=== PATIENT | female | born 1925 | race Caucasian/White ===

== ENCOUNTER 2016-09-05 13:38 | Inpatient (IN) | payer MEDICARE, BC ==
[2016-09-05] MEDS ORDERED: SODIUM CHLORIDE 0.9% 1,000 ML IV STA (14:01)
[2016-09-05 14:34] LABS: ALT 26 U/L (9-52); AST 31 U/L (14-36); Alkaline Phosphatase 158 U/L (38-126); Anion Gap 9 mmol/L; Blood Urea Nitrogen 11 mg/dL (7-17); Calcium 7.8 mg/dL (8.4-10.2); Carbon Dioxide 23 mmol/L (22-30); Chloride 103 mmol/L (98-107); Glucose 96 mg/dL (74-99); Non-African American GFR(MDRD) >60 (>60 ml/min/1.73 sqM); Potassium 3.4 mmol/L (3.5-5.1); Sodium 135 mmol/L (137-145); Total Bilirubin 0.7 mg/dL (0.2-1.3)
[2016-09-05 14:36] LABS: Basophils % (A) 0 %; CH 30.4; CHCM 32.9; Eosinophils # (A) 0.5 k/uL (0-0.7); Eosinophils % (A) 5 %; HCT 30.9 % (34.0-46.0); HDW 2.88; HGB 10.2 gm/dL (11.4-16.0); Luc # (Auto) 0.32; Luc % (Auto) 3; Lymphocytes # (A) 1.2 k/uL (1.0-4.8); Lymphocytes % (A) 10 %; MCH 30.7 pg (25.0-35.0); MCV 92.9 fL (80.0-100.0); Mean Platelet Volume 10.3; Monocytes # (A) 0.7 k/uL (0-1.0); Monocytes % (A) 6 %; Neutrophils # (A) 8.6 k/uL (1.3-7.7); Neutrophils % (A) 76 %; RBC 3.33 m/uL (3.80-5.40); RDW 13.9 % (11.5-15.5); WBC 11.3 k/uL (3.8-10.6); WBC (Perox) 12.01
[2016-09-05] MEDS ORDERED: oxyCODONE-APAP 5-325MG 1 EACH TAB PO STA (14:49)
[2016-09-05 14:57] LABS: Manual Review Performed; RBC Morphology Normal
[2016-09-05 15:10] LABS: Creatine Kinase MB 2.8 ng/mL (0.0-2.4)
[2016-09-05 15:11] LABS: Troponin I 0.099 ng/mL (0.000-0.034)
--- NOTE | 2016-09-05 15:29 | ED ---
GI Bleed HPI - General Chief complaint: GI Bleed Stated complaint: GI Bleed Time Seen by Provider: 09/05/16 13:54 Source: patient, EMS Mode of arrival: EMS Limitations: no limitations - History of Present Illness Initial comments: But she has a history of GI bleed, she has off-and-on blood in her stool for the 6 months she probably got worse over the last 2 months and now she sustained it's bright red to dark stool she seen when she moves her bowels she denies any abdominal pain she is not in any blood thinners. Eyes any fever no chills no diarrhea no constipation no frequency urgency dysuria no history of upper or lower extremity weakness - Related Data Home Medications Medication Instructions Recorded Confirmed Metoprolol Succinate [Toprol XL] 12.5 mg PO BID 02/15/14 09/05/16 DULoxetine HCL [Cymbalta] 30 mg PO DAILY 07/31/15 09/05/16 oxyCODONE-APAP 5-325MG [Percocet 1 tab PO BID 07/31/15 09/05/16 5-325 mg] Gabapentin [Neurontin] 300 mg PO BID 09/05/16 09/05/16 Hydrocortisone Suppository 25 mg RECTAL DAILY 09/05/16 09/05/16 [Anusol-Hc] Levothyroxine Sodium [Synthroid] 25 mcg PO DAILY 09/05/16 09/05/16 Allergies Allergy/AdvReac Type Severity Reaction Status Date / Time codeine Allergy Rash/Hives Verified 09/05/16 14:37 latex Allergy Rash/Hives Verified 09/05/16 14:37 Sulfa (Sulfonamide Allergy Rash/Hives Verified 09/05/16 14:37 Antibiotics) Review of Systems ROS Statement: Those systems with pertinent positive or pertinent negative responses have been documented in the HPI. ROS Other: All systems not noted in ROS Statement are negative. Past Medical History Past Medical History: Cancer, GERD/Reflux, Hyperlipidemia, Hypertension, Osteoarthritis (OA), Thyroid Disorder Additional Past Medical History / Comment(s): irregular heart beat(afib per old chart 2011),migranes, trigenimal nerve pain(jaw),glaucoma,lower partial, upper bridge,pvd,abd hernia,peptic ulcer disease, stress incont,osteoporosis,skin ca, past fx to rt foot, lt femur, up back.abdoulaye lower leg cellulitis, neuropathy History of Any Multi-Drug Resistant Organisms: None Reported Past Surgical History: Appendectomy, Cholecystectomy, Joint Replacement, Orthopedic Surgery, Tonsillectomy Additional Past Surgical History / Comment(s): Lt knee replacement, Lt femur- has plates and screws, vein stripping, partial thyroidectomy(rt side), cataracts Additional Past Anesthesia/Blood Transfusion Reaction / Comment(s): hallucinations after knee surgery and dizziness for 6 months after femur sx. Past Psychological History: Anxiety, Depression Additional Psychological History / Comment(s): was taking cymbalta but did'nt like that way it made her feel so she stopped taking it a year ago. 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 lives with her who has dementia-she is his caregiver. pt gets around by walker and at times a w/c-has neuropathy pain to abdoulaye legs/feet. pt has help from 3 daughters at times but when no help availbale (when daughters are at work) it's tough on her. Smoking Status: Former smoker Past Alcohol Use History: None Reported Additional Past Alcohol Use History / Comment(s): quit smoking in 1981 smoked 1 pd x 25 years Past Drug Use History: None Reported - Past Family History Father Family Medical History: Unable to Obtain Mother Family Medical History: Unable to Obtain General Exam - General Exam Comments Initial Comments: General: The patient is awake and alert, in no distress, and does not appear acutely ill. GCS is 15 Skin: Skin is warm and dry and no rashes or lesions are noted. Looks pale Eye: Pupils are equal, round and reactive to light, extra-ocular movements are intact; there is normal conjunctiva bilaterally. Ears, nose, mouth and throat: There are moist mucous membranes and no oral lesions. Neck: The neck is supple, there is no tenderness or JVD. Cardiovascular: There is a regular rate and rhythm. No murmur, rub or gallop is appreciated. Respiratory: To auscultation bilateral, no wheezing no rhonchi no distress respiratory alegre noticed Gastrointestinal: Soft, non-distended, non-tender abdomen without masses or organomegaly noted. There is no rebound or guarding present. Bowel sounds are unremarkable. Rectal exam mouth was copiously positive noticed red blood per rectum noticed blood on the underpants as well before the exam Back: There is no tenderness to palpation in the midline. There is no obvious deformity. Musculoskeletal: Normal ROM, no tenderness, There is no pedal edema. There is no calf tenderness or swelling. No cords were appreciated. Neurological: CN II-XII intact, Cranial nerves III through XII are intact. There are no obvious motor or sensory deficits. Coordination appears grossly intact. Speech is normal. Psychiatric: Cooperative, appropriate mood & affect, normal judgment. Limitations: no limitations Course Vital Signs 09/05/16 09/05/16 09/05/16 13:39 14:19 15:34 Temperature 98.2 F Pulse Rate 87 83 100 Respiratory 16 16 16 Rate Blood Pressure 98/53 131/62 O2 Sat by Pulse 98 99 100 Oximetry EKG is normal sinus rhythm there are some premature atrial complexes ventricular rate is 85 RI interval is 144 QRS duration is 92 QT/QTc is 376/447 review of this EKG shows low voltage complexes apart from that don't see any ST elevation or ST depression noticed some T-wave flattening in aVF She has obvious leading from the rectum, hemoglobin is 10.2 and a troponin is 0.099 I DL E I would not go ahead and transfuse the patient only with a 1 unit of packed red cells ,will do the serial H&H, will consult the GI as well as cardiology considering her GI bleed and elevated troponin I discussed that with the Dr. Huynh who is covering Dr. Funez prescription today he agreed to that plan Medical Decision Making - Lab Data Result diagrams: 09/05/16 13:55 09/05/16 13:55 Lab Results 09/05/16 09/05/16 09/05/16 Range/Units 13:55 13:55 13:55 WBC 11.3 H (3.8-10.6) k/uL RBC 3.33 L (3.80-5.40) m/uL Hgb 10.2 L (11.4-16.0) gm/dL Hct 30.9 L (34.0-46.0) % MCV 92.9 (80.0-100.0) fL MCH 30.7 (25.0-35.0) pg MCHC 33.0 (31.0-37.0) g/dL RDW 13.9 (11.5-15.5) % Plt Count 84 L (150-450) k/uL Neutrophils % 76 % Lymphocytes % 10 % Monocytes % 6 % Eosinophils % 5 % Basophils % 0 % Neutrophils # 8.6 H (1.3-7.7) k/uL Lymphocytes # 1.2 (1.0-4.8) k/uL Monocytes # 0.7 (0-1.0) k/uL Eosinophils # 0.5 (0-0.7) k/uL Basophils # 0.0 (0-0.2) k/uL Manual Slide Review Performed RBC Morphology Normal APTT (22.0-30.0) sec Sodium 135 L (137-145) mmol/L Potassium 3.4 L (3.5-5.1) mmol/L Chloride 103 (98-107) mmol/L Carbon Dioxide 23 (22-30) mmol/L Anion Gap 9 mmol/L BUN 11 (7-17) mg/dL Creatinine 0.64 (0.52-1.04) mg/dL Est GFR (MDRD) Af Amer >60 (>60 ml/min/1.73 sqM) Est GFR (MDRD) Non-Af >60 (>60 ml/min/1.73 sqM) Glucose 96 (74-99) mg/dL Calcium 7.8 L (8.4-10.2) mg/dL Total Bilirubin 0.7 (0.2-1.3) mg/dL AST 31 (14-36) U/L ALT 26 (9-52) U/L Alkaline Phosphatase 158 H (38-126) U/L Total Creatine Kinase 110 (30-135) U/L CK-MB (CK-2) 2.8 H* (0.0-2.4) ng/mL CK-MB (CK-2) Rel Index 2.5 Troponin I 0.099 H* (0.000-0.034) ng/mL Total Protein 6.0 L (6.3-8.2) g/dL Albumin 2.8 L (3.5-5.0) g/dL Stool Occult Blood (Negative) Blood Type Blood Type Recheck Antibody Screen Spec Expiration Date 09/05/16 09/05/16 09/05/16 Range/Units 13:55 13:55 14:15 WBC (3.8-10.6) k/uL RBC (3.80-5.40) m/uL Hgb (11.4-16.0) gm/dL Hct (34.0-46.0) % MCV (80.0-100.0) fL MCH (25.0-35.0) pg MCHC (31.0-37.0) g/dL RDW (11.5-15.5) % Plt Count (150-450) k/uL Neutrophils % % Lymphocytes % % Monocytes % % Eosinophils % % Basophils % % Neutrophils # (1.3-7.7) k/uL Lymphocytes # (1.0-4.8) k/uL Monocytes # (0-1.0) k/uL Eosinophils # (0-0.7) k/uL Basophils # (0-0.2) k/uL Manual Slide Review RBC Morphology APTT 28.3 (22.0-30.0) sec Sodium (137-145) mmol/L Potassium (3.5-5.1) mmol/L Chloride (98-107) mmol/L Carbon Dioxide (22-30) mmol/L Anion Gap mmol/L BUN (7-17) mg/dL Creatinine (0.52-1.04) mg/dL Est GFR (MDRD) Af Amer (>60 ml/min/1.73 sqM) Est GFR (MDRD) Non-Af (>60 ml/min/1.73 sqM) Glucose (74-99) mg/dL Calcium (8.4-10.2) mg/dL Total Bilirubin (0.2-1.3) mg/dL AST (14-36) U/L ALT (9-52) U/L Alkaline Phosphatase (38-126) U/L Total Creatine Kinase (30-135) U/L CK-MB (CK-2) (0.0-2.4) ng/mL CK-MB (CK-2) Rel Index Troponin I (0.000-0.034) ng/mL Total Protein (6.3-8.2) g/dL Albumin (3.5-5.0) g/dL Stool Occult Blood Positive H (Negative) Blood Type AB Positive Blood Type Recheck No Antibody Screen NEGATIVE Spec Expiration Date 09/08/2016 - 1309 Disposition Clinical Impression: GI bleed, Elevated troponin, Hypotension, Thrombocytopenia Disposition: ADMITTED IP TO THIS [facility] Condition: Good Referrals: Zander Curtis MD [Primary Care Provider] - 1-2 days
[2016-09-05] MEDS ORDERED: NALOXONE 0.4 MG/ML 1 ML VIAL IV PRN (15:49)
[2016-09-05] MEDS ORDERED: ACETAMINOPHEN TAB 325 MG TAB PO PRN (15:49)
--- NOTE | 2016-09-05 16:10 | XR ---
EXAMINATION TYPE: XR chest 1V DATE OF EXAM: 09/05/2016 4:06 PM COMPARISON: 07/31/2015 HISTORY: 89-year-old female with pain, blood in stool for a few days, hypertension TECHNIQUE: Single frontal view of the chest is obtained. FINDINGS: Heart remains borderline enlarged. There is rightward patient rotation altering the normal cardial me diastinal contours. Diffuse interstitial prominence with strandy areas of scarring and chronic inters titial changes are redemonstrated. Mild hyperinflation. No terri consolidation or significant pleural effusion. Prominent skinfolds project on both sides. IMPRESSION: Limited rotated exam with skin folds projecting on both sides. There are chronic changes, possible un derlying COPD. No definite acute process.
--- NOTE | 2016-09-05 16:12 | XR ---
EXAMINATION TYPE: XR KUB DATE OF EXAM: 09/05/2016 4:06 PM CLINICAL DATA: 89-year-old female with pain and blood in stool for a few days, [facility] COMPARISON: 02/15/2014 FINDINGS: Proximal left femoral fixation. Degenerated dextroconvex scoliosis. There is scattered air seen withi n transverse and distal colon as well as small bowel loops. No abnormal bowel dilatation. Supine imag ing limited for assessment of free air. No significant stool burden seen. Cholecystectomy clips. IMPRESSION: Nonspecific, nonobstructive bowel gas pattern. No significant stool burden. Supine imaging limited fo r assessment of free air.
--- NOTE | 2016-09-05 16:16 | XR ---
EXAMINATION TYPE: XR knee 4V LT DATE OF EXAM: 09/05/2016 4:06 PM COMPARISON: 06/08/2012 HISTORY: 89 year-old female left knee pain and swelling TECHNIQUE: 4 views FINDINGS: Images show left total knee arthroplasty. Both distal femoral and proximal tibial components of the p rosthesis appear well seated without periprosthetic fracture. No significant loosening is seen. No si gnificant knee joint effusion. Merchant's view shows some narrowing along the lateral prosthetic facets of the patellofemoral compar tment which may be on a projectional basis. No acute fracture or dislocation. IMPRESSION: 1. The merchants view shows some narrowing along the lateral prosthetic facets of the patellofemoral compartment. This may be on a projectional basis. Clinically correlate for possible accelerated plast ic liner wear. 2. Otherwise, uncomplicated appearance to the left total knee arthroplasty.
[2016-09-05] MEDS: LIDOCAINE 4% CREAM 5 GM TUBE TOPICAL PRN (18:54)
[2016-09-05] MEDS ORDERED: SODIUM CHLORIDE 0.9% 1,000 ML IV ONE (19:09)
[2016-09-05 19:56] LABS: Glucose,Whole Blood 95 mg/dL (75-99)
[2016-09-05] MEDS: GABAPENTIN 300 MG CAP PO SCH (20:30)
[2016-09-05] MEDS: METOPROLOL SUCCINATE (ER) 25 MG TAB.ER.24H PO SCH (20:30)
[2016-09-05] MEDS: PANTOPRAZOLE 40 MG/10 ML VIAL IVP SCH (20:31)
[2016-09-05] MEDS: SODIUM CHLORIDE 0.9% 1,000 ML IV SCH (20:31)
[2016-09-05] MEDS ORDERED: oxyCODONE-APAP 5-325MG 1 EACH TAB PO SCH (21:00)
--- NOTE | 2016-09-05 22:29 | US ---
EXAMINATION TYPE: US pelvic complete DATE OF EXAM: 09/05/2016 10:17 PM COMPARISON: NONE CLINICAL HISTORY: r/o vaginal bleeding. 89 year old ICU patient with GI bleed, RN suspects vaginal bl eeding also TECHNIQUE: TA Date of LMP: 35+years ago EXAM MEASUREMENTS: Uterus: 8.6 x 7.4 x 5.6cm Endometrial Stripe: Not visualized Right Ovary: Not visualized Left Ovary: Not visualized TECHNOLOGIST IMPRESSION: due to patient age and patient request, TV approach was not used 1. Uterus: Anteverted complex fluid collection seen within uterus that most likely represents bloo d, mobile internal debris noted, 3.8cm shadowing echogenic structure seen in posterior lower uterine segment 2. Endometrium: unable to visualize due to fluid collection 3. Right Ovary: not seen due to atrophy and bowel gas 4. Left Ovary: not seen due to atrophy and bowel gas 5. Bilateral Adnexa: wnl 6. Posterior cul-de-sac: wnl IMPRESSION: There is complex fluid that is filling the endometrial cavity of the uterus. This measure s 7 x 5 cm. This could relate to pyometra or hematometra. No adnexal mass. Tumor cannot be excluded.
[2016-09-05 23:00] LABS: CH 30.1; CHCM 31.5; HCT 34.6 % (34.0-46.0); HDW 3.19; HGB 11.2 gm/dL (11.4-16.0); Hypochromasia Slight; MCH 31.2 pg (25.0-35.0); MCHC 32.3 g/dL (31.0-37.0); MCV 96.5 fL (80.0-100.0); Mean Platelet Volume 10.2; RBC 3.59 m/uL (3.80-5.40); RDW 14.3 % (11.5-15.5); WBC 12.3 k/uL (3.8-10.6)
[2016-09-05 23:16] LABS: Appearance,Urine Clear (Clear); Bilirubin,Urine Negative (Negative); Glucose,Urine (UA) Negative (Negative); Ketones,Urine Negative (Negative); Leukocyte Esterase,Urine Negative (Negative); Mucus,Urine Rare /hpf; Nitrite,Urine Negative (Negative); Particle Count 1701; Protein,Urine Trace (Negative); RBC,Urine 4 /hpf (0-5); Specific Gravity,Urine 1.011 (1.001-1.035); UA Billing (MACRO vs. MICRO) MICRO; Urobilinogen,Urine <2.0 mg/dL (<2.0); WBC,Urine <1 /hpf (0-5)
[2016-09-05] MEDS: oxyCODONE-APAP 10-325MG 1 EACH TAB PO PRN (23:32)
[2016-09-05] MEDS ORDERED: Magnesium Replacement Protocol 1 EACH MISC MISCELLANE PRN (23:40)
[2016-09-05] MEDS ORDERED: Potassium Replacement Protocol 1 EACH MISC MISCELLANE PRN (23:41)
[2016-09-05] MEDS: MAGNESIUM SULFATE-D5W PMX 1 GM in DEXTROSE/WATER 1 100ML.BAG IVPB SCH (23:49)
[2016-09-05] MEDS: POTASSIUM CHLORIDE ER 20 MEQ TAB.ER PO SCH (23:50)
[2016-09-06] MEDS: MAGNESIUM SULFATE-D5W PMX 1 GM in DEXTROSE/WATER 1 100ML.BAG IVPB SCH (00:32)
[2016-09-06] MEDS: POTASSIUM CHLORIDE ER 20 MEQ TAB.ER PO SCH (00:32)
[2016-09-06] MEDS: oxyCODONE-APAP 10-325MG 1 EACH TAB PO PRN ×3 (02:45→20:32)
[2016-09-06] MEDS: SODIUM CHLORIDE 0.9% 1,000 ML IV SCH ×4 (02:45→21:06)
[2016-09-06] MEDS: MORPHINE SULFATE 4 MG/ML SYRINGE IVP PRN ×2 (04:40→09:16)
[2016-09-06 04:55] LABS: CH 30.7; CHCM 33.5; HCT 33.6 % (34.0-46.0); HDW 3.37; HGB 11.1 gm/dL (11.4-16.0); MCH 30.7 pg (25.0-35.0); MCHC 33.1 g/dL (31.0-37.0); MCV 92.6 fL (80.0-100.0); Mean Platelet Volume 9.7; RBC 3.63 m/uL (3.80-5.40); RDW 14.5 % (11.5-15.5); WBC 13.1 k/uL (3.8-10.6)
[2016-09-06 05:17] LABS: ALT 31 U/L (9-52); AST 28 U/L (14-36); Alkaline Phosphatase 143 U/L (38-126); Anion Gap 8 mmol/L; Blood Urea Nitrogen 7 mg/dL (7-17); Calcium 7.1 mg/dL (8.4-10.2); Carbon Dioxide 21 mmol/L (22-30); Chloride 107 mmol/L (98-107); Glucose 105 mg/dL (74-99); Magnesium 2.2 mg/dL (1.6-2.3); Non-African American GFR(MDRD) >60 (>60 ml/min/1.73 sqM); Phosphorous 2.6 mg/dL (2.5-4.5); Potassium 3.6 mmol/L (3.5-5.1); Sodium 136 mmol/L (137-145); Total Bilirubin 0.9 mg/dL (0.2-1.3); Total Protein 5.4 g/dL (6.3-8.2)
[2016-09-06 05:31] LABS: Creatine Kinase MB 1.6 ng/mL (0.0-2.4)
[2016-09-06 05:40] LABS: Troponin I 0.114 ng/mL (0.000-0.034)
[2016-09-06] MEDS ORDERED: Potassium Replacement Protocol 1 EACH MISC MISCELLANE PRN (05:41)
[2016-09-06] MEDS: LEVOTHYROXINE 25 MCG TAB PO SCH (06:15)
[2016-09-06] MEDS: POTASSIUM CHLORIDE 10 MEQ, LIDOCAINE 2% INJ 10 MG in SODIUM CHLORIDE 0.9% 100 ML IV SCH ×2 (06:15→06:53)
--- NOTE | 2016-09-06 09:23 | CONS ---
DATE OF CONSULTATION: Attending: Dr. Curtis. Mrs. Jose is an 89-year-old female who presented with symptoms of GI bleeding. She has no prior documented history of ischemic heart disease. According to her, she has a history of arrhythmia. She has been followed in the past by Dr. Daniel. She has been having lower GI bleeding with bright blood and because of that, came into the emergency room. Subsequently admitted to the telemetry and transferred to the ICU. She is complaining for abdominal discomfort. She denies any chest pain. Her breathing has been stable. She denies any dizziness or palpitation. She denies any PND, orthopnea, or peripheral edema. She had no recent cardiac workup, but prior admission in 2014 revealed a preserved left ventricular size and systolic function. Her coronary risk factors are negative for diabetes. She is a nonsmoker. No hyperlipidemia. Her medications include metoprolol succinate 12.5 mg twice a day, levothyroxine, Neurontin and Cymbalta. REVIEW OF SYSTEMS: RESPIRATORY SYSTEM: She has dyspnea on exertion. She is limited in her physical activity. She has no history of obstructive lung disease. GI SYSTEM: She had GI bleeding as noted. She is nauseated with abdominal pain, but no vomiting. SYSTEM: No dysuria or hematuria. NERVOUS SYSTEM: No history of stroke or seizure. PHYSICAL EXAMINATION: She is an 89-year-old female, alert, in no apparent distress. Blood pressure 124/70 with a heart in the 80s. HEAD: Normocephalic. EYES: Sclerae anicteric. NECK: Good upstroke. No bruit. No jugular venous distention. LUNGS: Clear to auscultation. HEART: Regular rate and rhythm. S1, S2, no S3, with holosystolic murmur at the apex. No diastolic murmur. No rub. ABDOMEN: Soft, mild tenderness. Positive bowel sounds. No organomegaly. EXTREMITIES: No edema. LAB DATA: On admission, her hemoglobin is 10.2. BUN and creatinine 11 and 0.64. Her troponin 0.099 and 0.114. She is heme positive. Her EKG shows a sinus mechanism, rate of 85, RSR prime with no acute changes. Her chest x-ray revealed no acute infiltrate. Her pelvis ultrasound revealed a complex fluid collection within uterus most likely represents blood . Her ( ) abdomen revealed no evidence of significant abnormalities. IMPRESSION: 1. Gastrointestinal bleeding appears to be low bleeding, etiology unclear. Workup in progress. 2. Minimally elevated troponin most likely represents a type 2 event. I do not believe we are dealing with a primary ischemic event. 3. History of arrhythmia, although the patient is in sinus mechanism at this time. 4. History of hypothyroidism. RECOMMENDATIONS: From the cardiac standpoint, I would not recommend any aggressive cardiac workup. I will obtain echocardiogram to re-evaluate her left ventricular systolic function. Will await the input of the GI service. Depending on her progress, further recommendation will be made. Thank you for this consult. We will follow with you.
[2016-09-06] MEDS: HYDROCORTISONE SUPPOSITORY 25 MG SUPP RECTAL SCH (10:29)
[2016-09-06] MEDS: GABAPENTIN 300 MG CAP PO SCH ×2 (10:30→20:32)
[2016-09-06] MEDS: DULoxetine HCL 30 MG CAPSULE.DR PO SCH (10:30)
[2016-09-06] MEDS: METOPROLOL SUCCINATE (ER) 25 MG TAB.ER.24H PO SCH ×2 (10:30→22:40)
[2016-09-06] MEDS: PANTOPRAZOLE 40 MG/10 ML VIAL IVP SCH ×2 (10:30→20:32)
--- NOTE | 2016-09-06 12:44 | P.OBCN ---
History of Present Illness Consult date: 09/06/16 Requesting physician: Joellen Silva Reason for consult: other Chief complaint: Possible vaginal bleeding and abnormal pelvic ultrasound History of present illness: This patient is a pleasant 89-year-old 4 para 4 female who is recently admitted to [facility] ICU due to gastrointestinal bleeding. Patient was admitted with complaints of blood in her stool for approximately 6 months that has worsened for the last 2 months. Patient was transfused 1 unit of blood due to concerns of this bleeding, however the nurse noted that she may be having some blood from the vagina. Patient's past gynecologic history is such that she saw Dr. Barlow initially in September 2013 for an abnormal pelvic ultrasound. Patient was referred to Dr. Barlow for a 6 x 7 cm large endometrial fluid collection. At that time patient underwent an attempted D&C however this was complicated by cervical stenosis and subsequent uterine perforation at the time of D&C. Due to the perforation no tissue was obtained for diagnoses of the fluid or endometrial thickening, so patient was subsequently referred to T[facility] for further evaluation and treatment. Patient was seen by Dr. Garrison in March 2014 and at that time repeat ultrasound showed similar fluid collection and an attempted dilation of her cervix was done in the office without success. Patient did not have any vaginal bleeding at this time. They initial ultrasound was done for pelvic pain. Dr. Garrison did not have significant concerns for neoplasm and therefore recommended the patient follow up with him in approximately 3 months for repeat pelvic ultrasound. Patient is uncertain as to what happened however it does not appear that she followed up until most recently where she saw Dr. Garrison's and apparently is scheduled for an attempted repeat cervical dilation and drainage of this fluid. The patient and her daughter states that this is going to be done on September 19. I am being consulted to ensure that the bleeding the patient is currently having is not uterine in nature. The nurse indicates the patient has had approximately 4 pads of blood mixed with mucus and it does appear to be GI in nature, although there was some concern if any was coming from the vagina. Review of Systems Gastrointestinal: Reports as per HPI Genitourinary: Reports as per HPI Menstruation: Reports postmenopausal Past Medical History Past Medical History: Cancer, GERD/Reflux, GI Bleed, Hyperlipidemia, Hypertension, Osteoarthritis (OA), Thyroid Disorder Additional Past Medical History / Comment(s): irregular heart beat(afib per old chart 2012),migranes, trigenimal nerve pain(jaw),PER PT LT EYE glaucoma,lower partial, upper bridge,pvd,abd hernia,peptic ulcer disease, stress incont- WEARS A BRIEF,osteoporosis,skin ca, past fx to rt foot, lt femur, up back.abdoulaye lower leg cellulitis, neuropathy, MACULAR DEGENERATION, uses a w/c only able to walk very short distance, has bsc at home. History of Any Multi-Drug Resistant Organisms: Unobtainable Past Surgical History: Appendectomy, Cholecystectomy, Joint Replacement, Orthopedic Surgery, Tonsillectomy Additional Past Surgical History / Comment(s): Lt knee replacement, Lt femur- has plates and screws, vein stripping, partial thyroidectomy(rt side), cataracts Additional Past Anesthesia/Blood Transfusion Reaction / Comm: hallucinations after knee surgery and dizziness for 6 months after femur sx. 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 pt gets around by walker very short distances and at times a w/c-has neuropathy pain to abdoulaye legs/feet. pt has help from 3 daughters and comfort keepers. Smoking Status: Former smoker Past Alcohol Use History: Occasional Additional Past Alcohol Use History / Comment(s): quit smoking in 1981 smoked 1 pd x 25 years, occ glass of wine. Past Drug Use History: None Reported - Past Family History Father Family Medical History: Myocardial Infarction ([place]) Mother Family Medical History: Pneumonia Additional Family Medical History / Comment(s): mom from pneumonia when pt was age 8. Medications and Allergies Home Medications Medication Instructions Recorded Confirmed Type Metoprolol Succinate [Toprol XL] 12.5 mg PO BID 02/15/14 09/05/16 History DULoxetine HCL [Cymbalta] 30 mg PO DAILY 07/31/15 09/05/16 History oxyCODONE-APAP 5-325MG [Percocet 1 tab PO BID 07/31/15 09/05/16 History 5-325 mg] Gabapentin [Neurontin] 300 mg PO BID 09/05/16 09/05/16 History Hydrocortisone Suppository 25 mg RECTAL DAILY 09/05/16 09/05/16 History [Anusol-Hc] Levothyroxine Sodium [Synthroid] 25 mcg PO DAILY 09/05/16 09/05/16 History Allergies Allergy/AdvReac Type Severity Reaction Status Date / Time codeine Allergy Rash/Hives Verified 09/05/16 14:37 latex Allergy Rash/Hives Verified 09/05/16 14:37 Sulfa (Sulfonamide Allergy Rash/Hives Verified 09/05/16 14:37 Antibiotics) Exam - Vital Signs Vital signs: Vital Signs Temp Pulse Pulse Resp BP BP Pulse Ox 09/06/16 12:00 98.0 F 85 21 115/71 92 L 09/06/16 11:00 81 19 116/59 95 09/06/16 10:00 84 21 115/65 95 09/06/16 09:00 90 20 110/67 97 09/06/16 08:00 98.1 F 81 96 21 97/75 96 09/06/16 07:00 88 19 124/70 90 L 09/06/16 06:30 86 19 105/58 91 L 09/06/16 06:00 84 20 119/58 91 L 09/06/16 05:30 86 20 119/61 89 L 09/06/16 05:00 86 30 H 129/70 92 L 09/06/16 04:30 83 24 126/74 95 09/06/16 04:00 97.0 F L 83 96 23 132/75 97 09/06/16 03:30 90 25 H 128/64 91 L 09/06/16 03:00 87 25 H 129/70 95 09/06/16 02:30 82 22 111/62 96 09/06/16 02:00 88 24 116/70 92 L 09/06/16 01:30 90 24 139/68 95 09/06/16 01:00 95 24 123/62 92 L 09/06/16 00:30 93 16 127/72 93 L 09/06/16 00:00 98.0 F 116 H 96 24 132/70 92 L 09/05/16 23:30 91 50 H 134/73 95 09/05/16 23:09 90 14 106/62 96 09/05/16 23:00 90 22 106/62 95 09/05/16 22:30 93 34 H 132/73 91 L 09/05/16 22:00 100 24 128/68 95 09/05/16 21:30 97 22 122/69 96 09/05/16 21:23 96 16 09/05/16 21:20 115 H 19 124/64 96 09/05/16 21:10 95 18 124/64 98 09/05/16 21:00 96 31 H 124/64 93 L 09/05/16 20:50 92 23 117/70 96 09/05/16 20:40 97.9 F 96 28 H 117/70 94 L 09/05/16 20:30 99 39 H 125/64 93 L 09/05/16 20:20 111 H 28 H 120/66 93 L 09/05/16 20:10 86 21 120/66 96 09/05/16 20:00 84 15 112/53 98 09/05/16 19:53 99 09/05/16 18:39 97.4 F L 91 16 91/61 97 09/05/16 18:09 97.3 F L 92 16 97/46 97 09/05/16 17:59 97.7 F 93 16 119/65 96 09/05/16 17:20 97.5 F L 88 16 104/54 95 09/05/16 16:11 97.9 F 92 14 122/73 97 Intake and Output 09/05/16 09/06/16 09/06/16 22:59 06:59 14:59 Intake Total 1615 1340 1000 Output Total 150 335 325 Balance 1465 1005 675 Intake: IV 30 40 750 Invasive Line 1 30 40 Sodium Chloride 0.9% 1, 750 000 ml @ 150 mls/hr IV . Q6H40M SPENSER Rx#:[id number] Intake, IV Titration 1150 1300 250 Amount Magnesium Sulfate-D5w Pmx 100 1 gm In Dextrose/Water 1 100ml.bag @ 100 mls/hr IVPB Q1H SPENSER Rx#: [id number] Potassium Chloride 10 meq 100 Lidocaine 2% Inj 10 mg In Sodium Chloride 0.9% 100 ml @ 100 mls/hr IV Q1HR SPENSER Rx#:[id number] Sodium Chloride 0.9% 1, 150 1200 150 000 ml @ 150 mls/hr IV . Q6H40M SPENSER Rx#:[id number] Sodium Chloride 0.9% 1, 1000 000 ml @ 999 mls/hr IV . Q1H1M ONE Rx#:[id number] Oral 125 Blood Product 310 Rc As-1 Unit 310 [id number] Output: Urine 150 335 325 Other: Voiding Method Bedside Commode Indwelling Catheter Indwelling Catheter Diaper # Bowel Movements 1 Weight 52.2 kg - OBG Physical Exam Vulva: both: normal Vagina: atrophic mucosa Cervix: Cervix is stenotic and flush with the vagina. There is no blood visualized on speculum exam. A gloved finger reveals only a trace amount of blood when withdrawn from the vagina, most likely rectal contamination. Uterus: normal size Results Pelvic ultrasound yesterday showed a 5 x 7 cm fluid collection within the uterus without adnexal masses. Result Diagrams: 09/06/16 04:41 09/06/16 04:41 Abnormal Lab Results - Last 24 Hours (Table) 09/05/16 09/05/16 09/06/16 Range/Units 22:39 23:05 04:41 WBC 12.3 H (3.8-10.6) k/uL RBC 3.59 L (3.80-5.40) m/uL Hgb 11.2 L (11.4-16.0) gm/dL Hct (34.0-46.0) % Plt Count 67 L (150-450) k/uL Sodium 136 L (137-145) mmol/L Carbon Dioxide 21 L (22-30) mmol/L Creatinine 0.50 L (0.52-1.04) mg/dL Glucose 105 H (74-99) mg/dL Calcium 7.1 L (8.4-10.2) mg/dL Alkaline Phosphatase 143 H (38-126) U/L Troponin I (0.000-0.034) ng/mL Total Protein 5.4 L (6.3-8.2) g/dL Albumin 2.4 L (3.5-5.0) g/dL Urine Protein Trace H (Negative) Urine Blood Trace H (Negative) Urine Mucus Rare H (None) /hpf 09/06/16 09/06/16 Range/Units 04:41 04:41 WBC 13.1 H (3.8-10.6) k/uL RBC 3.63 L (3.80-5.40) m/uL Hgb 11.1 L (11.4-16.0) gm/dL Hct 33.6 L (34.0-46.0) % Plt Count 69 L (150-450) k/uL Sodium (137-145) mmol/L Carbon Dioxide (22-30) mmol/L Creatinine (0.52-1.04) mg/dL Glucose (74-99) mg/dL Calcium (8.4-10.2) mg/dL Alkaline Phosphatase (38-126) U/L Troponin I 0.114 H* (0.000-0.034) ng/mL Total Protein (6.3-8.2) g/dL Albumin (3.5-5.0) g/dL Urine Protein (Negative) Urine Blood (Negative) Urine Mucus (None) /hpf Microbiology - Last 24 Hours (Table) 09/05/16 23:05 Urine Culture - Preliminary Urine,Catheterized Assessment and Plan (1) Fluid in endometrial cavity Narrative/Plan: This is a pleasant 89-year-old 4 para 4 female with what appears to be a chronic 5 x 7 cm endometrial fluid collection. She has had 2 attempts at dilating her stenotic cervix and draining this fluid for tissue confirmation however this has been unsuccessful in the past. Tanya' initial impression is that this is not neoplastic in nature, and the fact that this has been the same size for approximately 3 years would be consistent with a benign endometrial fluid collection secondary to cervical stenosis. I did leave a copy of Tanya consultation on this patient's chart. At this time there is no evidence of significant vaginal bleeding and it appears her bleeding is gastrointestinal in etiology. I believe the blood that was noticed vaginally most likely was contamination. The cervix is still stenotic which is not letting any of the fluid out of the uterine cavity. Regardless, the patient does have an appointment for on September 19 with Tanya in a another attempt to drain the fluid. 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 This endometrial fluid collection appears to be an incidental finding that is unrelated to her gastrointestinal bleeding. Thank you very much for this consultation. Status: Chronic
--- NOTE | 2016-09-06 13:06 | CONS ---
DATE OF CONSULTATION: 09/06/2016 REASON FOR CONSULTATION: Rectal bleeding. HISTORY OF PRESENT ILLNESS: The patient is an 89-year-old pleasant lady who was admitted to the hospital with intermittent rectal bleeding/vaginal bleeding for the last 1 to 2 weeks duration. The patient states that every time she has to urinate she started noticing small amount of blood in the commode and towards the last 2 days she even saw some clots with bowel movements. She is not very clear if the bleeding is happening from the vaginal area or in her stool; however, symptoms continue to progressively get worse and yesterday morning she had more bleeding, hence, came into the emergency room and subsequently admitted to the hospital for further evaluation. She is complaining of some lower abdominal pain. She denies any nausea, vomiting. Since being in the hospital, she had 4 bowel movements most of them are loose in consistency with small amount of pinkish tinge around the bowel movement. Her initial hemoglobin was 11 g/dL and continues to remain stable. She reports no nausea or vomiting. She recalls having a colonoscopy about a year ago by Dr. Mcdonald, which according to her was within normal limits. Her past medical history is significant for hypertension, hypothyroidism, chronic back pain, anxiety, depression. MEDICATIONS AT HOME: Cymbalta, Neurontin, Anusol-HC suppository, Synthroid, Toprol and Percocet. Allergies to SULFA, LATEX and CODEINE. SOCIAL HISTORY: No smoking or alcohol use. PAST SURGICAL HISTORY: Appendectomy, cholecystectomy, tonsillectomy, joint replacement. FAMILY HISTORY: Not pertinent. REVIEW OF SYSTEMS: CARDIOPULMONARY: She denies any chest pain or shortness of breath. GENITOURINARY: No dysuria or hematuria. MUSCULOSKELETAL: Unremarkable. SKIN: Unremarkable. ENDOCRINE: Unremarkable. PSYCHIATRIC: Unremarkable. NEUROLOGY: Unremarkable. ENT/VISION: Unremarkable. CONSTITUTIONAL: No recent weight loss. No fever, chills, night sweats. On physical examination, she appears comfortable in no apparent distress. Vital signs are stable. Blood pressure is 124/70, pulse rate 88, temperature 98.1. HEENT examination unremarkable. Conjunctivae pink. Sclerae anicteric. Oral cavity, no lesions. NECK: No JVD or lymph node enlargement. Chest was clear to auscultation. HEART: Regular rate and rhythm. ABDOMEN: Soft. Bowel sounds are positive. No organomegaly. It was slightly tender in the suprapubic area. EXTREMITIES: No pedal edema. SKIN: No rashes. NEURO: Alert and oriented x3. No focal deficits. Labs done at the time of admission to the hospital: WBC 12.3, hemoglobin 11.2. Today, hemoglobin 11.1. Basic metabolic panel is within normal limits. Troponin was slightly elevated 0.09. ALT, AST, and alk phos is normal. Urinalysis was negative. Stool occult blood was positive. IMPRESSION: This is a lady who presents with rectal bleeding/vaginal bleeding for the last 2 to 3 weeks duration associated with lower abdominal discomfort. At this time the patient clearly states that the bleeding initially started about 2 or 3 weeks ago. It was mostly vaginal in nature, but, however, in the last 2 days she started seeing some blood clots in the stool. She recalls having a colonoscopy by Dr. Mcdonald about a year or two years ago and according to her was within normal limits. She did have a pelvic ultrasound done yesterday that showed a 7 x 5 cm complex fluid ( ) in the endometrial cavity possibility of blood versus other lesions could not be excluded. IMPRESSION: 1. Rectal bleeding/vaginal bleeding, at this time it is unclear as to the exact site of bleeding, but since the patient has been in the hospital no obvious rectal bleeding was witnessed by the nursing staff. Her hemoglobin remains stable at 11 g/dL. As per the patient she had a colonoscopy about [address] Mcdonald, which was within normal limits, but the report is not available at the time of this dictation. 2. Questionable vaginal bleeding. Pelvic ultrasound showed 7 x 5 cm complex fluid collection in the uterus otherwise it was unremarkable. 3. Mild anemia. 4. Slightly elevated troponin. Cardiology has been consulted. RECOMMENDATIONS: 1. At this time, will obtain COLD MEAT CHEF consultation. 2. I will also request for the colonoscopy report that was done 2 years ago at [facility] in the meantime. 3. Continue with clear liquid diet and further recommendations will follow based on after reviewing the medical records. Thank you for this consultation.
--- NOTE | 2016-09-06 14:53 | ECHOF ---
Referral Reason:troponin abn MEASUREMENTS -------- HEIGHT: 167.6 cm WEIGHT: 52.2 kg BP: 124/70 RVIDd: 3.2 cm (< 3.3) IVSd: 0.9 cm (0.6 - 1.1) LVIDd: 3.5 cm (3.9 - 5.3) LVPWd: 1.0 cm (0.6 - 1.1) IVSs: 1.3 cm LVIDs: 2.3 cm LVPWs: 1.5 cm LA Diam: 3.7 cm (2.7 - 3.8) LAESV Index (A-L): 48.95 ml/m Ao Diam: 3.0 cm (2.0 - 3.7) AV Cusp: 2.0 cm (1.5 - 2.6) MV EXCURSION: 11.562 mm (> 18.000) MV EF SLOPE: 71 mm/s (70 - 150) EPSS: 0.6 cm MV E Mike: 1.04 m/s MV DecT: 184 ms MV A Mike: 0.88 m/s MV E/A Ratio: 1.17 RAP: 5.00 mmHg RVSP: 57.00 mmHg FINDINGS -------- Sinus rhythm with extra systolic beats. This was a technically good study. The left ventricular size is normal. Left ventricular wall thickness is normal. Overall left ventricular systolic function is normal with, an EF between 55 - 60 %. The right ventricle is normal in size. LA is severely dilated >40 ml/m2 The right atrium is normal in size. Aortic valve is trileaflet and is mildly thickened. The mitral valve leaflets are moderately thickened. Mild mitral annular calcification present. Moderate mitral regurgitation is present. There is mild mitral valve prolapse. Mild prolapse of the posterior mitral valve leaflet. Severe tricuspid regurgitation present. There is moderate to severe pulmonary hypertension. The right ventricular systolic pressure, as measured by Doppler, is 57.00mmHg. Trace/mild (physiologic) pulmonic regurgitation. The aortic root size is normal. Normal inferior vena cava with normal inspiratory collapse consistent with estimated right atrial pressure of 5 mmHg. There is no pericardial effusion. CONCLUSIONS -------- 1. Sinus rhythm with extra systolic beats. 2. Moderate mitral regurgitation is present. 3. Mild prolapse of the posterior mitral valve leaflet. 4. Severe tricuspid regurgitation present. 5. There is moderate to severe pulmonary hypertension. 6. The right ventricular systolic pressure, as measured by Doppler, is 57.00mmHg. 7. Trace/mild (physiologic) pulmonic regurgitation. 8. The aortic root size is normal. 9. Normal inferior vena cava with normal inspiratory collapse consistent with estimated right atrial pressure of 5 mmHg. 10. There is no pericardial effusion. 11. This was a technically good study. 12. Left ventricular wall thickness is normal. 13. Overall left ventricular systolic function is normal with, an EF between 55 - 60 %. 14. The right ventricle is normal in size. 15. LA is severely dilated >40 ml/m2 16. The right atrium is normal in size. 17. Aortic valve is trileaflet and is mildly thickened. 18. The mitral valve leaflets are moderately thickened. MIDDLE SCHOOL COMBINATION TEACHER: Radha Hanson RDCS
--- NOTE | 2016-09-06 17:30 | HP ---
DATE OF ADMISSION: Patient is an 89-year-old pleasant female who came in with complaints of gastrointestinal bleed. Patient is poor historian. I am unable to get much of the history from the patient and the patient apparently is having intermittent rectal and vaginal bleeding for about 1 to 2 weeks. Patient states she is having this symptoms for about 6 months. Apparently the patient was having vaginal bleed in the past and patient had D&C with possible rupture of the uterus in the past. Patient has some fluid collection in the uterus and initially the concern was whether patient actually has vaginal bleeding or lower gastrointestinal bleed and patient was having dark stools and terri blood in the stools. She had around 3 such episodes last night before that unsure how many similar episodes that she had and when she came in patient's hemoglobin is 10.2 and received 1 unit of blood transfusion after which has gone up to 11.1. Patient was evaluated by Gastroenterology. Patient in the past had colonoscopy and upper gastrointestinal endoscopies. Colonoscopic biopsy results are positive for some ( ). Inflammation and ( ) at that time. This time Gastroenterology evaluated the patient and recommendations are still pending the previous medical records. ICT QUALITY ASSURANCE ENGINEER evaluated the patient and since no significant change in the size of the fluid in the uterus, they are not recommending any further intervention. Patient is supposed to follow with Tanya for her intermittent vaginal bleed at CAREER DEVELOPMENT COORDINATOR Oncology, although patient is an elderly 89-year-old with possible mild to moderate dementia. I am not sure there will be any further benefit or further evaluation for any malignancies. Cardiology evaluated the patient for mildly elevated troponins of 0.99 and 0.114 and these are considered secondary to actually gastrointestinal bleed and demand ischemia rather than primary myocardial ischemic process. As of now, we are watching her for any further GI bleed and further recommendations from Gastroenterology. Patient does not have any signs or symptoms of sepsis. Chest x-ray did not show any pneumonic process. Her urinalysis was not impressive for any infectious process. Patient had knee x-ray, no significant abnormalities on that. Patient did have pelvic ultrasound, the details of which as mentioned above. REVIEW OF SYSTEMS: As mentioned above, she is a poor historian. Except for those mentioned above the rest of the review of systems are essentially negative. Home medications include: Oxycodone, acetaminophen, Percocet which is not really recommended in her case, but anyways she has been on this medication for long time. Metoprolol, levothyroxine, hydrocortisone suppository, gabapentin, Duloxetine. ALLERGIES: ALLERGIC TO CODEINE, LATEX AND SULFA DRUGS. PERSONAL HISTORY: Significant for patient had cancer. I do not know the primary, some kind of cancer in the past. Patient had irregular heartbeat but because of the GI bleed patient is not on anticoagulation. Gastroesophageal reflux disease, hyperlipidemia, hypertension, osteoarthritis, hypothyroidism, appendectomy, cholecystectomy, joint replacement surgery, tonsillectomy, anxiety, depression. SOCIAL HISTORY: Denied any smoking. Quit smoking in 1981. Patient occasionally drinks wine. Denied any drug abuse. FAMILY HISTORY: Significant for myocardial infarction. Mother of pneumonia when patient was 72-years old PHYSICAL EXAMINATION: VITAL SIGNS: Temperature 97.1, pulse 75, respiratory rate 18, blood pressure 138/82, saturating at 96% on room. GENERAL: The patient is alert and oriented x3, not in any acute distress. Well developed, well nourished. HEENT: Pupils are round and equally reacting to light. EOMI. No scleral icterus. No conjunctival pallor. Normocephalic, atraumatic. No pharyngeal erythema. No thyromegaly. CARDIOVASCULAR: S1 and S2 present. No murmurs, rubs, or gallops. PULMONARY: Chest is clear to auscultation, no wheezing or crackles. ABDOMEN: Soft, nontender, nondistended, normoactive bowel sounds. No palpable organomegaly. MUSCULOSKELETAL: No joint swelling or deformity. EXTREMITIES: No cyanosis, clubbing, or pedal edema. NEUROLOGICAL: Gross neurological examination did not reveal any focal deficits. SKIN: No rashes. ASSESSMENT AND PLAN: 1. Lower gastrointestinal bleed versus vaginal bleed. Gastroenterology and ICT QUALITY ASSURANCE ENGINEER evaluated the patient and management as mentioned above. 2. Mildly elevated troponin without any evidence of primary acute myocardial issue or myocardial infarction. Cardiology evaluated the patient as mentioned above. 3. Hypothyroidism. 4. Hypertension. 5. Degenerative joint disease. 6. Mild to moderate dementia. 7. For above-mentioned chronic medical problems, I will go ahead and continue her home medications. JOSE
[2016-09-06] MEDS: MORPHINE SULFATE 2 MG/ML SYRINGE IVP PRN (17:42)
--- NOTE | 2016-09-06 18:51 | P.CNPUL ---
History of Present Illness Consult date: 09/06/16 Chief complaint: Intensive care unit management for GI bleeding. History of present illness: Intensive care unit management for GI bleeding. This 89-year-old female patient was having episodes of rectal bleeding with questionable vaginal bleeding over the past few weeks. The patient reported that she was passing brown stool mixed with bloody mucus and she has noted small amount of blood in the commode and over the last 2 days she has seen more of blood clots along with her bowel movements. Is not clear to me whether this was an active GI bleeding and the possibility of vaginal bleeding is also being entertained in this patient. She came into the emergency department she was admitted for further evaluation. Overnight she end up in the hospital and then to the intensive care unit for further monitoring. Initial hemoglobin is 11 and the patient has not dropped her hemoglobin further. No nausea. No vomiting. No hematemesis. No liver cirrhosis. No coagulopathy. No intake of any nonsteroidal anti-inflammatory medications or blood thinners. She [facility] us. Meanwhile, a consultation was requested by Dr. Munson. The patient is hemodynamically stable. No dizziness. No chest pain. No hypotension. She claims to have some external and internal hemorrhoids. She did also have some recent constipation however she has been able to have a bowel movement every few days. The patient had a pelvic ultrasound yesterday which showed a complex fluid that is filling the endometrial cavity of the uterus and this was measuring 7 x 5 cm. Based on these findings, a DISTRICT CLAIMS MANAGER consultation was requested and today the patient was seen by Dr. Bush will evaluated the patient and had 2 attempts of dilating has stenotic cervix and draining the fluid for tissue confirmation however this was not successful. Note that this patient has been seen for the same problem by Tanya in the past and that initial impression was that this was not neoplastic in nature. The patient had the lesion described and this was of the same size for approximately 3 years and consistent with benign endometrial fluid collection secondary to cervical stenosis. The DISTRICT CLAIMS MANAGER opinion was that the blood that was noticed vaginally most likely was a contamination. Cervix was still stenotic which was not letting any of the fluid out of the uterine cavity. The recommendation was further to pursue this patient for any GI bleeding. Review of Systems Further review of system was done and the positive findings are almost above in history of present illness Past Medical History Past Medical History: Cancer, GERD/Reflux, GI Bleed, Hyperlipidemia, Hypertension, Osteoarthritis (OA), Thyroid Disorder Additional Past Medical History / Comment(s): Paroxysmal atrial fibrillation, migraines, trigeminal neuralgia, glucoma involving the left eye, peripheral vascular disease, abdominal hernia, peptic ulcer disease, stress urine incontinence, skin cancer resected, osteoporosis, peripheral neuropathy, macular degeneration, difficulty with mobility and ambulation as the patient is able to walk only short distances. She also has hypothyroidism, anxiety, depression, chronic back pain. History of Any Multi-Drug Resistant Organisms: Unobtainable Past Surgical History: Appendectomy, Cholecystectomy, Joint Replacement, Orthopedic Surgery, Tonsillectomy Additional Past Surgical History / Comment(s): Lt knee replacement, Lt femur- has plates and screws, vein stripping, partial thyroidectomy(rt side), cataracts Additional Past Anesthesia/Blood Transfusion Reaction / Comment(s): hallucinations after knee surgery and dizziness for 6 months after femur sx. 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 pt gets around by walker very short distances and at times a w/c-has neuropathy pain to abdoulaye legs/feet. pt has help from 3 daughters and comfort keepers. Smoking Status: Former smoker Past Alcohol Use History: Occasional Additional Past Alcohol Use History / Comment(s): quit smoking in 1981 smoked 1 pd x 25 years, occ glass of wine. Past Drug Use History: None Reported - Past Family History Father Family Medical History: Myocardial Infarction ([place]) Mother Family Medical History: Pneumonia Additional Family Medical History / Comment(s): mom from pneumonia when pt was age 8. Medications and Allergies Home Medications Medication Instructions Recorded Confirmed Type Metoprolol Succinate [Toprol XL] 12.5 mg PO BID 02/15/14 09/05/16 History DULoxetine HCL [Cymbalta] 30 mg PO DAILY 07/31/15 09/05/16 History oxyCODONE-APAP 5-325MG [Percocet 1 tab PO BID 07/31/15 09/05/16 History 5-325 mg] Gabapentin [Neurontin] 300 mg PO BID 09/05/16 09/05/16 History Hydrocortisone Suppository 25 mg RECTAL DAILY 09/05/16 09/05/16 History [Anusol-Hc] Levothyroxine Sodium [Synthroid] 25 mcg PO DAILY 09/05/16 09/05/16 History Allergies Allergy/AdvReac Type Severity Reaction Status Date / Time codeine Allergy Rash/Hives Verified 09/05/16 14:37 latex Allergy Rash/Hives Verified 09/05/16 14:37 Sulfa (Sulfonamide Allergy Rash/Hives Verified 09/05/16 14:37 Antibiotics) Physical Exam Vitals: Vital Signs Temp Pulse Pulse Resp BP Pulse Ox 09/06/16 17:00 115 H 26 H 133/72 96 09/06/16 16:00 86 96 23 161/81 93 L 09/06/16 15:00 84 20 144/73 97 09/06/16 14:00 88 18 95/62 92 L 09/06/16 13:00 87 17 132/73 97 09/06/16 12:00 98.0 F 85 96 17 115/71 92 L 09/06/16 11:00 81 19 116/59 95 09/06/16 10:00 84 21 115/65 95 09/06/16 09:00 90 20 110/67 97 09/06/16 08:00 98.1 F 81 96 21 97/75 96 09/06/16 07:00 88 19 124/70 90 L 09/06/16 06:30 86 19 105/58 91 L 09/06/16 06:00 84 20 119/58 91 L 09/06/16 05:30 86 20 119/61 89 L 09/06/16 05:00 86 30 H 129/70 92 L 09/06/16 04:30 83 24 126/74 95 09/06/16 04:00 97.0 F L 83 96 23 132/75 97 09/06/16 03:30 90 25 H 128/64 91 L 09/06/16 03:00 87 25 H 129/70 95 09/06/16 02:30 82 22 111/62 96 09/06/16 02:00 88 24 116/70 92 L 09/06/16 01:30 90 24 139/68 95 09/06/16 01:00 95 24 123/62 92 L 09/06/16 00:30 93 16 127/72 93 L 09/06/16 00:00 98.0 F 116 H 96 24 132/70 92 L 09/05/16 23:30 91 50 H 134/73 95 09/05/16 23:09 90 14 106/62 96 09/05/16 23:00 90 22 106/62 95 09/05/16 22:30 93 34 H 132/73 91 L 09/05/16 22:00 100 24 128/68 95 09/05/16 21:30 97 22 122/69 96 09/05/16 21:23 96 16 09/05/16 21:20 115 H 19 124/64 96 09/05/16 21:10 95 18 124/64 98 09/05/16 21:00 96 31 H 124/64 93 L 09/05/16 20:50 92 23 117/70 96 09/05/16 20:40 97.9 F 96 28 H 117/70 94 L 09/05/16 20:30 99 39 H 125/64 93 L 09/05/16 20:20 111 H 28 H 120/66 93 L 09/05/16 20:10 86 21 120/66 96 09/05/16 20:00 84 15 112/53 98 09/05/16 19:53 99 Intake and Output 09/06/16 09/06/16 09/06/16 06:59 14:59 22:59 Intake Total 1340 1450 300 Output Total 335 475 175 Balance 1005 975 125 Intake: IV 40 1200 300 Invasive Line 1 40 Sodium Chloride 0.9% 1, 1200 300 000 ml @ 150 mls/hr IV . Q6H40M SPENSER Rx#:[id number] Intake, IV Titration 1300 250 Amount Magnesium Sulfate-D5w Pmx 100 1 gm In Dextrose/Water 1 100ml.bag @ 100 mls/hr IVPB Q1H SPENSER Rx#: [id number] Potassium Chloride 10 meq 100 Lidocaine 2% Inj 10 mg In Sodium Chloride 0.9% 100 ml @ 100 mls/hr IV Q1HR SPENSER Rx#:[id number] Sodium Chloride 0.9% 1, 1200 150 000 ml @ 150 mls/hr IV . Q6H40M SPENSER Rx#:[id number] Output: Urine 335 475 175 Other: Voiding Method Indwelling Catheter Indwelling Catheter Indwelling Catheter # Bowel Movements 1 1 Weight 52.2 kg The patient appeared well nourished and normally developed. Vital signs as documented. Head exam is unremarkable. No scleral icterus or corneal arcus noted. Neck is without jugular venous distension, thyromegaly, or carotid bruits. Carotid upstrokes are brisk bilaterally. Lungs are clear to auscultation and percussion. Cardiac exam reveals the PMI to be normally sized and situated. Rhythm is regular. First and second heart sounds normal. No murmurs, rubs or gallops. Abdominal exam reveals normal bowel sounds, no masses , no organomegaly and no aortic enlargement. Extremities are nonedematous and both femoral and pedal pulses are normal. The patient has a right inguinal hernia that is easily reducible. Results - Laboratory Findings CBC and BMP: 09/06/16 04:41 09/06/16 04:41 Abnormal lab findings: Abnormal Labs 09/05/16 09/05/16 09/06/16 22:39 23:05 04:41 WBC 12.3 H RBC 3.59 L Hgb 11.2 L Hct Plt Count 67 L Sodium 136 L Carbon Dioxide 21 L Creatinine 0.50 L Glucose 105 H Calcium 7.1 L Alkaline Phosphatase 143 H Troponin I Total Protein 5.4 L Albumin 2.4 L Urine Protein Trace H Urine Blood Trace H Urine Mucus Rare H 09/06/16 09/06/16 04:41 04:41 WBC 13.1 H RBC 3.63 L Hgb 11.1 L Hct 33.6 L Plt Count 69 L Sodium Carbon Dioxide Creatinine Glucose Calcium Alkaline Phosphatase Troponin I 0.114 H* Total Protein Albumin Urine Protein Urine Blood Urine Mucus Assessment and Plan Plan: Assessment 1 suspected lower GI bleeding, currently under investigation 2 fluid in the endometrial cavity. Please refer to discussion above. This has been a chronic finding related to cervical stenosis and there is no evidence of any malignancy based on previous evaluation done by [facility] [place] and here by Dr. Bush. 3 new onset thrombocytopenia, and a coagulation profile including PT/PTT INR needs to be repeated. Exact cause for the thrombocytopenia is not clear. May benefit from a hematology evaluation for this evolving thrombocytopenia. 4 nonspecific troponin leak 5 hypothyroidism 6 hypertension 7 degenerative arthritis 8 trigeminal neuralgia 9 glucoma 10 migraines 11 peripheral vascular disease 12 right inguinal hernia 16 peptic ulcer disease 14 osteoporosis Skin stress urinary incontinence 16 difficulty with mobility and gait and peripheral neuropathy. CARMEN Check coagulation profile including PT/PTT INR. Repeat platelet counts/CBC in a.m. Monitor for any further bouts of GI bleed. Awaiting the colonoscopy report from [facility] was done within a year and the patient would have a GI consultation. IV Protonix. Monitor hemoglobin. Resume outpatient medications. We'll continue to follow.
[2016-09-06 19:40] LABS: INR 1.4 (<1.1); Partial Thromboplastin Time 33.9 sec (22.0-30.0); Prothrombin Time 13.3 sec (9.0-12.0)
[2016-09-07 04:47] LABS: CH 30.8; CHCM 32.4; HCT 36.8 % (34.0-46.0); HDW 3.24; HGB 11.9 gm/dL (11.4-16.0); Hypochromasia Slight; Immature Gran Flag Slight; MCH 31.1 pg (25.0-35.0); MCHC 32.4 g/dL (31.0-37.0); MCV 95.8 fL (80.0-100.0); Mean Platelet Volume 9.5; RBC 3.84 m/uL (3.80-5.40); RDW 14.6 % (11.5-15.5); WBC 14.4 k/uL (3.8-10.6); WBC (Perox) 15.48
[2016-09-07 04:59] LABS: Anion Gap 7 mmol/L; Blood Urea Nitrogen 8 mg/dL (7-17); Calcium 7.1 mg/dL (8.4-10.2); Carbon Dioxide 22 mmol/L (22-30); Chloride 105 mmol/L (98-107); Glucose 95 mg/dL (74-99); Magnesium 1.9 mg/dL (1.6-2.3); Non-African American GFR(MDRD) >60 (>60 ml/min/1.73 sqM); Phosphorous 3.2 mg/dL (2.5-4.5); Potassium 3.9 mmol/L (3.5-5.1); Sodium 134 mmol/L (137-145)
[2016-09-07] MEDS: SODIUM CHLORIDE 0.9% 1,000 ML IV SCH ×3 (05:25→18:41)
[2016-09-07] MEDS: MORPHINE SULFATE 2 MG/ML SYRINGE IVP PRN ×3 (05:25→19:33)
[2016-09-07] MEDS ORDERED: Potassium Replacement Protocol 1 EACH MISC MISCELLANE PRN (05:25)
[2016-09-07] MEDS: POTASSIUM CHLORIDE 10 MEQ, LIDOCAINE 2% INJ 10 MG in SODIUM CHLORIDE 0.9% 100 ML IV SCH ×2 (06:23→08:04)
[2016-09-07] MEDS: LEVOTHYROXINE 25 MCG TAB PO SCH (06:33)
[2016-09-07 06:46] LABS: Add Differential Manual Differential
[2016-09-07] MEDS ORDERED: Magnesium Replacement Protocol 1 EACH MISC MISCELLANE PRN (06:49)
[2016-09-07 06:51] LABS: Nucleated Red Blood Cells 0 /100 WBC (0-0); Total Cells Counted 200
[2016-09-07 06:52] LABS: Polychromasia Present
[2016-09-07 06:53] LABS: Large Platelets Present
[2016-09-07] MEDS: MAGNESIUM SULFATE-D5W PMX 1 GM in DEXTROSE/WATER 1 100ML.BAG IVPB SCH ×2 (07:04→08:04)
--- NOTE | 2016-09-07 07:28 | XR ---
EXAMINATION TYPE: XR chest 1V DATE OF EXAM: 09/07/2016 6:44 AM COMPARISON: 09/05/2016 HISTORY: 89 year-old female shortness of breath TECHNIQUE: Single frontal view of the chest is obtained. FINDINGS: Heart remains upper limits of normal in size. Atherosclerotic arch calcifications. Hyperinflation wit h diffuse interstitial prominence and strandy areas of pleural-parenchymal scarring. No terri consoli dation or significant pleural effusion. IMPRESSION: COPD and chronic pleural parenchymal changes. No acute process identified.
[2016-09-07] MEDS: oxyCODONE-APAP 10-325MG 1 EACH TAB PO PRN (08:03)
[2016-09-07] MEDS: GABAPENTIN 300 MG CAP PO SCH ×2 (08:04→22:14)
[2016-09-07] MEDS: PANTOPRAZOLE 40 MG/10 ML VIAL IVP SCH ×2 (08:04→22:13)
[2016-09-07] MEDS: METOPROLOL SUCCINATE (ER) 25 MG TAB.ER.24H PO SCH ×2 (08:04→21:48)
[2016-09-07] MEDS: DULoxetine HCL 30 MG CAPSULE.DR PO SCH (08:04)
[2016-09-07] MEDS: HYDROCORTISONE SUPPOSITORY 25 MG SUPP RECTAL SCH (10:06)
--- NOTE | 2016-09-07 10:47 | PN ---
The patient is an 89-year-old pleasant white female admitted the hospital with ongoing rectal bleeding for the last month one month duration. There was a question whether this was vaginal bleeding versus rectal bleeding. She was evaluated by Dr. Perez yesterday and apparently the patient has a tight cervical stenosis and he believes that she does not have any vaginal bleeding at the present time. In the meantime, according to the nursing staff, the patient has been having about 5 or 6 a small stools with small amount of fresh blood all through the day yesterday. She complains of abdominal pain. She reports no fever, chills, night sweats. On physical examination, she appears comfortable in no apparent distress. Vitals as are stable. Blood pressure is 118/56, pulse rate 92, temperature 98. HEENT: Unremarkable. Conjunctivae pink. Sclerae anicteric. Oral cavity, no lesions. NECK: No JVD or lymph node enlargement. CHEST: Clear to auscultation. HEART: Regular rate and rhythm. ABDOMEN: Soft. Mild tenderness in the suprapubic area. EXTREMITIES: No pedal edema. SKIN: No rashes. NEURO: Alert and oriented x3. No focal deficits. Labs from today, WBC 14.4, hemoglobin 11.9, platelets 73,000. The rest of the labs are within normal limits. IMPRESSION: Rectal bleeding for the last one month duration. The patient did have a colonoscopy by Dr. Mcdonald in October 2015 and upon review of the report, she was noted to have early sigmoid inflammatory stricture, but the scope could be advanced to this area and there was some friability of the mucosa noted in the area and biopsies showed chronic active inflammation with no evidence of malignancy. It appears that her symptoms of rectal bleeding and frequent bowel movements could be related to sigmoid inflammation. At this time it is unclear whether we are dealing with inflammatory bowel disease or diverticular disease that could be causing her symptoms. Possibility of bleeding from internal hemorrhoids cannot be excluded. However, the patient has been symptomatic for the last one month duration. Her hemoglobin remains stable at 11 g/dL. RECOMMENDATIONS: I had a lengthy discussion with the patient regarding further management since she is quite symptomatic at the present time though bleeding is minimal and I suggested that we can proceed with a flexible sigmoidoscopy to evaluate the rectum and the sigmoid colon and see if there is any progression from last year. If are indeed dealing with inflammatory condition, we can try an anti-inflammatory medication and see if this would help in resolving her symptoms. The patient agreed to proceed with a flexible sigmoidoscopy tomorrow and further recommendations will be made based on the results. At this time, we will continue to follow her closely during her hospital stay. Thank you for this consultation.
[2016-09-07] MEDS ORDERED: METOPROLOL SUCCINATE (ER) 25 MG TAB.ER.24H PO SCH (11:44)
[2016-09-07] MEDS ORDERED: METOPROLOL SUCCINATE (ER) 25 MG TAB.ER.24H PO ONE (12:00)
--- NOTE | 2016-09-07 12:58 | PN ---
Ms. Jose is an 89-year-old female who presented with symptoms of bleeding. She had minimal elevation of troponin. Cardiology consultation was requested. Patient has no symptoms of chest pain. Her breathing has been stable. She denies any dizziness, palpitation. She denies any nausea. She is scheduled to undergo flex sigmoidoscopy tomorrow. She was seen by Dr. Perez as well as Dr. Silva. She had an echocardiogram yesterday that showed a preserved left ventricular size and systolic function with mild mitral regurgitation. Her medications include: Lopressor 12.5 mg twice a day, levothyroxine, magnesium. PHYSICAL EXAMINATION: Blood pressure 123/60 with a heart in the 80s. LUNGS: Clear. HEART: Regular rate rhythm. S1, S2, no S3, with systolic murmur. ABDOMEN: Soft, nontender. EXTREMITIES: No edema. Lab data revealed a hemoglobin of 11.9. BUN and creatinine of 8 and 0.6. IMPRESSION: 1. Bleeding work-up in progress. 2. Minimal elevation of troponin does not reflect a primary ischemic event. 3. History of arrhythmia, stable. RECOMMENDATIONS: From the cardiac standpoint, I will increase the dose of her beta benjamin continue medical regimen. From the cardiac standpoint, there is no indication for any further cardiac work-up. Will see her on as needed basis. Please feel free to call us for any questions.
[2016-09-07] MEDS ORDERED: FUROSEMIDE 10 MG/ML 2 ML VIAL IV ONE (13:06)
--- NOTE | 2016-09-07 14:59 | PN ---
89-year-old admitted with GI bleed and patient is having small blood in the stools. Continuous blood in the stool continuously. Patient is going for sigmoidoscopy tomorrow. REVIEW OF SYSTEMS: CARDIOVASCULAR: No chest pain, no orthopnea, no PND, no palpitations. PULMONARY: Denied any shortness of breath. No cough or hemoptysis. GASTROINTESTINAL: As mentioned earlier in history of present illness. NEUROLOGIC: No headaches, no weakness, no numbness. Medications were reviewed. PHYSICAL EXAMINATION: Temperature 97.5, pulse of 94, respiratory rate of 19, blood pressure is 118/63, saturating at 96% on room air. GENERAL: Thin built female, alert and oriented x3. HEENT: Pupils are round and equally reacting to light. EOMI. No scleral icterus. No conjunctival pallor. Normocephalic, atraumatic. No pharyngeal erythema. No thyromegaly. CARDIOVASCULAR: S1 and S2 present. No murmurs, rubs, or gallops. PULMONARY: Chest is clear to auscultation, no wheezing or crackles. ABDOMEN: Soft, nontender, nondistended, normoactive bowel sounds. No palpable organomegaly. MUSCULOSKELETAL: No joint swelling or deformity. EXTREMITIES: No cyanosis, clubbing, or pedal edema. NEUROLOGICAL: Gross neurological examination did not reveal any focal deficits. SKIN: No rashes. LABORATORY DATA: CBC, CMP are abnormal for elevated WBC count of 14,400. Sodium 134. ASSESSMENT AND PLAN: 1. Leukocytosis secondary to reactive response. 2. Lower gastrointestinal bleed. Patient is going for sigmoidoscopy tomorrow. 3. Hypothyroidism. 4. Hypertension. 5. Degenerative joint disease. 6. ( ) dementia. 7. Hypovolemic hyponatremia PLAN: Sigmoidoscopy tomorrow. Continue with IV fluids. Patient had low urine output since last night. Will continue ( ) IV fluids at 150 mL per hour.
[2016-09-07] MEDS ORDERED: MAGNESIUM CITRATE 296 ML BOTTLE PO ONE (17:00)
--- NOTE | 2016-09-07 18:41 | P.PN ---
Subjective This 89-year-old female patient was having episodes of rectal bleeding with questionable vaginal bleeding over the past few weeks. The patient reported that she was passing brown stool mixed with bloody mucus and she has noted small amount of blood in the commode and over the last 2 days she has seen more of blood clots along with her bowel movements. Is not clear to me whether this was an active GI bleeding and the possibility of vaginal bleeding is also being entertained in this patient. She came into the emergency department she was admitted for further evaluation. Overnight she end up in the hospital and then to the intensive care unit for further monitoring. Initial hemoglobin is 11 and the patient has not dropped her hemoglobin further. No nausea. No vomiting. No hematemesis. No liver cirrhosis. No coagulopathy. No intake of any nonsteroidal anti-inflammatory medications or blood thinners. She has undergone a colonoscopy approximately year ago by Dr. Mcdonald at [facility] results of this colonoscopy will be forwarded to us. Meanwhile, a consultation was requested by Dr. Munson. The patient is hemodynamically stable. No dizziness. No chest pain. No hypotension. She claims to have some external and internal hemorrhoids. She did also have some recent constipation however she has been able to have a bowel movement every few days. The patient had a pelvic ultrasound yesterday which showed a complex fluid that is filling the endometrial cavity of the uterus and this was measuring 7 x 5 cm. Based on these findings, a STEAM CRANE OPERATOR consultation was requested and today the patient was seen by Dr. Bush will evaluated the patient and had 2 attempts of dilating has stenotic cervix and draining the fluid for tissue confirmation however this was not successful. Note that this patient has been seen for the same problem by Tanya in the past and that initial impression was that this was not neoplastic in nature. The patient had the lesion described and this was of the same size for approximately 3 years and consistent with benign endometrial fluid collection secondary to cervical stenosis. The STEAM CRANE OPERATOR opinion was that the blood that was noticed vaginally most likely was a contamination. Cervix was still stenotic which was not letting any of the fluid out of the uterine cavity. The recommendation was further to pursue this patient for any GI bleeding. Objective - Vital Signs Vital signs: Vital Signs Temp 97.5 F L 09/07/16 12:00 Pulse 106 H 09/07/16 17:00 Resp 24 09/07/16 17:00 BP 96/58 09/07/16 17:00 Pulse Ox 94 L 09/07/16 17:00 Intake & Output 09/06/16 09/07/16 09/07/16 18:59 06:59 18:59 Intake Total 1900 1860 2165 Output Total 700 855 445 Balance 1200 1005 1720 Weight 56.3 kg Intake: IV 1650 1800 1600 Sodium Chloride 0.9% 1, 1650 1800 1600 000 ml @ 150 mls/hr IV . Q6H40M SPENSER Rx#:[id number] Intake, IV Titration 250 200 Amount Magnesium Sulfate-D5w Pmx 100 1 gm In Dextrose/Water 1 100ml.bag @ 100 mls/hr IVPB Q1H SPENSER Rx#: [id number] Potassium Chloride 10 meq 100 Lidocaine 2% Inj 10 mg In Sodium Chloride 0.9% 100 ml @ 100 mls/hr IV Q1HR SPENSER Rx#:[id number] Potassium Chloride 10 meq 100 Lidocaine 2% Inj 10 mg In Sodium Chloride 0.9% 100 ml @ 100 mls/hr IV Q1HR SPENSER Rx#:[id number] Sodium Chloride 0.9% 1, 150 000 ml @ 150 mls/hr IV . Q6H40M SPENSER Rx#:[id number] Oral 60 365 Output: Urine 700 855 445 Other: Voiding Method Indwelling Catheter Indwelling Catheter Indwelling Catheter # Bowel Movements 1 1 - Exam The patient appeared well nourished and normally developed. Vital signs as documented. Head exam is unremarkable. No scleral icterus or corneal arcus noted. Neck is without jugular venous distension, thyromegaly, or carotid bruits. Carotid upstrokes are brisk bilaterally. Lungs are clear to auscultation and percussion. Cardiac exam reveals the PMI to be normally sized and situated. Rhythm is regular. First and second heart sounds normal. No murmurs, rubs or gallops. Abdominal exam reveals normal bowel sounds, no masses , no organomegaly and no aortic enlargement. Extremities are nonedematous and both femoral and pedal pulses are normal. The patient has a right inguinal hernia that is easily reducible. - Labs CBC & Chem 7: 09/07/16 04:31 09/07/16 04:31 Labs: Abnormal Lab Results - Last 24 Hours (Table) 09/06/16 09/07/16 09/07/16 Range/Units 19:13 04:31 04:31 WBC 14.4 H (3.8-10.6) k/uL Plt Count 73 L (150-450) k/uL Neutrophils # (Manual) 11.2 H (1.3-7.7) k/uL PT 13.3 H (9.0-12.0) sec APTT 33.9 H (22.0-30.0) sec Sodium 134 L (137-145) mmol/L Calcium 7.1 L (8.4-10.2) mg/dL Microbiology - Last 24 Hours (Table) 09/05/16 23:05 Urine Culture - Final Urine,Catheterized Assessment and Plan Plan: Assessment 1 suspected lower GI bleeding, currently under investigation. The patient is still having some on and off episodes of bleeding and that hemoglobin and hemodynamics remain stable. The patient will undergo a colonoscopy in a.m. 2 fluid in the endometrial cavity. Please refer to discussion above. This has been a chronic finding related to cervical stenosis and there is no evidence of any malignancy based on previous evaluation done by [facility] [place] and here by Dr. Bush. 3 new onset thrombocytopenia, stable platelet count 4 nonspecific troponin leak 5 hypothyroidism 6 hypertension 7 degenerative arthritis 8 trigeminal neuralgia 9 glucoma 10 migraines 11 peripheral vascular disease 12 right inguinal hernia 16 peptic ulcer disease 14 osteoporosis 15 Skin stress urinary incontinence 16 difficulty with mobility and gait and peripheral neuropathy. CARMEN Keep the patient intensive care unit. Monitor the hemoglobin. Proceed with colonoscopy in a.m. Obtain a hematology consultation regarding this acute thrombocytopenia
[2016-09-07] MEDS ORDERED: SODIUM CHLORIDE 0.9% 1,000 ML IV ONE (18:44)
--- NOTE | 2016-09-07 19:27 | P.CONS ---
History of Present Illness - Reason for Consult Consult date: 09/07/16 Thrombocytopenia, coagulopathy - History of Present Illness The patient is an 89-year-old lady with multiple medical issues. She was brought into the hospital because of ongoing bleeding per rectum on and off over the last few weeks. In the ER, it was not clear if this was vaginal bleeding or rectal bleeding. The patient's platelet counts were noted to be reduced at the time of admission. Troponins were also elevated. She was admitted to the ICU. The patient was subsequently seen by multiple consultants including pulmonary medicine, cardiology, and gastroenterology. Hemoglobin remained fairly stable during her admission in the high 11 range despite ongoing bleeding. On GI evaluation, it was felt that the bleeding may be vaginal. A pelvic ultrasound revealed a dilatation of the uterus due to a fluid collection including a 3.8 cm hypoechoic movable mass (? blood clot). The patient was therefore seen by Dr. Perez from gynecology. She was noted to have significant cervical stenosis. Dilation was attempted but was not successful. During the procedure, no active discharge from the cervical os was noted. Patient was subsequently noted to have bloody urine in the [place]. During her admission, the platelet count showed slow but steady decline. PT/ INR and PTT were mildly elevated. The consult was therefore placed for further management. The patient had CT scans done previously in 2013, and prior to that in 2012. These had also showed similar findings in the pelvis. Chest x-ray during this admission was negative. Echocardiogram did show valvular regurgitation especially in the tricuspid valve, severe pulmonary hypertension as well as markedly dilated right atrium. The patient denied any prior history of blood problems. He stated that she has been worked up for the uterine abnormality previously the [facility]. Given the stability of the findings, it was felt that this likely represented old blood trapped in the uterus due to cervical stenosis. Malignancy was felt to be unlikely. Review of Systems Constitutional: Reports weakness, Denies chills, Denies fever Eyes: denies blurred vision, denies pain Ears: deny: decreased hearing, ear discharge, earache, tinnitus Ears, nose, mouth and throat: Denies headache, Denies sore throat Cardiovascular: Reports dyspnea on exertion Respiratory: Reports dyspnea Gastrointestinal: Reports hematochezia Genitourinary: Reports as per HPI, Reports hematuria Menstruation: Reports postmenopausal Musculoskeletal: Reports muscle weakness Integumentary: Denies pruritus, Denies rash Neurological: Reports weakness Psychiatric: Denies anxiety, Denies depression Endocrine: Reports fatigue Hematologic/Lymphatic: Reports as per HPI Past Medical History Past Medical History: Cancer, GERD/Reflux, GI Bleed, Hyperlipidemia, Hypertension, Osteoarthritis (OA), Thyroid Disorder Additional Past Medical History / Comment(s): Paroxysmal atrial fibrillation, migraines, trigeminal neuralgia, glucoma involving the left eye, peripheral vascular disease, abdominal hernia, peptic ulcer disease, stress urine incontinence, skin cancer resected, osteoporosis, peripheral neuropathy, macular degeneration, difficulty with mobility and ambulation as the patient is able to walk only short distances. She also has hypothyroidism, anxiety, depression, chronic back pain. History of Any Multi-Drug Resistant Organisms: Unobtainable Past Surgical History: Appendectomy, Cholecystectomy, Joint Replacement, Orthopedic Surgery, Tonsillectomy Additional Past Surgical History / Comment(s): Lt knee replacement, Lt femur- has plates and screws, vein stripping, partial thyroidectomy(rt side), cataracts Additional Past Anesthesia/Blood Transfusion Reaction / Comm: hallucinations after knee surgery and dizziness for 6 months after femur sx. 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 pt gets around by walker very short distances and at times a w/c-has neuropathy pain to abdoulaye legs/feet. pt has help from 3 daughters and comfort keepers. Smoking Status: Former smoker Past Alcohol Use History: Occasional Additional Past Alcohol Use History / Comment(s): quit smoking in 1981 smoked 1 pd x 25 years, occ glass of wine. Past Drug Use History: None Reported - Past Family History Father Family Medical History: Myocardial Infarction (MD) Mother Family Medical History: Pneumonia Additional Family Medical History / Comment(s): mom from pneumonia when pt was age 8. Medications and Allergies Home Medications Medication Instructions Recorded Confirmed Type Metoprolol Succinate [Toprol XL] 12.5 mg PO BID 02/15/14 09/05/16 History DULoxetine HCL [Cymbalta] 30 mg PO DAILY 07/31/15 09/05/16 History oxyCODONE-APAP 5-325MG [Percocet 1 tab PO BID 07/31/15 09/05/16 History 5-325 mg] Gabapentin [Neurontin] 300 mg PO BID 09/05/16 09/05/16 History Hydrocortisone Suppository 25 mg RECTAL DAILY 09/05/16 09/05/16 History [Anusol-Hc] Levothyroxine Sodium [Synthroid] 25 mcg PO DAILY 09/05/16 09/05/16 History Allergies Allergy/AdvReac Type Severity Reaction Status Date / Time codeine Allergy Rash/Hives Verified 09/05/16 14:37 latex Allergy Rash/Hives Verified 09/05/16 14:37 Sulfa (Sulfonamide Allergy Rash/Hives Verified 09/05/16 14:37 Antibiotics) Physical Exam Vitals: Vital Signs Temp Pulse Pulse Resp BP Pulse Ox 09/07/16 18:00 109 H 25 H 102/58 96 09/07/16 17:00 106 H 24 96/58 94 L 09/07/16 16:00 98 20 108/70 94 L 09/07/16 15:00 93 22 93/59 93 L 09/07/16 14:00 94 19 118/63 96 09/07/16 13:00 98 18 122/66 94 L 09/07/16 12:00 97.5 F L 89 17 122/65 96 09/07/16 11:00 87 18 117/62 96 09/07/16 10:00 81 21 123/63 97 09/07/16 09:00 89 21 123/63 96 09/07/16 08:00 97.6 F 82 16 126/66 97 09/07/16 07:00 114 H 18 119/67 95 09/07/16 06:00 92 16 118/56 98 09/07/16 05:00 86 40 H 126/77 94 L 09/07/16 04:00 98.0 F 82 96 19 110/62 94 L 09/07/16 03:00 88 21 117/60 96 09/07/16 02:00 84 19 114/60 93 L 09/07/16 01:00 86 19 113/60 94 L 09/07/16 00:00 97.6 F 92 96 19 109/63 92 L 09/06/16 23:00 88 16 119/67 94 L 09/06/16 22:09 94 18 112/56 96 09/06/16 22:00 110 H 19 112/56 96 09/06/16 21:00 79 13 125/61 94 L 09/06/16 20:00 97.6 F 92 96 16 87/74 98 09/06/16 19:00 89 24 115/67 93 L Intake and Output 09/07/16 09/07/16 09/07/16 06:59 14:59 22:59 Intake Total 1200 1715 600 Output Total 530 315 160 Balance 670 1400 440 Intake: IV 1200 1150 600 Sodium Chloride 0.9% 1, 1200 1150 600 000 ml @ 150 mls/hr IV . Q6H40M [facility] Rx#:[id number] Intake, IV Titration 200 Amount Magnesium Sulfate-D5w Pmx 100 1 gm In Dextrose/Water 1 100ml.bag @ 100 mls/hr IVPB Q1H [facility] Rx#: [id number] Potassium Chloride 10 meq 100 Lidocaine 2% Inj 10 mg In Sodium Chloride 0.9% 100 ml @ 100 mls/hr IV Q1HR [facility] Rx#:[id number] Oral 365 Output: Urine 530 315 160 Other: Voiding Method Indwelling Catheter Indwelling Catheter Indwelling Catheter # Bowel Movements 1 Weight 56.3 kg - Constitutional General appearance: no acute distress - EENT Eyes: EOMI, PERRLA ENT: hearing grossly normal, normal oropharynx - Neck Neck: no lymphadenopathy Thyroid: bilateral: normal size - Respiratory Respiratory: bilateral: CTA - Cardiovascular Rhythm: regular Heart sounds: normal: S1, S2 - Gastrointestinal General gastrointestinal: distended, normal bowel sounds, soft - Integumentary Integumentary: normal - Neurologic Neurologic: CNII-XII intact - Musculoskeletal Musculoskeletal: generalized weakness, strength equal bilaterally - Psychiatric Psychiatric: A&O x's 3, appropriate affect Results CBC & Chem 7: 09/07/16 04:31 09/07/16 04:31 Labs: Abnormal Lab Results - Last 24 Hours (Table) 09/06/16 09/07/16 09/07/16 Range/Units 19:13 04:31 04:31 WBC 14.4 H (3.8-10.6) k/uL Plt Count 73 L (150-450) k/uL Neutrophils # (Manual) 11.2 H (1.3-7.7) k/uL PT 13.3 H (9.0-12.0) sec APTT 33.9 H (22.0-30.0) sec Sodium 134 L (137-145) mmol/L Calcium 7.1 L (8.4-10.2) mg/dL Microbiology - Last 24 Hours (Table) 09/05/16 23:05 Urine Culture - Final Urine,Catheterized Chest x-ray: report reviewed CT scan - abdomen: report reviewed (ECHO reviewed) CT scan - pelvis: report reviewed US - abdomen: report reviewed Assessment and Plan (1) Thrombocytopenia Narrative/Plan: This is a new finding, with platelet counts during the most recent draw in the R, in 10/26, being normal. The patient denies any prior history of low platelets. She does not appear to be on any medications that could have caused the same. There is no evidence of sepsis. While bleeding has been noted, consumption due to bleeding is unlikely given that the amount of blood loss does not appear to be severe with fairly stable hemoglobin. At this time therefore etiology is not immediately evident. One concern is a low-grade DIC, among others. Workup for the same, as well as other possible etiologies will be ordered. At this time. Count is in a safe range any immediate intervention is not required. Continue to monitor while results are pending. If labs indicate possibility of DIC, and the patient will need additional workup for possible malignancy. Status: Acute (2) Gastrointestinal bleeding, lower Narrative/Plan: At this time the source of bleeding appears to be unclear. There does appear to be old blood in the endometrial cavity, but bleeding from the os was not noted on [employer] exam. Now, blood was noted in the dotson also. Hg is quite stable. GI and [employer] are following. Will discuss with them re the possbility of a fistula. Continue to monitor Hgb Status: Acute (3) Coagulopathy Narrative/Plan: The PT /INR and PTT are all mildly elevated. W/u as noted above Status: Acute
[2016-09-07 19:33] LABS: Basophils # (A) 0.1 k/uL (0-0.2); Basophils % (A) 0 %; CH 30.6; CHCM 32.3; Eosinophils # (A) 0.1 k/uL (0-0.7); Eosinophils % (A) 0 %; HCT 37.4 % (34.0-46.0); HDW 3.13; HGB 12.2 gm/dL (11.4-16.0); Hypochromasia Slight; Large Platelets Flag Slight; Luc # (Auto) 0.45; Luc % (Auto) 2; Lymphocytes # (A) 1.2 k/uL (1.0-4.8); Lymphocytes % (A) 5 %; MCH 31.3 pg (25.0-35.0); MCHC 32.7 g/dL (31.0-37.0); MCV 95.7 fL (80.0-100.0); Mean Platelet Volume 11.8; Monocytes # (A) 0.9 k/uL (0-1.0); Monocytes % (A) 3 %; Neutrophils # (A) 22.2 k/uL (1.3-7.7); Neutrophils % (A) 89 %; RBC 3.91 m/uL (3.80-5.40); RDW 14.6 % (11.5-15.5)
[2016-09-08] MEDS: SODIUM CHLORIDE 0.9% 1,000 ML IV SCH ×4 (02:54→19:59)
[2016-09-08] MEDS: MORPHINE SULFATE 2 MG/ML SYRINGE IVP PRN ×3 (02:54→21:37)
[2016-09-08 05:38] LABS: CH 30.4; CHCM 30.9; HCT 35.7 % (34.0-46.0); HDW 3.18; HGB 11.2 gm/dL (11.4-16.0); Hypochromasia Moderate; MCH 31.1 pg (25.0-35.0); MCHC 31.3 g/dL (31.0-37.0); MCV 99.5 fL (80.0-100.0); Macrocytosis Slight; Mean Platelet Volume 9.6; RBC 3.59 m/uL (3.80-5.40); RDW 15.3 % (11.5-15.5); WBC (Perox) 22.71
[2016-09-08 06:02] LABS: Anion Gap 10 mmol/L; Blood Urea Nitrogen 17 mg/dL (7-17); Calcium 7.4 mg/dL (8.4-10.2); Carbon Dioxide 18 mmol/L (22-30); Chloride 109 mmol/L (98-107); Glucose 134 mg/dL (74-99); Magnesium 2.8 mg/dL (1.6-2.3); Non-African American GFR(MDRD) 59 (>60 ml/min/1.73 sqM); Phosphorous 4.2 mg/dL (2.5-4.5); Potassium 4.1 mmol/L (3.5-5.1); Sodium 137 mmol/L (137-145)
[2016-09-08 06:05] LABS: Rheumatoid Factor, Qnt <9 IU/mL (<12)
[2016-09-08 06:14] LABS: Add Differential Manual Differential
[2016-09-08 06:16] LABS: Manual Review Performed; Nucleated Red Blood Cells 0 /100 WBC (0-0); Total Cells Counted 200
[2016-09-08 06:36] LABS: INR 1.3 (<1.1); Prothrombin Time 12.8 sec (9.0-12.0)
[2016-09-08 06:55] LABS: Vitamin B12 >1000 pg/mL
--- NOTE | 2016-09-08 07:07 | XR ---
EXAMINATION TYPE: XR chest 1V DATE OF EXAM: 09/08/2016 6:51 AM COMPARISON: 09/07/2016 HISTORY: Shortness of breath TECHNIQUE: Single frontal view of the chest is obtained. FINDINGS: Bilateral infiltrate and pleural effusion seen. Diffuse interstitial process noted. Hyperi nflation suggests COPD. Atherosclerotic change aorta. IMPRESSION: 1. Bilateral infiltrate and pleural effusion correlate for COPD.
[2016-09-08] MEDS: GABAPENTIN 300 MG CAP PO SCH ×2 (08:37→21:13)
[2016-09-08] MEDS: PANTOPRAZOLE 40 MG/10 ML VIAL IVP SCH ×2 (08:38→21:13)
[2016-09-08] MEDS: METOPROLOL SUCCINATE (ER) 25 MG TAB.ER.24H PO SCH ×2 (08:39→21:37)
[2016-09-08] MEDS: DULoxetine HCL 30 MG CAPSULE.DR PO SCH (08:40)
[2016-09-08] MEDS: HYDROCORTISONE SUPPOSITORY 25 MG SUPP RECTAL SCH (08:41)
[2016-09-08] MEDS: LEVOTHYROXINE 25 MCG TAB PO SCH (08:42)
[2016-09-08] MEDS ORDERED: NA PHOS,M-B/NA PHOS,DI-BA 133 ML ENEMA RECTAL ONE ×2 (09:30→10:00)
[2016-09-08] MEDS ORDERED: PROPOFOL 10 MG/ML 20 ML VIAL IV ONE (10:56)
[2016-09-08] MEDS ORDERED: LIDOCAINE 1% INJ 10MG/ML (20 ML MDV) ONE (10:56)
[2016-09-08] MEDS ORDERED: IV FLUID CONTINUATION 200 ML IV ONE (10:58)
--- NOTE | 2016-09-08 11:22 | P.PCN ---
Date of Procedure: 09/08/16 Procedure(s) Performed: Patient is a 89 year-old white female, schedule for flexible sigmoidoscopy as part of evaluation of intermittent rectal bleeding for the last 1 month duration. She has at least 4 or 5 of these episodes was small amount of blood and mucus in the stool. She did have a colonoscopy by Dr. Navarro a total of 2015 and was noted to have an area in the sigmoid colon that appeared somewhat friable and inflamed and biopsies showed chronic active colitis. Also there was sigmoid diverticulosis with some narrowing of the he goes in the sigmoid colon noted at that time. Because of the ongoing rectal bleeding she is scheduled for an flexible sigmoid scope to evaluate further. Preoperative diagnosis: Rectal bleeding of one month duration Postoperative diagnosis: Severe active colitis involving the rectum and sigmoid colon up to 40 cm from the anal verge and further advancement of the scope was not possible because of relative narrowing in this area. Multiple pseudopolyps noted in the sigmoid colon and sigmoid diverticulosis Procedure Flexible sigmoidoscopy with biopsy Anesthesia MAC Description of procedure: The patient was brought into the endoscopy unit IV conscious sedation was administered by anesthesia and continuous monitoring. Initial digital rectal examination was normal. The Olympus CF 160 video colonoscope was then inserted into the rectum and gradually advanced to the proximal sigmoid colon and further advancement was not possible because of relative narrowing of the colon in this area. There were multiple pseudopolyps with deep ulcerations noted in the sigmoid colon and biopsies were done from this area. The mucosa was extremely friable erythematous with granularity involving the visualized portions of the sigmoid colon as well as the rectum and multiple biopsies were done from these areas. There were scattered small diverticulosis also seen. Despite multiple attempts I was not able to retroflex the scope in the rectum however small internal hemorrhoids were noted. A she tolerated the procedure well. Recommendations: At this time will await the biopsy results. Have her start the patient on steroid enemas once at bedtime and her diet will be advanced as tolerated.
[2016-09-08 12:24] LABS: CH 30.5; CHCM 31.5; HCT 30.9 % (34.0-46.0); HDW 3.17; HGB 9.8 gm/dL (11.4-16.0); Hypochromasia Moderate; MCH 31.1 pg (25.0-35.0); MCHC 31.9 g/dL (31.0-37.0); MCV 97.8 fL (80.0-100.0); Macrocytosis Slight; Mean Platelet Volume 9.6; RBC 3.16 m/uL (3.80-5.40); RDW 15.1 % (11.5-15.5); WBC 22.7 k/uL (3.8-10.6)
[2016-09-08] MEDS: PIPERACILLIN-TAZOBACTAM 3.375 GM in DEXTROSE/WATER 1 50ML.BAG IVPB SCH ×3 (13:42→23:45)
[2016-09-08 14:04] LABS: ANA w/Reflex to Titer NEGATIVE (NEGATIVE)
[2016-09-08] MEDS ORDERED: RX INFO: IV CONTRAST WAS GIVEN 1 EACH MISC MISCELLANE PRN (14:12)
--- NOTE | 2016-09-08 14:36 | P.PN ---
Subjective Principal diagnosis: Acute GI bleeding This 89-year-old female patient was having episodes of rectal bleeding with questionable vaginal bleeding over the past few weeks. The patient reported that she was passing brown stool mixed with bloody mucus and she has noted small amount of blood in the commode and over the last 2 days she has seen more of blood clots along with her bowel movements. Is not clear to me whether this was an active GI bleeding and the possibility of vaginal bleeding is also being entertained in this patient. She came into the emergency department she was admitted for further evaluation. Overnight she end up in the hospital and then to the intensive care unit for further monitoring. Initial hemoglobin is 11 and the patient has not dropped her hemoglobin further. No nausea. No vomiting. No hematemesis. No liver cirrhosis. No coagulopathy. No intake of any nonsteroidal anti-inflammatory medications or blood thinners. She has undergone a colonoscopy approximately year ago by Dr. Mcdonald at [facility] results of this colonoscopy will be forwarded to us. Meanwhile, a consultation was requested by Dr. Munson. The patient is hemodynamically stable. No dizziness. No chest pain. No hypotension. She claims to have some external and internal hemorrhoids. She did also have some recent constipation however she has been able to have a bowel movement every few days. The patient had a pelvic ultrasound yesterday which showed a complex fluid that is filling the endometrial cavity of the uterus and this was measuring 7 x 5 cm. Based on these findings, a PILLOWCASE TURNER consultation was requested and today the patient was seen by Dr. Bush will evaluated the patient and had 2 attempts of dilating has stenotic cervix and draining the fluid for tissue confirmation however this was not successful. Note that this patient has been seen for the same problem by Tanya in the past and that initial impression was that this was not neoplastic in nature. The patient had the lesion described and this was of the same size for approximately 3 years and consistent with benign endometrial fluid collection secondary to cervical stenosis. The PILLOWCASE TURNER opinion was that the blood that was noticed vaginally most likely was a contamination. Cervix was still stenotic which was not letting any of the fluid out of the uterine cavity. The recommendation was further to pursue this patient for any GI bleeding. Patient was reevaluated today on 09/08/2015, patient seems to be doing well, patient was found to have severe active colitis involving the rectum and sigmoid colon up to 40 cm from the anal verge. Multiple pseudopolyps noted in the sigmoid colon and sigmoid diverticulosis. Multiple biopsies were done, and these are pending. Labs were reviewed, hemoglobin today is 9.8, WBC count is 22.7. Platelets are 107. Patient is hemodynamically stable, and in no distress. Objective - Vital Signs Vital signs: Vital Signs Temp 98.1 F 09/08/16 08:00 Pulse 87 09/08/16 14:00 Resp 20 09/08/16 14:00 BP 118/67 09/08/16 14:00 Pulse Ox 95 09/08/16 14:00 Intake & Output 09/07/16 09/08/16 09/08/16 18:59 06:59 18:59 Intake Total 2315 3224 1150 Output Total 475 380 220 Balance 1840 2844 930 Weight 57.7 kg Intake: IV 1750 1800 1150 Sodium Chloride 0.9% 1, 1750 1800 1050 000 ml @ 150 mls/hr IV . Q6H40M [facility] Rx#:[id number] Intake, IV Titration 200 1000 Amount Magnesium Sulfate-D5w Pmx 100 1 gm In Dextrose/Water 1 100ml.bag @ 100 mls/hr IVPB Q1H [facility] Rx#: [id number] Potassium Chloride 10 meq 100 Lidocaine 2% Inj 10 mg In Sodium Chloride 0.9% 100 ml @ 100 mls/hr IV Q1HR [facility] Rx#:[id number] Sodium Chloride 0.9% 1, 1000 000 ml @ 999 mls/hr IV . Q1H1M ONE Rx#:[id number] Oral 365 Blood Product 424 Platelet Pheresis Acda 424 Unit [id number] Output: Urine 475 380 220 Other: Voiding Method Indwelling Catheter Indwelling Catheter Indwelling Catheter # Bowel Movements 1 1 - Exam The patient appeared well nourished and normally developed. Vital signs as documented. Head exam is unremarkable. No scleral icterus or corneal arcus noted. Neck is without jugular venous distension, thyromegaly, or carotid bruits. Carotid upstrokes are brisk bilaterally. Lungs are clear to auscultation and percussion. Cardiac exam reveals the PMI to be normally sized and situated. Rhythm is regular. First and second heart sounds normal. No murmurs, rubs or gallops. Abdominal exam reveals normal bowel sounds, no masses , no organomegaly and no aortic enlargement. Extremities are nonedematous and both femoral and pedal pulses are normal. The patient has a right inguinal hernia that is easily reducible. - Labs CBC & Chem 7: 09/08/16 11:44 09/08/16 04:47 Labs: Abnormal Lab Results - Last 24 Hours (Table) 09/07/16 09/08/16 09/08/16 Range/Units 18:55 04:47 04:47 WBC 25.0 H* 25.0 H* (3.8-10.6) k/uL RBC 3.59 L (3.80-5.40) m/uL Hgb 11.2 L (11.4-16.0) gm/dL Hct (34.0-46.0) % Plt Count 44 L* 122 L D (150-450) k/uL Neutrophils # 22.2 H (1.3-7.7) k/uL Neutrophils # (Manual) 21.3 H (1.3-7.7) k/uL Monocytes # (Manual) 2.0 H (0-1.0) k/uL PT (9.0-12.0) sec APTT (22.0-30.0) sec Fibrinogen (200-500) mg/dL Chloride 109 H (98-107) mmol/L Carbon Dioxide 18 L (22-30) mmol/L Glucose 134 H (74-99) mg/dL Calcium 7.4 L (8.4-10.2) mg/dL Magnesium 2.8 H (1.6-2.3) mg/dL 09/08/16 09/08/16 Range/Units 05:30 11:44 WBC 22.7 H (3.8-10.6) k/uL RBC 3.16 L (3.80-5.40) m/uL Hgb 9.8 L (11.4-16.0) gm/dL Hct 30.9 L (34.0-46.0) % Plt Count 107 L (150-450) k/uL Neutrophils # (1.3-7.7) k/uL Neutrophils # (Manual) (1.3-7.7) k/uL Monocytes # (Manual) (0-1.0) k/uL PT 12.8 H (9.0-12.0) sec APTT 31.0 H (22.0-30.0) sec Fibrinogen 112 L (200-500) mg/dL Chloride (98-107) mmol/L Carbon Dioxide (22-30) mmol/L Glucose (74-99) mg/dL Calcium (8.4-10.2) mg/dL Magnesium (1.6-2.3) mg/dL Microbiology - Last 24 Hours (Table) 09/05/16 23:05 Urine Culture - Final Urine,Catheterized Assessment and Plan Plan: 1 suspected lower GI bleeding, secondary to severe colitis, patient is status post flexible sigmoidoscopy, multiple biopsies, results of which are pending. The patient is still having some on and off episodes of bleeding and that hemoglobin and hemodynamics remain stable. 2 fluid in the endometrial cavity. Please refer to discussion above. This has been a chronic finding related to cervical stenosis and there is no evidence of any malignancy based on previous evaluation done by [facility] [place] and here by Dr. Bush. 3 new onset thrombocytopenia, stable platelet count 4 nonspecific troponin leak 5 hypothyroidism 6 hypertension 7 degenerative arthritis 8 trigeminal neuralgia 9 glucoma 10 migraines 11 peripheral vascular disease 12 right inguinal hernia 16 peptic ulcer disease 14 osteoporosis 15 Skin stress urinary incontinence 16 difficulty with mobility and gait and peripheral neuropathy. Recommendation: Continue to monitor patient in the ICU, and we'll continue to follow closely. Await biopsy report from her colonoscopy. Time with Patient: Less than 30
--- NOTE | 2016-09-08 15:46 | PN ---
Mrs. Jose is an 89-year-old female with symptoms of bleeding who presented to the hospital. Cardiology consultation was requested because of minimal elevation of troponin. She is feeling tired, but she has no chest pain. She is scheduled to undergo flexible sigmoidoscopy today. She denies any dizziness or palpitation. She is in sinus mechanism. She has no evidence of tachy- or bradyarrhythmia. She continues to be on metoprolol succinate succinate 25 mg twice a day. PHYSICAL EXAMINATION: Blood pressure 124/50 with a heart rate in 90s. LUNGS: Clear. HEART: Regular rate and rhythm. S1, S2 with systolic murmur at the base. No diastolic murmur. ABDOMEN: Soft, nontender. EXTREMITIES: No edema. Lab data revealed white blood cell count of 25,000, platelet count of 122,000. Her BUN and creatinine are 17 and 0.9. IMPRESSION: 1. Bleeding; etiology unclear. Workup in progress. 2. Minimal elevation of troponin, most likely representing a type II event. 3. Hypothyroidism. 4. History of hypertension. 5. Thrombocytopenia, resolved. RECOMMENDATION: From the cardiac standpoint, will continue present therapy. No further cardiac workup is needed at this point. Will see her on an as-needed basis. Please feel free to call us for any questions.
[2016-09-08] MEDS: IOHEXOL 350 MG/ML 25 ML BOTTLE (ORAL USE) PO PRN ×2 (16:20→17:15)
[2016-09-08] MEDS ORDERED: SODIUM CHLORIDE 0.9% 500 ML IV ONE (16:56)
--- NOTE | 2016-09-08 19:30 | CT ---
EXAMINATION TYPE: CT abdomen pelvis w con DATE OF EXAM: 09/08/2016 7:01 PM COMPARISON: 02/15/2014 HISTORY: Blood in urine. Possible fistula. CT DLP: 968.20 mGycm Automated exposure control for dose reduction was used. TECHNIQUE: Helical acquisition of images was performed from the lung bases through the pelvis. CONTRAST: Performed with Oral Contrast and with IV Contrast, patient injected with 100 mL of Visipaque 320. FINDINGS: There are moderate bilateral pleural effusions. There is some consolidation and atelectasis at the miriam ng bases. Heart is enlarged. There is some dilation of the biliary tree. There are clips from cholecy stectomy. The common bile duct measures 13 mm. There is no sign of a pancreatic mass. Spleen appears normal. There is no sign of a bowel obstruction. There is no free air. There is no adrenal mass. There is right-sided hydronephrosis. The right ureter is not well defined. There is mild free fluid in the abdomen and pelvis. There is subcutaneous edema around the abdomen. T here is no evidence of a bowel obstruction. There appears to be thickening of the wall of the colon a nd more noticeable involving that the descending and sigmoid colon. Bladder distends smoothly. There is some calcification in the dependent urinary bladder consistent with multiple stones. I see no foca l bone destruction. There is osteopenia and compression deformity of numerous thoracic and lumbar enoch tebra. I see no discrete pelvic mass. There is no retroperitoneal adenopathy. IMPRESSION: THERE IS SUBCUTANEOUS EDEMA THAT IS SUGGESTIVE OF ANASARCA. MILD ASCITES. THERE IS EVIDENCE OF COLONI C WALL THICKENING THAT APPEARS NEW COMPARED TO OLD CT SCAN AND COULD RELATE TO SIGNIFICANT NONSPECIFI C COLITIS. THERE IS MODERATE RIGHT-SIDED HYDRONEPHROSIS. A LEVEL OF OBSTRUCTION IS NOT SEEN. THIS HYDRONEPHROSIS IS ALSO PRESENT TO A LESSER EXTENT ON THE OLD CT SCAN. LARGE BLADDER CALCIFICATION. OSTEOPENIA AND NUMEROUS COMPRESSION FRACTURES. THERE ARE A LATERAL PLEURAL EFFUSIONS AND BASILAR INFILTRATES AND ATELECTASIS THAT ARE NEW COMPARED T O OLD EXAM AND COULD RELATE TO CONGESTIVE HEART FAILURE. THERE IS A SIGNIFICANT DILATION OF THE BILIARY TREE THAT IS ESSENTIALLY NEW COMPARED TO OLD EXAM. AN OBSTRUCTING LESION IS NOT SEEN.
--- NOTE | 2016-09-08 20:29 | PN ---
The patient was admitted to the hospital with gastrointestinal bleed. The patient underwent ( ) showed extensive colitis in the rectosigmoid area, extensive colitis ( ) unknown at this time, refer to gastroenterology dictation. ( ) the patient had ( ) abnormality ( ) predominance. The patient there was suspicion of ( ). The patient was started on antibiotics because of which ( ) and leukocytosis. There is no evidence of ( ) at this point in time. The patient ( ) broken by drafting engineer ( ) and testing although there is no ( ) evidence of infection or colitis and the patient has mostly leukocytosis. If needed we will get infectious disease and hematology to evaluate the patient. As of now, we will just recheck the WBC tomorrow. REVIEW OF SYSTEMS: GENERAL: The patient is complaining of generalized tiredness ( ). CARDIOVASCULAR: No chest pain, no orthopnea, no PND, no palpitations. PULMONARY: Denied any shortness of breath. No cough or hemoptysis. GASTROINTESTINAL: No diarrhea, nausea or vomiting. No abdominal pain. Normoactive bowel sounds. NEUROLOGIC: No headaches, no weakness, no numbness. The patient will resume a regular diet ( ). Medications are reviewed. PHYSICAL EXAMINATION: VITAL SIGNS: Temperature afebrile. Pulse around 91. Respiratory rate 19, blood pressure 110/60, saturating at 96% on room air. GENERAL: The patient is alert and oriented x3, not in any acute distress. Well developed, well nourished. HEENT: Pupils are round and equally reacting to light. EOMI. No scleral icterus. No conjunctival pallor. Normocephalic, atraumatic. No pharyngeal erythema. No thyromegaly. CARDIOVASCULAR: S1 and S2 present. No murmurs, rubs, or gallops. PULMONARY: Chest is clear to auscultation, no wheezing or crackles. ABDOMEN: Soft, nontender, nondistended, normoactive bowel sounds. No palpable organomegaly. MUSCULOSKELETAL: No joint swelling or deformity. EXTREMITIES: No cyanosis, clubbing, or pedal edema. NEUROLOGICAL: Gross neurological examination did not reveal any focal deficits. SKIN: No rashes. Laboratory data reviewed, ( ) as discussed and mentioned above. ASSESSMENT AND PLAN: 1. Lower gastrointestinal bleed, ( ) leukocytosis without any clear cut source of infection. The patient is on empiric antibiotics in the form of Zosyn as mentioned earlier started by drafting engineer. 2. ( ). 3. Hypertension. 4. Degenerative joint disease. 5. 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 6. Hypovolemic hyponatremia. PLAN: Etiology of leukocytosis predominant leukocytosis ( ) at this time, we will recheck the ( ) tomorrow, if it continues to be elevated, we will get ( ) to evaluate the patient ( ) related to her chronic colitis and the patient will be start on hydrocortisone for chronic colitis by gastroenterology. Medications were resumed and there was suspicion of rectovaginal fistula which is ( ) because of that reason, drafting engineer ( ) CT of the abdomen if needed a fistulogram. Continue with IV fluids at this time.
[2016-09-08] MEDS: HYDROCORTISONE ENEMA 100 MG/60 ML RECTAL SCH (21:13)
--- NOTE | 2016-09-08 21:54 | P.PN ---
Subjective Principal diagnosis: Thrombocythemia, chronic neuropathy, rectal bleeding The patient has not had any obvious rectal or vaginal bleeding since yesterday. However she'll not had a bowel movement. Amount of blood in the urine has decreased. Objective - Vital Signs Vital signs: Vital Signs Temp 97.5 F L 09/08/16 20:00 Pulse 83 09/08/16 20:00 Resp 20 09/08/16 20:00 BP 110/59 09/08/16 20:00 Pulse Ox 97 09/08/16 19:00 Intake & Output 09/08/16 09/08/16 09/09/16 06:59 18:59 06:59 Intake Total 3224 2425 380 Output Total 380 350 70 Balance 2844 2075 310 Weight 57.7 kg Intake: IV 1800 1900 300 Sodium Chloride 0.9% 1, 1800 1800 300 000 ml @ 150 mls/hr IV . Q6H40M [facility] Rx#:[id number] Intake, IV Titration 1000 500 Amount Sodium Chloride 0.9% 1, 1000 000 ml @ 999 mls/hr IV . Q1H1M ONE Rx#:[id number] Sodium Chloride 0.9% 500 500 ml @ 999 mls/hr IV .Q31M ONE Rx#:[id number] Oral 50 Tube Feeding 25 30 Blood Product 424 Platelet Pheresis Acda 424 Unit [id number] Output: Urine 380 350 70 Other: Voiding Method Indwelling Catheter Indwelling Catheter Indwelling Catheter # Bowel Movements 1 - Constitutional General appearance: Present: mild distress (Due to constipation) - EENT Eyes: Present: EOMI, PERRLA ENT: Present: hearing grossly normal - Respiratory Respiratory: bilateral: CTA - Cardiovascular Rhythm: regular Heart sounds: normal: S1, S2 - Gastrointestinal General gastrointestinal: Present: normal bowel sounds, soft - Neurologic Neurologic: Present: CNII-XII intact - Musculoskeletal Musculoskeletal: Present: generalized weakness - Psychiatric Psychiatric: Present: A&O x's 3 - Labs CBC & Chem 7: 09/08/16 11:44 09/08/16 04:47 Labs: Abnormal Lab Results - Last 24 Hours (Table) 09/08/16 09/08/16 09/08/16 Range/Units 04:47 04:47 05:30 WBC 25.0 H* (3.8-10.6) k/uL RBC 3.59 L (3.80-5.40) m/uL Hgb 11.2 L (11.4-16.0) gm/dL Hct (34.0-46.0) % Plt Count 122 L D (150-450) k/uL Neutrophils # (Manual) 21.3 H (1.3-7.7) k/uL Monocytes # (Manual) 2.0 H (0-1.0) k/uL PT 12.8 H (9.0-12.0) sec APTT 31.0 H (22.0-30.0) sec Fibrinogen 112 L (200-500) mg/dL Chloride 109 H (98-107) mmol/L Carbon Dioxide 18 L (22-30) mmol/L Glucose 134 H (74-99) mg/dL Calcium 7.4 L (8.4-10.2) mg/dL Magnesium 2.8 H (1.6-2.3) mg/dL 09/08/16 Range/Units 11:44 WBC 22.7 H (3.8-10.6) k/uL RBC 3.16 L (3.80-5.40) m/uL Hgb 9.8 L (11.4-16.0) gm/dL Hct 30.9 L (34.0-46.0) % Plt Count 107 L (150-450) k/uL Neutrophils # (Manual) (1.3-7.7) k/uL Monocytes # (Manual) (0-1.0) k/uL PT (9.0-12.0) sec APTT (22.0-30.0) sec Fibrinogen (200-500) mg/dL Chloride (98-107) mmol/L Carbon Dioxide (22-30) mmol/L Glucose (74-99) mg/dL Calcium (8.4-10.2) mg/dL Magnesium (1.6-2.3) mg/dL Assessment and Plan (1) Thrombocytopenia Narrative/Plan: Platelet count is significantly improved today to greater than 100. Labs for thrombocytopenia were drawn this morning and are pending. I will surgeon level was in the low 100 range, which raises the possibility of a low-grade DIC. Currently the patient count is safe. Await results of the other labs Status: Acute (2) Gastrointestinal bleeding, lower Status: Acute (3) Coagulopathy Narrative/Plan: PT, INR and PTT were all mildly elevated again today. Fibrinogen level was lower than normal. This is characteristic of a low-grade DIC. The most common etiology for this would be sepsis/inflammation, though the patient clinically does not have evidence of the same. Another concern would be malignancy. I will therefore order a CT of the abdomen and pelvis. The patient is supposed to have a flexible sigmoidoscopy today by Dr. Silva. Status: Acute
[2016-09-08] MEDS: oxyCODONE-APAP 10-325MG 1 EACH TAB PO PRN (23:45)
[2016-09-08] MEDS: LIDOCAINE 4% CREAM 5 GM TUBE TOPICAL PRN (23:50)
[2016-09-09] MEDS: MORPHINE SULFATE 2 MG/ML SYRINGE IVP PRN ×3 (02:51→17:12)
[2016-09-09] MEDS: SODIUM CHLORIDE 0.9% 1,000 ML IV SCH ×2 (04:43→16:49)
[2016-09-09 04:57] LABS: Anion Gap 11 mmol/L; Blood Urea Nitrogen 19 mg/dL (7-17); Calcium 7.1 mg/dL (8.4-10.2); Carbon Dioxide 17 mmol/L (22-30); Chloride 106 mmol/L (98-107); Glucose 104 mg/dL (74-99); Magnesium 2.5 mg/dL (1.6-2.3); Non-African American GFR(MDRD) >60 (>60 ml/min/1.73 sqM); Phosphorous 2.9 mg/dL (2.5-4.5); Potassium 3.6 mmol/L (3.5-5.1); Sodium 134 mmol/L (137-145)
[2016-09-09 05:07] LABS: Basophils # (A) 0.1 k/uL (0-0.2); Basophils % (A) 1 %; CH 29.8; CHCM 29.8; Eosinophils # (A) 0.6 k/uL (0-0.7); Eosinophils % (A) 3 %; HCT 31.1 % (34.0-46.0); HDW 3.09; HGB 9.3 gm/dL (11.4-16.0); Hypochromasia Marked; Luc # (Auto) 0.44; Luc % (Auto) 2; Lymphocytes # (A) 1.2 k/uL (1.0-4.8); Lymphocytes % (A) 6 %; MCH 30.3 pg (25.0-35.0); Macrocytosis Slight; Mean Platelet Volume 8.8; Monocytes % (A) 5 %; Neutrophils # (A) 16.3 k/uL (1.3-7.7); Neutrophils % (A) 83 %; RBC 3.08 m/uL (3.80-5.40); RDW 15.2 % (11.5-15.5); WBC 19.7 k/uL (3.8-10.6); WBC (Perox) 21.73
[2016-09-09] MEDS ORDERED: Potassium Replacement Protocol 1 EACH MISC MISCELLANE PRN (05:18)
[2016-09-09 05:53] LABS: INR 1.3 (<1.1); Partial Thromboplastin Time 32.3 sec (22.0-30.0); Prothrombin Time 13.1 sec (9.0-12.0)
[2016-09-09] MEDS ORDERED: POTASSIUM CHLORIDE ER 20 MEQ TAB.ER PO SCH (06:30)
[2016-09-09] MEDS ORDERED: SODIUM CHLORIDE 0.9% 500 ML IV ONE (07:41)
[2016-09-09] MEDS: LEVOTHYROXINE 25 MCG TAB PO SCH (08:07)
[2016-09-09] MEDS: POTASSIUM CHLORIDE 10 MEQ, LIDOCAINE 2% INJ 10 MG in SODIUM CHLORIDE 0.9% 100 ML IV SCH ×4 (08:07→19:44)
[2016-09-09] MEDS: HYDROCORTISONE SUPPOSITORY 25 MG SUPP RECTAL SCH (08:07)
[2016-09-09] MEDS: GABAPENTIN 300 MG CAP PO SCH ×2 (08:07→21:58)
[2016-09-09] MEDS: PANTOPRAZOLE 40 MG/10 ML VIAL IVP SCH ×2 (08:07→21:59)
[2016-09-09] MEDS: DULoxetine HCL 30 MG CAPSULE.DR PO SCH (08:13)
[2016-09-09] MEDS: PIPERACILLIN-TAZOBACTAM 3.375 GM in DEXTROSE/WATER 1 50ML.BAG IVPB SCH ×2 (08:46→16:48)
[2016-09-09] MEDS: METOPROLOL SUCCINATE (ER) 25 MG TAB.ER.24H PO SCH ×3 (09:48→21:59)
[2016-09-09] MEDS ORDERED: FUROSEMIDE 10 MG/ML 4 ML VIAL IV STA (09:51)
--- NOTE | 2016-09-09 10:16 | P.PN ---
Subjective Principal diagnosis: Rectal bleeding 89-year-old female admitted with rectal bleeding 1 month duration status post colonoscopy with findings of severe active colitis involving the rectum and sigmoid started on steroid-based enemas. Nurse reports bloody red bowel movement this morning. Hemoglobin 9.3. Platelets 79. INR 1.3. Mild abdominal discomfort. Afebrile. Objective - Vital Signs Vital signs: Vital Signs Temp 98.2 F 09/09/16 09:00 Pulse 84 09/09/16 10:00 Resp 24 09/09/16 10:00 BP 98/57 09/09/16 10:00 Pulse Ox 97 09/09/16 10:00 Intake & Output 09/08/16 09/09/16 09/09/16 18:59 06:59 18:59 Intake Total 2425 2255.0 1125 Output Total 350 429 100 Balance 2075 1826.0 1025 Weight 62 kg Intake: IV 1900 1975.0 425 Piperacillin-Tazobactam 3 25.0 50 .375 gm In Dextrose/Water 1 50ml.bag @ 12.5 mls/hr IVPB Q8HR [facility] Rx#: [id number] Sodium Chloride 0.9% 1, 1800 1950 375 000 ml @ 75 mls/hr IV . [id number] [facility] Rx#:[id number] Intake, IV Titration 500 700 Amount Potassium Chloride 10 meq 200 Lidocaine 2% Inj 10 mg In Sodium Chloride 0.9% 100 ml @ 100 mls/hr IV Q1HR [facility] Rx#:[id number] Sodium Chloride 0.9% 500 500 ml @ 999 mls/hr IV .Q31M ONE Rx#:[id number] Sodium Chloride 0.9% 500 500 ml @ 999 mls/hr IV .Q31M ONE Rx#:[id number] Oral 250 Tube Feeding 25 30 Output: Urine 350 429 100 Other: Voiding Method Indwelling Catheter Indwelling Catheter Indwelling Catheter # Bowel Movements 1 - Exam General appearance: The patient is alert, oriented, in no acute distress. HET: Head is normocephalic and atraumatic. Pupils are equal and reactive. Oropharynx is clear without lesions. Neck: Supple without lymphadenopathy. Trachea midline. Heart: S1 S2. Regular rate and rhythm. Lungs: No crackles or wheezes are heard. Abdomen: Soft, nontender, nondistended with bowel sounds. No peritoneal signs. No palpable organomegaly or masses. Extremities: Normal skin color and turgor. No cyanosis, rash, ulceration, clubbing, or edema. Radial and pedal pulses are 2/4 bilaterally. Andrew clear tania urine. Neurological: No focal deficits. Strength and sensation are grossly intact. - Labs CBC & Chem 7: 09/09/16 04:22 09/09/16 04:22 Labs: Abnormal Lab Results - Last 24 Hours (Table) 09/08/16 09/08/16 09/09/16 Range/Units 04:47 11:44 04:22 WBC 22.7 H 19.7 H (3.8-10.6) k/uL RBC 3.16 L 3.08 L (3.80-5.40) m/uL Hgb 9.8 L 9.3 L (11.4-16.0) gm/dL Hct 30.9 L 31.1 L (34.0-46.0) % MCV 101.0 H (80.0-100.0) fL MCHC 30.0 L (31.0-37.0) g/dL Plt Count 107 L 79 L (150-450) k/uL Neutrophils # 16.3 H (1.3-7.7) k/uL PT (9.0-12.0) sec APTT (22.0-30.0) sec Fibrinogen (200-500) mg/dL Sodium (137-145) mmol/L Carbon Dioxide (22-30) mmol/L BUN (7-17) mg/dL Glucose (74-99) mg/dL Calcium (8.4-10.2) mg/dL Magnesium (1.6-2.3) mg/dL RBC Folate >1,440 H (280 - 791) ng/mL 09/09/16 09/09/16 Range/Units 04:22 04:22 WBC (3.8-10.6) k/uL RBC (3.80-5.40) m/uL Hgb (11.4-16.0) gm/dL Hct (34.0-46.0) % MCV (80.0-100.0) fL MCHC (31.0-37.0) g/dL Plt Count (150-450) k/uL Neutrophils # (1.3-7.7) k/uL PT 13.1 H (9.0-12.0) sec APTT 32.3 H (22.0-30.0) sec Fibrinogen 110 L (200-500) mg/dL Sodium 134 L (137-145) mmol/L Carbon Dioxide 17 L (22-30) mmol/L BUN 19 H (7-17) mg/dL Glucose 104 H (74-99) mg/dL Calcium 7.1 L (8.4-10.2) mg/dL Magnesium 2.5 H (1.6-2.3) mg/dL RBC Folate (280 - 791) ng/mL Assessment and Plan (1) Rectal bleeding Status: Acute (2) Colitis Status: Acute (3) Proctitis Status: Acute (4) Acute blood loss anemia Status: Acute (5) GI bleed Status: Acute Plan: Await colonoscopy biopsies. Continue with steroid enemas. CBC monitoring. GI prophylaxis. Surgery following. Assessment and plan of care discussed with Dr. Silva
[2016-09-09 10:25] LABS: Free Kappa Lt Chain Qnt, Serum 5.83 mg/dL (0.33 - 1.94); Kappa/Lambda Light Chain Ratio 1.11 (0.26 - 1.65)
--- NOTE | 2016-09-09 15:27 | P.PN ---
Subjective Principal diagnosis: Acute GI bleeding This 89-year-old female patient was having episodes of rectal bleeding with questionable vaginal bleeding over the past few weeks. The patient reported that she was passing brown stool mixed with bloody mucus and she has noted small amount of blood in the commode and over the last 2 days she has seen more of blood clots along with her bowel movements. Is not clear to me whether this was an active GI bleeding and the possibility of vaginal bleeding is also being entertained in this patient. She came into the emergency department she was admitted for further evaluation. Overnight she end up in the hospital and then to the intensive care unit for further monitoring. Initial hemoglobin is 11 and the patient has not dropped her hemoglobin further. No nausea. No vomiting. No hematemesis. No liver cirrhosis. No coagulopathy. No intake of any nonsteroidal anti-inflammatory medications or blood thinners. She has undergone a colonoscopy approximately year ago by Dr. Mcdonald at [facility] results of this colonoscopy will be forwarded to us. Meanwhile, a consultation was requested by Dr. Munson. The patient is hemodynamically stable. No dizziness. No chest pain. No hypotension. She claims to have some external and internal hemorrhoids. She did also have some recent constipation however she has been able to have a bowel movement every few days. The patient had a pelvic ultrasound yesterday which showed a complex fluid that is filling the endometrial cavity of the uterus and this was measuring 7 x 5 cm. Based on these findings, a ANCILLARY SERVICES MANAGER consultation was requested and today the patient was seen by Dr. Bush will evaluated the patient and had 2 attempts of dilating has stenotic cervix and draining the fluid for tissue confirmation however this was not successful. Note that this patient has been seen for the same problem by Tanya in the past and that initial impression was that this was not neoplastic in nature. The patient had the lesion described and this was of the same size for approximately 3 years and consistent with benign endometrial fluid collection secondary to cervical stenosis. The ANCILLARY SERVICES MANAGER opinion was that the blood that was noticed vaginally most likely was a contamination. Cervix was still stenotic which was not letting any of the fluid out of the uterine cavity. The recommendation was further to pursue this patient for any GI bleeding. Patient was reevaluated today on 09/08/2016, patient seems to be doing well, patient was found to have severe active colitis involving the rectum and sigmoid colon up to 40 cm from the anal verge. Multiple pseudopolyps noted in the sigmoid colon and sigmoid diverticulosis. Multiple biopsies were done, and these are pending. Labs were reviewed, hemoglobin today is 9.8, WBC count is 22.7. Platelets are 107. Patient is hemodynamically stable, and in no distress. Reevaluated today on 09/09/2016, patient is basically about the same, continues to have maroon colored stools, she has leukocytosis with WBC count of 19.7, hemoglobin is 9.3. Received so far 1 unit of packed RBCs and 1 unit of platelets. Her colonoscopy showed severe active colitis involving the rectum and the sigmoid hence she is now on steroid based enemas. Patient had 1 red bloody bowel movement early this morning. Hemodynamics-alegre patient is stable, received a few fluid boluses last night, however her chest x-ray is showing some evidence of fluid overload and I will try to diurese today. Hence 40 mg of Lasix IV push was given. Patient denies any shortness of breath. No cough, no fever, no chills. She has mostly GI symptoms and some vague abdominal discomfort. Objective - Vital Signs Vital signs: Vital Signs Temp 98.2 F 09/09/16 09:00 Pulse 86 09/09/16 15:00 Resp 20 09/09/16 15:00 BP 107/56 09/09/16 15:00 Pulse Ox 97 09/09/16 15:00 Intake & Output 09/08/16 09/09/16 09/09/16 18:59 06:59 18:59 Intake Total 2425 2255.0 1625 Output Total 231 604 2305 Balance 2075 1826.0 -110 Weight 62 kg Intake: IV 1900 1975.0 800 Piperacillin-Tazobactam 3 25.0 50 .375 gm In Dextrose/Water 1 50ml.bag @ 12.5 mls/hr IVPB Q8HR [facility] Rx#: [id number] Sodium Chloride 0.9% 1, 1800 1950 750 000 ml @ 75 mls/hr IV . [id number] [facility] Rx#:[id number] Intake, IV Titration 500 700 Amount Potassium Chloride 10 meq 200 Lidocaine 2% Inj 10 mg In Sodium Chloride 0.9% 100 ml @ 100 mls/hr IV Q1HR [facility] Rx#:[id number] Sodium Chloride 0.9% 500 500 ml @ 999 mls/hr IV .Q31M [facility] Rx#:[id number] Sodium Chloride 0.9% 500 500 ml @ 999 mls/hr IV .Q31M [facility] Rx#:[id number] Oral 250 125 Tube Feeding 25 30 Output: Urine 598 057 8360 Other: Voiding Method Indwelling Catheter Indwelling Catheter Indwelling Catheter # Bowel Movements 1 - Exam The patient appeared well nourished and normally developed. Vital signs as documented. Head exam is unremarkable. No scleral icterus or corneal arcus noted. Neck is without jugular venous distension, thyromegaly, or carotid bruits. Carotid upstrokes are brisk bilaterally. Lungs records at the bases. Cardiac exam reveals the PMI to be normally sized and situated. Rhythm is regular. First and second heart sounds normal. No murmurs, rubs or gallops. Abdominal exam reveals normal bowel sounds, no masses, no organomegaly and no aortic enlargement. Extremities are nonedematous and both femoral and pedal pulses are normal. The patient has a right inguinal hernia that is easily reducible. - Labs CBC & Chem 7: 09/09/16 04:22 09/09/16 04:22 Labs: Abnormal Lab Results - Last 24 Hours (Table) 09/08/16 09/09/16 09/09/16 Range/Units 04:47 04:22 04:22 WBC 19.7 H (3.8-10.6) k/uL RBC 3.08 L (3.80-5.40) m/uL Hgb 9.3 L (11.4-16.0) gm/dL Hct 31.1 L (34.0-46.0) % MCV 101.0 H (80.0-100.0) fL MCHC 30.0 L (31.0-37.0) g/dL Plt Count 79 L (150-450) k/uL Neutrophils # 16.3 H (1.3-7.7) k/uL PT (9.0-12.0) sec APTT (22.0-30.0) sec Fibrinogen (200-500) mg/dL Sodium 134 L (137-145) mmol/L Carbon Dioxide 17 L (22-30) mmol/L BUN 19 H (7-17) mg/dL Glucose 104 H (74-99) mg/dL Calcium 7.1 L (8.4-10.2) mg/dL Magnesium 2.5 H (1.6-2.3) mg/dL RBC Folate >1,440 H (280 - 791) ng/mL Free [place] LC, Quant 5.83 H (0.33 - 1.94) mg/dL Free Lambda LC, Quant 5.25 H (0.57 - 2.63) mg/dL 09/09/16 Range/Units 04:22 WBC (3.8-10.6) k/uL RBC (3.80-5.40) m/uL Hgb (11.4-16.0) gm/dL Hct (34.0-46.0) % MCV (80.0-100.0) fL MCHC (31.0-37.0) g/dL Plt Count (150-450) k/uL Neutrophils # (1.3-7.7) k/uL PT 13.1 H (9.0-12.0) sec APTT 32.3 H (22.0-30.0) sec Fibrinogen 110 L (200-500) mg/dL Sodium (137-145) mmol/L Carbon Dioxide (22-30) mmol/L BUN (7-17) mg/dL Glucose (74-99) mg/dL Calcium (8.4-10.2) mg/dL Magnesium (1.6-2.3) mg/dL RBC Folate (280 - 791) ng/mL Free [place] LC, Quant (0.33 - 1.94) mg/dL Free Lambda LC, Quant (0.57 - 2.63) mg/dL Assessment and Plan Plan: 1 suspected lower GI bleeding, secondary to severe colitis, patient is status post flexible colonoscopy, multiple biopsies, results of which are pending. The patient is still having some on and off episodes of bleeding and that hemoglobin and hemodynamics remain stable. On 09/09/2016, patient continues to do relatively well, she developed a bit of fluid overload, hemoglobin is stable, received 1 unit of packed RBCs so far and 1 unit of platelets. Patient is not in any distress, however Lasix will be given because of her abnormal chest x-ray and crackles noted on the bases upon physical examination. 2 fluid in the endometrial cavity. Please refer to discussion above. This has been a chronic finding related to cervical stenosis and there is no evidence of any malignancy based on previous evaluation done by [facility] [place] and here by Dr. Bush. 3 new onset thrombocytopenia, stable platelet count 4 nonspecific troponin leak 5 hypothyroidism 6 hypertension 7 degenerative arthritis 8 trigeminal neuralgia 9 glucoma 10 migraines 11 peripheral vascular disease 12 right inguinal hernia 16 peptic ulcer disease 14 osteoporosis 15 Skin stress urinary incontinence 16 difficulty with mobility and gait and peripheral neuropathy. Recommendation: Continue to monitor patient in the ICU, and we'll continue to follow closely. Await biopsy report from her colonoscopy. Time with Patient: Less than 30
[2016-09-09 17:33] LABS: Anion Gap 11 mmol/L; Blood Urea Nitrogen 16 mg/dL (7-17); Calcium 7.2 mg/dL (8.4-10.2); Carbon Dioxide 19 mmol/L (22-30); Chloride 107 mmol/L (98-107); Glucose 100 mg/dL (74-99); Non-African American GFR(MDRD) >60 (>60 ml/min/1.73 sqM); Potassium 3.3 mmol/L (3.5-5.1); Sodium 137 mmol/L (137-145)
[2016-09-09] MEDS: oxyCODONE-APAP 10-325MG 1 EACH TAB PO PRN (19:44)
[2016-09-09] MEDS: HYDROCORTISONE ENEMA 100 MG/60 ML RECTAL SCH (21:58)
[2016-09-10] MEDS: PIPERACILLIN-TAZOBACTAM 3.375 GM in DEXTROSE/WATER 1 50ML.BAG IVPB SCH ×3 (00:06→17:39)
[2016-09-10] MEDS: oxyCODONE-APAP 10-325MG 1 EACH TAB PO PRN (00:19)
[2016-09-10] MEDS ORDERED: Potassium Replacement Protocol 1 EACH MISC MISCELLANE PRN ×2 (00:25→05:53)
[2016-09-10] MEDS: POTASSIUM CHLORIDE 10 MEQ, LIDOCAINE 2% INJ 10 MG in SODIUM CHLORIDE 0.9% 100 ML IV SCH ×2 (01:09→02:12)
[2016-09-10] MEDS: MORPHINE SULFATE 2 MG/ML SYRINGE IVP PRN ×3 (03:54→18:35)
[2016-09-10 05:12] LABS: CH 30.2; HCT 26.5 % (34.0-46.0); HDW 3.39; HGB 8.7 gm/dL (11.4-16.0); Hypochromasia Slight; MCH 31.2 pg (25.0-35.0); MCHC 32.8 g/dL (31.0-37.0); Mean Platelet Volume 10.3; RBC 2.78 m/uL (3.80-5.40); RDW 15.4 % (11.5-15.5); WBC 16.1 k/uL (3.8-10.6)
[2016-09-10 05:18] LABS: MCV 95.3 fL (80.0-100.0)
[2016-09-10 05:39] LABS: Anion Gap 10 mmol/L; Blood Urea Nitrogen 15 mg/dL (7-17); Calcium 7.3 mg/dL (8.4-10.2); Carbon Dioxide 18 mmol/L (22-30); Chloride 107 mmol/L (98-107); Glucose 88 mg/dL (74-99); Magnesium 1.9 mg/dL (1.6-2.3); Non-African American GFR(MDRD) >60 (>60 ml/min/1.73 sqM); Phosphorous 2.5 mg/dL (2.5-4.5); Potassium 3.6 mmol/L (3.5-5.1); Sodium 135 mmol/L (137-145)
[2016-09-10 05:44] LABS: INR 1.3 (<1.1); Partial Thromboplastin Time 31.4 sec (22.0-30.0); Prothrombin Time 12.9 sec (9.0-12.0)
[2016-09-10] MEDS ORDERED: Magnesium Replacement Protocol 1 EACH MISC MISCELLANE PRN (05:53)
[2016-09-10] MEDS: MAGNESIUM SULFATE-D5W PMX 1 GM in DEXTROSE/WATER 1 100ML.BAG IVPB SCH ×2 (06:20→09:29)
[2016-09-10] MEDS: POTASSIUM CHLORIDE 10 MEQ in WATER FOR INJECTION 1 100ML.BAG IVPB SCH ×2 (06:20→09:29)
[2016-09-10] MEDS: PANTOPRAZOLE 40 MG/10 ML VIAL IVP SCH ×2 (09:29→23:05)
--- NOTE | 2016-09-10 09:50 | P.PN ---
Subjective Principal diagnosis: Rectal bleeding 89-year-old female admitted with rectal bleeding 1 month duration status post colonoscopy with findings of severe active colitis involving the rectum and sigmoid started on steroid-based enemas. Colon biopsies consistent with chronic active colitis with ulceration negative for dysplasia. Nurse reports last bloody red bowel movement yesterday morning. Hemoglobin 8.7. Hematuria. Platelets decreased to 68. INR 1.3. Mild abdominal discomfort. Afebrile. Objective - Vital Signs Vital signs: Vital Signs Temp 98 F 09/10/16 00:00 Pulse 78 09/10/16 07:00 Resp 12 09/10/16 07:00 BP 120/56 09/10/16 07:00 Pulse Ox 96 09/10/16 07:00 Intake & Output 09/09/16 09/10/16 09/10/16 18:59 06:59 18:59 Intake Total 2315 1087.5 Output Total 2225 505 Balance 90 582.5 Weight 63 kg Intake: IV 1150 1087.5 Magnesium Sulfate-D5w Pmx 100 1 gm In Dextrose/Water 1 100ml.bag @ 100 mls/hr IVPB Q1H [facility] Rx#: [id number] Piperacillin-Tazobactam 3 100 12.5 .375 gm In Dextrose/Water 1 50ml.bag @ 12.5 mls/hr IVPB Q8HR [facility] Rx#: [id number] Potassium Chloride 10 meq 300 Lidocaine 2% Inj 10 mg In Sodium Chloride 0.9% 100 ml @ 100 mls/hr IV Q1HR [facility] Rx#:[id number] Sodium Chloride 0.9% 1, 1050 675 000 ml @ 75 mls/hr IV . [id number] [facility] Rx#:[id number] Intake, IV Titration 800 Amount Potassium Chloride 10 meq 200 Lidocaine 2% Inj 10 mg In Sodium Chloride 0.9% 100 ml @ 100 mls/hr IV Q1HR [facility] Rx#:[id number] Potassium Chloride 10 meq 100 Lidocaine 2% Inj 10 mg In Sodium Chloride 0.9% 100 ml @ 100 mls/hr IV Q1HR [facility] Rx#:[id number] Sodium Chloride 0.9% 500 500 ml @ 999 mls/hr IV .Q31M [facility] Rx#:[id number] Oral 365 Output: Urine 2225 505 Other: Voiding Method Indwelling Catheter Indwelling Catheter # Bowel Movements 1 1 - Exam General appearance: The patient is alert, oriented, in no acute distress. HET: Head is normocephalic and atraumatic. Pupils are equal and reactive. Oropharynx is clear without lesions. Neck: Supple without lymphadenopathy. Trachea midline. Heart: S1 S2. Regular rate and rhythm. Lungs: No crackles or wheezes are heard. Abdomen: Soft, nontender, mildly distended with bowel sounds. No peritoneal signs. No palpable organomegaly or masses. Extremities: Normal skin color and turgor. No cyanosis, rash, ulceration, clubbing, or edema. Radial and pedal pulses are 2/4 bilaterally. Andrew pink red urine. Neurological: No focal deficits. Strength and sensation are grossly intact. - Labs CBC & Chem 7: 09/10/16 04:28 09/10/16 04:28 Labs: Abnormal Lab Results - Last 24 Hours (Table) 09/08/16 09/08/16 09/09/16 Range/Units 04:47 04:47 16:41 WBC (3.8-10.6) k/uL RBC (3.80-5.40) m/uL Hgb (11.4-16.0) gm/dL Hct (34.0-46.0) % Plt Count (150-450) k/uL PT (9.0-12.0) sec APTT (22.0-30.0) sec Fibrinogen (200-500) mg/dL Sodium (137-145) mmol/L Potassium 3.3 L (3.5-5.1) mmol/L Carbon Dioxide 19 L (22-30) mmol/L Glucose 100 H (74-99) mg/dL Calcium 7.2 L (8.4-10.2) mg/dL Total Protein (PEP) 5.3 L (6.2-8.2) g/dL Albumin (PEP) 2.26 L (3.80-4.90) g/dL RBC Folate >1,440 H (280 - 791) ng/mL Free [place] LC, Quant 5.83 H (0.33 - 1.94) mg/dL Free Lambda LC, Quant 5.25 H (0.57 - 2.63) mg/dL 09/10/16 09/10/16 09/10/16 Range/Units 04:28 04:28 04:28 WBC 16.1 H (3.8-10.6) k/uL RBC 2.78 L (3.80-5.40) m/uL Hgb 8.7 L (11.4-16.0) gm/dL Hct 26.5 L (34.0-46.0) % Plt Count 68 L (150-450) k/uL PT 12.9 H (9.0-12.0) sec APTT 31.4 H (22.0-30.0) sec Fibrinogen 110 L (200-500) mg/dL Sodium 135 L (137-145) mmol/L Potassium (3.5-5.1) mmol/L Carbon Dioxide 18 L (22-30) mmol/L Glucose (74-99) mg/dL Calcium 7.3 L (8.4-10.2) mg/dL Total Protein (PEP) (6.2-8.2) g/dL Albumin (PEP) (3.80-4.90) g/dL RBC Folate (280 - 791) ng/mL Free [place] LC, Quant (0.33 - 1.94) mg/dL Free Lambda LC, Quant (0.57 - 2.63) mg/dL Assessment and Plan (1) Rectal bleeding Narrative/Plan: Severe active colitis involving the rectum and sigmoid Status: Acute (2) Colitis Status: Acute (3) Proctitis Status: Acute (4) Acute blood loss anemia Status: Acute (5) GI bleed Status: Acute Plan: Discontinue steroid enema. Balsalazide 2.25 g 3 times daily (formulary for [place]). CBC monitoring. GI prophylaxis. Diet as tolerated. Assessment and plan of care discussed with Dr. Silva
[2016-09-10] MEDS: GABAPENTIN 300 MG CAP PO SCH ×2 (09:56→23:05)
[2016-09-10] MEDS: SODIUM CHLORIDE 0.9% 1,000 ML IV SCH ×2 (09:57→19:09)
[2016-09-10] MEDS: LEVOTHYROXINE 25 MCG TAB PO SCH (09:57)
[2016-09-10] MEDS: DULoxetine HCL 30 MG CAPSULE.DR PO SCH (09:57)
[2016-09-10] MEDS: METOPROLOL SUCCINATE (ER) 25 MG TAB.ER.24H PO SCH ×2 (09:58→23:05)
[2016-09-10] MEDS ORDERED: DEXAMETHASONE SOD PHOSPHATE 4 MG/ML 1 ML VIAL IV PRN (10:16)
[2016-09-10] MEDS: DEXAMETHASONE SOD PHOSPHATE 4 MG/ML 1 ML VIAL IV SCH ×2 (11:15→17:39)
--- NOTE | 2016-09-10 14:56 | P.PN ---
Subjective Principal diagnosis: Acute GI bleeding This 89-year-old female patient was having episodes of rectal bleeding with questionable vaginal bleeding over the past few weeks. The patient reported that she was passing brown stool mixed with bloody mucus and she has noted small amount of blood in the commode and over the last 2 days she has seen more of blood clots along with her bowel movements. Is not clear to me whether this was an active GI bleeding and the possibility of vaginal bleeding is also being entertained in this patient. She came into the emergency department she was admitted for further evaluation. Overnight she end up in the hospital and then to the intensive care unit for further monitoring. Initial hemoglobin is 11 and the patient has not dropped her hemoglobin further. No nausea. No vomiting. No hematemesis. No liver cirrhosis. No coagulopathy. No intake of any nonsteroidal anti-inflammatory medications or blood thinners. She has undergone a colonoscopy approximately year ago by Dr. Mcdonald at [facility] results of this colonoscopy will be forwarded to us. Meanwhile, a consultation was requested by Dr. Munson. The patient is hemodynamically stable. No dizziness. No chest pain. No hypotension. She claims to have some external and internal hemorrhoids. She did also have some recent constipation however she has been able to have a bowel movement every few days. The patient had a pelvic ultrasound yesterday which showed a complex fluid that is filling the endometrial cavity of the uterus and this was measuring 7 x 5 cm. Based on these findings, a CERTIFIED PEER SPECIALIST consultation was requested and today the patient was seen by Dr. Bush will evaluated the patient and had 2 attempts of dilating has stenotic cervix and draining the fluid for tissue confirmation however this was not successful. Note that this patient has been seen for the same problem by Tanya in the past and that initial impression was that this was not neoplastic in nature. The patient had the lesion described and this was of the same size for approximately 3 years and consistent with benign endometrial fluid collection secondary to cervical stenosis. The CERTIFIED PEER SPECIALIST opinion was that the blood that was noticed vaginally most likely was a contamination. Cervix was still stenotic which was not letting any of the fluid out of the uterine cavity. The recommendation was further to pursue this patient for any GI bleeding. Patient was reevaluated today on 09/08/2016, patient seems to be doing well, patient was found to have severe active colitis involving the rectum and sigmoid colon up to 40 cm from the anal verge. Multiple pseudopolyps noted in the sigmoid colon and sigmoid diverticulosis. Multiple biopsies were done, and these are pending. Labs were reviewed, hemoglobin today is 9.8, WBC count is 22.7. Platelets are 107. Patient is hemodynamically stable, and in no distress. Reevaluated today on 09/09/2016, patient is basically about the same, continues to have maroon colored stools, she has leukocytosis with WBC count of 19.7, hemoglobin is 9.3. Received so far 1 unit of packed RBCs and 1 unit of platelets. Her colonoscopy showed severe active colitis involving the rectum and the sigmoid hence she is now on steroid based enemas. Patient had 1 red bloody bowel movement early this morning. Hemodynamics-alegre patient is stable, received a few fluid boluses last night, however her chest x-ray is showing some evidence of fluid overload and I will try to diurese today. Hence 40 mg of Lasix IV push was given. Patient denies any shortness of breath. No cough, no fever, no chills. She has mostly GI symptoms and some vague abdominal discomfort. Reevaluated today on 09/10/2016, patient is requesting to be discharged home, but she seems to be a bit confused. Today she has significant gross hematuria noted in the Andrew bag, continues to have lower GI bleeding, her last bloody bowel movement was yesterday morning. Hemoglobin is stable at 8.7. Platelets are down to 68,000. And now she has gross hematuria hence I recommended a urology consultation. Pulmonary-alegre, the patient does not seem to be in any form of respiratory distress. Her basic metabolic profile seems to be relatively normal except for a bicarb of 18 renal profile is normal. Objective - Vital Signs Vital signs: Vital Signs Temp 98 F 09/10/16 00:00 Pulse 78 09/10/16 07:00 Resp 12 09/10/16 07:00 BP 120/56 09/10/16 07:00 Pulse Ox 96 09/10/16 07:00 Intake & Output 09/09/16 09/10/16 09/10/16 18:59 06:59 18:59 Intake Total 2315 1087.5 Output Total 2225 505 Balance 90 582.5 Weight 63 kg Intake: IV 1150 1087.5 Magnesium Sulfate-D5w Pmx 100 1 gm In Dextrose/Water 1 100ml.bag @ 100 mls/hr IVPB Q1H [facility] Rx#: [id number] Piperacillin-Tazobactam 3 100 12.5 .375 gm In Dextrose/Water 1 50ml.bag @ 12.5 mls/hr IVPB Q8HR [facility] Rx#: [id number] Potassium Chloride 10 meq 300 Lidocaine 2% Inj 10 mg In Sodium Chloride 0.9% 100 ml @ 100 mls/hr IV Q1HR [facility] Rx#:[id number] Sodium Chloride 0.9% 1, 1050 675 000 ml @ 75 mls/hr IV . [id number] [facility] Rx#:[id number] Intake, IV Titration 800 Amount Potassium Chloride 10 meq 200 Lidocaine 2% Inj 10 mg In Sodium Chloride 0.9% 100 ml @ 100 mls/hr IV Q1HR [facility] Rx#:[id number] Potassium Chloride 10 meq 100 Lidocaine 2% Inj 10 mg In Sodium Chloride 0.9% 100 ml @ 100 mls/hr IV Q1HR [facility] Rx#:[id number] Sodium Chloride 0.9% 500 500 ml @ 999 mls/hr IV .Q31M [facility] Rx#:[id number] Oral 365 Output: Urine 2225 505 Other: Voiding Method Indwelling Catheter Indwelling Catheter # Bowel Movements 1 1 - Exam Physical Exam: Revealed an 89-year-old female looks chronically ill, frail, in no form of respiratory distress. HEENT:[Neck is supple.] [No neck masses.] [No thyromegaly.] [No JVD.] Chest: [Clear throughout, no crackles, no rhonchi, no wheezes.] Cardiac Exam: [Normal S1 and S2, no S3 gallop, no murmur.] Abdomen: [Soft, nontender, no megaly, no rebound, no guarding, normal bowel sounds.] Extremities: [No clubbing, no edema, no cyanosis.] Neurological Exam: [No focal neurologic deficit.] - Labs CBC & Chem 7: 09/10/16 04:28 09/10/16 04:28 Labs: Abnormal Lab Results - Last 24 Hours (Table) 09/08/16 09/09/16 09/10/16 Range/Units 04:47 16:41 04:28 WBC (3.8-10.6) k/uL RBC (3.80-5.40) m/uL Hgb (11.4-16.0) gm/dL Hct (34.0-46.0) % Plt Count (150-450) k/uL PT 12.9 H (9.0-12.0) sec APTT 31.4 H (22.0-30.0) sec Fibrinogen 110 L (200-500) mg/dL Sodium (137-145) mmol/L Potassium 3.3 L (3.5-5.1) mmol/L Carbon Dioxide 19 L (22-30) mmol/L Glucose 100 H (74-99) mg/dL Calcium 7.2 L (8.4-10.2) mg/dL Total Protein (PEP) 5.3 L (6.2-8.2) g/dL Albumin (PEP) 2.26 L (3.80-4.90) g/dL 09/10/16 09/10/16 Range/Units 04:28 04:28 WBC 16.1 H (3.8-10.6) k/uL RBC 2.78 L (3.80-5.40) m/uL Hgb 8.7 L (11.4-16.0) gm/dL Hct 26.5 L (34.0-46.0) % Plt Count 68 L (150-450) k/uL PT (9.0-12.0) sec APTT (22.0-30.0) sec Fibrinogen (200-500) mg/dL Sodium 135 L (137-145) mmol/L Potassium (3.5-5.1) mmol/L Carbon Dioxide 18 L (22-30) mmol/L Glucose (74-99) mg/dL Calcium 7.3 L (8.4-10.2) mg/dL Total Protein (PEP) (6.2-8.2) g/dL Albumin (PEP) (3.80-4.90) g/dL Assessment and Plan Plan: 1 suspected lower GI bleeding, secondary to severe colitis, patient is status post flexible colonoscopy, multiple biopsies, showed mostly acute on chronic colitis. The patient is still having some on and off episodes of bleeding and that hemoglobin and hemodynamics remain stable. On 09/09/2016, patient continues to do relatively well, she developed a bit of fluid overload, hemoglobin is stable, received 1 unit of packed RBCs so far and 1 unit of platelets. Patient is not in any distress, however Lasix will be given because of her abnormal chest x-ray and crackles noted on the bases upon physical examination. On 09/10/2016, patient is now having gross hematuria, and she continues to have possibly some GI bleeding related to her colitis. Today I recommended a trial of Decadron for the next 24-36 hours. In the meantime I have initiated a consultation with urology to address her gross hematuria. 2 fluid in the endometrial cavity. Please refer to discussion above. This has been a chronic finding related to cervical stenosis and there is no evidence of any malignancy based on previous evaluation done by [facility] [place] and here by Dr. Bush. 3 new onset thrombocytopenia, stable platelet count 4 nonspecific troponin leak 5 hypothyroidism 6 hypertension 7 degenerative arthritis 8 trigeminal neuralgia 9 glucoma 10 migraines 11 peripheral vascular disease 12 right inguinal hernia 16 peptic ulcer disease 14 osteoporosis 15 Skin stress urinary incontinence 16 difficulty with mobility and gait and peripheral neuropathy. Recommendation: Continue to monitor patient in the ICU, and we'll continue to follow closely. Trial of Decadron for the next 36 hours will be initiated. We' ll continue to follow. Not quite ready to be discharged out of the ICU today. Time with Patient: Less than 30
--- NOTE | 2016-09-10 15:21 | P.PN ---
Subjective Date of service 09/09/2016. Progress note being dictated for Dr. Del Castillo. Interval history: This is a 89-year-old female admitted with lower GI bleed and multiple other medical issues. Underwent flex sigmoidoscopy yesterday, reporting severe active colitis involving the rectum and sigmoid colon, biopsies obtained. Maintained on steroid enemas. Received a single dose of Lasix for fluid overload per chest x-ray. Telemetry with proximal A. fib RVR, currently sinus rhythm. Passed One moderate bright red bowel movement this morning. Hematuria improving. Hemoglobin 9.3, platelets 79, INR 1.3, fibrinogen 110. Currently denies abdominal pain, chest pain, palpitations or increasing shortness of breath. Afebrile. Abdominal/pelvis CT performed, results pending. Objective - Vital Signs Vital signs: Vital Signs Temp 98.1 F 09/09/16 17:00 Pulse 87 09/09/16 18:00 Resp 19 09/09/16 18:00 BP 112/58 09/09/16 18:00 Pulse Ox 97 09/09/16 18:00 Intake & Output 09/08/16 09/09/16 09/09/16 18:59 06:59 18:59 Intake Total 2425 2255.0 2000 Output Total 392 244 2035 Balance 2075 1826.0 -135 Weight 62 kg Intake: IV 1900 1975.0 1075 Piperacillin-Tazobactam 3 25.0 100 .375 gm In Dextrose/Water 1 50ml.bag @ 12.5 mls/hr IVPB Q8HR [facility] Rx#: [id number] Sodium Chloride 0.9% 1, 1800 1950 975 000 ml @ 75 mls/hr IV . [id number] [facility] Rx#:[id number] Intake, IV Titration 500 800 Amount Potassium Chloride 10 meq 200 Lidocaine 2% Inj 10 mg In Sodium Chloride 0.9% 100 ml @ 100 mls/hr IV Q1HR [facility] Rx#:[id number] Potassium Chloride 10 meq 100 Lidocaine 2% Inj 10 mg In Sodium Chloride 0.9% 100 ml @ 100 mls/hr IV Q1HR [facility] Rx#:[id number] Sodium Chloride 0.9% 500 500 ml @ 999 mls/hr IV .Q31M [facility] Rx#:[id number] Sodium Chloride 0.9% 500 500 ml @ 999 mls/hr IV .Q31M [facility] Rx#:[id number] Oral 250 125 Tube Feeding 25 30 Output: Urine 395 051 1691 Other: Voiding Method Indwelling Catheter Indwelling Catheter Indwelling Catheter # Bowel Movements 1 - Exam PHYSICAL EXAM: VITAL SIGNS: As above GENERAL: [Sitting up in bed, pleasantly confused, A & O 2] HEENT: [Pupils equal conjunctiva normal.] NECK: [Supple, no JVD] RESPIRATORY EFFORT:[Normal] LUNGS: [Diminished with Fine bibasilar crackles] CARDIOVASCULAR[regular S1 and S2, no murmurs rubs or gallops, no edema] GI: [Abdomen soft, nontender, positive bowel sounds.] NEURO: [Gross neurological examination did not reveal any focal deficits] - Labs CBC & Chem 7: 09/10/16 04:28 09/10/16 04:28 Labs: Abnormal Lab Results - Last 24 Hours (Table) 09/08/16 09/08/16 09/09/16 Range/Units 04:47 04:47 04:22 WBC 19.7 H (3.8-10.6) k/uL RBC 3.08 L (3.80-5.40) m/uL Hgb 9.3 L (11.4-16.0) gm/dL Hct 31.1 L (34.0-46.0) % MCV 101.0 H (80.0-100.0) fL MCHC 30.0 L (31.0-37.0) g/dL Plt Count 79 L (150-450) k/uL Neutrophils # 16.3 H (1.3-7.7) k/uL PT (9.0-12.0) sec APTT (22.0-30.0) sec Fibrinogen (200-500) mg/dL Sodium (137-145) mmol/L Potassium (3.5-5.1) mmol/L Carbon Dioxide (22-30) mmol/L BUN (7-17) mg/dL Glucose (74-99) mg/dL Calcium (8.4-10.2) mg/dL Magnesium (1.6-2.3) mg/dL Total Protein (PEP) 5.3 L (6.2-8.2) g/dL Albumin (PEP) 2.26 L (3.80-4.90) g/dL RBC Folate >1,440 H (280 - 791) ng/mL Free [place] LC, Quant 5.83 H (0.33 - 1.94) mg/dL Free Lambda LC, Quant 5.25 H (0.57 - 2.63) mg/dL 09/09/16 09/09/16 09/09/16 Range/Units 04:22 04:22 16:41 WBC (3.8-10.6) k/uL RBC (3.80-5.40) m/uL Hgb (11.4-16.0) gm/dL Hct (34.0-46.0) % MCV (80.0-100.0) fL MCHC (31.0-37.0) g/dL Plt Count (150-450) k/uL Neutrophils # (1.3-7.7) k/uL PT 13.1 H (9.0-12.0) sec APTT 32.3 H (22.0-30.0) sec Fibrinogen 110 L (200-500) mg/dL Sodium 134 L (137-145) mmol/L Potassium 3.3 L (3.5-5.1) mmol/L Carbon Dioxide 17 L 19 L (22-30) mmol/L BUN 19 H (7-17) mg/dL Glucose 104 H 100 H (74-99) mg/dL Calcium 7.1 L 7.2 L (8.4-10.2) mg/dL Magnesium 2.5 H (1.6-2.3) mg/dL Total Protein (PEP) (6.2-8.2) g/dL Albumin (PEP) (3.80-4.90) g/dL RBC Folate (280 - 791) ng/mL Free [place] LC, Quant (0.33 - 1.94) mg/dL Free Lambda LC, Quant (0.57 - 2.63) mg/dL Assessment and Plan Plan: 1. Lower GI bleed, secondary to severe colitis, status post sigmoidoscopy, severe active colitis involving the rectum and sigmoid colon, multiple pseudopolyps in sigmoid colon, sigmoid diverticulosis ]. Biopsies pending. 2. Acute blood loss anemia secondary to above, status post transfusion . 3. [Reactive leukocytosis]. 4. Hypertension. 5. Hypothyroidism]. 6. [Hypovolemic hyponatremia]. 7. 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 8. Thrombocytopenia, possible DIC 9. Nonspecific troponin leak 10. [Degenerative joint disease, osteoporosis] 11. Complex uterus fluid collection per pelvic ultrasound History of cervical stenosis with fluid in the endometrial cavity, non-malignant per BI DATA MODELER and prior studies at [facility]. 12. Peripheral vascular disease 13. Hypokalemia 14. Coagulopathy Plan: Continue on current medication regime , antibiotics, monitoring and symptomatic treatment. Close monitoring of hemoglobin, coags, electrolytes with repeat labs ordered for a.m. Await biopsy results. Follow up multiple consults closely. Prognosis guarded given multiple complex medical issues. No family at bedside. Further recommendations to follow. The impression and plan of care has been dictated as directed. : I performed a H&P examination of this patient and discussed the same with the dictator. I agree with the dictator's note. Any additional findings/opinions/ etc. will be noted.
--- NOTE | 2016-09-10 15:43 | P.PN ---
Subjective Date of service 09/10/2016. Progress note being dictated for Dr. Del Castillo. Interval history: This is a 89-year-old female admitted with lower GI bleed, status post flex sigmoidoscopy reporting severe active colitis involving the rectum and sigmoid colon. Steroid enemas discontinued and Asacol initiated. More confused today .Worsening hematuria, no further bloody bowel movements. Brown bowel movement this morning. Hemoglobin 8.7, platelets 68. Decadron added to med regime this morning. Bicarb 18 .Afebrile. Abdominal/pelvis CT reporting anasarca, mild ascites, colonic wall thickening, moderate right-sided hydronephrosis without obstruction, numerous compression fractures bilateral pleural effusions and bibasilar infiltrates, atelectasis, significant biliary tree dilation. Objective - Vital Signs Vital signs: Vital Signs Temp 98.4 F 09/10/16 12:00 Pulse 82 09/10/16 15:00 Resp 15 09/10/16 15:00 BP 164/69 09/10/16 15:00 Pulse Ox 96 09/10/16 07:00 Intake & Output 09/09/16 09/10/16 09/10/16 18:59 06:59 18:59 Intake Total 2315 1087.5 760 Output Total 2225 505 340 Balance 90 582.5 420 Weight 63 kg Intake: IV 1150 1087.5 760 Magnesium Sulfate-D5w Pmx 100 100 1 gm In Dextrose/Water 1 100ml.bag @ 100 mls/hr IVPB Q1H [facility] Rx#: [id number] Piperacillin-Tazobactam 3 100 12.5 50 .375 gm In Dextrose/Water 1 50ml.bag @ 12.5 mls/hr IVPB Q8HR [facility] Rx#: [id number] Potassium Chloride 10 meq 10 In Water For Injection 1 100ml.bag @ 100 mls/hr IVPB Q1H [facility] Rx#: [id number] Potassium Chloride 10 meq 300 Lidocaine 2% Inj 10 mg In Sodium Chloride 0.9% 100 ml @ 100 mls/hr IV Q1HR [facility] Rx#:[id number] Sodium Chloride 0.9% 1, 1050 675 600 000 ml @ 75 mls/hr IV . [id number] [facility] Rx#:[id number] Intake, IV Titration 800 Amount Potassium Chloride 10 meq 200 Lidocaine 2% Inj 10 mg In Sodium Chloride 0.9% 100 ml @ 100 mls/hr IV Q1HR [facility] Rx#:[id number] Potassium Chloride 10 meq 100 Lidocaine 2% Inj 10 mg In Sodium Chloride 0.9% 100 ml @ 100 mls/hr IV Q1HR [facility] Rx#:[id number] Sodium Chloride 0.9% 500 500 ml @ 999 mls/hr IV .Q31M [facility] Rx#:[id number] Oral 365 Output: Urine 2225 505 340 Other: Voiding Method Indwelling Catheter Indwelling Catheter # Bowel Movements 1 1 - Exam PHYSICAL EXAM: VITAL SIGNS: As above GENERAL: [Sitting up in bed, increased confusion, A & O 1 HEENT: [Pupils equal conjunctiva normal.] NECK: [Supple, no JVD] RESPIRATORY EFFORT:[Normal] LUNGS: [Diminished with no wheezes, rhonchi or crackles. CARDIOVASCULAR[regular S1 and S2, no murmurs rubs or gallops, no edema] GI: [Abdomen soft, nontender, positive bowel sounds.] NEURO: [Gross neurological examination did not reveal any focal deficits] - Labs CBC & Chem 7: 09/10/16 04:28 09/10/16 04:28 Labs: Abnormal Lab Results - Last 24 Hours (Table) 09/08/16 09/09/16 09/10/16 Range/Units 04:47 16:41 04:28 WBC (3.8-10.6) k/uL RBC (3.80-5.40) m/uL Hgb (11.4-16.0) gm/dL Hct (34.0-46.0) % Plt Count (150-450) k/uL PT 12.9 H (9.0-12.0) sec APTT 31.4 H (22.0-30.0) sec Fibrinogen 110 L (200-500) mg/dL Sodium (137-145) mmol/L Potassium 3.3 L (3.5-5.1) mmol/L Carbon Dioxide 19 L (22-30) mmol/L Glucose 100 H (74-99) mg/dL Calcium 7.2 L (8.4-10.2) mg/dL Total Protein (PEP) 5.3 L (6.2-8.2) g/dL Albumin (PEP) 2.26 L (3.80-4.90) g/dL 09/10/16 09/10/16 Range/Units 04:28 04:28 WBC 16.1 H (3.8-10.6) k/uL RBC 2.78 L (3.80-5.40) m/uL Hgb 8.7 L (11.4-16.0) gm/dL Hct 26.5 L (34.0-46.0) % Plt Count 68 L (150-450) k/uL PT (9.0-12.0) sec APTT (22.0-30.0) sec Fibrinogen (200-500) mg/dL Sodium 135 L (137-145) mmol/L Potassium (3.5-5.1) mmol/L Carbon Dioxide 18 L (22-30) mmol/L Glucose (74-99) mg/dL Calcium 7.3 L (8.4-10.2) mg/dL Total Protein (PEP) (6.2-8.2) g/dL Albumin (PEP) (3.80-4.90) g/dL Assessment and Plan Plan: 1. Lower GI bleed, secondary to severe colitis, status post sigmoidoscopy, severe active colitis involving the rectum and sigmoid colon, multiple pseudopolyps in sigmoid colon, sigmoid diverticulosis .Pathology of colon sigmoid, rectum reporting chronic active colitis negative for dysplasia ulceration. 2. Acute blood loss anemia secondary to above, status post transfusion . 3. [Reactive leukocytosis]. 4. Hypertension. 5. Hypothyroidism]. 6. [Hypovolemic hyponatremia]. 7. 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 8. Thrombocytopenia, possible DIC 9. Nonspecific troponin leak 10. [Degenerative joint disease, osteoporosis] 11. Complex uterus fluid collection per pelvic ultrasound History of cervical stenosis with fluid in the endometrial cavity, non-malignant per [employer] OPERATOR HELPER and prior studies at [facility]. 12. Peripheral vascular disease 13. Hypokalemia 14. Coagulopathy 15. Significant dilation of the biliary tree per CT 16. Moderate right-sided hydronephrosis without obstruction per CT 17. Numerous compression fractures per CT Plan: Continue on current medication regime , antibiotics, monitoring and symptomatic treatment. Urology consult in place with recommendations pending .urine recultured and pending. Close monitoring of hemoglobin with repeat labs ordered for a.m. Follow up multiple consults closely. Prognosis guarded given multiple complex medical issues. CODE STATUS needs to be addressed, No family at bedside. Further recommendations to follow. The impression and plan of care has been dictated as directed. : I performed a H&P examination of this patient and discussed the same with the dictator. I agree with the dictator's note. Any additional findings/opinions/ etc. will be noted.
[2016-09-10] MEDS: BALSALAZIDE DISODIUM 750 MG CAPSULE PO SCH ×2 (17:39→23:13)
--- NOTE | 2016-09-10 22:40 | CONS ---
DATE OF CONSULTATION: 09/10/2016 REASON FOR CONSULTATION: Leukocytosis and fever. HISTORY OF PRESENT ILLNESS: The patient is an 89-year-old female who has been brought into the ER at [facility] on 09/05/2016 with chief complaints of GI bleed. Apparently patient noticed to have off and on blood in her stool for the last 6 months, gradually getting worse for the last 2 months. Patient complaining of bright red to dark stools any times she moves her bowel, though no significant abdominal pain was noticed and the patient not noticed to be on any blood thinner. Subsequently the patient has been admitted to the hospital and has been seen by multiple consultants, including Pulmonary, GI, Cardiology. The opinion from GI was, as patient refused colonoscopy, no procedure was performed and they requested a HOUSEKEEPING DIRECTOR elevation. In the meantime, the patient was noticed to have an elevated white count. She did have white count normal at 11.3 on admission that did jump to 25,000 on the as well as and was 98.7 yesterday. Hence, I was asked to see the patient for further recommendation. Patient did have a UA on admission; however, no blood culture has been done and has been empirically treated with Zosyn. She also had a chest x-ray which shows bilateral infiltrate and pleural effusion correlate for COPD. At the time of my evaluation this morning, the patient remains to be slightly lethargic, but has been breathing comfortably. The patient denies significant chest pain or shortness of breath or cough. The patient did have some abdominal pain, is mostly in the lower abdominal area. No diarrhea per the R.N. She did have a Andrew which is draining mostly blood-stained urine. The patient also had a CT of abdomen and pelvis completed on the which did show subcutaneous edema, moderate right-sided hydronephrosis, large bladder calcification, bilateral pleural effusion, has significant dilatation of the biliary tree. REVIEW OF SYSTEMS: CONSTITUTIONAL: Positive for weakness, but no fever has been recorded during this admission. EYES: No complaint. ENT: No complaint. RESPIRATORY: No complaint. CARDIOVASCULAR: No complaint. GENITOURINARY: As per HPI. GASTROINTESTINAL: As per HPI. MUSCULOSKELETAL: No complaint. INTEGUMENTARY: No complaint. PSYCHOLOGIC: No complaint. ENDOCRINE: No complaint. NEUROLOGIC: No complaint. PAST MEDICAL HISTORY: Hypertension, hyperlipidemia, osteoarthritis, liver disease, hypothyroidism. PAST SURGICAL HISTORY: Appendectomy, cholecystectomy, tonsillectomy, left knee replacement and vein stripping. SOCIAL HISTORY: Patient quit smoking back in 1981, had reported a pack being smoked prior to that. Occasionally drinks a glass of wine. FAMILY HISTORY: Father with history of CO. Mother with history of pneumonia, of pneumonia when the patient was 8 years old. ALLERGIES TO SULFA, LATEX AND CODEINE. Medications include the patient is currently on: 1. Tylenol. 2. Colazal. 3. Decadron. 4. Cymbalta. 5. Neurontin. 6. Synthroid. 7. Toprol-XL. 8. Morphine sulfate. 9. Narcan. 10. Percocet. 11. Protonix. 12. Pip-Tazobactam. On examination, blood pressure is 154/69 with a pulse of 82, temperature of 98.4. She is 96% on 4L nasal cannula. General description is an elderly female, lying in bed in no distress. No tachypnea or accessory muscle of respiration use. HEENT shows pallor. There is no scleral icterus. Oral mucous membrane is dry. NECK: Trachea is central. There is no thyromegaly. LUNGS: Unlabored breathing. Clear to auscultation anteriorly, but decreased breath sounds at the base. HEART: S1, S2 heard. Regular rate and rhythm. ABDOMEN: Soft. She is mildly tender in the lower quadrant area, but no guarding or rigidity. EXTREMITIES: No edema of feet. SKIN: No rash or mass palpable. NEUROLOGICAL: The patient is awake, alert, oriented x2. Mood and affect are normal. LABS: Hemoglobin 8.7, white count of 16.1. BUN of 15, creatinine 0.7. Electrolytes have been normal. The patient did have colonoscopy with a biopsy suggestive of chronic active colitis. X-rays and CAT scan report are mentioned above. DIAGNOSTIC IMPRESSION: Patient with and leukocytosis in a patient who apparently had a normal white count of 11.3, but did jump to 25,000 on the and the more likely secondary to steroids that the patient has been receiving initially in the form of hydrocortisone enema, as the patient clinically did not have very clear focus of infection, though abnormality was seen on the CT abdomen and pelvis, but nothing to suggest any infectious colitis, abscess or pneumonia. Some hydronephrosis on the kidney, but the UA correspondingly has been negative. PLAN: 1. We may continue the patient on Zosyn at this point while waiting for the blood culture that was obtained yesterday to be finalized. 2. However, if the patient remains to be afebrile. Her white count normalized and no clear source of infection, would recommend discontinuation of antibiotic. Thank you for this consultation. We will follow this patient along with you. JOSE
--- NOTE | 2016-09-10 22:55 | CONS ---
DATE OF CONSULTATION: 09/10/2016 REASON FOR CONSULTATION: Gross hematuria. HISTORY OF PRESENT ILLNESS: The patient is an 89-year-old female admitted through the emergency room on 09/05 for evaluation of rectal bleeding and anemia. The rectal bleeding had apparently been occurring intermittently for several weeks. At the time of admission, the patient had hemoglobin of 11.9 and a platelet count of 69,000. She continued to have intermittent bleeding and has been treated with 1 unit of packed red blood cells and a platelet transfusion. She underwent flexible sigmoidoscopy on 09/08 and there were findings of severe colitis which was confirmed by biopsy. The patient had a urethral catheter placed at the time of admission. Her urine was clear initially and a urine culture from admission showed no growth. For the past several days, the patient has had intermittent gross hematuria which apparently has been worse when her platelet count was decreased. The patient had a CT scan of the abdomen and pelvis performed with IV contrast on 09/08 that showed mild to moderate right hydronephrosis, but no evidence of obstructive calculus. There was also a question as to whether there was GI contrast present in the dependent portion of the bladder. The patient believes she has had some blood in her urine off and on even prior to her admission. She has a history of recurrent urinary tract infections. She has chronic urinary incontinence which occurs both with activity and without warning. She has worn pads 24 hours per day for some period of time. According to the patient's nurse, the patient has not been noted to have any particulate matter in the urine and there has been no definite air passed through the Andrew catheter. Patient's past medical history is significant in regard to trigeminal neuralgia, paroxysmal atrial fibrillation, peptic ulcer disease, peripheral vascular disease, osteoporosis and incontinence. Medications include: 1. Colazal. 2. Decadron. 3. Cymbalta. 4. Neurontin. 5. Synthroid. 6. Toprol-XL. 7. Protonix and 8. Zosyn. The patient has previously undergone appendectomy, cholecystectomy, tonsillectomy, ORIF of a left hip fracture and left total knee arthroplasty. Review of systems is difficult to obtain, as the patient is not a particularly good historian and is very weak. Physical exam reveals an elderly female who is weak, but able to answer questions. Blood pressure 164/59. Afebrile. HEENT: No supraclavicular or cervical adenopathy. No scleral icterus. ABDOMEN: Somewhat obese. No hepatosplenomegaly. No focal abdominal tenderness. Pelvic was not performed by me, but had been performed by Dr. Bush shortly after admission due to a question of vaginal bleeding and at that time no vaginal abnormalities were noted. It should be noted that the patient has a history of an endometrial fluid collection which has been chronic and has been previously evaluated at [facility] Additional laboratory evaluation included hemoglobin of 8.7 today with a platelet count 68,000. INR is 1.3. BUN 15, creatinine 0.7. IMPRESSION: 1. Gross hematuria. This may be related to irritation in the bladder from the Andrew catheter and thrombocytopenia. There is also some question whether the patient has had a low-grade disseminated intravascular coagulation. Patient did not have a urinary tract infection on admission and has been maintained on Zosyn. It is possible that the patient could have an enterovesical fistula, as there is questionable contrast in the dependent portion of the bladder; however, in view of the negative urine culture at the time of admission, this is less likely. 2. Gastrointestinal bleed secondary to colitis. 3. Possible low-grade disseminated intravascular coagulation. RECOMMENDATIONS: At the present time, the patient is very weak and the amount of blood in the urine is not large enough to cause any clotting. In view of this and the fact that this occurred intermittently with a low platelet count, I feel that further observation is reasonable. If the hematuria persists, then a cystogram through the Andrew catheter might be considered to exclude a colovesical fistula. Thank you for allowing me to participate in the care of this patient. JOSE
[2016-09-11] MEDS: PIPERACILLIN-TAZOBACTAM 3.375 GM in DEXTROSE/WATER 1 50ML.BAG IVPB SCH ×4 (00:01→22:59)
[2016-09-11] MEDS: DEXAMETHASONE SOD PHOSPHATE 4 MG/ML 1 ML VIAL IV SCH ×2 (00:02→06:16)
[2016-09-11] MEDS: MORPHINE SULFATE 2 MG/ML SYRINGE IVP PRN ×2 (03:06→06:15)
[2016-09-11 05:28] LABS: Anion Gap 9 mmol/L; Blood Urea Nitrogen 15 mg/dL (7-17); Calcium 7.4 mg/dL (8.4-10.2); Carbon Dioxide 20 mmol/L (22-30); Chloride 105 mmol/L (98-107); Glucose 124 mg/dL (74-99); Magnesium 1.9 mg/dL (1.6-2.3); Non-African American GFR(MDRD) >60 (>60 ml/min/1.73 sqM); Phosphorous 2.7 mg/dL (2.5-4.5); Potassium 3.9 mmol/L (3.5-5.1); Sodium 134 mmol/L (137-145)
[2016-09-11 05:33] LABS: Basophils % (A) 0 %; CH 30.3; CHCM 31.6; Eosinophils % (A) 0 %; HCT 28.5 % (34.0-46.0); HDW 3.41; HGB 8.9 gm/dL (11.4-16.0); Hypochromasia Moderate; Luc # (Auto) 0.14; Luc % (Auto) 1; Lymphocytes # (A) 0.9 k/uL (1.0-4.8); Lymphocytes % (A) 6 %; MCH 30.5 pg (25.0-35.0); MCHC 31.4 g/dL (31.0-37.0); MCV 97.2 fL (80.0-100.0); Macrocytosis Slight; Mean Platelet Volume 9.5; Monocytes # (A) 0.3 k/uL (0-1.0); Monocytes % (A) 2 %; Neutrophils # (A) 13.3 k/uL (1.3-7.7); Neutrophils % (A) 90 %; Poikilocytosis Slight; RBC 2.93 m/uL (3.80-5.40); RDW 15.9 % (11.5-15.5); WBC 14.7 k/uL (3.8-10.6); WBC (Perox) 15.28
[2016-09-11 05:41] LABS: INR 1.2 (<1.1); Prothrombin Time 12.2 sec (9.0-12.0)
[2016-09-11] MEDS: LEVOTHYROXINE 25 MCG TAB PO SCH (06:17)
[2016-09-11] MEDS: POTASSIUM CHLORIDE 10 MEQ, LIDOCAINE 2% INJ 10 MG in SODIUM CHLORIDE 0.9% 100 ML IV SCH ×2 (07:03→08:35)
[2016-09-11] MEDS: BALSALAZIDE DISODIUM 750 MG CAPSULE PO SCH ×3 (08:34→20:59)
[2016-09-11] MEDS: METOPROLOL SUCCINATE (ER) 25 MG TAB.ER.24H PO SCH ×2 (08:35→20:56)
[2016-09-11] MEDS: GABAPENTIN 300 MG CAP PO SCH ×2 (08:35→20:56)
[2016-09-11] MEDS: PANTOPRAZOLE 40 MG/10 ML VIAL IVP SCH ×2 (08:35→20:56)
[2016-09-11] MEDS: DULoxetine HCL 30 MG CAPSULE.DR PO SCH (08:35)
[2016-09-11] MEDS ORDERED: FUROSEMIDE 10 MG/ML 4 ML VIAL IV STA (09:43)
[2016-09-11] MEDS: SODIUM CHLORIDE 0.9% 1,000 ML IV SCH ×2 (11:23→20:58)
--- NOTE | 2016-09-11 12:43 | P.PN ---
Subjective Date of service 09/11/2016. Progress note being dictated for Dr. Del Castillo. Interval history: This is a 89-year-old female admitted with lower GI bleed, status post flex sigmoidoscopy reporting severe active colitis involving the rectum and sigmoid colon. Maroon bowel movements 2 last night, gross hematuria now appearing as concentrated urine without clots. Evaluated by urology, recommendations noted including potential cystogram to rule out colovesical fistula if hematuria persists. Hemoglobin 8.9, platelets 85. Objective - Vital Signs Vital signs: Vital Signs Temp 97.4 F L 09/11/16 08:00 Pulse 77 09/11/16 09:00 Resp 23 09/11/16 09:00 BP 131/78 09/11/16 09:00 Pulse Ox 100 09/11/16 09:00 Intake & Output 09/10/16 09/11/16 09/11/16 18:59 06:59 18:59 Intake Total 1035 850 225 Output Total 450 425 95 Balance 585 425 130 Weight 66.1 kg Intake: IV 1035 850 225 Magnesium Sulfate-D5w Pmx 100 1 gm In Dextrose/Water 1 100ml.bag @ 100 mls/hr IVPB Q1H SPENSER Rx#: [id number] Piperacillin-Tazobactam 3 100 50 .375 gm In Dextrose/Water 1 50ml.bag @ 12.5 mls/hr IVPB Q8HR SPENSER Rx#: [id number] Potassium Chloride 10 meq 10 In Water For Injection 1 100ml.bag @ 100 mls/hr IVPB Q1H SPENSER Rx#: [id number] Sodium Chloride 0.9% 1, 825 800 225 000 ml @ 75 mls/hr IV . [id number] SPENSER Rx#:[id number] Output: Urine 450 425 95 Other: Voiding Method Indwelling Catheter Indwelling Catheter Indwelling Catheter - Exam PHYSICAL EXAM: VITAL SIGNS: As above GENERAL: [Sitting up in bed, confused, A & O 1 HEENT: [Pupils equal conjunctiva normal.] NECK: [Supple, no JVD] RESPIRATORY EFFORT:[Normal] LUNGS: [Diminished with no wheezes, rhonchi or crackles. CARDIOVASCULAR[regular S1 and S2, no murmurs rubs or gallops, no edema] GI: [Abdomen soft, nontender, positive bowel sounds.] NEURO: [Gross neurological examination did not reveal any focal deficits] - Labs CBC & Chem 7: 09/11/16 05:05 09/11/16 05:05 Labs: Abnormal Lab Results - Last 24 Hours (Table) 09/11/16 09/11/16 09/11/16 Range/Units 05:05 05:05 05:05 WBC 14.7 H (3.8-10.6) k/uL RBC 2.93 L (3.80-5.40) m/uL Hgb 8.9 L (11.4-16.0) gm/dL Hct 28.5 L (34.0-46.0) % RDW 15.9 H (11.5-15.5) % Plt Count 85 L (150-450) k/uL Neutrophils # 13.3 H (1.3-7.7) k/uL Lymphocytes # 0.9 L (1.0-4.8) k/uL PT 12.2 H (9.0-12.0) sec APTT 31.0 H (22.0-30.0) sec Fibrinogen 110 L (200-500) mg/dL Sodium 134 L (137-145) mmol/L Carbon Dioxide 20 L (22-30) mmol/L Glucose 124 H (74-99) mg/dL Calcium 7.4 L (8.4-10.2) mg/dL Microbiology - Last 24 Hours (Table) 09/09/16 16:41 Blood Culture - Preliminary Blood No Growth after 24 hours 09/09/16 16:47 Blood Culture - Preliminary Blood No Growth after 24 hours Assessment and Plan Plan: 1. Lower GI bleed, secondary to severe colitis, status post sigmoidoscopy, severe active colitis involving the rectum and sigmoid colon, multiple pseudopolyps in sigmoid colon, sigmoid diverticulosis .Pathology of colon sigmoid, rectum reporting chronic active colitis negative for dysplasia ulceration. 2. Acute blood loss anemia secondary to above, status post transfusion . 3. [Reactive leukocytosis]. 4. Hypertension. 5. Hypothyroidism]. 6. [Hypovolemic hyponatremia]. 7. 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 8. Thrombocytopenia, possible DIC 9. Nonspecific troponin leak 10. [Degenerative joint disease, osteoporosis] 11. Complex uterus fluid collection per pelvic ultrasound History of cervical stenosis with fluid in the endometrial cavity, non-malignant per LABORATORY CLERK and prior studies at [facility]. 12. Peripheral vascular disease 13. Hypokalemia 14. Coagulopathy 15. Significant dilation of the biliary tree per CT 16. Moderate right-sided hydronephrosis without obstruction per CT 17. Numerous compression fractures per CT Plan: Continue on current medication regime , antibiotics, monitoring and symptomatic treatment. Urology recommendations noted and appreciated. Close monitoring of hemoglobin with repeat labs ordered for a.m. Prognosis guarded given multiple complex medical issues. CODE STATUS needs to be addressed, No family at bedside. Cleared for transfer out of ICU as per needle process felt goods supervisor. Further recommendations to follow. The impression and plan of care has been dictated as directed. : I performed a H&P examination of this patient and discussed the same with the dictator. I agree with the dictator's note. Any additional findings/opinions/ etc. will be noted.
--- NOTE | 2016-09-11 13:31 | P.PN ---
Subjective Principal diagnosis: Rectal bleeding 89-year-old female admitted with rectal bleeding 1 month duration status post colonoscopy with findings of severe active colitis involving the rectum and sigmoid started on steroid-based enemas. Colon biopsies consistent with chronic active colitis with ulceration negative for dysplasia. Nurse reports last bloody to maroon colored bowel movements. Hematuria improved. Mild abdominal discomfort. Afebrile. Objective - Vital Signs Vital signs: Vital Signs Temp 97.4 F L 09/11/16 08:00 Pulse 77 09/11/16 09:00 Resp 23 09/11/16 09:00 BP 131/78 09/11/16 09:00 Pulse Ox 100 09/11/16 09:00 Intake & Output 09/10/16 09/11/16 09/11/16 18:59 06:59 18:59 Intake Total 1035 850 225 Output Total 450 425 95 Balance 585 425 130 Weight 66.1 kg Intake: IV 1035 850 225 Magnesium Sulfate-D5w Pmx 100 1 gm In Dextrose/Water 1 100ml.bag @ 100 mls/hr IVPB Q1H SPENSER Rx#: [id number] Piperacillin-Tazobactam 3 100 50 .375 gm In Dextrose/Water 1 50ml.bag @ 12.5 mls/hr IVPB Q8HR SPENSER Rx#: [id number] Potassium Chloride 10 meq 10 In Water For Injection 1 100ml.bag @ 100 mls/hr IVPB Q1H SPENSER Rx#: [id number] Sodium Chloride 0.9% 1, 825 800 225 000 ml @ 75 mls/hr IV . [id number] SPENSER Rx#:[id number] Output: Urine 450 425 95 Other: Voiding Method Indwelling Catheter Indwelling Catheter Indwelling Catheter - Exam General appearance: The patient is alert, oriented, in no acute distress. HET: Head is normocephalic and atraumatic. Pupils are equal and reactive. Oropharynx is clear without lesions. Neck: Supple without lymphadenopathy. Trachea midline. Heart: S1 S2. Regular rate and rhythm. Lungs: No crackles or wheezes are heard. Abdomen: Soft, nontender, mildly distended with bowel sounds. No peritoneal signs. No palpable organomegaly or masses. Extremities: Normal skin color and turgor. No cyanosis, rash, ulceration, clubbing, or edema. Radial and pedal pulses are 2/4 bilaterally. Andrew dark tania colored. Neurological: No focal deficits. Strength and sensation are grossly intact. - Labs CBC & Chem 7: 09/11/16 05:05 09/11/16 05:05 Labs: Abnormal Lab Results - Last 24 Hours (Table) 09/11/16 09/11/16 09/11/16 Range/Units 05:05 05:05 05:05 WBC 14.7 H (3.8-10.6) k/uL RBC 2.93 L (3.80-5.40) m/uL Hgb 8.9 L (11.4-16.0) gm/dL Hct 28.5 L (34.0-46.0) % RDW 15.9 H (11.5-15.5) % Plt Count 85 L (150-450) k/uL Neutrophils # 13.3 H (1.3-7.7) k/uL Lymphocytes # 0.9 L (1.0-4.8) k/uL PT 12.2 H (9.0-12.0) sec APTT 31.0 H (22.0-30.0) sec Fibrinogen 110 L (200-500) mg/dL Sodium 134 L (137-145) mmol/L Carbon Dioxide 20 L (22-30) mmol/L Glucose 124 H (74-99) mg/dL Calcium 7.4 L (8.4-10.2) mg/dL Microbiology - Last 24 Hours (Table) 09/09/16 16:41 Blood Culture - Preliminary Blood No Growth after 24 hours 09/09/16 16:47 Blood Culture - Preliminary Blood No Growth after 24 hours Assessment and Plan (1) Rectal bleeding Narrative/Plan: Severe active colitis involving the rectum and sigmoid Status: Acute (2) Colitis Status: Acute (3) Proctitis Status: Acute (4) Acute blood loss anemia Status: Acute (5) GI bleed Status: Acute Plan: Dr. Silva recommends restarting steroid enema at bedtime tonight. Continue with Balsalazide 2.25 g 3 times daily (formulary for Asacol). CBC monitoring. GI prophylaxis. Diet as tolerated. Assessment and plan of care discussed with Dr. Silva
--- NOTE | 2016-09-11 16:03 | P.PN ---
Subjective Principal diagnosis: Acute GI bleeding This 89-year-old female patient was having episodes of rectal bleeding with questionable vaginal bleeding over the past few weeks. The patient reported that she was passing brown stool mixed with bloody mucus and she has noted small amount of blood in the commode and over the last 2 days she has seen more of blood clots along with her bowel movements. Is not clear to me whether this was an active GI bleeding and the possibility of vaginal bleeding is also being entertained in this patient. She came into the emergency department she was admitted for further evaluation. Overnight she end up in the hospital and then to the intensive care unit for further monitoring. Initial hemoglobin is 11 and the patient has not dropped her hemoglobin further. No nausea. No vomiting. No hematemesis. No liver cirrhosis. No coagulopathy. No intake of any nonsteroidal anti-inflammatory medications or blood thinners. She has undergone a colonoscopy approximately year ago by Dr. Mcdonald at [facility] results of this colonoscopy will be forwarded to us. Meanwhile, a consultation was requested by Dr. Munson. The patient is hemodynamically stable. No dizziness. No chest pain. No hypotension. She claims to have some external and internal hemorrhoids. She did also have some recent constipation however she has been able to have a bowel movement every few days. The patient had a pelvic ultrasound yesterday which showed a complex fluid that is filling the endometrial cavity of the uterus and this was measuring 7 x 5 cm. Based on these findings, a CERTIFIED NOVELL ADMINISTRATOR consultation was requested and today the patient was seen by Dr. Bush will evaluated the patient and had 2 attempts of dilating has stenotic cervix and draining the fluid for tissue confirmation however this was not successful. Note that this patient has been seen for the same problem by Tanya in the past and that initial impression was that this was not neoplastic in nature. The patient had the lesion described and this was of the same size for approximately 3 years and consistent with benign endometrial fluid collection secondary to cervical stenosis. The CERTIFIED NOVELL ADMINISTRATOR opinion was that the blood that was noticed vaginally most likely was a contamination. Cervix was still stenotic which was not letting any of the fluid out of the uterine cavity. The recommendation was further to pursue this patient for any GI bleeding. Patient was reevaluated today on 09/08/2016, patient seems to be doing well, patient was found to have severe active colitis involving the rectum and sigmoid colon up to 40 cm from the anal verge. Multiple pseudopolyps noted in the sigmoid colon and sigmoid diverticulosis. Multiple biopsies were done, and these are pending. Labs were reviewed, hemoglobin today is 9.8, WBC count is 22.7. Platelets are 107. Patient is hemodynamically stable, and in no distress. Reevaluated today on 09/09/2016, patient is basically about the same, continues to have maroon colored stools, she has leukocytosis with WBC count of 19.7, hemoglobin is 9.3. Received so far 1 unit of packed RBCs and 1 unit of platelets. Her colonoscopy showed severe active colitis involving the rectum and the sigmoid hence she is now on steroid based enemas. Patient had 1 red bloody bowel movement early this morning. Hemodynamics-alegre patient is stable, received a few fluid boluses last night, however her chest x-ray is showing some evidence of fluid overload and I will try to diurese today. Hence 40 mg of Lasix IV push was given. Patient denies any shortness of breath. No cough, no fever, no chills. She has mostly GI symptoms and some vague abdominal discomfort. Reevaluated today on 09/10/2016, patient is requesting to be discharged home, but she seems to be a bit confused. Today she has significant gross hematuria noted in the Andrew bag, continues to have lower GI bleeding, her last bloody bowel movement was yesterday morning. Hemoglobin is stable at 8.7. Platelets are down to 68,000. And now she has gross hematuria hence I recommended a urology consultation. Pulmonary-alegre, the patient does not seem to be in any form of respiratory distress. Her basic metabolic profile seems to be relatively normal except for a bicarb of 18 renal profile is normal. Patient was reevaluated today on 09/11/2016, continues to do relatively well, hemodynamically stable, no further episodes of hematuria, patient received 6 doses of Decadron, and she received some steroids and, for her active colitis. Hemoglobin is stable today at 8.9. Labs were relatively unremarkable including a basic metabolic profile and renal profile. Hence I felt the patient could be transferred out of the ICU today, and we will follow on as needed basis. Objective - Vital Signs Vital signs: Vital Signs Temp 97.1 F L 09/11/16 15:45 Pulse 20 L 09/11/16 15:45 Resp 20 09/11/16 15:45 BP 103/58 09/11/16 15:45 Pulse Ox 98 09/11/16 15:45 Intake & Output 09/10/16 09/11/16 09/11/16 18:59 06:59 18:59 Intake Total 1035 850 575 Output Total 450 425 595 Balance 585 425 -20 Weight 66.1 kg Intake: IV 1035 850 575 Magnesium Sulfate-D5w Pmx 100 1 gm In Dextrose/Water 1 100ml.bag @ 100 mls/hr IVPB Q1H SPENSER Rx#: [id number] Piperacillin-Tazobactam 3 100 50 50 .375 gm In Dextrose/Water 1 50ml.bag @ 12.5 mls/hr IVPB Q8HR SPENSER Rx#: [id number] Potassium Chloride 10 meq 10 In Water For Injection 1 100ml.bag @ 100 mls/hr IVPB Q1H SPENSER Rx#: [id number] Sodium Chloride 0.9% 1, 825 800 525 000 ml @ 75 mls/hr IV . [id number] SPENSER Rx#:[id number] Output: Urine 450 425 595 Other: Voiding Method Indwelling Catheter Indwelling Catheter Indwelling Catheter - Exam Physical Exam: Revealed an 89-year-old female looks chronically ill, frail, in no form of respiratory distress. HEENT:[Neck is supple.] [No neck masses.] [No thyromegaly.] [No JVD.] Chest: [Clear throughout, no crackles, no rhonchi, no wheezes.] Cardiac Exam: [Normal S1 and S2, no S3 gallop, no murmur.] Abdomen: [Soft, nontender, no megaly, no rebound, no guarding, normal bowel sounds.] Extremities: [No clubbing, no edema, no cyanosis.] Neurological Exam: [No focal neurologic deficit.] - Labs CBC & Chem 7: 09/11/16 05:05 09/11/16 05:05 Labs: Abnormal Lab Results - Last 24 Hours (Table) 09/11/16 09/11/16 09/11/16 Range/Units 05:05 05:05 05:05 WBC 14.7 H (3.8-10.6) k/uL RBC 2.93 L (3.80-5.40) m/uL Hgb 8.9 L (11.4-16.0) gm/dL Hct 28.5 L (34.0-46.0) % RDW 15.9 H (11.5-15.5) % Plt Count 85 L (150-450) k/uL Neutrophils # 13.3 H (1.3-7.7) k/uL Lymphocytes # 0.9 L (1.0-4.8) k/uL PT 12.2 H (9.0-12.0) sec APTT 31.0 H (22.0-30.0) sec Fibrinogen 110 L (200-500) mg/dL Sodium 134 L (137-145) mmol/L Carbon Dioxide 20 L (22-30) mmol/L Glucose 124 H (74-99) mg/dL Calcium 7.4 L (8.4-10.2) mg/dL Microbiology - Last 24 Hours (Table) 09/09/16 16:41 Blood Culture - Preliminary Blood No Growth after 24 hours 09/09/16 16:47 Blood Culture - Preliminary Blood No Growth after 24 hours Assessment and Plan Plan: 1 suspected lower GI bleeding, secondary to severe colitis, patient is status post flexible colonoscopy, multiple biopsies, showed mostly acute on chronic colitis. The patient is still having some on and off episodes of bleeding and that hemoglobin and hemodynamics remain stable. On 09/09/2016, patient continues to do relatively well, she developed a bit of fluid overload, hemoglobin is stable, received 1 unit of packed RBCs so far and 1 unit of platelets. Patient is not in any distress, however Lasix will be given because of her abnormal chest x-ray and crackles noted on the bases upon physical examination. On 09/10/2016, patient is now having gross hematuria, and she continues to have possibly some GI bleeding related to her colitis. Today I recommended a trial of Decadron for the next 24-36 hours. In the meantime I have initiated a consultation with urology to address her gross hematuria. 2 fluid in the endometrial cavity. Please refer to discussion above. This has been a chronic finding related to cervical stenosis and there is no evidence of any malignancy based on previous evaluation done by [facility] [place] and here by Dr. Bush. 3 new onset thrombocytopenia, stable platelet count 4 nonspecific troponin leak 5 hypothyroidism 6 hypertension 7 degenerative arthritis 8 trigeminal neuralgia 9 glucoma 10 migraines 11 peripheral vascular disease 12 right inguinal hernia 16 peptic ulcer disease 14 osteoporosis 15 Skin stress urinary incontinence 16 difficulty with mobility and gait and peripheral neuropathy. Recommendation: Transfer patient out of the ICU, she will be followed by gastroenterology and other consultants, we will see the patient on when necessary basis. Time with Patient: Less than 30
[2016-09-11] MEDS: oxyCODONE-APAP 10-325MG 1 EACH TAB PO PRN (18:43)
--- NOTE | 2016-09-11 20:20 | P.PN ---
Progress Note - Text The patient remains weak but denies abdominal pain. Her urine is dark tea colored but no clots are present in the catheter drainage tube. HgB is stable at 8.9 and platelet count is slightly higher at 89,000. Imp: Gross hematuria- probably related to thrombocytopenia and irritation of bladder from IDC. Rec: If the patient's urine is clearer in the am her IDC can be removed but she should have her PVR checked by bladder scan later in the day to insure she is voiding completely.
[2016-09-11] MEDS: HYDROCORTISONE ENEMA 100 MG/60 ML RECTAL SCH (20:58)
[2016-09-12] MEDS: LEVOTHYROXINE 25 MCG TAB PO SCH (06:27)
--- NOTE | 2016-09-12 07:32 | PN ---
DATE OF SERVICE: 09/11/2016 Reason for follow up is leukocytosis and colitis. INTERVAL HISTORY: The patient is afebrile. She has been breathing comfortably. Her overall bleeding per rectum has improved and did have maroon-colored stool. The hematuria is improving as well. The patient denies significant chest pain. No shortness of breath or cough. Remains to be pleasantly confused through. On examination, blood pressure is 103/58 with a pulse of 76, temperature is 97.1. She is 98% on room air. General description is a elderly female lying in bed in no distress. RESPIRATORY SYSTEM: Unlabored breathing. Clear to auscultation anteriorly. HEART: S1, S2. Regular dressed and rhythm. ABDOMEN: Soft. No tenderness. LABS: Hemoglobin 8.9, white count of 14.7 with a BUN of 15, creatinine 0.6. Her blood culture obtained yesterday has been negative so far. DIAGNOSTIC IMPRESSION AND PLAN: Patient with leukocytosis, source could be more likely reactive as well as steroid effect as the patient being treated for underlying chronic active colitis, more likely inflammatory. Clinically doubt infectious etiology. Culture has been negative so far. Currently on antibiotic Zosyn. Will continue to follow waiting for the culture to finalize. Continue supportive care.
[2016-09-12] MEDS: BALSALAZIDE DISODIUM 750 MG CAPSULE PO SCH ×3 (08:57→20:31)
[2016-09-12] MEDS: DULoxetine HCL 30 MG CAPSULE.DR PO SCH (08:57)
[2016-09-12] MEDS: GABAPENTIN 300 MG CAP PO SCH ×2 (08:58→20:30)
[2016-09-12] MEDS: METOPROLOL SUCCINATE (ER) 25 MG TAB.ER.24H PO SCH ×2 (08:58→20:30)
[2016-09-12] MEDS: PANTOPRAZOLE 40 MG/10 ML VIAL IVP SCH ×2 (08:59→20:31)
[2016-09-12] MEDS: oxyCODONE-APAP 10-325MG 1 EACH TAB PO PRN ×2 (09:00→17:25)
[2016-09-12] MEDS: PIPERACILLIN-TAZOBACTAM 3.375 GM in DEXTROSE/WATER 1 50ML.BAG IVPB SCH ×2 (09:25→17:26)
--- NOTE | 2016-09-12 12:57 | P.PN ---
Subjective Principal diagnosis: Rectal bleeding 89-year-old female admitted with rectal bleeding 1 month duration status post colonoscopy with findings of severe active colitis involving the rectum and sigmoid started on steroid-based enemas. Colon biopsies consistent with chronic active colitis with ulceration negative for dysplasia. No reports of bloody bowel movements for more than 24 hours. Afebrile. Objective - Vital Signs Vital signs: Vital Signs Temp 97.2 F L 09/12/16 07:00 Pulse 69 09/12/16 07:00 Resp 16 09/12/16 07:00 BP 109/60 09/12/16 07:00 Pulse Ox 93 L 09/12/16 07:00 Intake & Output 09/11/16 09/12/16 09/12/16 18:59 06:59 18:59 Intake Total 575 Output Total 595 800 Balance -20 -800 Intake: IV 575 Piperacillin-Tazobactam 3 50 .375 gm In Dextrose/Water 1 50ml.bag @ 12.5 mls/hr IVPB Q8HR SPENSER Rx#: [id number] Sodium Chloride 0.9% 1, 525 000 ml @ 75 mls/hr IV . [id number] SPENSER Rx#:[id number] Output: Urine 595 800 Other: Voiding Method Indwelling Catheter Indwelling Catheter Indwelling Catheter # Bowel Movements 1 - Exam General appearance: The patient is alert, oriented, in no acute distress. HET: Head is normocephalic and atraumatic. Pupils are equal and reactive. Oropharynx is clear without lesions. Neck: Supple without lymphadenopathy. Trachea midline. Heart: S1 S2. Regular rate and rhythm. Lungs: No crackles or wheezes are heard. Abdomen: Soft, nontender, mildly distended with bowel sounds. No peritoneal signs. No palpable organomegaly or masses. Extremities: Normal skin color and turgor. No cyanosis, rash, ulceration, clubbing, or edema. Radial and pedal pulses are 2/4 bilaterally. Andrew dark tania colored. Neurological: No focal deficits. Strength and sensation are grossly intact. - Labs CBC & Chem 7: 09/11/16 05:05 09/11/16 05:05 Labs: Microbiology - Last 24 Hours (Table) 09/09/16 16:41 Blood Culture - Preliminary Blood No Growth after 48 hours 09/09/16 16:47 Blood Culture - Preliminary Blood No Growth after 48 hours Assessment and Plan (1) Rectal bleeding Narrative/Plan: Severe active colitis involving the rectum and sigmoid Status: Acute (2) Colitis Status: Acute (3) Proctitis Status: Acute (4) Acute blood loss anemia Status: Acute (5) GI bleed Status: Acute Plan: Dr. Silva recommends restarting steroid enema at bedtime tonight 30 days. Continue with Balsalazide 2.25 g 3 times daily (formulary for [place]). Prescriptions provided. CBC monitoring. GI prophylaxis. Diet as tolerated. Return to GI office 1-2 weeks after discharge. Assessment and plan of care discussed with Dr. Silva
[2016-09-12 13:03] VITALS: BMI 23.5
[2016-09-12] MEDS: SODIUM CHLORIDE 0.9% 1,000 ML IV SCH (15:41)
--- NOTE | 2016-09-12 17:07 | PN ---
DATE OF SERVICE: 09/12/2016 REASON FOR FOLLOWUP: Leukocytosis and colitis. INTERVAL HISTORY: The patient is afebrile. She is breathing comfortably. Still complains of some pain in the left abdominal and back area. RN mentioned no further bloody stool has been noticed. No nausea or vomiting. Breathing comfortably. On examination, blood pressure is 109/60 with a pulse of 69, temperature 97.2. She is 93% on room air. General description is an elderly female lying in bed in no distress. RESPIRATORY SYSTEM: Unlabored breathing. Clear to auscultation anteriorly. HEART: S1, S2. Regular rate and rhythm. ABDOMEN: Soft. No significant tenderness. EXTREMITIES: No edema of feet. LABS: Hemoglobin 8.9, white count 14.7 as of yesterday; not repeated today. Blood culture has been negative so far. DIAGNOSTIC IMPRESSION AND PLAN: Patient admitted to hospital with gastrointestinal bleed in a patient who did have evidence of colitis on the sigmoidoscopy. She is currently on steroid in addition to the oral. Some of the elevated white count will be related to that. However, the blood culture remains negative. Antibiotic can be safely discontinued. Continue with supportive care. MTDD
--- NOTE | 2016-09-12 17:44 | P.DS ---
Providers Date of admission: 09/05/16 15:49 Expected date of discharge: 09/12/16 Attending physician: MD Dr. Magdalene Garay Consults: 09/05/16 19:10 Consult Physician Urgent Consulting Provider: Uday Lieberman Consult Reason/Comments: ICU Management Do you want consulting provider notified?: Yes 09/06/16 10:00 Consult Physician Routine Consulting Provider: Rigo Perez Consult Reason/Comments: vaginal bleed Do you want consulting provider notified?: Yes 09/07/16 12:01 Consult Physician Routine Consulting Provider: Omi Nino Consult Reason/Comments: thrombocytopenia Do you want consulting provider notified?: Yes 09/09/16 14:38 Consult Physician Routine Consulting Provider: Arron Méndez Consult Reason/Comments: persistent fevers, lymphocytosis Do you want consulting provider notified?: Yes 09/10/16 10:14 Consult Physician Routine Consulting Provider: Feliberto White Consult Reason/Comments: gross hematuria Do you want consulting provider notified?: Yes, Notify in am Primary care physician: [facility] Hospital Course: Final Diagnoses: 1. Lower GI bleed, secondary to severe colitis, status post sigmoidoscopy, severe active colitis involving the rectum and sigmoid colon, multiple pseudopolyps in sigmoid colon, sigmoid diverticulosis ]. Pathology of: Sigmoid and rectum reporting chronic active colitis, negative for dysplasia ulceration 2. Acute blood loss anemia secondary to above, status post transfusion . 3. [Reactive leukocytosis]. 4. Hypertension. 5. Hypothyroidism]. 6. [Hypovolemic hyponatremia]. 7. 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 8. Thrombocytopenia, possible DIC 9. Nonspecific troponin leak 10. [Degenerative joint disease, osteoporosis] 11. Complex uterus fluid collection per pelvic ultrasound History of cervical stenosis with fluid in the endometrial cavity, non-malignant per CUSTOMS INVESTIGATOR and prior studies at [facility]. 12. Peripheral vascular disease 13. Hypokalemia 14. Coagulopathy Hospital course:This is a 89-year-old female admitted with lower GI bleed and multiple other medical issues. Evaluated by multiple consults. Underwent flex sigmoidoscopy, reporting severe active colitis involving the rectum and sigmoid colon, biopsies negative for dysplasia ulceration. Maintained on steroid enemas. Telemetry with proximal A. fib RVR, currently sinus rhythm. No further bloody stools in over 24 hours. Good diet intake with no nausea or vomiting. Hematuria improved now Tea-colored without clots. Hemoglobin 8.9., Afebrile, WBC 14.7. Blood cultures currently negative. Patient has been cleared by all consults for discharge to the [facility]. Patient Condition at Discharge: Stable Plan - Discharge Summary New Discharge Prescriptions: Amoxic-Pot Clav 875-125Mg [Augmentin 875-125] 1 tab PO Q12HR #10 tablet Balsalazide Disodium [Colazal] 2,250 mg PO TID #270 cap oxyCODONE-APAP 10-325MG [Percocet 10-325 mg] 1 each PO Q6H PRN #20 tab PRN Reason: Pain Discharge Medication List Metoprolol Succinate [Toprol XL] 12.5 mg PO BID 02/15/14 [History] DULoxetine HCL [Cymbalta] 30 mg PO DAILY 07/31/15 [History] Gabapentin [Neurontin] 300 mg PO BID 09/05/16 [History] Levothyroxine Sodium [Synthroid] 25 mcg PO DAILY 09/05/16 [History] Amoxic-Pot Clav 875-125Mg [Augmentin 875-125] 1 tab PO Q12HR #10 tablet [Rx] Balsalazide Disodium [Colazal] 2,250 mg PO TID #270 cap 09/12/16 [Rx] Lidocaine 4% Cream [Lmx 4] 1 applic TOPICAL QID PRN #0 applic 09/12/16 [Rx] Omeprazole 40 mg PO BID #30 capsule. 09/12/16 [Rx] oxyCODONE-APAP 10-325MG [Percocet 10-325 mg] 1 each PO Q6H PRN #20 tab 09/12/16 [Rx] Follow up Appointment(s)/Referral(s): Mathew Lopez MD [STAFF PHYSICIAN] - 3 Days (At [facility]) Zander Curtis MD [Primary Care Provider] - 1 Week (After DC from [facility]) Joellen Silva MD [STAFF PHYSICIAN] - 1 Week Denny Delgado MD [STAFF PHYSICIAN] - As Needed Patient Instructions/Handouts: Diverticulitis (DC) Activity/Diet/Wound Care/Special Instructions: [facility] Hydrocortisone 100mg rectal enema Q hs X 30 days CBC, BMP in 3 days Discharge Disposition: TRANSFER TO SNF/ECF
[2016-09-12] MEDS: HYDROCORTISONE ENEMA 100 MG/60 ML RECTAL SCH (22:04)
[2016-09-13] MEDS: PIPERACILLIN-TAZOBACTAM 3.375 GM in DEXTROSE/WATER 1 50ML.BAG IVPB SCH ×2 (00:26→08:35)
[2016-09-13] MEDS: MORPHINE SULFATE 2 MG/ML SYRINGE IVP PRN ×2 (00:26→08:39)
[2016-09-13] MEDS: SODIUM CHLORIDE 0.9% 1,000 ML IV SCH (00:34)
[2016-09-13] MEDS: LEVOTHYROXINE 25 MCG TAB PO SCH (06:25)
[2016-09-13] MEDS: oxyCODONE-APAP 10-325MG 1 EACH TAB PO PRN (06:25)
[2016-09-13 07:48] VITALS: BP 113/53; PULSE 63; RESP 16; TEMP 97.3
[2016-09-13] MEDS: BALSALAZIDE DISODIUM 750 MG CAPSULE PO SCH (08:34)
[2016-09-13] MEDS: PANTOPRAZOLE 40 MG/10 ML VIAL IVP SCH (08:35)
[2016-09-13] MEDS: DULoxetine HCL 30 MG CAPSULE.DR PO SCH (08:35)
[2016-09-13] MEDS: METOPROLOL SUCCINATE (ER) 25 MG TAB.ER.24H PO SCH (08:35)
[2016-09-13] MEDS: GABAPENTIN 300 MG CAP PO SCH (08:35)
--- NOTE | 2016-09-13 11:21 | PN ---
The patient is an 89-year-old lady admitted to the hospital with rectal bleeding for the last one month duration. She underwent a flexible sigmoidoscopy 4 days ago and was noted to have severe active proctosigmoiditis and the scope could not be advanced beyond the sigmoid colon. Biopsies revealed chronic active colitis. She was started on Balsalazide 3 tablets 3 times daily as well as Cortenema at bedtime. The bleeding has subsided but she continues to have several small bowel movements at least eight to ten a day. The patient is a poor historian. Most of the history was obtained from the family. Apparently oral intake has not been good either. She reports no abdominal pain, nausea, or vomiting. On physical examination, she appears comfortable in no apparent distress. Vitals as are stable. Blood pressure is 110/55, pulse rate 80, temperature 97. HEENT: Unremarkable. Conjunctivae pink. Sclerae anicteric. Oral cavity, no lesions. NECK: No JVD or lymph node enlargement. Chest was clear to auscultation. HEART: Regular rate and rhythm. ABDOMEN: Soft. It was nontender, nondistended. Bowel sounds are positive. No organomegaly. EXTREMITIES: No pedal edema. SKIN: No rashes. NEURO: He is alert and oriented x3. No focal deficits. LABS: From today are not available. IMPRESSION: Active proctosigmoiditis diagnosed on a recent flexible sigmoidoscopy 4 days ago, which is the cause of rectal bleeding and diarrhea. She is presently on Balsalazide and Cortenema at bedtime. The bleeding has resolved, but she continues to have persistent diarrhea and frequent bowel movements. Stool studies have been negative. RECOMMENDATIONS: 1. Continue with oral Balsalazide 3 tablets 3 times daily. 2. Continue with Cortenema at the bedtime. 3. If the patient is intolerant to the Cortenema or no response, she may need to have a trial of oral steroids but at this time, I will hold off given her overall medical condition. 4. Will follow him closely during hospital stay. Thank you for this consultation.
--- NOTE | 2016-09-13 17:38 | DS ---
DATE OF ADMISSION: 09/05/2016 DATE OF DISCHARGE: 09/13/2016 The patient is admitted to the hospital with vaginal bleed as well as lower gastrointestinal bleed. Patient was discharged yesterday because since patient ended up staying in the hospital. I did see and evaluate the patient and examined the patient today. The patient was seen and examined on the day of discharge. Vital signs stable. PHYSICAL EXAMINATION: GENERAL: The patient is alert and oriented x3, not in any acute distress. Well developed, well nourished. HEENT: Pupils are round and equally reacting to light. EOMI. No scleral icterus. No conjunctival pallor. Normocephalic, atraumatic. No pharyngeal erythema. No thyromegaly. CARDIOVASCULAR: S1 and S2 present. No murmurs, rubs, or gallops. PULMONARY: Chest is clear to auscultation, no wheezing or crackles. ABDOMEN: Soft, nontender, nondistended, normoactive bowel sounds. No palpable organomegaly. MUSCULOSKELETAL: No joint swelling or deformity. EXTREMITIES: No cyanosis, clubbing, or pedal edema. NEUROLOGICAL: Gross neurological examination did not reveal any focal deficits. SKIN: No rashes. For further details of discharge, please refer to the discharge summary that was dictated by my nurse practitioner yesterday. Consider her discharge summary as progress note.
[2016-09-17 14:49] LABS: Mis test requested (Blood) Mixing Study
== END 2016-09-13 12:48 | DRG 386 ==
LOC: EC 13:38 → 6SEL 15:49 → 6ICU 19:33 → 4MS4W 09-11 15:06
PROVIDERS: ADMIT Internal Medicine; ATTEND Internal Medicine
PROC: 30233N1 Transfusion of Nonautologous Red Blood Cells into Peripheral Vein, Percutaneous Approach (ICD-10-PCS; 2016-09-05)
PROC: 30233R1 Transfusion of Nonautologous Platelets into Peripheral Vein, Percutaneous Approach (ICD-10-PCS; 2016-09-07)
PROC: 0DBN8ZX Excision of Sigmoid Colon, Via Natural or Artificial Opening Endoscopic, Diagnostic (ICD-10-PCS; principal; 2016-09-08 08:15)
DX: K51.311 Ulcerative (chronic) rectosigmoiditis with rectal bleeding (principal); D62 Acute posthemorrhagic anemia; E87.1 Hypo-osmolality and hyponatremia; N13.30 Unspecified hydronephrosis; F03.90 Unspecified dementia, unspecified severity, without behavioral disturbance, psychotic disturbance, mood disturbance, and anxiety; I27.2 Other secondary pulmonary hypertension; G62.9 Polyneuropathy, unspecified; I48.0 Paroxysmal atrial fibrillation; I10 Essential (primary) hypertension; K27.9 Peptic ulcer, site unspecified, unspecified as acute or chronic, without hemorrhage or perforation; E87.70 Fluid overload, unspecified; D47.3 Essential (hemorrhagic) thrombocythemia; E03.9 Hypothyroidism, unspecified; E78.5 Hyperlipidemia, unspecified; E87.6 Hypokalemia; G43.909 Migraine, unspecified, not intractable, without status migrainosus; G50.0 Trigeminal neuralgia; H35.30 Unspecified macular degeneration; H40.9 Unspecified glaucoma; I08.1 Rheumatic disorders of both mitral and tricuspid valves; I73.9 Peripheral vascular disease, unspecified; J44.9 Chronic obstructive pulmonary disease, unspecified; K21.9 Gastro-esophageal reflux disease without esophagitis; K40.90 Unilateral inguinal hernia, without obstruction or gangrene, not specified as recurrent; K57.30 Diverticulosis of large intestine without perforation or abscess without bleeding; M19.90 Unspecified osteoarthritis, unspecified site; M81.0 Age-related osteoporosis without current pathological fracture; N39.3 Stress incontinence (female) (male); R31.0 Gross hematuria; T38.0X5A Adverse effect of glucocorticoids and synthetic analogues, initial encounter; D72.829 Elevated white blood cell count, unspecified; F32.9 Major depressive disorder, single episode, unspecified; F41.9 Anxiety disorder, unspecified; G89.29 Other chronic pain; M54.9 Dorsalgia, unspecified; R74.8 Abnormal levels of other serum enzymes; K63.89 Other specified diseases of intestine; N88.2 Stricture and stenosis of cervix uteri; Z79.899 Other long term (current) drug therapy; Z85.828 Personal history of other malignant neoplasm of skin; Z87.891 Personal history of nicotine dependence; Z88.2 Allergy status to sulfonamides; Z88.5 Allergy status to narcotic agent; Z91.040 Latex allergy status; Z96.652 Presence of left artificial knee joint; Z82.49 Family history of ischemic heart disease and other diseases of the circulatory system
CPT/HCPCS: 36415; 45331; 71010; 74000; 74177; 76857; 80048; 80053; 81001; 82272; 82550; 82553; 82607; 82747; 83605; 83735; 83883; 84100; 84132; 84165; 84484; 85025; 85027; 85384; 85610; 85652; 85730; 86038; 86431; 86850; 86900; 86901; 86920; 87040; 87086; 87324; 88305; 93005; 93306; 94760; 96360; 96361; 99285

== ENCOUNTER 2016-09-28 21:00 | Inpatient (IN) | payer MEDICARE, BC ==
[2016-09-28] MEDS ORDERED: SODIUM CHLORIDE 0.9% 1,000 ML IV STA ×2 (21:10)
[2016-09-28] MEDS ORDERED: DILTIAZEM 125 MG in SODIUM CHLORIDE 0.9% 100 ML IV ONE (21:10)
[2016-09-28] MEDS ORDERED: DILTIAZEM 5 MG/ML 5 ML VIAL IVP STA (21:10)
--- NOTE | 2016-09-28 21:10 | ED ---
General Adult HPI - General Stated complaint: lethargy Time Seen by Provider: 09/28/16 21:04 Source: RN notes reviewed, old records reviewed - History of Present Illness Initial comments: This this is a 89-year-old female coming to the ER for evaluation. Patient's coming in for [place]. Patient is sick, transferred tomorrow with CHF A. fib with RVR and multiple complaints here patient is unable to give history for sprain secondary to clinical or mental condition. Patient is obtained from EMS as well as the patient's chart - Related Data Home Medications Medication Instructions Recorded Confirmed Metoprolol Succinate [Toprol XL] 12.5 mg PO BID 02/15/14 09/05/16 DULoxetine HCL [Cymbalta] 30 mg PO DAILY 07/31/15 09/05/16 Gabapentin [Neurontin] 300 mg PO BID 09/05/16 09/05/16 Levothyroxine Sodium [Synthroid] 25 mcg PO DAILY 09/05/16 09/05/16 Previous Rx's Medication Instructions Recorded Amoxic-Pot Clav 875-125Mg 1 tab PO Q12HR #10 tablet 09/12/16 [Augmentin 875-125] Balsalazide Disodium [Colazal] 2,250 mg PO TID #270 cap 09/12/16 Lidocaine 4% Cream [Lmx 4] 1 applic TOPICAL QID PRN #0 applic 09/12/16 Omeprazole 40 mg PO BID #30 capsule. 09/12/16 oxyCODONE-APAP 10-325MG [Percocet 1 each PO Q6H PRN #20 tab 09/12/16 10-325 mg] Allergies Allergy/AdvReac Type Severity Reaction Status Date / Time codeine Allergy Rash/Hives Verified 09/05/16 14:37 latex Allergy Rash/Hives Verified 09/05/16 14:37 Sulfa (Sulfonamide Allergy Rash/Hives Verified 09/05/16 14:37 Antibiotics) Review of Systems ROS Statement: Those systems with pertinent positive or pertinent negative responses have been documented in the HPI. ROS Other: All systems not noted in ROS Statement are negative. Past Medical History Past Medical History: Cancer, GERD/Reflux, GI Bleed, Hyperlipidemia, Hypertension, Osteoarthritis (OA), Thyroid Disorder Additional Past Medical History / Comment(s): Paroxysmal atrial fibrillation, migraines, trigeminal neuralgia, glucoma involving the left eye, peripheral vascular disease, abdominal hernia, peptic ulcer disease, stress urine incontinence, skin cancer resected, osteoporosis, peripheral neuropathy, macular degeneration, difficulty with mobility and ambulation as the patient is able to walk only short distances. She also has hypothyroidism, anxiety, depression, chronic back pain. History of Any Multi-Drug Resistant Organisms: Unobtainable Past Surgical History: Appendectomy, Cholecystectomy, Joint Replacement, Orthopedic Surgery, Tonsillectomy Additional Past Surgical History / Comment(s): Lt knee replacement, Lt femur- has plates and screws, vein stripping, partial thyroidectomy(rt side), cataracts Additional Past Anesthesia/Blood Transfusion Reaction / Comment(s): hallucinations after knee surgery and dizziness for 6 months after femur sx. 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 pt gets around by walker very short distances and at times a w/c-has neuropathy pain to abdoulaye legs/feet. pt has help from 3 daughters and comfort keepers. Smoking Status: Former smoker Past Alcohol Use History: Occasional Additional Past Alcohol Use History / Comment(s): quit smoking in 1981 smoked 1 pd x 25 years, occ glass of wine. Past Drug Use History: None Reported - Past Family History Father Family Medical History: Myocardial Infarction ([place]) Mother Family Medical History: Pneumonia Additional Family Medical History / Comment(s): mom from pneumonia when pt was age 8. General Exam Limitations: altered mental status General appearance: alert, in no apparent distress Head exam: Present: atraumatic, normocephalic, normal inspection Eye exam: Present: normal appearance, PERRL, EOMI. Absent: scleral icterus, conjunctival injection, periorbital swelling ENT exam: Present: mucous membranes dry Neck exam: Present: normal inspection. Absent: tenderness, meningismus, lymphadenopathy Respiratory exam: Present: normal lung sounds bilaterally, respiratory distress , decreased breath sounds, prolonged expiratory. Absent: wheezes, rales, rhonchi, stridor Cardiovascular Exam: Present: tachycardia, irregular rhythm, normal heart sounds. Absent: systolic murmur, diastolic murmur, rubs, gallop, clicks GI/Abdominal exam: Present: soft, normal bowel sounds. Absent: distended, tenderness, guarding, rebound, rigid Extremities exam: Present: normal inspection, full ROM, normal capillary refill. Absent: tenderness, pedal edema, joint swelling, calf tenderness Back exam: Present: normal inspection Neurological exam: Present: alert, oriented X3, CN II-XII intact Psychiatric exam: Present: normal affect, normal mood Skin exam: Present: warm, dry, intact, normal color. Absent: rash Course Vital Signs 09/28/16 21:02 Temperature 97.4 F L Pulse Rate 147 H Respiratory 16 Rate Blood Pressure 110/60 O2 Sat by Pulse 97 Oximetry - Reevaluation(s) Reevaluation #1: 09/28/16 22:18 Patient feels much improved after Kiet control on Cardizem EKG Findings - EKG Comments: EKG Findings:: EKG shows A. colton with RVR rate 140, QRS 84, QTc 473 Medical Decision Making - Medical Decision Making 89 female in the ER for evaluation of weakness and shortness of breath. Patient having a COPD exacerbation compounded by A. colton with RVR, severely dehydrated Wilmeth resuscitation, heart rate control, breathing treatments and further and continued evaluation cardiopulmonary support - Lab Data Result diagrams: 09/28/16 21:09 09/28/16 21:09 Lab Results 09/28/16 09/28/16 09/28/16 Range/Units 21:09 21:09 21:09 WBC 7.9 (3.8-10.6) k/uL RBC 3.54 L (3.80-5.40) m/uL Hgb 9.9 L (11.4-16.0) gm/dL Hct 32.4 L (34.0-46.0) % MCV 91.6 (80.0-100.0) fL MCH 27.9 (25.0-35.0) pg MCHC 30.5 L (31.0-37.0) g/dL RDW 14.6 (11.5-15.5) % Plt Count 552 H (150-450) k/uL Neutrophils % 77 % Lymphocytes % 14 % Monocytes % 5 % Eosinophils % 1 % Basophils % 0 % Neutrophils # 6.1 (1.3-7.7) k/uL Lymphocytes # 1.1 (1.0-4.8) k/uL Monocytes # 0.4 (0-1.0) k/uL Eosinophils # 0.1 (0-0.7) k/uL Basophils # 0.0 (0-0.2) k/uL Hypochromasia Marked Poikilocytosis Slight PT (9.0-12.0) sec INR (<1.1) APTT (22.0-30.0) sec Sodium 134 L (137-145) mmol/L Potassium 4.3 (3.5-5.1) mmol/L Chloride 99 (98-107) mmol/L Carbon Dioxide 24 (22-30) mmol/L Anion Gap 11 mmol/L BUN 19 H (7-17) mg/dL Creatinine 0.60 (0.52-1.04) mg/dL Est GFR (MDRD) Af Amer >60 (>60 ml/min/1.73 sqM) Est GFR (MDRD) Non-Af >60 (>60 ml/min/1.73 sqM) Glucose 126 H (74-99) mg/dL Calcium 8.3 L (8.4-10.2) mg/dL Phosphorus 3.4 (2.5-4.5) mg/dL Magnesium 1.7 (1.6-2.3) mg/dL Total Bilirubin 0.3 (0.2-1.3) mg/dL AST 29 (14-36) U/L ALT 19 (9-52) U/L Alkaline Phosphatase 145 H (38-126) U/L Total Creatine Kinase 103 (30-135) U/L CK-MB (CK-2) 1.2 (0.0-2.4) ng/mL CK-MB (CK-2) Rel Index 1.2 Troponin I 0.016 (0.000-0.034) ng/mL Total Protein 6.9 (6.3-8.2) g/dL Albumin 2.9 L (3.5-5.0) g/dL 09/28/16 Range/Units 21:09 WBC (3.8-10.6) k/uL RBC (3.80-5.40) m/uL Hgb (11.4-16.0) gm/dL Hct (34.0-46.0) % MCV (80.0-100.0) fL MCH (25.0-35.0) pg MCHC (31.0-37.0) g/dL RDW (11.5-15.5) % Plt Count (150-450) k/uL Neutrophils % % Lymphocytes % % Monocytes % % Eosinophils % % Basophils % % Neutrophils # (1.3-7.7) k/uL Lymphocytes # (1.0-4.8) k/uL Monocytes # (0-1.0) k/uL Eosinophils # (0-0.7) k/uL Basophils # (0-0.2) k/uL Hypochromasia Poikilocytosis PT 10.0 (9.0-12.0) sec INR 1.0 (<1.1) APTT 24.8 (22.0-30.0) sec Sodium (137-145) mmol/L Potassium (3.5-5.1) mmol/L Chloride (98-107) mmol/L Carbon Dioxide (22-30) mmol/L Anion Gap mmol/L BUN (7-17) mg/dL Creatinine (0.52-1.04) mg/dL Est GFR (MDRD) Af Amer (>60 ml/min/1.73 sqM) Est GFR (MDRD) Non-Af (>60 ml/min/1.73 sqM) Glucose (74-99) mg/dL Calcium (8.4-10.2) mg/dL Phosphorus (2.5-4.5) mg/dL Magnesium (1.6-2.3) mg/dL Total Bilirubin (0.2-1.3) mg/dL AST (14-36) U/L ALT (9-52) U/L Alkaline Phosphatase (38-126) U/L Total Creatine Kinase (30-135) U/L CK-MB (CK-2) (0.0-2.4) ng/mL CK-MB (CK-2) Rel Index Troponin I (0.000-0.034) ng/mL Total Protein (6.3-8.2) g/dL Albumin (3.5-5.0) g/dL - Radiology Data Radiology results: report reviewed (Chest x-ray no acute disease probable COPD) , image reviewed Critical Care Time Critical Care Time: Yes Total Critical Care Time: 31 Disposition Clinical Impression: Dehydration, Anemia, Weakness, Atrial fibrillation with RVR, COPD with acute exacerbation Disposition: [facility] Condition: Fair Referrals: Zander Curtis MD [Primary Care Provider] - 1-2 days
[2016-09-28] MEDS ORDERED: NITROGLYCERIN SL TABS 0.4 MG TAB SUBLINGUAL PRN (21:17)
[2016-09-28 21:34] LABS: Basophils % (A) 0 %; CH 27.9; CHCM 30.5; Eosinophils # (A) 0.1 k/uL (0-0.7); Eosinophils % (A) 1 %; HCT 32.4 % (34.0-46.0); HDW 3.58; HGB 9.9 gm/dL (11.4-16.0); Hypochromasia Marked; Luc % (Auto) 3; Lymphocytes # (A) 1.1 k/uL (1.0-4.8); Lymphocytes % (A) 14 %; MCH 27.9 pg (25.0-35.0); MCHC 30.5 g/dL (31.0-37.0); MCV 91.6 fL (80.0-100.0); Mean Platelet Volume 6.4; Monocytes # (A) 0.4 k/uL (0-1.0); Monocytes % (A) 5 %; Neutrophils # (A) 6.1 k/uL (1.3-7.7); Neutrophils % (A) 77 %; Poikilocytosis Slight; RBC 3.54 m/uL (3.80-5.40); RDW 14.6 % (11.5-15.5); WBC 7.9 k/uL (3.8-10.6); WBC (Perox) 8.53
[2016-09-28 21:38] LABS: Partial Thromboplastin Time 24.8 sec (22.0-30.0)
[2016-09-28 21:44] LABS: ALT 19 U/L (9-52); AST 29 U/L (14-36); Alkaline Phosphatase 145 U/L (38-126); Anion Gap 11 mmol/L; Blood Urea Nitrogen 19 mg/dL (7-17); Calcium 8.3 mg/dL (8.4-10.2); Carbon Dioxide 24 mmol/L (22-30); Chloride 99 mmol/L (98-107); Glucose 126 mg/dL (74-99); Magnesium 1.7 mg/dL (1.6-2.3); Non-African American GFR(MDRD) >60 (>60 ml/min/1.73 sqM); Phosphorous 3.4 mg/dL (2.5-4.5); Potassium 4.3 mmol/L (3.5-5.1); Sodium 134 mmol/L (137-145); Total Bilirubin 0.3 mg/dL (0.2-1.3); Total Protein 6.9 g/dL (6.3-8.2)
--- NOTE | 2016-09-28 21:50 | XR ---
EXAMINATION TYPE: XR chest 2V DATE OF EXAM: 09/28/2016 9:26 PM COMPARISON: CXR 09-08-2016. HISTORY: Weakness. TECHNIQUE: Frontal and lateral views of the chest are obtained. FINDINGS: COPD changes. There is no focal air space opacity, pleural effusion, or pneumothorax seen. The cardiac silhouette size is enlarged with atherosclerotic aorta. The osseous structures are dem ineralized. IMPRESSION: No acute pulmonary process. COPD and cardiomegaly redemonstrated.
[2016-09-28 22:02] LABS: Creatine Kinase MB 1.2 ng/mL (0.0-2.4); Troponin I 0.016 ng/mL (0.000-0.034)
[2016-09-28] MEDS ORDERED: diphenhydrAMINE 50 MG/ML 1 ML VIAL IVP STA (23:13)
[2016-09-29 03:32] LABS: Cholesterol 107 mg/dL (<200); HDL Cholesterol 28 mg/dL (40-60); Triglycerides 129 mg/dL (<150)
[2016-09-29 03:56] LABS: Creatine Kinase MB 1.2 ng/mL (0.0-2.4); Troponin I 0.016 ng/mL (0.000-0.034)
[2016-09-29 09:40] LABS: Creatine Kinase MB 1.4 ng/mL (0.0-2.4); Troponin I 0.022 ng/mL (0.000-0.034)
--- NOTE | 2016-09-29 11:26 | CONS ---
DATE OF CONSULTATION: 09/29/2016 CHIEF COMPLAINT: Atrial fibrillation with rapid ventricular rate. Val is an 89-year-old lady with a history of hypertension, history of GI bleed, anemia, who was admitted to hospital with atrial fibrillation with rapid ventricular rate. Cardiology had been consulted for the same. The patient has significant dementia and is a poor historian. She denies chest pain or difficulty in breathing. PAST MEDICAL HISTORY: Significant for GI bleed. Current medications include: 1. K-Dur. 2. Toprol. 3. Magnesium. 4. Synthroid. 5. Lasix. 6. Cymbalta. 7. Dulcolax. 8. Tylenol. ALLERGIES: CODEINE, LATEX, SULFA, FAMILY HISTORY: Negative for premature coronary artery disease. SOCIAL HISTORY: Negative for smoking. There is no history of EtOH abuse, or drug abuse. REVIEW OF SYSTEMS: HEENT: Unremarkable. CARDIAC: As described above. RESPIRATORY: Negative. GI: Significant for GI bleed. GENITOURINARY: Negative. ALLERGY: Negative. SKIN: Negative. MUSCULOSKELETAL: Significant for arthritis. PSYCHOSOCIAL: Negative. DERMATOLOGIC: Negative. CONSTITUTIONAL: Negative. The rest of the system review is not relevant. On exam, heart rate is around 100 beats per minute, blood pressure is 102/44, respiratory rate is 18. Chest exam reveals good air entry bilaterally. Heart exam reveals first and second heart sounds. Systolic murmur in the left lower sternal border. Abdomen soft. Exam of the extremities did not reveal any edema. Peripheral pulses are felt. The patient had an echocardiogram done in August 2016 that revealed pulmonary hypertension with normal LV systolic function. ASSESSMENT: 1. Atrial fibrillation with poorly controlled ventricular rate. 2. History of GI bleed. 3. Dementia. PLAN: Patient is not a candidate for long-term anticoagulation because of GI bleed and the risk for falls. I am going to control her heart rate with beta benjamin and digoxin. I am going to stop the Cardizem that she is on.
[2016-09-29] MEDS: DIGOXIN 125 MCG TAB PO SCH (12:38)
[2016-09-29] MEDS ORDERED: LIDOCAINE 4% CREAM 5 GM TUBE TOPICAL PRN (15:28)
[2016-09-29] MEDS ORDERED: BISACODYL 10 MG SUPP RECTAL PRN (15:28)
[2016-09-29] MEDS ORDERED: SODIUM CHLORIDE 0.9% 1,000 ML IV ONE (15:45)
[2016-09-29] MEDS: ACETAMINOPHEN TAB 325 MG TAB PO PRN (16:17)
[2016-09-29] MEDS: METOPROLOL SUCCINATE (ER) 25 MG TAB.ER.24H PO SCH (16:17)
[2016-09-29] MEDS: GABAPENTIN 300 MG CAP PO SCH (16:17)
[2016-09-29] MEDS: ASPIRIN 325 MG TAB PO SCH (16:22)
[2016-09-29] MEDS ORDERED: NON-FORMULARY DRUG (Lactose-Reduced Food [Ensure Plus] 1 CAN) PO SCH (17:30)
[2016-09-29] MEDS: NYSTATIN 100,000UNIT/GM CREAM 30 GM TUBE TOPICAL SCH (18:03)
[2016-09-29] MEDS: IPRATROPIUM-ALBUTEROL 3 ML NEB INHALATION PRN (19:15)
[2016-09-29] MEDS: LATANOPROST 0.005% OPHTH DROPS 2.5 ML BTL BOTH EYES SCH (21:00)
[2016-09-30 06:17] LABS: CH 27.9; CHCM 30.9; HCT 29.2 % (34.0-46.0); HDW 3.47; HGB 9.1 gm/dL (11.4-16.0); Hypochromasia Marked; MCH 28.3 pg (25.0-35.0); MCHC 31.2 g/dL (31.0-37.0); MCV 90.6 fL (80.0-100.0); Mean Platelet Volume 7.4; Poikilocytosis Slight; RBC 3.23 m/uL (3.80-5.40); WBC 7.6 k/uL (3.8-10.6)
[2016-09-30 06:37] LABS: Anion Gap 8 mmol/L; Blood Urea Nitrogen 10 mg/dL (7-17); Calcium 8.3 mg/dL (8.4-10.2); Carbon Dioxide 23 mmol/L (22-30); Chloride 102 mmol/L (98-107); Glucose 98 mg/dL (74-99); Non-African American GFR(MDRD) >60 (>60 ml/min/1.73 sqM); Potassium 4.7 mmol/L (3.5-5.1); Sodium 133 mmol/L (137-145)
[2016-09-30] MEDS: LEVOTHYROXINE 25 MCG TAB PO SCH (07:15)
[2016-09-30] MEDS: PANTOPRAZOLE 40 MG TABLET PO SCH (07:15)
[2016-09-30] MEDS: DULoxetine HCL 30 MG CAPSULE.DR PO SCH (07:58)
[2016-09-30] MEDS: DIGOXIN 125 MCG TAB PO SCH (07:58)
[2016-09-30] MEDS: GABAPENTIN 300 MG CAP PO SCH ×2 (07:58→17:14)
[2016-09-30] MEDS: METOPROLOL SUCCINATE (ER) 25 MG TAB.ER.24H PO SCH (07:58)
[2016-09-30] MEDS: NYSTATIN 100,000UNIT/GM CREAM 30 GM TUBE TOPICAL SCH ×2 (07:59→17:15)
[2016-09-30] MEDS: IPRATROPIUM-ALBUTEROL 3 ML NEB INHALATION PRN ×3 (09:05→16:34)
[2016-09-30] MEDS: ASPIRIN 325 MG TAB PO SCH (09:17)
--- NOTE | 2016-09-30 10:59 | HP ---
DATE OF ADMISSION: 09/28/2016 The patient is an 89-year-old female, came in from [facility] with complaints of not feeling well. The patient was ( ). The patient was found to be in atrial fibrillation. The patient was started on Cardizem for history of atrial fibrillation, although the patient denied any chest pain, denied any ( ). Denied nausea, vomiting, diarrhea or cough. The patient was discharged ( ) after she was treated for vaginal bleed, because of which we are not able to start her on anticoagulation. The patient is presently on Cardizem. The patient has at least moderate dementia. The patient is also on Sledge and Lasix at the facility. The patient's previous echocardiogram showed normal ejection fraction, although severe pulmonary hypertension ( ) regurgitation which contributed to atrial fibrillation. The patient appears to be mildly dehydrated in spite of normal creatinine, although normal creatinine should be around 0.2 to 0.3, her creatinine is around 0.6. Because of this, I started on IV fluids and ( ) precipitating factor for atrial fibrillation. Also current mental status, dehydration could be contributing to altered mental status. The patient was evaluated by Cardiology. The patient is on Cardizem drip at this point of time. REVIEW OF SYSTEMS: Except for those mentioned above, unable to obtain the rest of the review of systems. HOME MEDICATIONS: 1. Metoprolol. 2. Duloxetine. 3. Gabapentin. 4. Levothyroxine 25 mcg daily. 5. ( ). 6. Lidocaine. 7. Omeprazole. 8. Oxycodone. 9. Acetaminophen. 10. Lasix. ALLERGIES: CODEINE, LATEX, SULFA DRUGS. PAST MEDICAL HISTORY: Significant for skin cancer in the past, gastroesophageal reflux disease, GI bleed and vaginal bleed in the past, hyperlipidemia, hypertension, osteoarthritis, hypothyroidism. PAST SURGICAL HISTORY: Appendectomy, cholecystectomy, joint replacement surgery, orthopedic surgery in the past. The patient used to be a smoker until 1981, [id number] history of smoking. Denies any alcohol abuse or drug abuse. FAMILY HISTORY: Father had myocardial infarction. Mother had pneumonia. PHYSICAL EXAMINATION: Temperature 97.5, pulse of 95, heart rate 136, respiratory rate of 20, blood pressure 95/60, saturating at 94% on 2 liters of O2 by nasal cannula. GENERAL: The patient is thin built, alert and oriented x2, which is close to her baseline. HEENT: Pupils are round and equally reacting to light. EOMI. No scleral icterus. No conjunctival pallor. Normocephalic, atraumatic. No pharyngeal erythema. No thyromegaly. Minimally elevated JVD from right-sided heart failure and pulmonary hypertension. CARDIOVASCULAR: S1 and S2 present. No murmurs, rubs, or gallops. PULMONARY: Chest is clear to auscultation, no wheezing or crackles. ABDOMEN: Soft, nontender, nondistended, normoactive bowel sounds. No palpable organomegaly. MUSCULOSKELETAL: No joint swelling or deformity. EXTREMITIES: No cyanosis, clubbing, or pedal edema. NEUROLOGICAL: As mentioned above. No focal deficits. SKIN: No rashes. LABORATORY DATA: CBC and BMP abnormal for low hemoglobin of 9.9, which is fairly stable compared to her previous hospitalization. BUN of 19, which is considered elevated for because of her muscle mass, creatinine is 0.6 and sodium is 134, LDL is 53. ASSESSMENT AND PLAN: 1. Atrial fibrillation. Patient is not a candidate for anticoagulation because of age and advanced dementia and patient is definitely high risk for atrial fibrillation associated stroke but cannot be on anticoagulation at this point of time. 2. Hyponatremia, hypovolemic hyponatremia secondary to intravascular volume depletion as mentioned above. 3. Acute renal failure secondary to intravascular volume depletion and dehydration. Lasix will be discontinued and lisinopril will be held. The patient will be hydrated gently with 1.5 liters of fluid here. 4. Depression. 5. Recent gastrointestinal bleed. 6. Moderate dementia. Supportive care. Discussed CODE STATUS with power of repossession agent, her daughter. The patient is DO NOT RESUSCITATE at this point of time. 7. Hypothyroidism. 8. Hypertension. Patient is hypotensive because of atrial fibrillation at this point intravascular volume depletion. IV fluid resuscitation as mentioned above. Patient will restarted back on Toprol XL. The patient is on digoxin and Cardizem drip will be slowly tapered down. 9. Severe pulmonary hypertension. 10. Tricuspid regurgitation.
[2016-09-30 11:43] VITALS: BMI 20.1
[2016-09-30] MEDS: ACETAMINOPHEN TAB 325 MG TAB PO PRN ×2 (11:59→17:57)
[2016-09-30] MEDS ORDERED: METOPROLOL SUCCINATE (ER) 25 MG TAB.ER.24H PO STA (13:43)
--- NOTE | 2016-09-30 15:49 | P.PN ---
Subjective Principal diagnosis: AF w/RVR, CHF This is a pleasantly confused 89-year-old female with a history of hypertension , GI bleed, anemia and dementia. She is admitted to the hospital with atrial fibrillation with rapid ventricular response. The patient has severe dementia and is very poor historian, most HPI was obtained from the chart. He does deny any complaints of chest discomfort or palpitations. She does say that her breathing is better. Heart rate remains poorly controlled at this time. Objective - Vital Signs Vital signs: Vital Signs Temp 96.4 F L 09/30/16 15:35 Pulse 106 H 09/30/16 15:35 Resp 22 09/30/16 15:35 BP 85/55 09/30/16 15:35 Pulse Ox 94 L 09/30/16 15:35 Intake & Output 09/29/16 09/30/16 09/30/16 18:59 06:59 18:59 Intake Total 450 200 Balance 450 200 Weight 50 kg 50 kg Intake: IV 240 0.9 @20mls/hr 240 Intake, IV Titration 20 Amount Diltiazem 125 mg In 20 Sodium Chloride 0.9% 100 ml @ 5 MG/HR 5 mls/hr IV .Q24H ONE Rx#:[id number] Oral 190 200 Other: Voiding Method Diaper Diaper Diaper # Voids 2 1 # Bowel Movements 3 - Exam PHYSICAL EXAMINATION: HEENT: Head is atraumatic, normocephalic. Pupils equal, round. Neck is supple. There is no elevated jugular venous pressure. HEART EXAMINATION: Heart sounds irregular irregular, S1 and S2 a systolic murmur. CHEST EXAMINATION: Lungs are clear to auscultation and precussion. No chest wall tenderness is noted on palpation or with deep breathing. ABDOMEN: Soft, nontender. Bowel sounds are heard. No organomegaly noted. EXTREMITIES: 2+ peripheral pulses with no evidence of peripheral edema and no calf tenderness noted. NEUROLOGIC patient is awake, alert and oriented to self with significant short- term memory loss. . 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 Patient is not a candidate for long-term anticoagulation due to history of GI bleed and risk for falls. We will continue to follow the patient provide further recommendations accordingly. The above dictated assessment and findings were discussed with signing physician. The impression and plan of care have been directed as dictated. Shirley Carmona, Nurse Practitioner, acting as scribe for signing physician.
--- NOTE | 2016-09-30 19:25 | PN ---
DATE OF SERVICE: 09/30/2016 PRESENTING COMPLAINT: Atrial fibrillation. INTERVAL HISTORY: This is a patient who presented with atrial fibrillation. Heart rate is still running high; up to 160s. Patient maybe had about 25% of her breakfast. Really weak and tired. Lying in bed. Review of systems done for constitutional, cardiovascular, GI, pulmonary; relevant findings as above. Current medications are reviewed that include Toprol XL 25 twice a day. On examination, temperature 96.4, pulse 120, respiration 22, blood pressure 85/55, pulse ox 94% on 2 L. GENERAL APPEARANCE: Lying in bed, tired-appearing. Lethargic but arousable. EYES: Pupils equal. Conjunctivae normal. NECK: JVD not raised. Mass not palpable. RESPIRATORY: Effort normal. LUNGS: Fair air entry edema. CARDIOVASCULAR: Heart sounds irregular. No edema. ABDOMEN: Soft, nontender. PSYCHIATRY: Very tired-appearing, lethargic but arousable. INVESTIGATIONS: White count 7.6, hemoglobin 9.1. Potassium 4.7. BUN 10, creatinine 0.50. ASSESSMENT: 1. Atrial fibrillation with rapid ventricular rate, uncontrolled. 2. Gastroesophageal reflux disease. 3. Hyperlipidemia. 4. Essential hypertension. 5. Primary osteoarthritis in multiple joints, bilateral. 6. Trigeminal neuralgia. 7. Peripheral arterial disease. 8. Peptic ulcer disease. 9. Chronic urinary stress incontinence. 10. Peripheral neuropathy, cause unknown. 11. Medical debility, poor ambulation. 12. Hypothyroidism. 13. Depression not otherwise specified. PLAN: Continue current medication and treatment plan. Patient's heart rate is still uncontrolled. Switched over to Toprol XL. Given her age and multiple comorbidities, unstable, patient is not felt to be a good candidate for anticoagulation. Prognosis guarded.
[2016-09-30] MEDS: LATANOPROST 0.005% OPHTH DROPS 2.5 ML BTL BOTH EYES SCH (23:13)
[2016-10-01] MEDS: LEVOTHYROXINE 25 MCG TAB PO SCH (06:42)
[2016-10-01] MEDS: PANTOPRAZOLE 40 MG TABLET PO SCH (06:42)
[2016-10-01] MEDS: ASPIRIN 325 MG TAB PO SCH (08:26)
[2016-10-01] MEDS: ACETAMINOPHEN TAB 325 MG TAB PO PRN ×2 (08:26→17:17)
[2016-10-01] MEDS: GABAPENTIN 300 MG CAP PO SCH ×2 (08:27→17:17)
[2016-10-01] MEDS: DIGOXIN 125 MCG TAB PO SCH (08:27)
[2016-10-01] MEDS: DULoxetine HCL 30 MG CAPSULE.DR PO SCH (08:27)
[2016-10-01] MEDS: NYSTATIN 100,000UNIT/GM CREAM 30 GM TUBE TOPICAL SCH ×2 (08:29→17:19)
--- NOTE | 2016-10-01 14:12 | P.PN ---
Subjective Principal diagnosis: A. fib with RVR, CHF This is an 89-year-old female patient with history of hypertension, GI bleed, anemia, dementia. She was admitted to the hospital with atrial fibrillation with rapid ventricular response. She continues to be in atrial fibrillation her heart rate this morning in the 90s. She is not a candidate for anticoagulation because of history of GI bleeding in the past. She is currently on an aspirin daily which we will decrease to 81 mg. Objective - Vital Signs Vital signs: Vital Signs Temp 96.5 F L 10/01/16 12:00 Pulse 107 H 10/01/16 12:00 Resp 18 10/01/16 12:00 BP 103/63 10/01/16 12:00 Pulse Ox 98 10/01/16 12:00 Intake & Output 09/30/16 10/01/16 10/01/16 18:59 06:59 18:59 Intake Total 222 Balance 222 Weight 50 kg 50 kg Intake: Oral 222 Other: Voiding Method Diaper Diaper Diaper # Voids 1 1 1 # Bowel Movements 1 1 - Exam PHYSICAL EXAMINATION: HEENT: Head is atraumatic, normocephalic. Pupils equal, round. Neck is supple. There is no elevated jugular venous pressure. HEART EXAMINATION: Heart sounds irregular irregular, S1 and S2 a systolic murmur. CHEST EXAMINATION: Lungs are clear to auscultation and precussion. No chest wall tenderness is noted on palpation or with deep breathing. ABDOMEN: Soft, nontender. Bowel sounds are heard. No organomegaly noted. EXTREMITIES: 2+ peripheral pulses with no evidence of peripheral edema and no calf tenderness noted. NEUROLOGIC patient is awake, alert and oriented to self with significant short- term memory loss. - Labs CBC & Chem 7: 09/30/16 05:58 09/30/16 05:58 Assessment and Plan (1) Chronic a-fib Status: Acute (2) Dementia Status: Acute (3) Hx of lower gastrointestinal bleeding Status: Acute Plan: From cardiology's perspective, we'll decrease the aspirin 81 mg daily. Continue other medications that the patient is on. We will follow this patient with you now on an as-needed basis only, please don't hesitate to call with any questions. DNP note has been reviewed, I agree with a documented findings and plan of care. Patient was seen and examined.
[2016-10-01] MEDS: IPRATROPIUM-ALBUTEROL 3 ML NEB INHALATION PRN (16:28)
[2016-10-01] MEDS: METOPROLOL SUCCINATE (ER) 25 MG TAB.ER.24H PO SCH ×3 (17:10→23:54)
[2016-10-01] MEDS: traMADol 50 MG TAB PO PRN (22:19)
--- NOTE | 2016-10-01 23:35 | PN ---
DATE OF SERVICE: 10/01/2016 PRESENTING COMPLAINT: Atrial fibrillation. INTERVAL HISTORY: This is a patient with atrial fibrillation. Rate is now doing better. Patient is rather weak, tired. Answering simple questions. Review of systems done for constitutional, cardiovascular, GI, pulmonary; relevant findings as above. Current medications are reviewed that include Toprol XL 25 mg b.i.d. On examination, temperature 97.7, pulse 101, respiration 18, blood pressure 106/59, pulse ox 96% on room air. GENERAL APPEARANCE: Lying in bed, tired-appearing though awake. EYES: Pupils equal. Conjunctivae normal. NECK: JVD not raised. Mass not palpable. RESPIRATORY: Effort normal. LUNGS: Fair air entry. CARDIOVASCULAR: Heart sounds irregular. No edema. ABDOMEN: Soft, nontender. Liver and spleen not palpable. PSYCHIATRY: Awake. Answering simple questions. INVESTIGATIONS: No blood work from today. ASSESSMENT: 1. Persistent atrial fibrillation with rapid ventricular rate on presentation, now controlled. Patient not a candidate for anticoagulation because of GI bleed. 2. Gastroesophageal reflux disease. 3. Hyperlipidemia. 4. Essential hypertension. 5. Primary osteoarthritis in multiple joints, bilateral. 6. Trigeminal neuralgia. 7. Peripheral arterial disease. 8. Peptic ulcer disease. 9. Chronic urinary stress incontinence. 10. Peripheral neuropathy; cause unknown. 11. Medical debility, weak and tired. 12. Hypothyroidism. 13. Depression not otherwise specified. PLAN: Will check patient's thyroid functions in the morning. I am not sure if patient really needs a small dose of Synthroid, which may contribute to her atrial fibrillation. Overall prognosis is guarded, given her age. Looking at the possibility of going back to [facility] tomorrow.
[2016-10-01] MEDS: LATANOPROST 0.005% OPHTH DROPS 2.5 ML BTL BOTH EYES SCH (23:55)
[2016-10-02] MEDS: traMADol 50 MG TAB PO PRN (06:23)
[2016-10-02] MEDS: PANTOPRAZOLE 40 MG TABLET PO SCH (06:24)
[2016-10-02] MEDS: LEVOTHYROXINE 25 MCG TAB PO SCH (06:24)
[2016-10-02 08:23] VITALS: TEMP 97.9
[2016-10-02] MEDS: NYSTATIN 100,000UNIT/GM CREAM 30 GM TUBE TOPICAL SCH ×2 (08:23→18:42)
[2016-10-02] MEDS: DIGOXIN 125 MCG TAB PO SCH (08:24)
[2016-10-02] MEDS: DULoxetine HCL 30 MG CAPSULE.DR PO SCH (08:24)
[2016-10-02] MEDS: GABAPENTIN 300 MG CAP PO SCH ×2 (08:24→18:42)
[2016-10-02] MEDS ORDERED: ASPIRIN 81 MG CHEW PO SCH (09:00)
[2016-10-02 11:31] VITALS: BP 101/64; PULSE 104; RESP 17
[2016-10-02] MEDS: METOPROLOL SUCCINATE (ER) 25 MG TAB.ER.24H PO SCH (11:32)
--- NOTE | 2016-10-02 15:41 | DS ---
DATE OF ADMISSION: 09/28/2016 DATE OF DISCHARGE: FINAL DIAGNOSES: 1. Persistent atrial fibrillation with rapid ventricular rate, present on admission. Patient not a candidate for anticoagulation because of GI bleed. 2. Gastroesophageal reflux disease. 3. Hyperlipidemia. 4. Essential hypertension. 5. Primary osteoarthritis of multiple joints, bilaterally. 6. Trigeminal neuralgia. 7. Peripheral artery disease. 8. Peptic ulcer disease. 9. Chronic urinary stress incontinence. 10. Peripheral neuropathy, cause unknown. 11. Medical debility, weak and tired, unable to get about. 12. Depression, not otherwise specified. 13. Hypothyroidism diagnosis now being dropped. HOSPITAL COURSE: This patient presented with A. fib with rapid ventricular rate. Beta blockers increased. Patient's TSH on the low and it is felt patient will not need Synthroid anymore. Patient overall is weak and tired. Given his age and multiple problems overall prognosis is very guarded. On examination; heart sounds irregular. Lungs are clear. Patient is able to answer questions, able to communicate. Prognosis is not good. DISPOSITION: [facility]. Follow up with Dr. Whitehead and follow with Dr. Curtis when discharged from [facility]. DISCHARGE MEDICATIONS: 1. Cymbalta 30 mg p.o. daily. 2. Neurontin 300 mg p.o. b.i.d. 3. Tylenol 650 mg q.4 p.r.n. 4. Colazal 2250 p.o. t.i.d. with meals. 5. Dulcolax 10 mg rectal daily p.r.n. 6. Colocort enema rectal q.h.s. p.r.n. 7. Ensure Plus one can p.o. t.i.d. with meals. 8. Lidocaine 4% topical q.i.d. p.r.n. 9. Milk of magnesia 2400 mg p.o. t.i.d. p.r.n. 10. Fleet's p.r.n. 11. Mycostatin topical b.i.d. 12. Omeprazole 20 mg b.i.d. 13. Travatan 0.004% one drop to both eyes at bedtime. 14. Aspirin 81 mg b.i.d. 15. Digoxin 125 mcg p.o. daily. 16. DuoNeb q.i.d. p.r.n. 17. Toprol-XL 25 mg p.o. b.i.d. 18. Nitrostat 0.4 sublingual q.5 p.r.n. 19. Ultram 50 mg p.o. q.i.d. p.r.n. CODE STATUS: DNR.
--- NOTE | 2016-10-06 08:38 | CDI ---
In responding to this query, please exercise your independent professional judgment. The [facility] Coding Staff and Clinical Documentation Specialists appreciate your assistance in clarifying documentation, maintaining compliance with coding guidelines, accurately documenting patients condition and capturing severity of illness. The fact that a question is asked does not imply that any particular answer is desired or expected. Communication forms are a method of clarifying documentation and are not made part of the Legal Health Record. Thank you in advance for your clarification. Last Revision, September 2015 Lydia Farias [address] [facility] [place] [address] Documentation Clarification Form Date: 10/06/2016 8:14:00 AM From: Devorah Queen Phone: Admit Date: 09/28/2016 9:18:00 PM Patient Name: Val Jose Visit Number: [id number] Discharge Date: Dr. Shirley Carmona CHF is documented in the ED note and in the cardiology progress notes. History/Risk Factors: Patient was admitted for atrial fibrillation and has a history of hypertension, pulmonary hypertension and tricuspid regurgitation. VS/Pulse OX: T. 9734, P. 100 - 133, R. 16, BP 99/58 Chest X Ray: No acute pulmonary process. COPD and cardiomegaly redemonstrated. In your professional opinion, can you please clarify the type of CHF if known? Systolic Diastolic Systolic and Diastolic Cor Pulmonale (Right Sided HF w/ Pulmonary HTN) Unable to determine Other, please specify If known, please specify if Heart Failure is due to: Hypertension Rheumatic Fever Please document in your progress notes and discharge summary in order to capture severity of illness and risk of mortality. Include clinical findings that support your diagnosis. FYI: Press F11 to launch patient chart. Place X here if this finding has no clinical significance, is not applicable or if you are not able to provide any additional documentation. BLAYNED
--- NOTE | 2016-10-06 08:52 | CDI ---
In responding to this query, please exercise your independent professional judgment. The [facility] Coding Staff and Clinical Documentation Specialists appreciate your assistance in clarifying documentation, maintaining compliance with coding guidelines, accurately documenting patients condition and capturing severity of illness. The fact that a question is asked does not imply that any particular answer is desired or expected. Communication forms are a method of clarifying documentation and are not made part of the Legal Health Record. Thank you in advance for your clarification. Last Revision, May [address] [place] [address] Documentation Clarification Form Date: 10/06/2016 8:40:00 AM From: Devorah Bernice Phone: Admit Date: 09/28/2016 9:18:00 PM Patient Name: Val Jose Visit Number: [id number] Discharge Date: Dr. Migue Tamayo A diagnosis of anemia lacks specificity to accurately reflect your patients severity of condition and clarification is needed. Patient history/risk factors: The patient has a history of recent GI bleed, atrial fib, CHF, dementia and hypertension. Clinical Indicators: Hemoglobin: 09/28 - 9.9, 09/30 - 9.1 Hematocrit: 09/28 - 32.4, 09/30 - 29.2 Treatment: Repeat CBC. (units of PRBCs transfused, iron, monitoring labs) In order to capture the severity of condition, please clarify the type of anemia and etiology if known: Acute blood loss anemia Acute on chronic blood loss anemia Chronic blood loss anemia Iron deficiency anemia Hemolytic anemia Drug induced anemia Anemia due to malignancy Nutritional anemia Anemia of chronic kidney disease Unable to determine Other, please specify Please document in your progress notes and discharge summary in order to capture severity of illness and risk of mortality. Include clinical findings that support your diagnosis. FYI: Press F11 to launch patient chart. Place X here if this finding has no clinical significance, is not applicable or if you are not able to provide any additional documentation. JOSE
--- NOTE | 2016-10-12 21:21 | DS ---
DATE OF ADMISSION: 09/28/2016 DATE OF DISCHARGE: 10/02/2016 ADDENDUM: Addendum to Final diagnoses: Normocytic anemia cause unknown.
--- NOTE | 2016-10-15 11:45 | CDI ---
In responding to this query, please exercise your independent professional judgment. The [facility] Coding Staff and Clinical Documentation Specialists appreciate your assistance in clarifying documentation, maintaining compliance with coding guidelines, accurately documenting patients condition and capturing severity of illness. The fact that a question is asked does not imply that any particular answer is desired or expected. Communication forms are a method of clarifying documentation and are not made part of the Legal Health Record. Thank you in advance for your clarification. Last Revision, May 2015 Lydia Farias [address] [place] [address] Documentation Clarification Form Date: 10/15/2016 11:36:00 AM From: Kira Rashid CCS, CCDS Admit Date: 09/28/2016 9:18:00 PM Patient Name: Val Jose Visit Number: [id number] Discharge Date: 10/02/2016 Dr. Migue Tamayo: A pressure ulcer was documented in the nursing notes as a Stage II wound right buttock. History/Risk Factors: Parosysmal A Fib, GERD, Hyperlipidemia, hypertension, Osteoarthritis. Clinical Indicators: 89 yo female admitted from SNF with atrial fibrillation. Location: Right Buttock Wound description: Stage II, no other description. Treatment: Medicated Gel & Ointment Consults: Cardiology for A Fib. In your professional opinion, can you please clarify the diagnosis, location, laterality and whether present on admission (POA): Stage 1 Pressure/Decubitus Ulcer (intact skin, non-blanching redness of local area) Stage 2 Pressure/Decubitus Ulcer (Partial thickness, loss of dermis, pink wound bed) Stage 3 Pressure/Decubitus Ulcer (Full thickness tissue loss) Stage 4 Pressure/Decubitus Ulcer (Full thickness tissue loss with exposed bone, tendon, or muscle. May have slough or eschar present) Unstageable Unable to determine Other condition, please specify Please indicate cause (if known). Please document in your progress notes and discharge summary in order to capture severity of illness and risk of mortality. Include clinical findings that support your diagnosis. FYI: Press F11 to launch patient chart. Place X here if this finding has no clinical significance, is not applicable or if you are not able to provide any additional documentation. Thank You. JOSE
--- NOTE | 2016-10-24 08:27 | DS ---
DATE OF ADMISSION: 09/28/2016 DATE OF DISCHARGE: 10/02/2016 ADDENDUM: ADDENDUM TO FINAL DIAGNOSIS: Stage II decubitus ulcer, present on the buttock, present on admission.
== END 2016-10-02 19:34 | DRG 309 ==
LOC: EC 21:00 → 6SEL 21:18
PROVIDERS: ADMIT Hospitalist; ATTEND Hospitalist
DX: I48.1 Persistent atrial fibrillation (principal); E87.1 Hypo-osmolality and hyponatremia; N17.9 Acute kidney failure, unspecified; L89.302 Pressure ulcer of unspecified buttock, stage 2; I95.9 Hypotension, unspecified; I11.0 Hypertensive heart disease with heart failure; I27.2 Other secondary pulmonary hypertension; F03.90 Unspecified dementia, unspecified severity, without behavioral disturbance, psychotic disturbance, mood disturbance, and anxiety; G62.9 Polyneuropathy, unspecified; E86.0 Dehydration; E03.9 Hypothyroidism, unspecified; I48.0 Paroxysmal atrial fibrillation; I48.2 Chronic atrial fibrillation; E78.5 Hyperlipidemia, unspecified; F32.9 Major depressive disorder, single episode, unspecified; G50.0 Trigeminal neuralgia; H35.30 Unspecified macular degeneration; I07.1 Rheumatic tricuspid insufficiency; D64.9 Anemia, unspecified; I73.9 Peripheral vascular disease, unspecified; K21.9 Gastro-esophageal reflux disease without esophagitis; M15.9 Polyosteoarthritis, unspecified; M81.0 Age-related osteoporosis without current pathological fracture; N39.3 Stress incontinence (female) (male); F41.9 Anxiety disorder, unspecified; G43.909 Migraine, unspecified, not intractable, without status migrainosus; G89.29 Other chronic pain; K46.9 Unspecified abdominal hernia without obstruction or gangrene; M54.9 Dorsalgia, unspecified; H40.9 Unspecified glaucoma; J44.9 Chronic obstructive pulmonary disease, unspecified; Z66 Do not resuscitate; Z79.899 Other long term (current) drug therapy; Z85.828 Personal history of other malignant neoplasm of skin; Z87.891 Personal history of nicotine dependence; Z96.652 Presence of left artificial knee joint; Z88.5 Allergy status to narcotic agent; Z88.2 Allergy status to sulfonamides; Z91.040 Latex allergy status; Z82.49 Family history of ischemic heart disease and other diseases of the circulatory system; L89.92 Pressure ulcer of unspecified site, stage 2
CPT/HCPCS: 36415; 71020; 80048; 80053; 80061; 82550; 82553; 83735; 84100; 84443; 84484; 85025; 85027; 85610; 85730; 93005; 94640; 94760; 96361; 96365; 96375; 96376; 99291

== ENCOUNTER 2016-10-03 15:23 | Inpatient (IN) | payer MEDICARE, BC ==
[2016-10-03] MEDS ORDERED: PANTOPRAZOLE 40 MG/10 ML VIAL IVP STA (16:01)
[2016-10-03] MEDS ORDERED: ONDANSETRON 4 MG/2 ML VIAL IVP STA (16:01)
[2016-10-03] MEDS: SODIUM CHLORIDE 0.9% 1,000 ML IV STA ×4 (16:23→20:13)
[2016-10-03] MEDS ORDERED: DILTIAZEM 5 MG/ML 5 ML VIAL IVP STA (16:26)
--- NOTE | 2016-10-03 16:30 | ED ---
General Adult HPI - General Chief complaint: GI Bleed Stated complaint: GI Bleed Time Seen by Provider: 10/03/16 16:00 Source: EMS, RN notes reviewed, old records reviewed Mode of arrival: EMS Limitations: no limitations - History of Present Illness Initial comments: This is an 89-year-old female. This patient is transferred to ER for evaluation of GI bleed. Patient does have history of GI bleed. Denies blood thinners, no history of blood thinners, patient has mild dementia so poor historian, patient had 2 dark bowel movements earlier today with blood. Tachycardic, patient states she does feel weak and has been more fatigued. History otherwise obtained from EMS and patient staff - Related Data Home Medications Medication Instructions Recorded Confirmed DULoxetine HCL [Cymbalta] 30 mg PO DAILY 07/31/15 10/03/16 Gabapentin [Neurontin] 300 mg PO BID@0800,1700 09/05/16 10/03/16 Acetaminophen [Tylenol] 650 mg PO Q4HR PRN 09/29/16 10/03/16 Balsalazide Disodium [Colazal] 2,250 mg PO TID-W/MEALS 09/29/16 10/03/16 Bisacodyl [Dulcolax] 10 mg RECTAL DAILY PRN 09/29/16 10/03/16 Colocort Enema 100mg/60ml 100 mg RECTAL HS 09/29/16 10/03/16 Lactose-Reduced Food [Ensure Plus] 1 can PO TID-W/MEALS 09/29/16 10/03/16 Lidocaine 4% Cream [Lmx 4] 1 applic TOPICAL QID PRN 09/29/16 10/03/16 Magnesium Hydroxide [Milk of 2,400 mg PO DAILY PRN 09/29/16 10/03/16 Magnesia] Na Phos,M-B/Na Phos,Di-Ba [Fleet 133 ml RECTAL DAILY PRN 09/29/16 10/03/16 Adult] Nystatin 100,000Unit/gm Cream 1 applic TOPICAL BID PRN 09/29/16 10/03/16 [Mycostatin Cream] Travoprost [Travatan Z 0.004%] 1 drop BOTH EYES HS 09/29/16 10/03/16 Omeprazole 20 mg PO BID@0800,1700 10/03/16 10/03/16 Tobramycin 0.3% Ophth Oint [Tobrex 1 applic BOTH EYES Q4H PRN 10/03/16 10/03/16 0.3% Ophth Oint] Previous Rx's Medication Instructions Recorded Aspirin 81 mg PO DAILY chew 10/02/16 Digoxin [Lanoxin] 125 mcg PO DAILY tab 10/02/16 Ipratropium-Albuterol Nebulize 3 ml INHALATION RT-QID PRN #0 10/02/16 [Duoneb 0.5 mg-3 mg/3 ml Soln] ampul.neb Metoprolol Succinate [Toprol XL] 25 mg PO BID #0 10/02/16 Nitroglycerin Sl Tabs [Nitrostat] 0.4 mg SUBLINGUAL Q5M PRN #0 tab 10/02/16 traMADol HCl [Ultram] 50 mg PO QID PRN #14 tab 10/02/16 Allergies Allergy/AdvReac Type Severity Reaction Status Date / Time codeine Allergy Rash/Hives Verified 10/03/16 15:36 latex Allergy Rash/Hives Verified 10/03/16 15:36 Sulfa (Sulfonamide Allergy Rash/Hives Verified 10/03/16 15:36 Antibiotics) Review of Systems ROS Statement: Those systems with pertinent positive or pertinent negative responses have been documented in the HPI. ROS Other: All systems not noted in ROS Statement are negative. Past Medical History Past Medical History: Cancer, GERD/Reflux, GI Bleed, Hyperlipidemia, Hypertension, Osteoarthritis (OA), Thyroid Disorder Additional Past Medical History / Comment(s): Paroxysmal atrial fibrillation, migraines, trigeminal neuralgia, glucoma involving the left eye, peripheral vascular disease, abdominal hernia, peptic ulcer disease, stress urine incontinence, skin cancer resected, osteoporosis, peripheral neuropathy, macular degeneration, difficulty with mobility and ambulation as the patient is able to walk only short distances. She also has hypothyroidism, anxiety, depression, chronic back pain. History of Any Multi-Drug Resistant Organisms: Unobtainable Past Surgical History: Appendectomy, Cholecystectomy, Joint Replacement, Orthopedic Surgery, Tonsillectomy Additional Past Surgical History / Comment(s): Lt knee replacement, Lt femur- has plates and screws, vein stripping, partial thyroidectomy(rt side), cataracts Additional Past Anesthesia/Blood Transfusion Reaction / Comment(s): hallucinations after knee surgery and dizziness for 6 months after femur sx. 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 pt gets around by walker very short distances and at times a w/c-has neuropathy pain to abdoulaye legs/feet. pt has help from 3 daughters and comfort keepers. Smoking Status: Former smoker Past Alcohol Use History: Occasional Additional Past Alcohol Use History / Comment(s): quit smoking in 1981 smoked 1 pd x 25 years, occ glass of wine. Past Drug Use History: None Reported - Past Family History Father Family Medical History: Myocardial Infarction ([place]) Mother Family Medical History: Pneumonia Additional Family Medical History / Comment(s): mom from pneumonia when pt was age 8. General Exam Limitations: no limitations General appearance: alert, anxious, lethargic, in distress Head exam: Present: atraumatic, normocephalic, normal inspection Eye exam: Present: normal appearance, PERRL, EOMI. Absent: scleral icterus, conjunctival injection, periorbital swelling ENT exam: Present: normal exam, mucous membranes moist Neck exam: Present: normal inspection. Absent: tenderness, meningismus, lymphadenopathy Respiratory exam: Present: normal lung sounds bilaterally. Absent: respiratory distress, wheezes, rales, rhonchi, stridor Cardiovascular Exam: Present: tachycardia, irregular rhythm, normal heart sounds. Absent: systolic murmur, diastolic murmur, rubs, gallop, clicks GI/Abdominal exam: Present: soft, normal bowel sounds. Absent: distended, tenderness, guarding, rebound, rigid Rectal exam: Present: heme (+) stool, black stool Extremities exam: Present: normal inspection, full ROM, normal capillary refill. Absent: tenderness, pedal edema, joint swelling, calf tenderness Back exam: Present: normal inspection Neurological exam: Present: alert, oriented X3, CN II-XII intact Psychiatric exam: Present: normal affect, normal mood Skin exam: Present: warm, dry, intact, normal color. Absent: rash Course Vital Signs 10/03/16 15:33 Temperature 96.9 F L Pulse Rate 126 H Respiratory 18 Rate Blood Pressure 112/69 O2 Sat by Pulse 95 Oximetry - Reevaluation(s) Reevaluation #1: 10/03/16 16:27 Patient continued to have positive bloody stool EKG Findings - EKG Comments: EKG Findings:: EKG shows A. fib with RVR rate 118, QRS 80, QTC 428 Medical Decision Making - Medical Decision Making A IV had ER for evaluation of GI bleed, positive JVD positive blood in stool, A. fib with RVR, will control A. fib with RVR admit for transfusion secondary to elevated heart rate in positive bleeding. Disposition Clinical Impression: Atrial fibrillation with RVR, Acute blood loss anemia, Weakness, GI bleed Disposition: ADMITTED IP TO THIS HOSP Condition: Fair Referrals: Mathew Lopez MD [Primary Care Provider] - 1-2 days
[2016-10-03 17:02] LABS: CH 26.7; CHCM 28.6; HCT 32.2 % (34.0-46.0); HDW 3.55; HGB 9.7 gm/dL (11.4-16.0); Hypochromasia Marked; Immature Gran Flag Moderate; MCH 28.3 pg (25.0-35.0); MCHC 30.3 g/dL (31.0-37.0); MCV 93.4 fL (80.0-100.0); Poikilocytosis Slight; RBC 3.44 m/uL (3.80-5.40); RDW 14.5 % (11.5-15.5); WBC 14.5 k/uL (3.8-10.6); WBC (Perox) 15.11
[2016-10-03 17:29] LABS: Add Differential Manual Differential
[2016-10-03 17:33] LABS: INR 1.1 (<1.1); Partial Thromboplastin Time 24.4 sec (22.0-30.0); Prothrombin Time 10.7 sec (9.0-12.0)
[2016-10-03 17:38] LABS: Band Neutrophils % 7.5 %; Myelocytes % 0.5 %; Nucleated Red Blood Cells 0 /100 WBC (0-0); Total Cells Counted 200
[2016-10-03 17:40] LABS: Manual Review Performed; Polychromasia Present; Toxic Vacuolation Present
[2016-10-03 17:41] LABS: Target Cells Present; Toxic Granulation Present
[2016-10-03 17:42] LABS: ALT 17 U/L (9-52); AST 24 U/L (14-36); Alkaline Phosphatase 146 U/L (38-126); Anion Gap 15 mmol/L; Blood Urea Nitrogen 14 mg/dL (7-17); Calcium 8.6 mg/dL (8.4-10.2); Carbon Dioxide 20 mmol/L (22-30); Chloride 99 mmol/L (98-107); Glucose 89 mg/dL (74-99); Magnesium 1.7 mg/dL (1.6-2.3); Non-African American GFR(MDRD) >60 (>60 ml/min/1.73 sqM); Potassium 4.7 mmol/L (3.5-5.1); Sodium 134 mmol/L (137-145); Total Bilirubin 0.6 mg/dL (0.2-1.3)
[2016-10-03 17:46] LABS: Creatine Kinase 32 U/L (30-135)
[2016-10-03 17:59] LABS: Creatine Kinase MB 0.9 ng/mL (0.0-2.4); Troponin I <0.012 ng/mL (0.000-0.034)
[2016-10-03 18:35] LABS: Glucose,Whole Blood 87 mg/dL (75-99)
[2016-10-03] MEDS ORDERED: TOBRAMYCIN 0.3% OPHTH OINT 3.5 GM TUBE BOTH EYES PRN (19:05)
[2016-10-03] MEDS ORDERED: NITROGLYCERIN SL TABS 0.4 MG TAB SUBLINGUAL PRN (19:05)
[2016-10-03] MEDS ORDERED: MAGNESIUM HYDROXIDE 2,400 MG/10 ML CUP PO PRN (19:05)
[2016-10-03] MEDS ORDERED: IPRATROPIUM-ALBUTEROL 3 ML NEB INHALATION PRN (19:05)
[2016-10-03] MEDS ORDERED: LIDOCAINE 4% CREAM 5 GM TUBE TOPICAL PRN (19:05)
[2016-10-03] MEDS ORDERED: ACETAMINOPHEN TAB 325 MG TAB PO PRN (19:05)
[2016-10-03] MEDS ORDERED: Magnesium Replacement Protocol 1 EACH MISC MISCELLANE PRN (19:31)
[2016-10-03] MEDS ORDERED: NALOXONE 0.4 MG/ML 1 ML VIAL IV PRN (19:37)
[2016-10-03] MEDS ORDERED: SODIUM CHLORIDE 0.9% 500 ML IV ONE (19:46)
[2016-10-03] MEDS: LATANOPROST 0.005% OPHTH DROPS 2.5 ML BTL BOTH EYES SCH (20:11)
[2016-10-03] MEDS: MAGNESIUM SULFATE-D5W PMX 1 GM in DEXTROSE/WATER 1 100ML.BAG IVPB SCH (20:11)
[2016-10-03] MEDS: METOPROLOL SUCCINATE (ER) 25 MG TAB.ER.24H PO SCH (20:12)
--- NOTE | 2016-10-03 20:21 | XR ---
EXAMINATION TYPE: XR chest 1V DATE OF EXAM: 10/03/2016 7:53 PM COMPARISON: 09/28/2016 HISTORY: Chest pain TECHNIQUE: Single frontal view of the chest is obtained. FINDINGS: There is no heart failure nor confluent pneumonic infiltrate. There is coarsening of inter stitial markings. There are chest leads. There are no hilar masses. Thoracic aorta is atheromatous. IMPRESSION: COPD and pulmonary fibrosis. There is probably some infiltrate in the right upper lobe o n last exam that is improved on today's exam.
[2016-10-03 20:55] VITALS: BMI 19.7
[2016-10-03] MEDS: traMADol 50 MG TAB PO PRN (21:38)
[2016-10-03 23:28] LABS: Appearance,Urine Turbid (Clear); Bacteria,Urine Moderate /hpf; Bilirubin,Urine Negative (Negative); Glucose,Urine (UA) Negative (Negative); Ketones,Urine 1+ (Negative); Leukocyte Esterase,Urine Large (Negative); Mucus,Urine Many /hpf; Nitrite,Urine Positive (Negative); PH, Urine 5.5 (5.0-8.0); Particle Count 30196; Protein,Urine 2+ (Negative); RBC,Urine 17 /hpf (0-5); Specific Gravity,Urine 1.016 (1.001-1.035); UA Billing (MACRO vs. MICRO) MICRO; Urobilinogen,Urine <2.0 mg/dL (<2.0); WBC,Urine >182 /hpf (0-5)
[2016-10-04] MEDS: MAGNESIUM SULFATE-D5W PMX 1 GM in DEXTROSE/WATER 1 100ML.BAG IVPB SCH (04:42)
[2016-10-04] MEDS: PANTOPRAZOLE 40 MG/10 ML VIAL IVP SCH ×3 (04:43→22:09)
[2016-10-04 05:23] LABS: CH 27.5; CHCM 30.2; HCT 31.3 % (34.0-46.0); HDW 3.47; HGB 9.3 gm/dL (11.4-16.0); Hypochromasia Marked; Immature Gran Flag Slight; MCHC 29.7 g/dL (31.0-37.0); Mean Platelet Volume 8.3; Poikilocytosis Slight; RBC 3.43 m/uL (3.80-5.40); RDW 15.1 % (11.5-15.5); WBC 8.4 k/uL (3.8-10.6); WBC (Perox) 9.34
[2016-10-04 05:34] LABS: Anion Gap 12 mmol/L; Blood Urea Nitrogen 13 mg/dL (7-17); Carbon Dioxide 20 mmol/L (22-30); Chloride 103 mmol/L (98-107); Glucose 92 mg/dL (74-99); Magnesium 2.1 mg/dL (1.6-2.3); Non-African American GFR(MDRD) >60 (>60 ml/min/1.73 sqM); Phosphorous 4.3 mg/dL (2.5-4.5); Potassium 3.8 mmol/L (3.5-5.1); Sodium 135 mmol/L (137-145)
[2016-10-04 05:37] LABS: Add Differential Manual Differential
[2016-10-04 05:40] LABS: Manual Review Performed; Nucleated Red Blood Cells 0 /100 WBC (0-0); Total Cells Counted 100
[2016-10-04 05:42] LABS: Polychromasia Present
[2016-10-04 05:43] LABS: Toxic Granulation Present; Toxic Vacuolation Present
[2016-10-04] MEDS ORDERED: Potassium Replacement Protocol 1 EACH MISC MISCELLANE PRN (05:47)
[2016-10-04] MEDS: POTASSIUM CHLORIDE 10 MEQ, LIDOCAINE 2% INJ 10 MG in SODIUM CHLORIDE 0.9% 100 ML IV SCH ×2 (06:16→07:54)
[2016-10-04] MEDS ORDERED: NON-FORMULARY DRUG (Lactose-Reduced Food [Ensure Plus] 1 CAN) PO SCH (07:30)
--- NOTE | 2016-10-04 07:42 | XR ---
EXAMINATION TYPE: XR chest 1V DATE OF EXAM: 10/04/2016 6:34 AM HISTORY: Crackles in Lung bases. REFERENCE: Previous study dated 10/03/2016. FINDINGS: The entire lungs are not included on this study. The lungs are overinflated. The heart is enlarged. There are chronic increased interstitial markings. There is some atelectasis or scarring left lung base. Pleural spaces are clear. IMPRESSION: 1. COPD. 2. CARDIOMEGALY. 3. LEFT BASILAR ATELECTASIS.
[2016-10-04] MEDS ORDERED: SODIUM CHLORIDE 0.9% 500 ML IV ONE (07:58)
[2016-10-04] MEDS ORDERED: PANTOPRAZOLE 40 MG TABLET PO SCH (08:00)
[2016-10-04] MEDS: DIGOXIN 125 MCG TAB PO SCH (08:52)
[2016-10-04] MEDS: BALSALAZIDE DISODIUM 750 MG CAPSULE PO SCH ×3 (08:52→16:46)
[2016-10-04] MEDS: GABAPENTIN 300 MG CAP PO SCH ×2 (08:52→16:46)
[2016-10-04] MEDS: DULoxetine HCL 30 MG CAPSULE.DR PO SCH (08:53)
[2016-10-04] MEDS: LEVOFLOXACIN 500MG-D5W PMX 500 MG in DEXTROSE/WATER 1 100ML.BAG IVPB SCH (08:53)
[2016-10-04] MEDS: METOPROLOL SUCCINATE (ER) 25 MG TAB.ER.24H PO SCH ×3 (08:54→21:48)
--- NOTE | 2016-10-04 11:47 | P.CNPUL ---
History of Present Illness Consult date: 10/04/16 Requesting physician: Migue Tamayo Reason for consult: other Chief complaint: GI bleed/dark bowel movements History of present illness: This is an 89-year-old female with history of multiple medical problems, recently admitted in early September of 2016 with lower GI bleeding felt to be secondary to severe colitis. Patient underwent sigmoidoscopy and she was found to have severe active colitis involving the rectum and the sigmoid colon. Multiple pseudopolyps were noted in the sigmoid colon, there was sigmoid diverticulosis. Pathology revealed chronic active colitis, negative for dysplasia. Her other medical problems at the time included hypothyroidism, hypovolemic hyponatremia, thrombocytopenia, nonspecific troponin leak, peripheral vessel occlusive disease, and hypokalemia. At any rate patient was seen by many consultants during that last admission and the consults included gastroenterology, oncology, urology, infectious disease, gynecology, and critical care medicine. Patient was discharged on multiple medications as listed, however for her colitis patient was discharged on colazal at 2250 mg by mouth 3 times a day. Patient was brought in back last night from [facility] complaining of at least 2 dark bowel movements. And felt that the patient may have ongoing active bleeding again. Hemoglobin on admission was 9.7, patient did not require any blood transfusion, and she remained relatively stable since admission last night. Hence after evaluating the patient we all felt that the patient could be transferred to a regular medical floor. And she was ready seen by gastroenterology, planning conservative measures for now. In addition to her anemia, patient was noted to have bacteriuria and pyuria, but she has no active symptoms of urinary tract infection. Patient was placed empirically on Levaquin for presumptive urinary tract infection. Review of Systems 14 point review of systems were obtained, please refer to pertinent positives and negatives in HPI. Past Medical History Past Medical History: Cancer, GERD/Reflux, GI Bleed, Hyperlipidemia, Hypertension, Osteoarthritis (OA), Thyroid Disorder Additional Past Medical History / Comment(s): Paroxysmal atrial fibrillation, migraines, trigeminal neuralgia, glucoma involving the left eye, peripheral vascular disease, abdominal hernia, peptic ulcer disease, stress urine incontinence, skin cancer resected, osteoporosis, peripheral neuropathy, macular degeneration, difficulty with mobility and ambulation as the patient is able to walk only short distances. She also has hypothyroidism, anxiety, depression, chronic back pain. History of Any Multi-Drug Resistant Organisms: Unobtainable Past Surgical History: Appendectomy, Cholecystectomy, Joint Replacement, Orthopedic Surgery, Tonsillectomy Additional Past Surgical History / Comment(s): Lt knee replacement, Lt femur- has plates and screws, vein stripping, partial thyroidectomy(rt side), cataracts Additional Past Anesthesia/Blood Transfusion Reaction / Comment(s): hallucinations after knee surgery and dizziness for 6 months after femur sx. 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 pt gets around by walker very short distances and at times a w/c-has neuropathy pain to abdoulaye legs/feet. pt has help from 3 daughters and comfort keepers. Smoking Status: Former smoker Past Alcohol Use History: Occasional Additional Past Alcohol Use History / Comment(s): quit smoking in 1981 smoked 1 pd x 25 years, occ glass of wine. Past Drug Use History: None Reported - Past Family History Father Family Medical History: Myocardial Infarction ([place]) Mother Family Medical History: Pneumonia Additional Family Medical History / Comment(s): mom from pneumonia when pt was age 8. Medications and Allergies Home Medications Medication Instructions Recorded Confirmed Type DULoxetine HCL [Cymbalta] 30 mg PO DAILY 07/31/15 10/03/16 History Gabapentin [Neurontin] 300 mg PO BID@0800,1700 09/05/16 10/03/16 History Acetaminophen [Tylenol] 650 mg PO Q4HR PRN 09/29/16 10/03/16 History Balsalazide Disodium [Colazal] 2,250 mg PO TID-W/MEALS 09/29/16 10/03/16 History Bisacodyl [Dulcolax] 10 mg RECTAL DAILY PRN 09/29/16 10/03/16 History Colocort Enema 100mg/60ml 100 mg RECTAL HS 09/29/16 10/03/16 History Lactose-Reduced Food [Ensure Plus] 1 can PO TID-W/MEALS 09/29/16 10/03/16 History Lidocaine 4% Cream [Lmx 4] 1 applic TOPICAL QID PRN 09/29/16 10/03/16 History Magnesium Hydroxide [Milk of 2,400 mg PO DAILY PRN 09/29/16 10/03/16 History Magnesia] Na Phos,M-B/Na Phos,Di-Ba [Fleet 133 ml RECTAL DAILY PRN 09/29/16 10/03/16 History Adult] Nystatin 100,000Unit/gm Cream 1 applic TOPICAL BID PRN 09/29/16 10/03/16 History [Mycostatin Cream] Travoprost [Travatan Z 0.004%] 1 drop BOTH EYES HS 09/29/16 10/03/16 History Omeprazole 20 mg PO BID@0800,1700 10/03/16 10/03/16 History Tobramycin 0.3% Ophth Oint [Tobrex 1 applic BOTH EYES Q4H PRN 10/03/16 10/03/16 History 0.3% Ophth Oint] Allergies Allergy/AdvReac Type Severity Reaction Status Date / Time codeine Allergy Rash/Hives Verified 10/03/16 15:36 latex Allergy Rash/Hives Verified 10/03/16 15:36 Sulfa (Sulfonamide Allergy Rash/Hives Verified 10/03/16 15:36 Antibiotics) Physical Exam Vitals: Vital Signs Temp Pulse Pulse Resp BP BP Pulse Ox 10/04/16 11:07 25 H 10/04/16 10:00 104 H 25 H 92/67 98 10/04/16 09:00 94 42 H 105/58 100 10/04/16 08:00 97.9 F 101 H 36 H 100/52 98 10/04/16 07:00 88 38 H 96/58 99 10/04/16 06:30 94 24 103/57 98 10/04/16 06:00 90 25 H 100/51 99 10/04/16 05:30 102 H 25 H 98/51 98 10/04/16 05:00 93 23 90/55 99 10/04/16 04:30 104 H 26 H 95/55 99 10/04/16 04:00 97.6 F 99 88 20 98/50 99 10/04/16 03:30 98 22 97/59 99 10/04/16 03:00 96 25 H 93/56 99 10/04/16 02:30 92 22 101/51 99 10/04/16 02:00 92 23 104/64 99 10/04/16 01:30 89 33 H 95/58 99 10/04/16 01:00 94 20 87/51 97 10/04/16 00:30 83 27 H 109/55 99 10/04/16 00:00 97.2 F L 103 H 88 26 H 102/58 99 10/03/16 23:30 96 32 H 92/51 99 10/03/16 23:01 86 27 H 93/56 99 10/03/16 23:00 101 H 26 H 93/56 100 10/03/16 22:30 95 35 H 91/49 99 10/03/16 22:00 87 29 H 98/46 98 10/03/16 21:30 92 25 H 102/49 97 10/03/16 21:00 101 H 18 106/46 97 10/03/16 20:30 98.4 F 86 88 44 H 102/55 106/46 98 10/03/16 20:00 98.3 F 91 88 33 H 90/57 99 10/03/16 19:30 84 43 H 97/52 96 10/03/16 19:20 91 43 H 97/52 100 10/03/16 19:10 105 H 34 H 101/56 94 L 10/03/16 19:00 88 42 H 103/53 95 10/03/16 18:50 100 42 H 103/53 98 10/03/16 18:40 103 H 26 H 95 10/03/16 18:34 96.9 F L 103 H 18 104/64 98 10/03/16 18:30 97.9 F 100 94 L 10/03/16 18:28 98 10/03/16 17:33 96.9 F L 97 18 100/56 96 Intake and Output 10/03/16 10/04/16 10/04/16 22:59 06:59 14:59 Intake Total 1175 1000 1000 Output Total 140 520 100 Balance 1035 480 900 Intake: IV 475 1000 800 Sodium Chloride 0.9% 1, 475 1000 800 000 ml @ 125 mls/hr IV . Q8H STA Rx#:[id number] Intake, IV Titration 700 200 Amount Levofloxacin 500Mg-D5w 100 Pmx 500 mg In Dextrose/ Water 1 100ml.bag @ 100 mls/hr IVPB Q24H [facility]ER Rx#: [id number] Magnesium Sulfate-D5w Pmx 200 1 gm In Dextrose/Water 1 100ml.bag @ 100 mls/hr IVPB Q1H [facility] Rx#: [id number] Potassium Chloride 10 meq 100 Lidocaine 2% Inj 10 mg In Sodium Chloride 0.9% 100 ml @ 100 mls/hr IV Q1HR [facility]ER Rx#:[id number] Sodium Chloride 0.9% 500 500 ml @ 999 mls/hr IV .Q31M ONE Rx#:[id number] Output: Urine 140 520 100 Other: Voiding Method Indwelling Catheter Indwelling Catheter Diaper Weight 55.5 kg 55.5 kg Physical Exam: Revealed an 89-year-old female in no distress. HEENT:[Neck is supple.] [No neck masses.] [No thyromegaly.] [No JVD.] Chest: [Clear throughout, no crackles, no rhonchi, no wheezes.] Cardiac Exam: [Normal S1 and S2, no S3 gallop, no murmur.] Abdomen: [Soft, nontender, no megaly, no rebound, no guarding, normal bowel sounds.] Extremities: [No clubbing, no edema, no cyanosis.] Neurological Exam: [No focal neurologic deficit.] Results - Laboratory Findings CBC and BMP: 10/04/16 04:49 10/04/16 04:49 PT/INR, D-dimer PT 10.7 sec (9.0-12.0) 10/03/16 17:10 INR 1.1 (<1.1) 10/03/16 17:10 Abnormal lab findings: Abnormal Labs 10/03/16 10/03/16 10/03/16 16:55 17:10 17:10 WBC 14.5 H RBC 3.44 L Hgb 9.7 L Hct 32.2 L MCHC 30.3 L Plt Count 545 H Neutrophils # (Manual) 11.7 H Monocytes # (Manual) 1.2 H Sodium 134 L Carbon Dioxide 20 L Calcium Alkaline Phosphatase 146 H Albumin 3.0 L Lipase 305 H Urine Appearance Urine Protein Urine Ketones Urine Blood Urine Nitrite Ur Leukocyte Esterase Urine RBC Urine WBC Urine WBC Clumps Urine Bacteria Hyaline Casts Urine Mucus Crossmatch See Detail 10/03/16 10/04/16 10/04/16 23:18 04:49 04:49 WBC RBC 3.43 L Hgb 9.3 L Hct 31.3 L MCHC 29.7 L Plt Count 608 H Neutrophils # (Manual) Monocytes # (Manual) 1.1 H Sodium 135 L Carbon Dioxide 20 L Calcium 8.0 L Alkaline Phosphatase Albumin Lipase Urine Appearance Turbid H Urine Protein 2+ H Urine Ketones 1+ H Urine Blood Small H Urine Nitrite Positive H Ur Leukocyte Esterase Large H Urine RBC 17 H Urine WBC >182 H Urine WBC Clumps Many H Urine Bacteria Moderate H Hyaline Casts 38 H Urine Mucus Many H Crossmatch - Diagnostic Findings Chest x-ray: image reviewed (Chest x-ray showed COPD and nonspecific fibrotic changes, the findings in the right upper lobe are nonspecific.) Assessment and Plan Plan: Impression: 1 chronic GI bleeding secondary to colitis which has been addressed in the past by gastroenterology, strongly doubt the patient will require repeat colonoscopy at this point. At this point, the patient will be observed, follow-up CBC will be done, and continue treatment of her chronic active colitis. Patient does not need to be monitored in the ICU at this point, and I strongly doubt if there is any active bleeding at this point. 2 multiple comorbidities including hypothyroidism, hypertension, degenerative joint disease, trigeminal neuralgia, glaucoma, migraine cephalgia, peripheral vessel occlusive disease, peptic ulcer disease, osteoporosis, stress urinary incontinence, ataxia and peripheral neuropathy, and chronic anemia secondary to chronic GI blood losses. History of cervical stenosis and fluid in the endometrial cavity. Recommendation: Agree with transferring the patient out of the ICU, no need for us to follow at this point, patient is being followed by gastroenterology, we will sign off and see on when necessary basis. Time with Patient: Greater than 30
[2016-10-04] MEDS ORDERED: NYSTATIN 100,000UNIT/GM CREAM 30 GM TUBE TOPICAL PRN (12:25)
--- NOTE | 2016-10-04 12:44 | CONS ---
DATE OF CONSULTATION: 10/04/2016 REASON FOR CONSULTATION: Rectal bleeding. REQUESTING PHYSICIAN: Dr. Lopez. HISTORY OF PRESENT ILLNESS: Patient is 89-year-old pleasant lady who is known to me from recent hospitalization 6 weeks ago. The patient was transferred to the emergency room from [facility] because of 2 episodes of dark-bloody bowel movements. The patient had dementia and very poor historian. She does not recall having any bleeding yesterday. The patient denies any abdominal pain. Reports no nausea or vomiting. According to the nursing staff in the ICU she did not have any bleeding through the night and a ( ) has been placed and there was some small amount of brown-colored liquid stool in the bag. The patient had a prolonged hospitalization about 6 weeks ago for severe lower gastrointestinal bleed. She underwent a flexible sigmoidoscopy by me towards end of July 2016 and was noted to have severe active colitis involving the rectum all the way up to the sigmoid colon. The scope could not be advanced beyond that area. Biopsies did show severe active chronic colitis. She was started on hydrocortisone enemas as well as cortisol 3 tablets 3 times daily and her bleeding has gradually resolved. According to the patient, she states that she has about 1 or 2 bowel movements daily, but again she is a very poor historian. She reports no fever, chills, night sweats. Her past medical history is significant for recently diagnosed ulcerative colitis, gastroesophageal reflux disease, anxiety, depression, dementia, hyperlipidemia, hypertension, degenerative joint disease, hypothyroidism. Atrial fibrillation. PAST SURGICAL HISTORY: Cholecystectomy, appendectomy, recent flexible sigmoidoscopy, tonsillectomy, left knee replacement, partial thyroidectomy, bilateral cataract surgery. Medications: 1. Cymbalta. 2. Neurontin. 3. Tylenol. 4. Colazal. 5. Dulcolax. 6. Ensure. 7. Magnesium oxide. 8. Nystatin. 9. Tobramycin. 10. ( ). 11. Omeprazole ALLERGIES: CODEINE, LATEX, SULFA. SOCIAL HISTORY: No smoking. No alcohol. FAMILY HISTORY: Unremarkable. REVIEW OF SYSTEMS: CARDIOPULMONARY: No chest pain or shortness of breath. GENITOURINARY: No dysuria or hematuria. MUSCULOSKELETAL: Unremarkable. SKIN: Unremarkable. ENDOCRINE: Unremarkable. PSYCHIATRY: Anxiety, depression. NEUROLOGY: Mild dementia. CONSTITUTIONAL: No recent weight loss. No fever, chills, night sweats. On physical examination, she appears comfortable in no apparent distress. Vitals as are stable. Blood pressure 96/58, pulse rate 88, and temperature is 97.9. HEENT examination unremarkable. Conjunctivae pink. Sclerae anicteric. Oral cavity, no lesions and neck no JVD or lymph node enlargement. Chest was clear to auscultation. HEART: Regular rate and rhythm. ABDOMEN: Soft. Bowel sounds are positive. No organomegaly. It was slightly distended. EXTREMITIES: No pedal edema. SKIN: No rashes. ( ) system and had small amount of liquid brown stool. Labs at the time of admission to the hospital: WBC 14.5, hemoglobin 9.7, platelets 545. PT, INR is within normal limits. BUN is 14, creatinine 0.56. Basic metabolic panel is within normal limits. Today hemoglobin is 9.3. 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 Patient presently maintained on Colazal 3 tablets 3 times daily and since being in the hospital, did not have any episodes of further bleeding. Her hemoglobin stable at 9.3 g/dL RECOMMENDATIONS: 1. Regular diet. 2. Continue with Colazal 3 tablets 3 times daily. 3. Since no further episodes of bleeding, I would not start her on a topical steroids at the present time. 4. Obtain C. difficile toxin because of the diarrhea. 5. We will follow the patient closely during her hospital stay. She can be transferred from the intensive care unit today since she does not have any further episodes of bleeding. Thank you for this consultation.
--- NOTE | 2016-10-04 15:18 | HP ---
DATE OF ADMISSION: 10/03/2016 PRESENTING COMPLAINT: Dark stool. HISTORY OF PRESENTING COMPLAINT: This is an 89-year-old patient who was just in the hospital, discharged 2 days ago. Patient has known persistent atrial fibrillation. Last admission had rapid ventricular rate. Not a candidate for anticoagulant because of GI bleed. Also, the chronic medical conditions include GERD, hyperlipidemia, hypertension, primary osteoarthritis, trigeminal neuralgia, peripheral artery disease, peptic ulcer disease, urinary stress incontinence, peripheral neuropathy, depression. Patient was here in August of this year and underwent flexible sigmoidoscopy per Dr. Silva. Patient was found to have multiple pseudopolyps with deep ulceration noted in the sigmoid colon and biopsies were done. The mucosa was found to be extremely friable and erythematous. There is some scattered small diverticulosis. Also small internal hemorrhoids were noted. Biopsy came back showing chronic colitis. Patient now presented to the ER with dark stools and some blood clots present. EKG shows atrial fibrillation, heart rate hovering around 100 to 110. The patient does feel weak and tired and rundown, decreased appetite. REVIEW OF SYSTEMS: CONSTITUTIONAL: Weak, tired, rundown. HEENT: Decreased hearing. RESPIRATORY: None. CARDIOVASCULAR: Atrial fibrillation. GASTROINTESTINAL: Some abdominal discomfort. GENITOURINARY: None. MUSCULOSKELETAL: Aches and pains in the joints. DERMATOLOGICAL: None. HEMATOLOGIC: None. LYMPHATICS: None. PSYCHIATRY: Forgetful. NEUROLOGICAL: None. PAST MEDICAL HISTORY: Persistent atrial fibrillation not a candidate for anticoagulation, GERD, hyperlipidemia, essential hypertension, primary osteoarthritis, trigeminal neuralgia, peripheral artery disease, peptic ulcer disease, clinically urinary stress incontinence, peripheral neuropathy cause unknown, medical debility, depression, chronic active colitis. PAST SURGICAL HISTORY: Appendectomy, cholecystectomy, joint replacement, tonsillectomy, and left knee replacement, left femur has plates and screws, vein stripping, partial thyroidectomy. PAST PSYCH HISTORY: Anxiety, depression. SOCIAL HISTORY: Patient is . Can only walk very short distances. Has neuropathy in both lower extremities. Has 3 daughters who help up. Patient stopped smoking in , smoked a pack a day for 25 years, drinks a glass of wine occasionally. Family history of myocardial infarction. Patient currently at the [facility]. HOME MEDICATION: 1. Ultram 50 mg p.o. q.i.d. p.r.n. 2. Travatan 0.004% one drop to both eyes at bedtime. 3. Tobrex 0.3% topical q.4 p.r.n. 4. Omeprazole 20 mg p.o. b.i.d. 5. Mycostatin topical b.i.d. p.r.n. 6. Nitrostat 0.4 sublingual q.5 p.r.n. 7. Adult Fleet 133 mL daily p.r.n. 8. Toprol-XL 25 mg p.o. b.i.d. 9. Milk of magnesia 2400 mg p.o. daily p.r.n. 10. Lidocaine 4% topical q.i.d. p.r.n. 11. Ensure Plus 1 can p.o. t.i.d. with meals. 12. DuoNeb 3 mL q.i.d. p.r.n. 13. Neurontin 300 mg p.o. b.i.d. 14. Digoxin 125 mcg p.o. daily. 15. Cymbalta 30 mg p.o. daily. 16. Colocort enema 100 mg rectal q.h.s. 17. Dulcolax 10 mg p.o. daily p.r.n. 18. Colazal 2250 mg p.o. t.i.d. with meals. 19. Aspirin 81 mg daily. 20. Atenolol 50 mg q.4 p.r.n. ALLERGIES TO CODEINE, LATEX, SULFA. On examination: Vital signs on presentation: Temperature 96.9, pulse 126, respiration 18, blood pressure 112/69, pulse ox 95% on 2 liters. GENERAL APPEARANCE: Thin built, tired appearing, lying in the bed. EYES: Pupils equal. Conjunctiva pale. HEENT: External appearance of nose and ears normal. Oral cavity normal. NECK: JVD not raised. Mass not palpable. RESPIRATORY: Effort normal. Lungs with diminished breath sounds. CARDIOVASCULAR: Heart sounds irregular. No edema. ABDOMEN: Soft, mild tenderness. Liver and spleen not palpable. LYMPHATIC: No lymph node palpable in neck or axillae. PSYCHIATRY: Alert and oriented x3. Mood and affect somewhat low. MUSCULOSKELETAL: Evidence of osteoarthritis of multiple joints. INVESTIGATIONS: White count 14.5, hemoglobin 9.7, platelets 545, potassium 4.7. UA positive. Albumin 3.0. ASSESSMENT: 1. Acute flare-up of chronic colitis confirmed by recent sigmoidoscopy. 2. Persistent atrial fibrillation, rate uncontrolled on presentation, not a candidate for anticoagulation because of GI bleed. 3. Gastroesophageal reflux disease. 4. Hyperlipidemia. 5. Essential hypertension. 6. Primary osteoarthritis of multiple joints, bilaterally. 7. Peripheral artery disease. 8. Peptic ulcer disease. 9. Chronic urinary stress incontinence. 10. Peripheral neuropathy, cause unknown. 11. Medical debility weak, tired. 12. Only able to take 1 or 2 steps. 13. Depression, not otherwise specified. 14. NO CODE. PLAN: Home medications are resumed. Patient to go back on steroid enemas. GI was consulted because of GI bleed. Patient temporarily placed in the ICU. Patient's overall prognosis is poor. CODE STATUS is NO CODE.
[2016-10-04] MEDS: traMADol 50 MG TAB PO PRN (20:28)
[2016-10-04] MEDS: HYDROCORTISONE ENEMA 100 MG/60 ML RECTAL SCH (21:48)
[2016-10-04] MEDS: LATANOPROST 0.005% OPHTH DROPS 2.5 ML BTL BOTH EYES SCH (22:09)
[2016-10-05] MEDS: traMADol 50 MG TAB PO PRN (01:40)
[2016-10-05] MEDS: PANTOPRAZOLE 40 MG/10 ML VIAL IVP SCH ×2 (08:19→20:51)
[2016-10-05] MEDS: BALSALAZIDE DISODIUM 750 MG CAPSULE PO SCH ×3 (08:19→16:45)
[2016-10-05] MEDS: GABAPENTIN 300 MG CAP PO SCH ×2 (08:20→16:45)
[2016-10-05] MEDS: DIGOXIN 125 MCG TAB PO SCH (08:20)
[2016-10-05] MEDS: DULoxetine HCL 30 MG CAPSULE.DR PO SCH (08:20)
[2016-10-05] MEDS: METOPROLOL SUCCINATE (ER) 25 MG TAB.ER.24H PO SCH ×2 (08:20→20:50)
[2016-10-05] MEDS: LEVOFLOXACIN 500MG-D5W PMX 500 MG in DEXTROSE/WATER 1 100ML.BAG IVPB SCH (08:24)
[2016-10-05 09:48] LABS: Basophils % (A) 0 %; CH 26.5; CHCM 28.2; Eosinophils # (A) 0.3 k/uL (0-0.7); Eosinophils % (A) 4 %; HCT 28.2 % (34.0-46.0); HDW 3.71; HGB 8.3 gm/dL (11.4-16.0); Hypochromasia Marked; Luc # (Auto) 0.14; Luc % (Auto) 2; Lymphocytes # (A) 0.8 k/uL (1.0-4.8); Lymphocytes % (A) 10 %; MCH 27.8 pg (25.0-35.0); MCHC 29.6 g/dL (31.0-37.0); MCV 94.1 fL (80.0-100.0); Mean Platelet Volume 7.1; Monocytes # (A) 0.5 k/uL (0-1.0); Monocytes % (A) 7 %; Neutrophils # (A) 6.2 k/uL (1.3-7.7); Neutrophils % (A) 77 %; Poikilocytosis Slight; RDW 14.5 % (11.5-15.5); WBC (Perox) 8.56
[2016-10-05 09:59] LABS: Anion Gap 11 mmol/L; Blood Urea Nitrogen 9 mg/dL (7-17); Calcium 7.7 mg/dL (8.4-10.2); Carbon Dioxide 19 mmol/L (22-30); Chloride 105 mmol/L (98-107); Glucose 86 mg/dL (74-99); Magnesium 1.6 mg/dL (1.6-2.3); Non-African American GFR(MDRD) >60 (>60 ml/min/1.73 sqM); Phosphorous 2.7 mg/dL (2.5-4.5); Potassium 3.6 mmol/L (3.5-5.1); Sodium 135 mmol/L (137-145)
--- NOTE | 2016-10-05 12:58 | PN ---
DATE OF SERVICE: 10/05/2016 Patient is an 89-year-old pleasant lady admitted to the hospital with 2 episodes of rectal bleeding while she was in the [facility] and she was admitted to the intensive care unit. Since being here she had no further episodes of bleeding. However, all day yesterday, she had about 6 or 7 loose watery bowel movements. C. difficile was obtained from the stool, which was negative. The patient has advanced dementia, hence is a very poor historian. She reports no abdominal pain. Reports no nausea or vomiting. On physical examination, appears comfortable in no apparent distress. Vital signs are stable. Blood pressure is 95/49, pulse rate 93, temperature 97. HEENT examination unremarkable. Conjunctivae pink. Sclerae anicteric. Oral cavity no lesions. Neck no JVD or lymph node enlargement. Chest was clear to auscultation. HEART: Regular rate and rhythm. ABDOMEN: Soft. Bowel sounds are positive. No organomegaly. EXTREMITIES: No pedal edema. SKIN: No rashes. NEUROLOGICAL: Alert and oriented x3. No focal deficits. She has an ( ) in place and there is no stool in the bag. Labs from today not available. C. difficile toxin from yesterday was negative. Urinalysis showed positive leukocyte esterase. IMPRESSION: 1. Rectal bleeding, resolved. 2. Recently diagnosed proctosigmoiditis for which she is on cortisol 3 tablets 3 times daily that was started about 6 weeks ago. 3. Diarrhea for the last 2 days, C. difficile toxin is negative. However, since fecal management system placed, no diarrhea so far. RECOMMENDATIONS: 1. Advance diet as tolerated. 2. Continue with Colazal 3 tablets 3 times daily. 3. If she has recurrent diarrhea, we will use antimotility agents as needed. 4. No need for any endoscopic intervention. 5. Will follow her closely during her during her hospital stay.
[2016-10-05] MEDS: LATANOPROST 0.005% OPHTH DROPS 2.5 ML BTL BOTH EYES SCH (20:51)
[2016-10-05] MEDS: HYDROCORTISONE ENEMA 100 MG/60 ML RECTAL SCH (20:52)
[2016-10-06] MEDS: BALSALAZIDE DISODIUM 750 MG CAPSULE PO SCH ×3 (08:26→17:07)
[2016-10-06] MEDS: LEVOFLOXACIN 500 MG TAB PO SCH (08:27)
[2016-10-06] MEDS: GABAPENTIN 300 MG CAP PO SCH ×2 (08:27→17:07)
[2016-10-06] MEDS: DIGOXIN 125 MCG TAB PO SCH (08:27)
[2016-10-06] MEDS: DULoxetine HCL 30 MG CAPSULE.DR PO SCH (08:27)
[2016-10-06] MEDS: METOPROLOL SUCCINATE (ER) 25 MG TAB.ER.24H PO SCH ×2 (08:27→20:16)
[2016-10-06] MEDS: PANTOPRAZOLE 40 MG/10 ML VIAL IVP SCH ×2 (09:04→20:16)
[2016-10-06 09:22] LABS: Basophils % (A) 0 %; CH 26.7; CHCM 29.4; Eosinophils # (A) 0.3 k/uL (0-0.7); Eosinophils % (A) 4 %; HCT 29.7 % (34.0-46.0); HDW 3.92; HGB 8.7 gm/dL (11.4-16.0); Hypochromasia Marked; Luc # (Auto) 0.13; Luc % (Auto) 2; Lymphocytes # (A) 0.9 k/uL (1.0-4.8); Lymphocytes % (A) 11 %; MCH 26.6 pg (25.0-35.0); MCHC 29.2 g/dL (31.0-37.0); Mean Platelet Volume 6.9; Monocytes # (A) 0.7 k/uL (0-1.0); Monocytes % (A) 8 %; Neutrophils # (A) 6.4 k/uL (1.3-7.7); Neutrophils % (A) 76 %; Poikilocytosis Slight; RBC 3.26 m/uL (3.80-5.40); RDW 14.7 % (11.5-15.5); WBC 8.5 k/uL (3.8-10.6); WBC (Perox) 8.94
[2016-10-06 09:35] LABS: Anion Gap 8 mmol/L; Blood Urea Nitrogen 5 mg/dL (7-17); Calcium 7.5 mg/dL (8.4-10.2); Carbon Dioxide 21 mmol/L (22-30); Chloride 106 mmol/L (98-107); Glucose 85 mg/dL (74-99); Magnesium 1.5 mg/dL (1.6-2.3); Non-African American GFR(MDRD) >60 (>60 ml/min/1.73 sqM); Phosphorous 2.7 mg/dL (2.5-4.5); Potassium 3.5 mmol/L (3.5-5.1); Sodium 135 mmol/L (137-145)
--- NOTE | 2016-10-06 09:46 | PN ---
DATE OF SERVICE: 10/05/2016 PRESENT COMPLAINT: Abdominal pain, dark stools. INTERVAL HISTORY: This is a patient recently diagnosed with proctosigmoiditis, for which she is on Colazal. Did tolerate some liquids today. Slight abdominal pain. No further bleeding. Lying in bed, tired appearing. Review of systems done for constitutional, cardiovascular, GI, pulmonary; relevant findings as above. Current medications are reviewed and include Colazal, Colocort that is hydrocortisone enemas. On examination, temperature 97, pulse 101, respirations 24, blood pressure 102/59, pulse ox 96% on 2 L. GENERAL APPEARANCE: Lying in bed, tired appearing. EYES: Pupils equal. Conjunctivae pale. NECK: JVD not raised. Mass not palpable. RESPIRATORY: Effort normal. LUNGS: Decreased breath sounds. CARDIOVASCULAR: First and second sounds normal. No edema. ABDOMEN: Soft, mild tenderness. No guarding or rigidity. PSYCHIATRY: Awake, answering questions. INVESTIGATIONS: Hemoglobin is 8.3. Urine growing gram-negative bacilli. ASSESSMENT: 1. Acute flare-up of chronic proctosigmoid colitis causing GI bleed. 2. Persistent atrial fibrillation, rate uncontrolled on presentation, not a candidate for anticoagulation. 3. Gastroesophageal reflux disease. 4. Hyperlipidemia. 5. Essential hypertension. 6. Primary osteoarthritis of multiple joints bilaterally. 7. Peripheral artery disease. 8. Peptic ulcer disease. 9. Chronic urinary stress incontinence. 10. Peripheral neuropathy, cause unknown. 11. Medical debility. 12. Depression, not otherwise specified. 13. CODE STATUS: DNR. 14. Acute blood loss anemia from GI bleed. 15. Acute urinary tract infection. PLAN: Continue current medication and treatment plan. Diet is being advanced, see how she fares.
[2016-10-06] MEDS: traMADol 50 MG TAB PO PRN ×2 (14:17→20:15)
[2016-10-06] MEDS: LATANOPROST 0.005% OPHTH DROPS 2.5 ML BTL BOTH EYES SCH (20:16)
[2016-10-06] MEDS: HYDROCORTISONE ENEMA 100 MG/60 ML RECTAL SCH (22:00)
--- NOTE | 2016-10-07 00:01 | PN ---
DATE OF SERVICE: 10/06/2016 PRESENTING COMPLAINT: Abdominal pain, dark stools. INTERVAL HISTORY: This patient was seen with a diagnosis of proctosigmoid colitis for which she is on Colazal and steroid enemas. Presented with GI bleed. Patient is barely eating. She is tired. She has some abdominal pain. She is rather lethargic. Eating small amounts. Review of systems attempted for constitutional, cardiovascular, GI, pulmonary; relevant findings as above. Current medications include steroid enemas and Colazal. On examination, temperature 96.8, pulse 88, respirations 22, blood pressure 114/80, pulse ox 100% on room air. GENERAL APPEARANCE: Lying in bed, very tired-appearing. EYES: Pupils equal. Conjunctivae pale. NECK: JVD not raised. Mass not palpable. RESPIRATORY: Effort normal. LUNGS: Diminished breath sounds. CARDIOVASCULAR: First and second heart sounds heard. No edema. ABDOMEN: Soft, mild lower abdominal tenderness. No guarding or rigidity. PSYCHIATRY: Very tired but arousable. INVESTIGATIONS: Hemoglobin 8.7, white count 8.5. Potassium 3.5. ASSESSMENT: 1. 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 2. Persistent atrial fibrillation, rate uncontrolled, present at admission, not a candidate for anticoagulation. 3. Gastroesophageal reflux disease. 4. Hyperlipidemia. 5. Essential hypertension. 6. Primary osteoarthritis in multiple joints bilaterally. 7. Peripheral artery disease. 8. Peptic ulcer disease. 9. Chronic urinary stress incontinence. 10. Peripheral neuropathy, cause unknown. 11. Medical debility. 12. Depression, not otherwise specified. 13. Acute blood loss anemia from lower gastrointestinal bleed. 14. Acute urinary tract infection. 15. Acute urinary tract infection from Escherichia coli. 16. CODE STATUS, DNR. PLAN: Prognosis is not good. The patient is rather weak and tired. Continue with current treatment plan. Will follow.
[2016-10-07] MEDS: BALSALAZIDE DISODIUM 750 MG CAPSULE PO SCH ×3 (08:00→17:42)
[2016-10-07] MEDS: PANTOPRAZOLE 40 MG/10 ML VIAL IVP SCH (08:45)
[2016-10-07] MEDS: GABAPENTIN 300 MG CAP PO SCH ×2 (08:47→17:42)
[2016-10-07] MEDS: METOPROLOL SUCCINATE (ER) 25 MG TAB.ER.24H PO SCH ×2 (08:47→21:26)
[2016-10-07] MEDS: DIGOXIN 125 MCG TAB PO SCH (08:47)
[2016-10-07] MEDS: DULoxetine HCL 30 MG CAPSULE.DR PO SCH (08:47)
[2016-10-07] MEDS: traMADol 50 MG TAB PO PRN ×2 (08:48→20:06)
[2016-10-07] MEDS: LEVOFLOXACIN 500 MG TAB PO SCH (08:48)
[2016-10-07 09:43] LABS: Basophils # (A) 0.1 k/uL (0-0.2); Basophils % (A) 1 %; CH 27.1; CHCM 29.7; Eosinophils # (A) 0.3 k/uL (0-0.7); Eosinophils % (A) 2 %; HCT 34.5 % (34.0-46.0); HDW 3.87; HGB 9.8 gm/dL (11.4-16.0); Hypochromasia Marked; Luc # (Auto) 0.25; Luc % (Auto) 2; Lymphocytes % (A) 8 %; MCH 25.9 pg (25.0-35.0); MCHC 28.4 g/dL (31.0-37.0); MCV 91.3 fL (80.0-100.0); Mean Platelet Volume 7.5; Monocytes # (A) 0.9 k/uL (0-1.0); Monocytes % (A) 7 %; Neutrophils % (A) 80 %; Poikilocytosis Slight; RBC 3.78 m/uL (3.80-5.40); RDW 15.4 % (11.5-15.5); WBC 12.6 k/uL (3.8-10.6); WBC (Perox) 13.63
--- NOTE | 2016-10-07 10:02 | P.PN ---
Subjective Principal diagnosis: Rectal bleeding 89-year-old female admitted with rectal bleeding with recent hospitalization in diagnosis of proctosigmoiditis. Nurse reports no recurrence of rectal bleeding. Tolerating small amounts of regular diet. Denies abdominal pain. Afebrile. Hemoglobin 9.8. Objective - Vital Signs Vital signs: Vital Signs Temp 96.7 F L 10/07/16 07:00 Pulse 94 10/07/16 07:00 Resp 20 10/07/16 07:00 BP 114/74 10/07/16 07:00 Pulse Ox 96 10/07/16 07:00 Intake & Output 10/06/16 10/07/16 10/07/16 18:59 06:59 18:59 Intake Total 500 200 Balance 500 200 Weight 55.5 kg Intake: Oral 500 200 Other: Voiding Method Incontinent Incontinent # Voids 1 2 # Bowel Movements 2 - Exam General appearance: The patient is alert, oriented, in no acute distress. HET: Head is normocephalic and atraumatic. Pupils are equal and reactive. Oropharynx is clear without lesions. Neck: Supple without lymphadenopathy. Trachea midline. Heart: S1 S2. Regular rate and rhythm. Lungs: No crackles or wheezes are heard. Abdomen: Soft, nontender, nondistended with bowel sounds. No peritoneal signs. No palpable organomegaly or masses. Extremities: Normal skin color and turgor. No cyanosis, rash, ulceration, clubbing, or edema. Radial and pedal pulses are 2/4 bilaterally. Neurological: No focal deficits. Strength and sensation are grossly intact. - Labs CBC & Chem 7: 10/07/16 08:59 10/06/16 08:55 Labs: Abnormal Lab Results - Last 24 Hours (Table) 10/07/16 Range/Units 08:59 WBC 12.6 H (3.8-10.6) k/uL RBC 3.78 L (3.80-5.40) m/uL Hgb 9.8 L (11.4-16.0) gm/dL MCHC 28.4 L (31.0-37.0) g/dL Plt Count 762 H (150-450) k/uL Neutrophils # 10.0 H (1.3-7.7) k/uL Assessment and Plan (1) Rectal bleeding Status: Acute (2) Proctosigmoiditis Status: Acute (3) Acute blood loss anemia Status: Acute Plan: 1. Continue soft diet as tolerated. 2. Continue with Colazal 3 tablets 3 times a day. 3. Endoscopic exams not planned at this time. 4. Discharge planning per medicine. Assessment and plan a care discussed with Dr. Silva
[2016-10-07 10:03] LABS: Anion Gap 10 mmol/L; Blood Urea Nitrogen 4 mg/dL (7-17); Carbon Dioxide 22 mmol/L (22-30); Chloride 105 mmol/L (98-107); Glucose 105 mg/dL (74-99); Magnesium 1.5 mg/dL (1.6-2.3); Non-African American GFR(MDRD) >60 (>60 ml/min/1.73 sqM); Phosphorous 3.1 mg/dL (2.5-4.5); Potassium 3.5 mmol/L (3.5-5.1); Sodium 137 mmol/L (137-145)
--- NOTE | 2016-10-07 20:43 | PN ---
DATE OF SERVICE: 10/07/2016 PRESENTING COMPLAINT: Dark stools. INTERVAL HISTORY: This patient was admitted with proctosigmoid colitis, acute flareup, for which she is getting steroid enemas. The patient is more perky today, ate a bit more. Abdominal pain is actually better. No further bloody stool. Review of systems done for constitutional, cardiovascular, GI, pulmonary; relevant findings as above. Current medications include steroid enemas and Colazal. On examination, temperature 97.1, pulse 94, respiration 22, blood pressure 102/52, pulse ox 98% on 2 L. GENERAL APPEARANCE: Sitting on bed, more awake. EYES: Pupils equal. Conjunctiva pale. NECK: JVD not raised. Mass not palpable. RESPIRATORY: Effort normal. LUNGS: Decreased breath sounds. CARDIOVASCULAR: First and second sounds normal. No edema. ABDOMEN: Soft. No tenderness. No guarding or rigidity. PSYCHIATRY: More awake. Answering questions. Smiling. INVESTIGATIONS: White count 12.6, hemoglobin 9.8. Potassium 3.5. ASSESSMENT: 1. Acute flareup of chronic proctosigmoid colitis causing gastrointestinal bleed, with clinical improvement. 2. Persistent atrial fibrillation, rate now controlled; not a candidate for anticoagulation. 3. Gastroesophageal reflux disease. 4. Hyperlipidemia. 5. Essential hypertension. 6. Primary osteoarthritis in multiple joints bilaterally. 7. Peripheral arterial disease. 8. Peptic ulcer disease. 9. Chronic urinary stress incontinence. 10. Peripheral neuropathy, cause unknown. 11. Medical debility. 12. Depression not otherwise specified. 13. Acute blood loss anemia from lower gastrointestinal bleed. 14. Acute urinary tract infection. 15. Acute urinary tract infection from Escherichia coli. 16. CODE STATUS: DNR. PLAN: Overall doing better. Diet has been advanced. Check labs in the morning.
[2016-10-07] MEDS: LATANOPROST 0.005% OPHTH DROPS 2.5 ML BTL BOTH EYES SCH (21:26)
[2016-10-07] MEDS: HYDROCORTISONE ENEMA 100 MG/60 ML RECTAL SCH (21:26)
[2016-10-07] MEDS: PANTOPRAZOLE 40 MG TABLET PO SCH (21:27)
[2016-10-08 08:05] VITALS: PULSE 91; RESP 18
[2016-10-08 08:55] LABS: Basophils # (A) 0.1 k/uL (0-0.2); Basophils % (A) 1 %; CH 26.9; CHCM 29.6; Eosinophils # (A) 0.2 k/uL (0-0.7); Eosinophils % (A) 2 %; HCT 31.9 % (34.0-46.0); HDW 3.91; HGB 9.5 gm/dL (11.4-16.0); Hypochromasia Marked; Luc # (Auto) 0.21; Luc % (Auto) 3; Lymphocytes % (A) 12 %; MCH 27.2 pg (25.0-35.0); MCHC 29.9 g/dL (31.0-37.0); MCV 90.9 fL (80.0-100.0); Mean Platelet Volume 7.7; Monocytes # (A) 0.7 k/uL (0-1.0); Monocytes % (A) 9 %; Neutrophils % (A) 74 %; Poikilocytosis Slight; RBC 3.51 m/uL (3.80-5.40); RDW 15.4 % (11.5-15.5); WBC 8.1 k/uL (3.8-10.6); WBC (Perox) 8.82
[2016-10-08] MEDS: GABAPENTIN 300 MG CAP PO SCH (09:08)
[2016-10-08] MEDS: LEVOFLOXACIN 500 MG TAB PO SCH (09:08)
[2016-10-08] MEDS: METOPROLOL SUCCINATE (ER) 25 MG TAB.ER.24H PO SCH (09:08)
[2016-10-08] MEDS: PANTOPRAZOLE 40 MG TABLET PO SCH (09:09)
[2016-10-08] MEDS: DIGOXIN 125 MCG TAB PO SCH (09:09)
[2016-10-08] MEDS: DULoxetine HCL 30 MG CAPSULE.DR PO SCH (09:09)
[2016-10-08] MEDS: BALSALAZIDE DISODIUM 750 MG CAPSULE PO SCH ×2 (09:09→12:24)
[2016-10-08] MEDS: traMADol 50 MG TAB PO PRN (09:15)
[2016-10-08 09:28] LABS: Anion Gap 9 mmol/L; Blood Urea Nitrogen 4 mg/dL (7-17); Calcium 7.8 mg/dL (8.4-10.2); Carbon Dioxide 23 mmol/L (22-30); Chloride 104 mmol/L (98-107); Glucose 93 mg/dL (74-99); Magnesium 1.4 mg/dL (1.6-2.3); Non-African American GFR(MDRD) >60 (>60 ml/min/1.73 sqM); Phosphorous 3.2 mg/dL (2.5-4.5); Potassium 3.4 mmol/L (3.5-5.1); Sodium 136 mmol/L (137-145)
[2016-10-08] MEDS: MAGNESIUM SULFATE-D5W PMX 1 GM in DEXTROSE/WATER 1 100ML.BAG IVPB SCH ×2 (11:20→12:23)
[2016-10-08] MEDS: POTASSIUM CHLORIDE 20 MEQ, LIDOCAINE 2% INJ 20 MG in SODIUM CHLORIDE 0.9% 100 ML IVPB SCH ×2 (13:24→15:38)
--- NOTE | 2016-10-08 15:20 | DS ---
DATE OF ADMISSION: 10/03/2016 DATE OF DISCHARGE: 10/08/2016 FINAL DIAGNOSES: 1. 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 2. Persistent atrial fibrillation, rate controlled, not a candidate for anticoagulation. 3. Gastroesophageal reflux disease. 4. Hyperlipidemia. 5. Essential hypertension. 6. Primary osteoarthritis of multiple joints, bilaterally. 7. Peripheral artery disease. 8. Peptic ulcer disease. 9. Chronic urinary stress incontinence. 10. Peripheral neuropathy, cause unknown. 11. Medical debility. 12. Depression, not otherwise specified. 13. Acute blood loss anemia from lower gastrointestinal bleed. 14. Acute urinary tract infection from Escherichia coli. 15. CODE STATUS: DO NOT RESUSCITATE. HOSPITAL COURSE: Patient admitted with lower GI bleed, felt to be flare-up of patient's acute proctosigmoid colitis, responded well to the steroids and enema. Hemoglobin at the time of discharge was stable at 9.5. Patient tolerating a diet. Overall prognosis is guarded. Patient was weak and tired. On examination, lungs are clear. CARDIOVASCULAR: Heart size regular. ABDOMEN: Soft, nontender. Patient is able to answer simple questions. DISCHARGE MEDICATIONS: 1. Cymbalta 30 mg p.o. daily. 2. Neurontin 300 mg p.o. b.i.d. 3. Tylenol 650 mg q.4 p.r.n. 4. Colazal 2250 mg p.o. t.i.d. 5. Colocort enema 100 mg rectal q.h.s. 6. Ensure Plus one can p.o. t.i.d. 7. Lidocaine 4% cream topical q.i.d. p.r.n. 8. Milk of magnesia p.r.n. 9. Mycostatin cream topical b.i.d. p.r.n. 10. Travatan 0.004% 1 drop to both eyes q.h.s. 11. Aspirin 81 mg p.o. daily. 12. Digoxin 125 mcg p.o. daily. 13. DuoNeb q.i.d. p.r.n. 14. Toprol-XL 25 mg p.o. b.i.d. 15. Nitrostat 0.4 sublingual q.5 p.r.n. 16. Omeprazole 20 mg p.o. b.i.d. 17. Tobrex 0.3% one application both eyes q.4 p.r.n. 18. Ultram 50 mg p.o. q.i.d. p.r.n. DISPOSITION: ECF. Follow up with Dr. Lopez on 09/22/2016. Follow up with Dr. Harlan Silva in 2 weeks. CODE STATUS: DNR.
[2016-10-08 16:33] VITALS: BP 97/59; TEMP 98.1
== END 2016-10-08 17:30 | DRG 386 ==
LOC: EC 15:23 → 6ICU 16:30 → 4MS4W 10-04 10:48
PROVIDERS: ADMIT Hospitalist; ATTEND Hospitalist
DX: K51.311 Ulcerative (chronic) rectosigmoiditis with rectal bleeding (principal); I48.1 Persistent atrial fibrillation; D69.6 Thrombocytopenia, unspecified; D62 Acute posthemorrhagic anemia; E87.1 Hypo-osmolality and hyponatremia; F03.90 Unspecified dementia, unspecified severity, without behavioral disturbance, psychotic disturbance, mood disturbance, and anxiety; N39.0 Urinary tract infection, site not specified; G62.9 Polyneuropathy, unspecified; I73.9 Peripheral vascular disease, unspecified; K21.9 Gastro-esophageal reflux disease without esophagitis; E78.5 Hyperlipidemia, unspecified; I10 Essential (primary) hypertension; M19.91 Primary osteoarthritis, unspecified site; N39.3 Stress incontinence (female) (male); F32.9 Major depressive disorder, single episode, unspecified; B96.20 Unspecified Escherichia coli [E. coli] as the cause of diseases classified elsewhere; K27.9 Peptic ulcer, site unspecified, unspecified as acute or chronic, without hemorrhage or perforation; Z66 Do not resuscitate; G50.0 Trigeminal neuralgia; E03.9 Hypothyroidism, unspecified; E87.6 Hypokalemia; G43.909 Migraine, unspecified, not intractable, without status migrainosus; H35.30 Unspecified macular degeneration; H40.9 Unspecified glaucoma; K57.30 Diverticulosis of large intestine without perforation or abscess without bleeding; K64.8 Other hemorrhoids; G89.29 Other chronic pain; M54.9 Dorsalgia, unspecified; M81.0 Age-related osteoporosis without current pathological fracture; Z88.5 Allergy status to narcotic agent; Z88.2 Allergy status to sulfonamides; Z91.040 Latex allergy status; Z90.49 Acquired absence of other specified parts of digestive tract; Z96.652 Presence of left artificial knee joint; Z87.891 Personal history of nicotine dependence; Z85.828 Personal history of other malignant neoplasm of skin; Z98.42 Cataract extraction status, left eye; Z98.41 Cataract extraction status, right eye; Z79.82 Long term (current) use of aspirin; Z79.899 Other long term (current) drug therapy
CPT/HCPCS: 36415; 71010; 80048; 80053; 81001; 82550; 82553; 83690; 83735; 84100; 84484; 85025; 85610; 85730; 86850; 86900; 86901; 86920; 87077; 87086; 87186; 87324; 93005; 96361; 96374; 96375; 99285

== ENCOUNTER 2016-10-15 19:58 | Inpatient (IN) | payer MEDICARE, BC ==
[2016-10-15] MEDS ORDERED: SODIUM CHLORIDE 0.9% 1,000 ML IV STA (20:29)
--- NOTE | 2016-10-15 20:42 | ED ---
General Adult HPI - General Chief complaint: Recheck/Abnormal Lab/Rx Stated complaint: Low Hemoglobin Time Seen by Provider: 10/15/16 20:12 Source: patient, EMS, RN notes reviewed, old records reviewed Mode of arrival: EMS Limitations: physical limitation - History of Present Illness Initial comments: Chief complaint and history of present illness an 89-year-old female who lives in a nursing facility. She had lab work done which showed a hemoglobin of only 7.4. The patient was in hospital several weeks ago with a lower GI bleed. The patient is a no code per old chart history. - Related Data Home Medications Medication Instructions Recorded Confirmed DULoxetine HCL [Cymbalta] 30 mg PO DAILY 07/31/15 10/15/16 Gabapentin [Neurontin] 300 mg PO BID@0800,1700 09/05/16 10/15/16 Acetaminophen [Tylenol] 650 mg PO Q4HR PRN 09/29/16 10/15/16 Balsalazide Disodium [Colazal] 2,250 mg PO TID-W/MEALS 09/29/16 10/15/16 Lactose-Reduced Food [Ensure Plus] 1 can PO TID-W/MEALS 09/29/16 10/15/16 Lidocaine 4% Cream [Lmx 4] 1 applic TOPICAL QID PRN 09/29/16 10/15/16 Magnesium Hydroxide [Milk of 2,400 mg PO DAILY PRN 09/29/16 10/15/16 Magnesia] Nystatin 100,000Unit/gm Cream 1 applic TOPICAL BID PRN 09/29/16 10/15/16 [Mycostatin Cream] Travoprost [Travatan Z 0.004%] 1 drop BOTH EYES HS 09/29/16 10/15/16 Omeprazole 20 mg PO BID@0800,1700 10/03/16 10/15/16 ALPRAZolam [Xanax] 0.25 mg PO BID PRN 10/15/16 10/15/16 Bisacodyl [Dulcolax] 10 mg RECTAL DAILY PRN 10/15/16 10/15/16 Cephalexin [Keflex] 500 mg PO Q12HR 10/15/16 10/15/16 Ferrous Sulfate [Feosol] 325 mg PO BID 10/15/16 10/15/16 Furosemide [Lasix] 20 mg PO DAILY 10/15/16 10/15/16 Na Phos,M-B/Na Phos,Di-Ba [Fleet 133 ml RECTAL ONCE PRN 10/15/16 10/15/16 Adult] Potassium Chloride [K-Tab ER] 10 meq PO DAILY 10/15/16 10/15/16 oxyCODONE-APAP 5-325MG [Percocet 1 tab PO TID PRN 10/15/16 10/15/16 5-325 mg] Previous Rx's Medication Instructions Recorded Aspirin 81 mg PO DAILY chew 10/02/16 Digoxin [Lanoxin] 125 mcg PO DAILY tab 10/02/16 Ipratropium-Albuterol Nebulize 3 ml INHALATION RT-QID PRN #0 10/02/16 [Duoneb 0.5 mg-3 mg/3 ml Soln] ampul.neb Metoprolol Succinate [Toprol XL] 25 mg PO BID #0 10/02/16 Nitroglycerin Sl Tabs [Nitrostat] 0.4 mg SUBLINGUAL Q5M PRN #0 tab 10/02/16 Allergies Allergy/AdvReac Type Severity Reaction Status Date / Time codeine Allergy Rash/Hives Verified 10/15/16 21:02 latex Allergy Rash/Hives Verified 10/15/16 21:02 Sulfa (Sulfonamide Allergy Rash/Hives Verified 10/15/16 21:02 Antibiotics) Review of Systems ROS Statement: Those systems with pertinent positive or pertinent negative responses have been documented in the HPI. Review of systems patient does answer questions states she has some discomfort to her buttock area where she does have a decubitus ulcer and her legs. She has continuous movement of her right foot which she reports she can't control. Left foot does not move. Patient denying headache or chest pain or shortness of breath or GI/ problems this time. All systems were reviewed. Patient does have dementia though. Past medical problems significant for recent proximal sigmoid colitis causing GI bleed, chronic A. fib but not on anticoagulation because of her chronic intestinal bleeding. GERD, hyperlipidemia, hypertension, osteoarthritis of multiple joints, peripheral arterial disease, peptic ulcer disease, stress incontinence, peripheral neuropathy, dementia, depression. Quit smoking many years ago. Used to drink alcohol but none lately. ROS Other: All systems not noted in ROS Statement are negative. Past Medical History Past Medical History: Cancer, GERD/Reflux, GI Bleed, Hyperlipidemia, Hypertension, Osteoarthritis (OA), Thyroid Disorder Additional Past Medical History / Comment(s): Paroxysmal atrial fibrillation, migraines, trigeminal neuralgia, glucoma involving the left eye, peripheral vascular disease, abdominal hernia, peptic ulcer disease, stress urine incontinence, skin cancer resected, osteoporosis, peripheral neuropathy, macular degeneration, difficulty with mobility and ambulation as the patient is able to walk only short distances. She also has hypothyroidism, anxiety, depression, chronic back pain. History of Any Multi-Drug Resistant Organisms: Unobtainable Past Surgical History: Appendectomy, Cholecystectomy, Joint Replacement, Orthopedic Surgery, Tonsillectomy Additional Past Surgical History / Comment(s): Lt knee replacement, Lt femur- has plates and screws, vein stripping, partial thyroidectomy(rt side), cataracts Additional Past Anesthesia/Blood Transfusion Reaction / Comment(s): hallucinations after knee surgery and dizziness for 6 months after femur sx. 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 pt gets around by walker very short distances and at times a w/c-has neuropathy pain to abdoulaye legs/feet. pt has help from 3 daughters and comfort keepers. Smoking Status: Former smoker Past Alcohol Use History: Occasional Additional Past Alcohol Use History / Comment(s): quit smoking in 1981 smoked 1 pd x 25 years, occ glass of wine. Past Drug Use History: None Reported - Past Family History Father Family Medical History: Myocardial Infarction (ME) Mother Family Medical History: Pneumonia Additional Family Medical History / Comment(s): mom from pneumonia when pt was age 8. General Exam - General Exam Comments Initial Comments: General: The patient is somewhat somnolent but easily or awakened. In general complains discomfort to her buttocks where she has a decubitus ulcer. Also discomfort to her feet. Recently the patient had lab work done which showed a significant change in her hemoglobin from 9 down to 7.4 over the last 2 weeks. She does have history of chronic colitis with bleeding. Vital signs temp 97.8 pulse 75 respiratory rate 18 pulse ox 95% room air blood pressure 129/66 Eye: Pupils are equal, round and reactive to light, extra-ocular movements are intact ; pale palpebral conjunctiva No signs of icterus. Ears, nose, mouth and throat: There are moist mucous membranes . Neck: The neck is supple, there is no tenderness , denies neck pain. Cardiovascular: Irregular regular rate and rhythm, history of A. fib Respiratory: Lungs are clear to auscultation, respirations are non-labored, breath sounds are equal. No wheezes, stridor, rales, or rhonchi. Gastrointestinal: Abdomen palpated without complaint of abdominal pain active bowel sounds, no organomegaly appreciated. Back: Chronic joint inflammation . Musculoskeletal: Normal ROM, no tenderness, There is no pedal edema. There is no calf tenderness or swelling. Sensation intact. Pulses equal bilaterally 2+. Neurological: Patient states she's not able to walk very much. Old charts that she was able to walk short distances with assistance. Skin: Skin is warm and dry and no rashes or lesions are noted. Psychiatric: History of depression and dementia. Limitations: physical limitation Course Vital Signs 10/15/16 10/15/16 10/15/16 20:01 20:56 21:43 Temperature 97.8 F 98.3 F Pulse Rate 75 71 63 Respiratory 18 18 18 Rate Blood Pressure 129/66 157/65 145/66 O2 Sat by Pulse 95 99 100 Oximetry 10/15/16 10/16/16 22:55 00:14 Temperature 98.6 F Pulse Rate 65 64 Respiratory 18 18 Rate Blood Pressure 124/59 121/62 O2 Sat by Pulse 100 100 Oximetry EKG Findings - EKG Comments: EKG Findings:: EKG was done and reviewed at 2037 showing sinus rhythm with occasional PACs, rate 70, [place] interval [address] Parkinson Medical Decision Making - Medical Decision Making Medical decision making patient's white count 11 hemoglobin 8.8 hematocrit 29.6. His hemoglobin today of 8.8 significantly better than results provided by facility which is 7.4. At this time the patient will not receive 1 unit of blood. Her INR is 1.0 potassium is 5.0 BUN 14 creatinine 0.6 with a GFR greater than 60. Glucose 108. Troponin less than 0.012. Chest x-ray is done AP and lateral view and reviewed by radiologist his findings are there is pulmonary vascular congestion. There is blunting of the costophrenic angles. There are chest leads. Heart is probably enlarged. There is osteopenia with compression deformity of T11 vertebrae 80% loss of height. Impression congestive heart failure with pleural effusions. This appears worse than on 10/04/2016. Pleural fluid was increased and right lower lobe pneumonia cannot be excluded. As read by Dr. Medina - Lab Data Result diagrams: 10/15/16 20:55 10/15/16 20:55 Lab Results 10/15/16 10/15/16 10/15/16 Range/Units 20:55 20:55 20:55 WBC 11.6 H (3.8-10.6) k/uL RBC 3.40 L (3.80-5.40) m/uL Hgb 8.8 L (11.4-16.0) gm/dL Hct 29.6 L (34.0-46.0) % MCV 87.0 (80.0-100.0) fL MCH 25.8 (25.0-35.0) pg MCHC 29.6 L (31.0-37.0) g/dL RDW 15.5 (11.5-15.5) % Plt Count 563 H (150-450) k/uL Neutrophils % 74 % Lymphocytes % 13 % Monocytes % 6 % Eosinophils % 4 % Basophils % 1 % Neutrophils # 8.6 H (1.3-7.7) k/uL Lymphocytes # 1.5 (1.0-4.8) k/uL Monocytes # 0.7 (0-1.0) k/uL Eosinophils # 0.5 (0-0.7) k/uL Basophils # 0.1 (0-0.2) k/uL Hypochromasia Marked Poikilocytosis Slight PT (9.0-12.0) sec INR (<1.1) APTT (22.0-30.0) sec Sodium 138 (137-145) mmol/L Potassium 5.0 (3.5-5.1) mmol/L Chloride 102 (98-107) mmol/L Carbon Dioxide 25 (22-30) mmol/L Anion Gap 11 mmol/L BUN 14 (7-17) mg/dL Creatinine 0.68 (0.52-1.04) mg/dL Est GFR (MDRD) Af Amer >60 (>60 ml/min/1.73 sqM) Est GFR (MDRD) Non-Af >60 (>60 ml/min/1.73 sqM) Glucose 108 H (74-99) mg/dL Calcium 8.4 (8.4-10.2) mg/dL Total Bilirubin 0.4 (0.2-1.3) mg/dL AST 32 (14-36) U/L ALT 16 (9-52) U/L Alkaline Phosphatase 117 (38-126) U/L Total Creatine Kinase 83 (30-135) U/L CK-MB (CK-2) 2.0 (0.0-2.4) ng/mL CK-MB (CK-2) Rel Index 2.4 Troponin I <0.012 (0.000-0.034) ng/mL Total Protein 6.7 (6.3-8.2) g/dL Albumin 2.8 L (3.5-5.0) g/dL Urine Color Urine Appearance (Clear) Urine pH (5.0-8.0) Ur Specific Carbon (1.001-1.035) Urine Protein (Negative) Urine Glucose (UA) (Negative) Urine Ketones (Negative) Urine Blood (Negative) Urine Nitrite (Negative) Urine Bilirubin (Negative) Urine Urobilinogen (<2.0) mg/dL Ur Leukocyte Esterase (Negative) Blood Type Blood Type Recheck Antibody Screen Crossmatch Spec Expiration Date 10/15/16 10/15/16 10/15/16 Range/Units 20:55 20:55 23:06 WBC (3.8-10.6) k/uL RBC (3.80-5.40) m/uL Hgb (11.4-16.0) gm/dL Hct (34.0-46.0) % MCV (80.0-100.0) fL MCH (25.0-35.0) pg MCHC (31.0-37.0) g/dL RDW (11.5-15.5) % Plt Count (150-450) k/uL Neutrophils % % Lymphocytes % % Monocytes % % Eosinophils % % Basophils % % Neutrophils # (1.3-7.7) k/uL Lymphocytes # (1.0-4.8) k/uL Monocytes # (0-1.0) k/uL Eosinophils # (0-0.7) k/uL Basophils # (0-0.2) k/uL Hypochromasia Poikilocytosis PT 10.1 (9.0-12.0) sec INR 1.0 (<1.1) APTT 23.3 (22.0-30.0) sec Sodium (137-145) mmol/L Potassium (3.5-5.1) mmol/L Chloride (98-107) mmol/L Carbon Dioxide (22-30) mmol/L Anion Gap mmol/L BUN (7-17) mg/dL Creatinine (0.52-1.04) mg/dL Est GFR (MDRD) Af Amer (>60 ml/min/1.73 sqM) Est GFR (MDRD) Non-Af (>60 ml/min/1.73 sqM) Glucose (74-99) mg/dL Calcium (8.4-10.2) mg/dL Total Bilirubin (0.2-1.3) mg/dL AST (14-36) U/L ALT (9-52) U/L Alkaline Phosphatase (38-126) U/L Total Creatine Kinase (30-135) U/L CK-MB (CK-2) (0.0-2.4) ng/mL CK-MB (CK-2) Rel Index Troponin I (0.000-0.034) ng/mL Total Protein (6.3-8.2) g/dL Albumin (3.5-5.0) g/dL Urine Color Yellow Urine Appearance Clear (Clear) Urine pH 7.5 (5.0-8.0) Ur Specific Carbon 1.012 (1.001-1.035) Urine Protein Negative (Negative) Urine Glucose (UA) Negative (Negative) Urine Ketones Negative (Negative) Urine Blood Negative (Negative) Urine Nitrite Negative (Negative) Urine Bilirubin Negative (Negative) Urine Urobilinogen <2.0 (<2.0) mg/dL Ur Leukocyte Esterase Negative (Negative) Blood Type AB Positive Blood Type Recheck No Antibody Screen NEGATIVE Crossmatch See Detail Spec Expiration Date 10/18/20162354 Disposition Clinical Impression: CHF (congestive heart failure) Disposition: ADMITTED IP TO THIS [facility] Condition: Serious
--- NOTE | 2016-10-15 21:15 | XR ---
EXAMINATION TYPE: XR chest 2V DATE OF EXAM: 10/15/2016 9:09 PM COMPARISON: 10/04/2016 HISTORY: Weakness TECHNIQUE: Frontal and lateral views of the chest are obtained. FINDINGS: There is pulmonary vascular congestion. There is blunting of costophrenic angles. There ar e chest leads. Heart is probably enlarged. There is osteopenia with compression deformity of T11 vert ebra and 80% loss of height. IMPRESSION: Congestive heart failure with pleural effusions. This appears worse than 10/04/2016. Pleu ral fluid is increased and right lower lobe pneumonia cannot be excluded.
[2016-10-15 21:16] LABS: Basophils # (A) 0.1 k/uL (0-0.2); Basophils % (A) 1 %; CH 25.9; CHCM 29.8; Eosinophils # (A) 0.5 k/uL (0-0.7); Eosinophils % (A) 4 %; HCT 29.6 % (34.0-46.0); HDW 3.82; HGB 8.8 gm/dL (11.4-16.0); Hypochromasia Marked; Luc # (Auto) 0.22; Luc % (Auto) 2; Lymphocytes # (A) 1.5 k/uL (1.0-4.8); Lymphocytes % (A) 13 %; MCH 25.8 pg (25.0-35.0); MCHC 29.6 g/dL (31.0-37.0); Mean Platelet Volume 6.8; Monocytes # (A) 0.7 k/uL (0-1.0); Monocytes % (A) 6 %; Neutrophils # (A) 8.6 k/uL (1.3-7.7); Neutrophils % (A) 74 %; Poikilocytosis Slight; RDW 15.5 % (11.5-15.5); WBC 11.6 k/uL (3.8-10.6); WBC (Perox) 12.05
[2016-10-15 21:24] LABS: Partial Thromboplastin Time 23.3 sec (22.0-30.0); Prothrombin Time 10.1 sec (9.0-12.0)
[2016-10-15 21:29] LABS: ALT 16 U/L (9-52); AST 32 U/L (14-36); Alkaline Phosphatase 117 U/L (38-126); Anion Gap 11 mmol/L; Blood Urea Nitrogen 14 mg/dL (7-17); Calcium 8.4 mg/dL (8.4-10.2); Carbon Dioxide 25 mmol/L (22-30); Chloride 102 mmol/L (98-107); Glucose 108 mg/dL (74-99); Non-African American GFR(MDRD) >60 (>60 ml/min/1.73 sqM); Sodium 138 mmol/L (137-145); Total Bilirubin 0.4 mg/dL (0.2-1.3); Total Protein 6.7 g/dL (6.3-8.2)
[2016-10-15 21:50] LABS: Creatine Kinase 83 U/L (30-135)
[2016-10-15 22:03] LABS: Troponin I <0.012 ng/mL (0.000-0.034)
[2016-10-15] MEDS ORDERED: oxyCODONE-APAP 5-325MG 1 EACH TAB PO STA (22:32)
[2016-10-15 23:29] LABS: Appearance,Urine Clear (Clear); Bilirubin,Urine Negative (Negative); Glucose,Urine (UA) Negative (Negative); Ketones,Urine Negative (Negative); Leukocyte Esterase,Urine Negative (Negative); Nitrite,Urine Negative (Negative); PH, Urine 7.5 (5.0-8.0); Protein,Urine Negative (Negative); Specific Gravity,Urine 1.012 (1.001-1.035); UA Billing (MACRO vs. MICRO) CHEM; Urobilinogen,Urine <2.0 mg/dL (<2.0)
[2016-10-16] MEDS ORDERED: FUROSEMIDE 10 MG/ML 4 ML VIAL IV STA (00:43)
[2016-10-16] MEDS ORDERED: NALOXONE 0.4 MG/ML 1 ML VIAL IV PRN (00:45)
[2016-10-16] MEDS ORDERED: IPRATROPIUM-ALBUTEROL 3 ML NEB INHALATION PRN (00:47)
[2016-10-16] MEDS ORDERED: NITROGLYCERIN SL TABS 0.4 MG TAB SUBLINGUAL PRN (00:47)
[2016-10-16] MEDS ORDERED: NYSTATIN 100,000UNIT/GM CREAM 30 GM TUBE TOPICAL PRN (00:47)
[2016-10-16] MEDS ORDERED: BISACODYL 10 MG SUPP RECTAL PRN (00:47)
[2016-10-16] MEDS ORDERED: NON-FORMULARY DRUG (Magnesium Hydroxide [Milk Of Magnesia] 2,400 MG) PO PRN (00:47)
[2016-10-16] MEDS: SODIUM CHLORIDE 0.9% 1,000 ML IV SCH (01:44)
[2016-10-16 02:52] VITALS: BMI 22.4
[2016-10-16] MEDS: oxyCODONE-APAP 5-325MG 1 EACH TAB PO PRN ×2 (03:01→20:39)
[2016-10-16] MEDS: BALSALAZIDE DISODIUM 750 MG CAPSULE PO SCH ×3 (06:26→15:51)
[2016-10-16] MEDS ORDERED: NON-FORMULARY DRUG (Lactose-Reduced Food [Ensure Plus] 1 CAN) PO SCH (07:30)
[2016-10-16] MEDS: GABAPENTIN 300 MG CAP PO SCH ×2 (08:52→15:51)
[2016-10-16] MEDS: METOPROLOL SUCCINATE (ER) 25 MG TAB.ER.24H PO SCH ×2 (08:53→20:40)
[2016-10-16] MEDS: FERROUS SULFATE 325 MG TAB PO SCH ×2 (08:53→20:37)
[2016-10-16] MEDS: POTASSIUM CHLORIDE ER 10 MEQ TAB.ER.PRT PO SCH (08:54)
[2016-10-16] MEDS: DIGOXIN 125 MCG TAB PO SCH (08:54)
[2016-10-16] MEDS: ASPIRIN 81 MG CHEW PO SCH (08:55)
[2016-10-16] MEDS: DULoxetine HCL 30 MG CAPSULE.DR PO SCH (08:55)
[2016-10-16] MEDS ORDERED: PANTOPRAZOLE 40 MG/10 ML VIAL IV SCH (09:00)
[2016-10-16] MEDS ORDERED: CEPHALEXIN 500 MG CAP PO SCH (09:00)
--- NOTE | 2016-10-16 13:52 | P.CRDCN ---
History of Present Illness Consult date: 10/16/16 Requesting physician: Adelso Huynh Consult reason: congestive heart failure Chief complaint: anemia History of present illness: this is an 89-year-old female who follows with Dr. Bravo in the office. She has a known history of paroxysmal atrial fibrillation, hypothyroidism, chronic neuropathy,dementia,who is not a candidate for anticoagulation because of recurrent GI bleeding. Patient actually had a recent admission to the hospital with GI bleeding. She resides at a [place] [facility], it was noted that her hemoglobin was running in the 70 range, for this reason she was again readmitted to the hospital.hemoglobin yesterday as an outpatient7.4,8.8 this morning. Potassium 5.0, BUN 14, creatinine 0.6.troponin negative times one.chest x-ray shows congestive heart failure with bilateral pleural effusions. We do not have a BNP level.patient was given IV Lasix 40 mg.continues to have mild bilateral peripheral edema. Denies any overt shortness of breath. Complains mostly of her left leg bending into her right leg, as well as associated shaking in bilateral legs. Past Medical History Past Medical History: Cancer, GERD/Reflux, GI Bleed, Hyperlipidemia, Hypertension, Osteoarthritis (OA), Thyroid Disorder Additional Past Medical History / Comment(s): Paroxysmal atrial fibrillation, migraines, trigeminal neuralgia, glucoma involving the left eye, peripheral vascular disease, abdominal hernia, peptic ulcer disease, stress urine incontinence, skin cancer resected, osteoporosis, peripheral neuropathy, macular degeneration, difficulty with mobility and ambulation as the patient is able to walk only short distances. She also has hypothyroidism, anxiety, depression, chronic back pain. History of Any Multi-Drug Resistant Organisms: None Reported Past Surgical History: Appendectomy, Cholecystectomy, Joint Replacement, Orthopedic Surgery, Tonsillectomy Additional Past Surgical History / Comment(s): Lt knee replacement, Lt femur- has plates and screws, vein stripping, partial thyroidectomy(rt side), cataracts Past Anesthesia/Blood Transfusion Reactions: No Reported Reaction Additional Past Anesthesia/Blood Transfusion Reaction / Comment(s): hallucinations after knee surgery and dizziness for 6 months after femur sx. 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 pt gets around by walker very short distances and at times a w/c-has neuropathy pain to abdoulaye legs/feet. pt has help from 3 daughters and comfort keepers. Smoking Status: Former smoker Past Alcohol Use History: Occasional Additional Past Alcohol Use History / Comment(s): quit smoking in 1981 smoked 1 pd x 25 years, occ glass of wine. Past Drug Use History: None Reported - Past Family History Father Family Medical History: Myocardial Infarction (PR) Mother Family Medical History: Pneumonia Additional Family Medical History / Comment(s): mom from pneumonia when pt was age 8. Medications and Allergies Home Medications Medication Instructions Recorded Confirmed Type DULoxetine HCL [Cymbalta] 30 mg PO DAILY 07/31/15 10/15/16 History Gabapentin [Neurontin] 300 mg PO BID@0800,1700 09/05/16 10/15/16 History Acetaminophen [Tylenol] 650 mg PO Q4HR PRN 09/29/16 10/15/16 History Balsalazide Disodium [Colazal] 2,250 mg PO TID-W/MEALS 09/29/16 10/15/16 History Lactose-Reduced Food [Ensure Plus] 1 can PO TID-W/MEALS 09/29/16 10/15/16 History Lidocaine 4% Cream [Lmx 4] 1 applic TOPICAL QID PRN 09/29/16 10/15/16 History Magnesium Hydroxide [Milk of 2,400 mg PO DAILY PRN 09/29/16 10/15/16 History Magnesia] Nystatin 100,000Unit/gm Cream 1 applic TOPICAL BID PRN 09/29/16 10/15/16 History [Mycostatin Cream] Travoprost [Travatan Z 0.004%] 1 drop BOTH EYES HS 09/29/16 10/15/16 History Omeprazole 20 mg PO BID@0800,1700 10/03/16 10/15/16 History ALPRAZolam [Xanax] 0.25 mg PO BID PRN 10/15/16 10/15/16 History Bisacodyl [Dulcolax] 10 mg RECTAL DAILY PRN 10/15/16 10/15/16 History Cephalexin [Keflex] 500 mg PO Q12HR 10/15/16 10/15/16 History Ferrous Sulfate [Feosol] 325 mg PO BID 10/15/16 10/15/16 History Furosemide [Lasix] 20 mg PO DAILY 10/15/16 10/15/16 History Na Phos,M-B/Na Phos,Di-Ba [Fleet 133 ml RECTAL ONCE PRN 10/15/16 10/15/16 History Adult] Potassium Chloride [K-Tab ER] 10 meq PO DAILY 10/15/16 10/15/16 History oxyCODONE-APAP 5-325MG [Percocet 1 tab PO TID PRN 10/15/16 10/15/16 History 5-325 mg] Allergies Allergy/AdvReac Type Severity Reaction Status Date / Time codeine Allergy Rash/Hives Verified 10/15/16 21:02 latex Allergy Rash/Hives Verified 10/15/16 21:02 Sulfa (Sulfonamide Allergy Rash/Hives Verified 10/15/16 21:02 Antibiotics) Physical Exam Vitals: Vital Signs Temp Pulse Pulse Resp BP BP Pulse Ox 10/16/16 03:11 63 18 116/57 96 10/16/16 02:00 97 F L 62 18 119/57 97 10/16/16 01:43 63 110/54 100 10/16/16 01:34 96.7 F L 63 18 114/53 98 Intake and Output 10/15/16 10/16/16 10/16/16 22:59 06:59 14:59 Intake Total 365 180 Balance 365 180 Intake: Intake, IV Titration 365 Amount Sodium Chloride 0.9% 1, 140 000 ml @ 20 mls/hr IV . Q24H [facility] Rx#:[id number] Sodium Chloride 0.9% 1, 225 000 ml @ 75 mls/hr IV . [id number] [facility] Rx#:[id number] Oral 180 Other: Voiding Method Bedpan Diaper Incontinent # Voids 3 1 # Bowel Movements 1 1 Weight 61 kg 61 kg Patient Weight 10/17/16 06:59 Weight 61 kg PHYSICAL EXAMINATION: HEENT: [Head is atraumatic, normocephalic. Pupils equal, round. Neck is supple. There is no elevated jugular venous pressure.] HEART EXAMINATION: heart S1 and S2 systolic murmur is heard. CHEST EXAMINATION:lungs are clear with diminished air entry to bilateral bases. ABDOMEN: [ Soft, nontender. Bowel sounds are heard. No organomegaly noted]. EXTREMITIES:[ 2+ peripheral pulses with Trace evidence of peripheral edema and no calf tenderness noted].positive inward rotation of the left foot with associated shaking of her lateral lower extremities NEUROLOGIC [patient is awake, alert , confused. . Results 10/15/16 20:55 10/15/16 20:55 Current Medications Generic Name Dose Route Start Last Admin Trade Name Freq PRN Reason Stop Dose Admin Acetaminophen 650 mg 10/16/16 00:47 Tylenol Tab PO Q4HR PRN Fever and/ or Pain Albuterol/Ipratropium 3 ml 10/16/16 00:47 Duoneb 0.5 Mg-3 Mg/3 Ml Soln INHALATION RT-QID PRN Shortness Of Breath Or Wheezing Alprazolam 0.25 mg 10/16/16 00:47 Xanax PO BID PRN Anxiety Aspirin 81 mg 10/16/16 09:00 10/16/16 08:55 Aspirin PO 81 mg DAILY [facility] Administration Balsalazide 2,250 mg 10/16/16 07:30 10/16/16 12:15 Colazal PO 2,250 mg TID-W/MEALS [facility] Administration Bisacodyl 10 mg 10/16/16 00:47 Dulcolax RECTAL DAILY PRN Constipation Cephalexin 500 mg 10/16/16 09:00 10/16/16 08:53 Keflex PO 500 mg Q12HR [facility] Administration Digoxin 125 mcg 10/16/16 09:00 10/16/16 08:54 Lanoxin PO 125 mcg DAILY [facility] Administration Duloxetine HCl 30 mg 10/16/16 09:00 10/16/16 08:55 Cymbalta PO 30 mg DAILY [facility] Administration Ferrous Sulfate 325 mg 10/16/16 09:00 10/16/16 08:53 Feosol PO 325 mg BID [facility] Administration Gabapentin 300 mg 10/16/16 08:00 10/16/16 08:52 Neurontin PO 300 mg BID@0800,1700 [facility] Administration Sodium Chloride 1,000 mls @ 20 mls/hr 10/16/16 00:45 10/16/16 01:44 Saline 0.9% IV 20 mls/hr .Q24H [facility] Administration Latanoprost 1 drops 10/16/16 21:00 Xalatan 0.005% BOTH EYES HS [facility] Lidocaine HCl 1 applic 10/16/16 00:47 Lmx 4 TOPICAL QID PRN Pain Metoprolol Succinate 25 mg 10/16/16 09:00 10/16/16 08:53 Toprol Xl PO 25 mg BID [facility] Administration Naloxone HCl 0.2 mg 10/16/16 00:45 Narcan IV Q2M PRN Opioid Reversal Nitroglycerin 0.4 mg 10/16/16 00:47 Nitrostat SUBLINGUAL Q5M PRN Chest Pain Nystatin 1 applic 10/16/16 00:47 Mycostatin Cream TOPICAL BID PRN EXCORIATION Oxycodone/Acetaminophen 1 each 10/16/16 00:47 10/16/16 03:01 Percocet 5-325 PO 1 each TID PRN Administration Pain Pantoprazole Sodium 40 mg 10/16/16 09:00 10/16/16 08:55 Protonix IV 40 mg DAILY SPENSER Administration Potassium Chloride 10 meq 10/16/16 09:00 10/16/16 08:54 K-Dur 10 PO 10 meq DAILY SPENSER Administration Intake and Output 10/15/16 10/16/16 10/16/16 22:59 06:59 14:59 Intake Total 365 180 Balance 365 180 Intake: Intake, IV Titration 365 Amount Sodium Chloride 0.9% 1, 140 000 ml @ 20 mls/hr IV . Q24H [facility] Rx#:[id number] Sodium Chloride 0.9% 1, 225 000 ml @ 75 mls/hr IV . [id number] [facility] Rx#:[id number] Oral 180 Other: Voiding Method Bedpan Diaper Incontinent # Voids 3 1 # Bowel Movements 1 1 Weight 61 kg 61 kg Patient Weight 10/17/16 06:59 Weight 61 kg EKG Interpretations (text) EKG shows normal sinus rhythm with no acute changes. Assessment and Plan Plan: Assessment and Plan #1anemia, recent admission with lower GI bleed, revealed acute flareup of chronic colitis confirmed by recent sigmoidoscopy. #2 paroxysmal atrial fibrillation, not felt to be a candidate for anticoagulation because of recurrent GI bleed. EKG at this time normal sinus rhythm #3 hyperlipidemia #4 hypertension #5 peripheral neuropathy #6 dementia #7 questionable congestive heart failure, x-ray revealed congestive heart failure, patient did have mild bilateral peripheral edema. Diuresis with IV Lasix. Plan We will obtain an echocardiogram with Doppler study. We will also request a BNP level. Discontinue IV Lasix and start the patient on oral diuretics. Further recommendations to follow. DNP note has been reviewed, I agree with a documented findings and plan of care. Patient was seen and examined.
--- NOTE | 2016-10-16 14:44 | XR ---
EXAMINATION TYPE: XR pelvis AP view DATE OF EXAM ORDERED: 10/16/2016 2:25 PM HISTORY: inward position of left leg. COMPARISON: Previous study dated 07/31/2015. FINDINGS: There has been intramedullary aminta fixation and dynamic hip pinning of the left hip. This a ppears similar to the previous study. There is generalized osteopenia, likely on the basis of osteopo rosis. No acute fracture is seen. IMPRESSION: STATUS POST DYNAMIC PINNING OF THE LEFT HIP.
[2016-10-16] MEDS: FUROSEMIDE 40 MG TAB PO SCH (15:51)
--- NOTE | 2016-10-16 19:26 | HP ---
DATE OF ADMISSION: 10/16/2016 CHIEF COMPLAINT: Low hemoglobin and shortness of breath. HISTORY OF PRESENT ILLNESS: This 89-year-old woman with a past history of multiple medical problems, including history of GERD, history of hypertension, hyperlipidemia, DJD, hypothyroidism, paroxysmal atrial fibrillation, trigeminal neuralgia, history of glaucoma, history of osteoporosis, dementia and anxiety, being followed by Dr. Lopez, was a resident at [facility]. The patient was recently admitted with lower gastrointestinal bleed, which was thought to be an exacerbation of proctosigmoid colitis. Patient went home, [facility] the hemoglobin was found to be low and the patient is transferred to [facility] for further evaluation and treatment. The patient had change in mental status according to history. Most of the history was taken from my discussion with staff as well as review of the chart at this time. Repeat hemoglobin is improving at this time. Otherwise, chest x-ray showed evidence of bilateral pleural effusions and CHF. The patient was started on diuretics. The 2-D echo showed ejection fraction of 55%, indicating acute on chronic diastolic dysfunction. There is no history of trauma. PAST MEDICAL HISTORY: GERD, history of GI bleeding, hypertension, hyperlipidemia, DJD, hypothyroidism, paroxysmal atrial fibrillation, migraines, history of peripheral neuropathy, DJD, history of left knee replacement. Medications prior to admission include: 1. Tylenol 650 every 4 p.r.n. 2. DuoNeb q.i.d. and p.r.n. 3. Xanax 0.25 b.i.d. 4. Aspirin 81 mg p.o. daily. 5. Colazal 2.25 mg t.i.d. 7. Keflex 500 mg p.o. b.i.d. 9. Cymbalta 30 mg daily. 11. Lasix 40 mg p.o. b.i.d. 12. Neurontin 300 mg p.o. b.i.d. 13. Xalatan 0.05% both eyes daily. 14. Toprol XL 25 mg b.i.d. 15. Narcan p.r.n. 16. Nitrostat. 17. Percocet 5 mg p.o. t.i.d. p.r.n. 18. Protonix 40 mg IV daily. 19. K-Dur 10 mEq p.o. daily. PHYSICAL EXAMINATION: GENERAL: The patient is alert, oriented x4. VITAL SIGNS: Blood pressure 130/50, respirations 18, temperature 97.1, pulse ox 98% on room air. HEENT: Conjunctivae normal. Oral mucosa moist. NECK: No jugular venous distention. CARDIOVASCULAR: S1, S2 muffled. LUNGS: Breath sounds diminished in the bases. Few scattered rhonchi and crackles. ABDOMEN: Soft, nontender. EXTREMITIES: Legs reveal no edema NERVOUS SYSTEM: Higher function as mentioned earlier. Moves all 4 limbs. No focal deficits. Chest x-ray personally reviewed. Hip x-ray status post pinning of left hip, no evidence of any acute fracture. Other labs are WBC 11.6, hemoglobin 12.8, albumin is 2.8. ASSESSMENT: 1. Congestive heart failure acute exacerbation, with acute on chronic diastolic dysfunction, ejection of 55% to 60%. 2. Change in mental status, acute on chronic metabolic encephalopathy. 3. History of dementia. 4. Rule out pneumonia. 5. Increased WBC. 6. Anemia, normocytic. 7. Hypoalbuminemia with mild to moderate protein calorie malnutrition. 8. History of gastroesophageal reflux. 9. History of gastrointestinal bleed with history of chronic proctosigmoid colitis with GI bleed. 10. Persistent atrial fibrillation, rate controlled, but not a candidate for anticoagulation. 11. Essential hypertension. 12. Hyperlipidemia. 13. History of degenerative joint disease. 14. Hypothyroidism. 15. History of paroxysmal atrial fibrillation. 16. History of migraines. 17. History of trigeminal neuralgia. 18. Glaucoma on the left. 19. Peripheral vascular disease. 20. Abdominal hernia. 21. History of peptic ulcer disease. 22. History of incontinence. 23. History of osteoporosis. 24. History of peripheral neuropathy. 25. History of macular degeneration. 26. History of gait dysfunction. 27. History of anxiety, depression, not otherwise specified. 28. Degenerative joint disease. 29. History of cholecystectomy. 30. Left knee replacement. 31. Anxiety, depression, not otherwise specified. 32. Dementia. 33. Remote history of nicotine dependence. 34. FULL CODE. RECOMMENDATIONS AND DISCUSSION: This 89-year-old woman who presented with multiple complex medical issues, we will monitor the patient closely, continue the current medications and continue symptomatic treatment. Otherwise at this time I recommend diuretics. BNP is ordered. Closely follow with cardiology. Would also recommend a pulmonary consultation and also initiate empiric antibiotics also. Prognosis guarded because of multiple complex medical issues. Further recommendations to follow. Discussed with staff. JOSE
[2016-10-16] MEDS: HEPARIN SODIUM,PORCINE 5,000 UNIT/ML 1 ML VIAL SQ SCH (20:38)
[2016-10-16] MEDS: LATANOPROST 0.005% OPHTH DROPS 2.5 ML BTL BOTH EYES SCH (20:39)
[2016-10-16] MEDS: LIDOCAINE 4% CREAM 5 GM TUBE TOPICAL PRN (22:29)
[2016-10-17] MEDS: SODIUM CHLORIDE 0.9% 1,000 ML IV SCH (00:49)
[2016-10-17] MEDS: BALSALAZIDE DISODIUM 750 MG CAPSULE PO SCH ×3 (06:26→16:53)
[2016-10-17 06:54] LABS: Anisocytosis Slight; Basophils # (A) 0.1 k/uL (0-0.2); Basophils % (A) 1 %; CH 26.3; CHCM 29.2; Eosinophils # (A) 0.5 k/uL (0-0.7); Eosinophils % (A) 5 %; HCT 30.4 % (34.0-46.0); HDW 3.64; HGB 8.8 gm/dL (11.4-16.0); Hypochromasia Marked; Luc # (Auto) 0.22; Luc % (Auto) 3; Lymphocytes % (A) 12 %; MCHC 28.8 g/dL (31.0-37.0); MCV 90.1 fL (80.0-100.0); Mean Platelet Volume 6.8; Monocytes # (A) 0.8 k/uL (0-1.0); Monocytes % (A) 9 %; Neutrophils % (A) 70 %; Poikilocytosis Slight; RBC 3.37 m/uL (3.80-5.40); RDW 16.5 % (11.5-15.5); WBC 8.5 k/uL (3.8-10.6); WBC (Perox) 9.16
[2016-10-17 07:18] LABS: Anion Gap 9 mmol/L; Blood Urea Nitrogen 12 mg/dL (7-17); Calcium 8.5 mg/dL (8.4-10.2); Carbon Dioxide 28 mmol/L (22-30); Chloride 101 mmol/L (98-107); Glucose 90 mg/dL (74-99); Non-African American GFR(MDRD) >60 (>60 ml/min/1.73 sqM); Potassium 4.6 mmol/L (3.5-5.1); Sodium 138 mmol/L (137-145)
[2016-10-17] MEDS: POTASSIUM CHLORIDE ER 10 MEQ TAB.ER.PRT PO SCH (07:50)
[2016-10-17] MEDS: FERROUS SULFATE 325 MG TAB PO SCH ×2 (07:51→21:53)
[2016-10-17] MEDS: DIGOXIN 125 MCG TAB PO SCH (07:51)
[2016-10-17] MEDS: ASPIRIN 81 MG CHEW PO SCH (07:51)
[2016-10-17] MEDS: PANTOPRAZOLE 40 MG TABLET PO SCH ×2 (07:51→16:54)
[2016-10-17] MEDS: FUROSEMIDE 40 MG TAB PO SCH ×2 (07:51→15:19)
[2016-10-17] MEDS: METOPROLOL SUCCINATE (ER) 25 MG TAB.ER.24H PO SCH ×2 (07:51→20:09)
[2016-10-17] MEDS: GABAPENTIN 300 MG CAP PO SCH ×2 (07:51→15:20)
[2016-10-17] MEDS: HEPARIN SODIUM,PORCINE 5,000 UNIT/ML 1 ML VIAL SQ SCH ×2 (07:51→20:09)
[2016-10-17] MEDS: DULoxetine HCL 30 MG CAPSULE.DR PO SCH (07:51)
[2016-10-17] MEDS: oxyCODONE-APAP 5-325MG 1 EACH TAB PO PRN ×2 (10:36→20:09)
--- NOTE | 2016-10-17 15:05 | P.CNPUL ---
<Antonietta Howell - Last Filed: 10/17/16 14:51> History of Present Illness Consult date: 10/17/16 Requesting physician: Adelso Huynh Reason for consult: other (Anemia) History of present illness: This is a pleasant 89-year-old female patient who resides in an extended care facility. She has a history of hyperlipidemia, hypertension, osteoarthritis, hypothyroidism, gastroesophageal reflux disease, paroxysmal atrial fibrillation , anxiety. She also has a history of recent GI bleed and was here approximately 3 weeks ago for the same. At that time she had been seen and evaluated by Dr. Alaniz in the intensive care unit. She was stabilized and eventually discharged. She was returned to the emergency room yesterday after lab work showed a hemoglobin of 7.4. On lab draw here her hemoglobin is 8.8. A chest x-ray revealed evidence of pulmonary vascular congestion and she was admitted for the same. She is seen today in consultation on the selective care unit. She is awake and alert. She is disoriented to place and time however. She denies any shortness of breath, cough or congestion. She is maintaining good O2 saturations in the 90s on room air. She's been afebrile. No leukocytosis. Hemodynamically stable. Her BNP level was 3720. Her chest x- ray was compared to her recent one from previous and there was some evidence of vascular congestion. She is on furosemide at 40 mg by mouth oh twice a day. She is currently in a negative balance. Review of Systems ROS unobtainable: due to mental status Past Medical History Past Medical History: Cancer, GERD/Reflux, GI Bleed, Hyperlipidemia, Hypertension, Osteoarthritis (OA), Thyroid Disorder Additional Past Medical History / Comment(s): Paroxysmal atrial fibrillation, migraines, trigeminal neuralgia, glucoma involving the left eye, peripheral vascular disease, abdominal hernia, peptic ulcer disease, stress urine incontinence, skin cancer resected, osteoporosis, peripheral neuropathy, macular degeneration, difficulty with mobility and ambulation as the patient is able to walk only short distances. She also has hypothyroidism, anxiety, depression, chronic back pain. History of Any Multi-Drug Resistant Organisms: None Reported Past Surgical History: Appendectomy, Cholecystectomy, Joint Replacement, Orthopedic Surgery, Tonsillectomy Additional Past Surgical History / Comment(s): Lt knee replacement, Lt femur- has plates and screws, vein stripping, partial thyroidectomy(rt side), cataracts Past Anesthesia/Blood Transfusion Reactions: No Reported Reaction Additional Past Anesthesia/Blood Transfusion Reaction / Comment(s): hallucinations after knee surgery and dizziness for 6 months after femur sx. 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 pt gets around by walker very short distances and at times a w/c-has neuropathy pain to abdoulaye legs/feet. pt has help from 3 daughters and comfort keepers. Smoking Status: Former smoker Past Alcohol Use History: Occasional Additional Past Alcohol Use History / Comment(s): quit smoking in 1981 smoked 1 pd x 25 years, occ glass of wine. Past Drug Use History: None Reported - Past Family History Father Family Medical History: Myocardial Infarction ([place]) Mother Family Medical History: Pneumonia Additional Family Medical History / Comment(s): mom from pneumonia when pt was age 8. Medications and Allergies Home Medications Medication Instructions Recorded Confirmed Type DULoxetine HCL [Cymbalta] 30 mg PO DAILY 07/31/15 10/15/16 History Gabapentin [Neurontin] 300 mg PO BID@0800,1700 09/05/16 10/15/16 History Acetaminophen [Tylenol] 650 mg PO Q4HR PRN 09/29/16 10/15/16 History Balsalazide Disodium [Colazal] 2,250 mg PO TID-W/MEALS 09/29/16 10/15/16 History Lactose-Reduced Food [Ensure Plus] 1 can PO TID-W/MEALS 09/29/16 10/15/16 History Lidocaine 4% Cream [Lmx 4] 1 applic TOPICAL QID PRN 09/29/16 10/15/16 History Magnesium Hydroxide [Milk of 2,400 mg PO DAILY PRN 09/29/16 10/15/16 History Magnesia] Nystatin 100,000Unit/gm Cream 1 applic TOPICAL BID PRN 09/29/16 10/15/16 History [Mycostatin Cream] Travoprost [Travatan Z 0.004%] 1 drop BOTH EYES HS 09/29/16 10/15/16 History Omeprazole 20 mg PO BID@0800,1700 10/03/16 10/15/16 History ALPRAZolam [Xanax] 0.25 mg PO BID PRN 10/15/16 10/15/16 History Bisacodyl [Dulcolax] 10 mg RECTAL DAILY PRN 10/15/16 10/15/16 History Cephalexin [Keflex] 500 mg PO Q12HR 10/15/16 10/15/16 History Ferrous Sulfate [Feosol] 325 mg PO BID 10/15/16 10/15/16 History Furosemide [Lasix] 20 mg PO DAILY 10/15/16 10/15/16 History Na Phos,M-B/Na Phos,Di-Ba [Fleet 133 ml RECTAL ONCE PRN 10/15/16 10/15/16 History Adult] Potassium Chloride [K-Tab ER] 10 meq PO DAILY 10/15/16 10/15/16 History oxyCODONE-APAP 5-325MG [Percocet 1 tab PO TID PRN 10/15/16 10/15/16 History 5-325 mg] Allergies Allergy/AdvReac Type Severity Reaction Status Date / Time codeine Allergy Rash/Hives Verified 10/15/16 21:02 latex Allergy Rash/Hives Verified 10/15/16 21:02 Sulfa (Sulfonamide Allergy Rash/Hives Verified 10/15/16 21:02 Antibiotics) Physical Exam Vitals: Vital Signs Temp Pulse Resp BP Pulse Ox 10/17/16 10:45 97.3 F L 69 18 111/58 93 L 10/17/16 07:59 96.8 F L 78 18 118/66 92 L 10/17/16 04:00 96.8 F L 80 16 114/56 92 L 10/17/16 00:00 96.8 F L 75 16 119/58 95 10/16/16 20:00 96.9 F L 75 18 125/59 94 L 10/16/16 15:45 96.9 F L 70 18 128/60 95 Intake and Output 10/16/16 10/17/16 10/17/16 22:59 06:59 14:59 Intake Total 0 700 Output Total 900 Balance 0 -900 700 Intake: IV 100 Sodium Chloride 0.9% 1, 100 000 ml @ 20 mls/hr IV . Q24H [facility] Rx#:[id number] Oral 0 600 Output: Urine 900 Other: Voiding Method Bedpan Indwelling Catheter Diaper Incontinent # Voids 4 2,000 1 # Bowel Movements 1 Weight 57.5 kg GENERAL EXAM: Cachectic, frail. Alert, oriented times one, comfortable in no apparent distress. HEAD: Normocephalic. EYES: Normal reaction of pupils, equal size. NOSE: Clear with pink turbinates. THROAT: No erythema or exudates. NECK: No masses, no JVD. CHEST: No chest wall deformity. LUNGS: Equal air entry with faint crackles in the posterior bases.. CVS: S1 and S2 normal with no audible murmurs, regular rhythm. ABDOMEN: No hepatosplenomegaly, normal bowel sounds, no guarding or rigidity. SKIN: No rashes CENTRAL NERVOUS SYSTEM: No focal deficits, tone is normal in all 4 extremities. Extremities: There is no significant peripheral edema. No clubbing, no cyanosis. Peripheral pulses are intact. Results - Laboratory Findings CBC and BMP: 10/17/16 06:37 10/17/16 06:37 PT/INR, D-dimer PT 10.1 sec (9.0-12.0) 10/15/16 20:55 INR 1.0 (<1.1) 10/15/16 20:55 Abnormal lab findings: Abnormal Labs 10/17/16 06:37 RBC 3.37 L Hgb 8.8 L Hct 30.4 L MCHC 28.8 L RDW 16.5 H Plt Count 522 H - Diagnostic Findings Chest x-ray: image reviewed Assessment and Plan Plan: Impression: #1 Acute exacerbation of diastolic congestive heart failure in a patient with a known history of preserved left ventricular systolic function and an ejection fraction between 55-60%. #2 moderate to severe pulmonary hypertension. #3 Anemia with a previous history of GI bleed. Current hemoglobin 8.8. No signs of active bleeding. #4 Hyperlipidemia. #5 Hypertension. #6 Osteoarthritis. #7 Gastroesophageal reflux disease. #8 Paroxysmal atrial fibrillation. #9 Hypothyroidism. #10 Peripheral vascular occlusive disease. #11 Macular degeneration. #12 Dementia. #13 Poor overall functional performance based on the above-mentioned multiple comorbidities. Plan: The patient was seen and evaluated by Dr. Lieberman. Her chest x-ray and labs were reviewed. We will agree to continue to diurese the patient. No clear signs of any pneumonic process at this time. We'll continue with her current medications. We will increase her activity as tolerated. We'll continue to monitor her hemoglobin and for signs of GI bleeding. We'll continue to follow. <Phillip Emanuel - Last Filed: 10/17/16 21:08> Physical Exam Vitals: Vital Signs Temp Pulse Resp BP Pulse Ox 10/17/16 15:32 97 F L 70 18 106/51 98 10/17/16 10:45 97.3 F L 69 18 111/58 93 L 10/17/16 07:59 96.8 F L 78 18 118/66 92 L 10/17/16 04:00 96.8 F L 80 16 114/56 92 L 10/17/16 00:00 96.8 F L 75 16 119/58 95 Intake and Output 10/17/16 10/17/16 10/17/16 06:59 14:59 22:59 Intake Total 700 240 Output Total 900 Balance -900 700 240 Intake: IV 100 Sodium Chloride 0.9% 1, 100 000 ml @ 20 mls/hr IV . Q24H [facility] Rx#:[id number] Oral 600 240 Output: Urine 900 Other: Voiding Method Indwelling Catheter # Voids 2,000 1 Weight 57.5 kg Results - Laboratory Findings CBC and BMP: 10/17/16 06:37 10/17/16 06:37 PT/INR, D-dimer PT 10.1 sec (9.0-12.0) 10/15/16 20:55 INR 1.0 (<1.1) 10/15/16 20:55 Abnormal lab findings: Abnormal Labs 10/17/16 06:37 RBC 3.37 L Hgb 8.8 L Hct 30.4 L MCHC 28.8 L RDW 16.5 H Plt Count 522 H Assessment and Plan (1) Acute encephalopathy Status: Acute Code(s): G93.40 - ENCEPHALOPATHY, UNSPECIFIED (2) CHF (congestive heart failure) Status: Acute Code(s): I50.9 - HEART FAILURE, UNSPECIFIED (3) Atrial fibrillation with RVR Status: Acute Code(s): I48.91 - UNSPECIFIED ATRIAL FIBRILLATION (4) Dementia Status: Acute Code(s): F03.90 - UNSPECIFIED DEMENTIA WITHOUT BEHAVIORAL DISTURBANCE Plan: This patient is a 89-year-old female who was admitted to Hospital with symptoms of mental status changes and worsening neuropathy. She is currently residing at extended-care facility and was noted to have increasing mental status changes and confusion. She was admitted to hospital for further evaluation. She has history of underlying peripheral neuropathy as well as dementia. She is currently on Neurontin 300 mg twice a day. We would recommend increase her Neurontin to 300 mg 3 times a day to see if this helps for some of her nerve pain in the lower extremities. She also has symptoms of restless leg syndrome. We did recommend consideration of low-dose Requip for further management. Patient has multiple complex medical issues which are being addressed by several specialists. We will continue to follow the patient closely during this admission. Her overall prognosis at this time remains very guarded.
--- NOTE | 2016-10-17 15:52 | PN ---
Mrs. Jose is comfortable, breathing easier. Denies chest pains. Shortness of breath has improved remarkably. She is resting comfortably. Vital signs are stable. S1, S2 heard normally. No JVD. Lungs are clearer. Short systolic murmur is noted. Abdomen and lower extremity exam is unchanged. Plan is to continue current medications. She can be discharged and I will see her as needed from a cardiac standpoint.
[2016-10-17] MEDS: LATANOPROST 0.005% OPHTH DROPS 2.5 ML BTL BOTH EYES SCH (20:09)
[2016-10-17] MEDS: LIDOCAINE 4% CREAM 5 GM TUBE TOPICAL PRN (20:10)
--- NOTE | 2016-10-17 21:10 | P.CNNES ---
History of Present Illness Consult date: 10/17/16 Reason for Consult: Patient with worsening dementia and neuropathy. History of Present Illness: This patient is a 89-year-old right-handed white female who [facility] evaluation of shortness of breath and worsening cardiac function. Patient was just recently admitted for possible GI bleeding about 3 weeks ago. She was discharged at that time. She was noted to have increase in symptoms of shortness of breath and was brought back to the emergency room for exacerbation of diastolic congestive heart failure. She is admitted and has been seen by cardiology. She does have moderate to severe degree of pulmonary hypertension as well. Neurology was consulted as she has underlying history of dementia and peripheral neuropathy. Her neuro neuropathy pain has been more noticeable to her mostly involving her feet. She states that the bottoms of her feet are painful. She also has been noted to have right leg twitching secondary to probable restless leg syndrome. She states her legs become very unmanageable at night. As noted she does have history of underlying dementia. She has been in the retirement for the past 3 weeks. She does have history of paroxysmal atrial fibrillation in the past. She has been followed in the cardiology clinic by Dr. Bravo. She does complain of difficulty with both legs at times giving her tremors. This unclear as to the etiology of this current symptom. The patient is now admitted and neurology has been consulted for further evaluation and recommendations. Review of Systems Constitutional: Denies chills, Denies fever Eyes: denies blurred vision, denies pain Ears, nose, mouth and throat: Denies headache, Denies sore throat Cardiovascular: Denies chest pain, Denies shortness of breath Respiratory: Denies cough Gastrointestinal: Denies abdominal pain, Denies diarrhea, Denies nausea, Denies vomiting Genitourinary: Denies dysuria, Denies hematuria Musculoskeletal: Denies myalgias Integumentary: Denies pruritus, Denies rash Neurological: Reports change in mentation, Reports gait dysfunction, Reports memory loss, Reports tremors, Denies numbness, Denies weakness Psychiatric: Denies anxiety, Denies depression Endocrine: Denies fatigue, Denies weight change Past Medical History Past Medical History: Cancer, GERD/Reflux, GI Bleed, Hyperlipidemia, Hypertension, Osteoarthritis (OA), Thyroid Disorder Additional Past Medical History / Comment(s): Paroxysmal atrial fibrillation, migraines, trigeminal neuralgia, glucoma involving the left eye, peripheral vascular disease, abdominal hernia, peptic ulcer disease, stress urine incontinence, skin cancer resected, osteoporosis, peripheral neuropathy, macular degeneration, difficulty with mobility and ambulation as the patient is able to walk only short distances. She also has hypothyroidism, anxiety, depression, chronic back pain. History of Any Multi-Drug Resistant Organisms: None Reported Past Surgical History: Appendectomy, Cholecystectomy, Joint Replacement, Orthopedic Surgery, Tonsillectomy Additional Past Surgical History / Comment(s): Lt knee replacement, Lt femur- has plates and screws, vein stripping, partial thyroidectomy(rt side), cataracts Past Anesthesia/Blood Transfusion Reactions: No Reported Reaction Additional Past Anesthesia/Blood Transfusion Reaction / Comment(s): hallucinations after knee surgery and dizziness for 6 months after femur sx. 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 pt gets around by walker very short distances and at times a w/c-has neuropathy pain to abdoulaye legs/feet. pt has help from 3 daughters and comfort keepers. Smoking Status: Former smoker Past Alcohol Use History: Occasional Additional Past Alcohol Use History / Comment(s): quit smoking in 1981 smoked 1 pd x 25 years, occ glass of wine. Past Drug Use History: None Reported - Past Family History Father Family Medical History: Myocardial Infarction ([place]) Mother Family Medical History: Pneumonia Additional Family Medical History / Comment(s): mom from pneumonia when pt was age 8. Medications and Allergies Home Medications Medication Instructions Recorded Confirmed Type DULoxetine HCL [Cymbalta] 30 mg PO DAILY 07/31/15 10/15/16 History Gabapentin [Neurontin] 300 mg PO BID@0800,1700 09/05/16 10/15/16 History Acetaminophen [Tylenol] 650 mg PO Q4HR PRN 09/29/16 10/15/16 History Balsalazide Disodium [Colazal] 2,250 mg PO TID-W/MEALS 09/29/16 10/15/16 History Lactose-Reduced Food [Ensure Plus] 1 can PO TID-W/MEALS 09/29/16 10/15/16 History Lidocaine 4% Cream [Lmx 4] 1 applic TOPICAL QID PRN 09/29/16 10/15/16 History Magnesium Hydroxide [Milk of 2,400 mg PO DAILY PRN 09/29/16 10/15/16 History Magnesia] Nystatin 100,000Unit/gm Cream 1 applic TOPICAL BID PRN 09/29/16 10/15/16 History [Mycostatin Cream] Travoprost [Travatan Z 0.004%] 1 drop BOTH EYES HS 09/29/16 10/15/16 History Omeprazole 20 mg PO BID@0800,1700 10/03/16 10/15/16 History ALPRAZolam [Xanax] 0.25 mg PO BID PRN 10/15/16 10/15/16 History Bisacodyl [Dulcolax] 10 mg RECTAL DAILY PRN 10/15/16 10/15/16 History Cephalexin [Keflex] 500 mg PO Q12HR 10/15/16 10/15/16 History Ferrous Sulfate [Feosol] 325 mg PO BID 10/15/16 10/15/16 History Furosemide [Lasix] 20 mg PO DAILY 10/15/16 10/15/16 History Na Phos,M-B/Na Phos,Di-Ba [Fleet 133 ml RECTAL ONCE PRN 10/15/16 10/15/16 History Adult] Potassium Chloride [K-Tab ER] 10 meq PO DAILY 10/15/16 10/15/16 History oxyCODONE-APAP 5-325MG [Percocet 1 tab PO TID PRN 10/15/16 10/15/16 History 5-325 mg] Allergies Allergy/AdvReac Type Severity Reaction Status Date / Time codeine Allergy Rash/Hives Verified 10/15/16 21:02 latex Allergy Rash/Hives Verified 10/15/16 21:02 Sulfa (Sulfonamide Allergy Rash/Hives Verified 10/15/16 21:02 Antibiotics) Physical Examination - Vital Signs Vital Signs: Vital Signs Temp Pulse Resp BP Pulse Ox 10/17/16 10:45 97.3 F L 69 18 111/58 93 L 10/17/16 07:59 96.8 F L 78 18 118/66 92 L 10/17/16 04:00 96.8 F L 80 16 114/56 92 L 10/17/16 00:00 96.8 F L 75 16 119/58 95 10/16/16 20:00 96.9 F L 75 18 125/59 94 L 10/16/16 15:45 96.9 F L 70 18 128/60 95 Intake and Output 10/16/16 10/17/16 10/17/16 22:59 06:59 14:59 Intake Total 0 700 Output Total 900 Balance 0 -900 700 Intake: IV 100 Sodium Chloride 0.9% 1, 100 000 ml @ 20 mls/hr IV . Q24H [facility] Rx#:[id number] Oral 0 600 Output: Urine 900 Other: Voiding Method Bedpan Indwelling Catheter Diaper Incontinent # Voids 4 2,000 1 # Bowel Movements 1 Weight 57.5 kg - Constitutional General appearance: average body habitus, cooperative - EENT EENT: mucous membranes moist - Respiratory Respiratory: lungs clear, normal breath sounds - Cardiovascular Cardiovascular: regular rate, normal S1, normal S2 Extremities: no peripheral edema bilaterally - Gastrointestinal Gastrointestinal: normoactive bowel sounds - Integumentary Integumentary: normal - Neurologic Cranial nerve examination: PERRL, EOMI, VFF, V1/V2/V3 grossly intact, face symmetric, tongue midline, intact gag reflex, intact corneal reflex, normal palatal elevation Speech examination: intact Sensorimotor examination: intact Reflex and gait examination: intact Reflexes: 1+: ankle, bicep, knee, tricep - Musculoskeletal Musculoskeletal: no pain - Psychiatric Psychiatric: mood/affect appropriate, cooperative Results - Laboratory Findings CBC and BMP: 10/17/16 06:37 10/17/16 06:37 Abnormal Lab Findings: Abnormal Labs 10/17/16 06:37 RBC 3.37 L Hgb 8.8 L Hct 30.4 L MCHC 28.8 L RDW 16.5 H Plt Count 522 H Assessment and Plan (1) Acute encephalopathy Status: Acute Code(s): G93.40 - ENCEPHALOPATHY, UNSPECIFIED (2) Chronic a-fib Status: Acute Code(s): I48.2 - CHRONIC ATRIAL FIBRILLATION (3) Dementia Status: Acute Code(s): F03.90 - UNSPECIFIED DEMENTIA WITHOUT BEHAVIORAL DISTURBANCE (4) Gastrointestinal bleeding, lower Status: Acute Code(s): K92.2 - GASTROINTESTINAL HEMORRHAGE, UNSPECIFIED Plan: This patient is a 89-year-old female who is being evaluated for multiple complex medical issues. She is currently residing at a extended care facility and was admitted with altered mental status and leg pain. She has history of peripheral neuropathy. We would recommend increase her dose of Neurontin to 300 mg 3 times a day. She also has symptoms suggesting restless leg syndrome involving the lower extremities. We would recommend to begin a trial of low- dose Requip to see if she is responding. Patient will need to return to ECF at the time of discharge. We will continue to follow her overall neurological status closely during this admission. Overall prognosis at this time remains very guarded. Time with Patient: Greater than 30
--- NOTE | 2016-10-17 21:57 | PN ---
DATE OF SERVICE: 10/17/2016 This 89-year-old woman who was admitted with CHF acute exacerbation also had change in mental status and acute metabolic encephalopathy. The patient is still confused. Patient is still emaciated. Pulmonary and Cardiology are following the patient closely. The patient thought to have CHF acute exacerbation, also moderate history of pulmonary hypertension as well. The pelvis x-ray is status post dynamic pinning of the left hip. PAST MEDICAL HISTORY: Reviewed. Review of systems could not be taken, as the patient is confused. Current medications are reviewed and include: 1. Tylenol 650 q.4 p.r.n. 2. DuoNeb q.i.d. and p.r.n. 3. Aspirin. 4. Colazal. 5. Dulcolax. 6. Xanax. 7. Cymbalta. 8. Iron sulfate. 9. Lasix 40 mg p.o. b.i.d. 10. Neurontin 300 mg p.o. b.i.d. 11. Heparin 5 subcu b.i.d. 12. Xalatan 0.05 b.i.d. 13. Toprol XL 25 mg daily. 14. Narcan. 15. Nitrostat. 16. Mycostatin. 17. Percocet. 18. Protonix. 19. K-Dur. PHYSICAL EXAM: The patient is conscious, but confused. Pulse 69, blood pressure 111/58, respirations 18, temperature 97.3, pulse ox is 96% on room air. HEENT: Conjunctivae normal. Oral mucosa moist. NECK: No jugular venous distension. No carotid bruits. No lymph node enlargement. CARDIOVASCULAR: S1 and S2 muffled. No S3. No S4. RESPIRATORY: Breath sounds diminished in the bases. Bilateral scattered rhonchi and crackles. Expiratory wheezing also present. ABDOMEN: Soft, nontender. No mass palpable. LEGS: No edema. No swelling. NERVOUS SYSTEM: Higher functions as mentioned. Moves all 4 limbs. No focal deficits. LYMPHATIC: No lymph nodes palpable in neck, axillae or groin. SKIN: No ulcer, rash or bleeding. Labs at this time show WBC 8.3, hemoglobin is 8.8, platelets are 522. NT-proBNP 3720. ASSESSMENT: 1. Congestive heart failure acute exacerbation with acute on chronic diastolic dysfunction, ejection fraction 55% to 60%. 2. Change in mental status, acute on chronic metabolic encephalopathy. 3. History of dementia. 4. History of pneumonia. 5. Increased WBC. 6. Gait dysfunction. 7. Anemia, normocytic. 8. Hypoalbuminemia with mild to moderate protein-calorie malnutrition. 9. Gastroesophageal reflux disease. 10. History of gastrointestinal bleed and history of proctosigmoid colitis with a gastrointestinal bleed recently. 11. Paroxysmal atrial fibrillation, rate controlled, not a candidate for anticoagulation. 12. Essential hypertension. 13. Hyperlipidemia. 14. History of degenerative joint disease. 15. History of hypothyroidism. 16. History of migraine. 17. Trigeminal neuralgia. 18. History of glaucoma on the left. 19. Peripheral vascular disease. 20. Abdominal hernia. 21. History of peptic ulcer disease. 22. History of incontinence. 23. History of osteoporosis. 24. Peripheral neuropathy. 25. Macular degeneration. 26. History of gait dysfunction. 27. History of anxiety, depression, not otherwise specified. 28. History of cholecystectomy. 29. History of left knee replacement. 30. Remote history nicotine dependence. 31. FULL CODE. RECOMMENDATIONS AND DISCUSSION: Recommend to continue current medications. Continue with monitoring advanced closely. Continue with the diuretics. Otherwise, a PT, OT evaluation, Boost supplementation. Pulmonology, Cardiology input appreciated. Prognosis guarded because of multiple complex medical issues. Further recommendations to follow. MTDD
[2016-10-18] MEDS: SODIUM CHLORIDE 0.9% 1,000 ML IV SCH (02:17)
[2016-10-18] MEDS: ALPRAZolam 0.25 MG TAB PO PRN ×2 (02:59→17:17)
[2016-10-18] MEDS: oxyCODONE-APAP 5-325MG 1 EACH TAB PO PRN (03:03)
[2016-10-18 06:54] LABS: Anisocytosis Slight; Basophils # (A) 0.1 k/uL (0-0.2); Basophils % (A) 1 %; CH 25.9; CHCM 28.9; Eosinophils # (A) 0.5 k/uL (0-0.7); Eosinophils % (A) 5 %; HCT 30.4 % (34.0-46.0); HDW 3.59; HGB 8.8 gm/dL (11.4-16.0); Hypochromasia Marked; Luc # (Auto) 0.24; Luc % (Auto) 3; Lymphocytes % (A) 11 %; MCH 26.1 pg (25.0-35.0); MCHC 29.1 g/dL (31.0-37.0); MCV 89.7 fL (80.0-100.0); Mean Platelet Volume 6.6; Monocytes # (A) 0.8 k/uL (0-1.0); Monocytes % (A) 9 %; Neutrophils # (A) 6.8 k/uL (1.3-7.7); Neutrophils % (A) 72 %; Poikilocytosis Slight; RBC 3.38 m/uL (3.80-5.40); RDW 16.9 % (11.5-15.5); WBC 9.5 k/uL (3.8-10.6); WBC (Perox) 9.98
[2016-10-18] MEDS: BALSALAZIDE DISODIUM 750 MG CAPSULE PO SCH ×3 (06:54→17:17)
[2016-10-18 07:11] LABS: Anion Gap 10 mmol/L; Blood Urea Nitrogen 12 mg/dL (7-17); Calcium 8.4 mg/dL (8.4-10.2); Carbon Dioxide 26 mmol/L (22-30); Chloride 101 mmol/L (98-107); Glucose 95 mg/dL (74-99); Non-African American GFR(MDRD) >60 (>60 ml/min/1.73 sqM); Potassium 3.8 mmol/L (3.5-5.1); Sodium 137 mmol/L (137-145)
[2016-10-18] MEDS: DULoxetine HCL 30 MG CAPSULE.DR PO SCH (08:39)
[2016-10-18] MEDS: GABAPENTIN 300 MG CAP PO SCH ×2 (08:39→16:25)
[2016-10-18] MEDS: POTASSIUM CHLORIDE ER 10 MEQ TAB.ER.PRT PO SCH (08:39)
[2016-10-18] MEDS: FUROSEMIDE 40 MG TAB PO SCH ×2 (08:39→16:24)
[2016-10-18] MEDS: METOPROLOL SUCCINATE (ER) 25 MG TAB.ER.24H PO SCH ×2 (08:39→20:23)
[2016-10-18] MEDS: FERROUS SULFATE 325 MG TAB PO SCH ×2 (08:40→20:23)
[2016-10-18] MEDS: PANTOPRAZOLE 40 MG TABLET PO SCH ×2 (08:40→16:25)
[2016-10-18] MEDS: ASPIRIN 81 MG CHEW PO SCH (08:40)
[2016-10-18] MEDS: HEPARIN SODIUM,PORCINE 5,000 UNIT/ML 1 ML VIAL SQ SCH ×2 (08:40→20:24)
[2016-10-18] MEDS: DIGOXIN 125 MCG TAB PO SCH (08:40)
--- NOTE | 2016-10-18 12:45 | P.PN ---
Subjective This is a pleasant 89-year-old female patient who resides in an extended care facility. She has a history of hyperlipidemia, hypertension, osteoarthritis, hypothyroidism, gastroesophageal reflux disease, paroxysmal atrial fibrillation , anxiety. She also has a history of recent GI bleed and was here approximately 3 weeks ago for the same. At that time she had been seen and evaluated by Dr. Alaniz in the intensive care unit. She was stabilized and eventually discharged. She was returned to the emergency room yesterday after lab work showed a hemoglobin of 7.4. On lab draw here her hemoglobin is 8.8. A chest x-ray revealed evidence of pulmonary vascular congestion and she was admitted for the same. She is seen today in consultation on the selective care unit. She is awake and alert. She is disoriented to place and time however. She denies any shortness of breath, cough or congestion. She is maintaining good O2 saturations in the 90s on room air. She's been afebrile. No leukocytosis. Hemodynamically stable. Her BNP level was 3720. Her chest x- ray was compared to her recent one from previous and there was some evidence of vascular congestion. She is on furosemide at 40 mg by mouth oh twice a day. She is currently in a negative balance. The patient is seen again today 10/18/2016 in follow-up on the regular medical floor. She is awake and no acute distress. She is maintaining good O2 saturations in the 90s on room air. Afebrile. No leukocytosis. No cough or congestion. Blood cultures revealed no growth to date. Urine culture was negative. She remains on diuretics. Her hemoglobin remained stable at 8.8. Objective - Vital Signs Vital signs: Vital Signs Temp 97.3 F L 10/18/16 10:48 Pulse 65 10/18/16 10:48 Resp 18 10/18/16 10:48 BP 91/45 10/18/16 10:48 Pulse Ox 96 10/18/16 10:48 Intake & Output 10/17/16 10/18/16 10/18/16 18:59 06:59 18:59 Intake Total 940 300 Output Total 5 Balance 940 295 Weight 53.5 kg Intake: IV 100 300 Sodium Chloride 0.9% 1, 100 300 000 ml @ 20 mls/hr IV . Q24H [facility] Rx#:[id number] Oral 840 Output: Urine/Stool Mix 5 Other: # Voids 1 2 # Bowel Movements 2 - Exam GENERAL EXAM: Cachectic, frail. Alert, oriented times one, comfortable in no apparent distress. HEAD: Normocephalic. EYES: Normal reaction of pupils, equal size. NOSE: Clear with pink turbinates. THROAT: No erythema or exudates. NECK: No masses, no JVD. CHEST: No chest wall deformity. LUNGS: Equal air entry with faint crackles in the posterior bases.. CVS: S1 and S2 normal with no audible murmurs, regular rhythm. ABDOMEN: No hepatosplenomegaly, normal bowel sounds, no guarding or rigidity. SKIN: No rashes CENTRAL NERVOUS SYSTEM: No focal deficits, tone is normal in all 4 extremities. Extremities: There is no significant peripheral edema. No clubbing, no cyanosis. Peripheral pulses are intact. - Labs CBC & Chem 7: 10/18/16 06:17 10/18/16 06:17 Labs: Abnormal Lab Results - Last 24 Hours (Table) 10/18/16 10/18/16 Range/Units 06:17 06:17 RBC 3.38 L (3.80-5.40) m/uL Hgb 8.8 L (11.4-16.0) gm/dL Hct 30.4 L (34.0-46.0) % MCHC 29.1 L (31.0-37.0) g/dL RDW 16.9 H (11.5-15.5) % Plt Count 496 H (150-450) k/uL Creatinine 0.51 L (0.52-1.04) mg/dL Microbiology - Last 24 Hours (Table) 10/16/16 15:54 Blood Culture - Preliminary Blood No Growth after 24 hours Assessment and Plan Plan: Impression: #1 Acute exacerbation of diastolic congestive heart failure in a patient with a known history of preserved left ventricular systolic function and an ejection fraction between 55-60%. #2 moderate to severe pulmonary hypertension. #3 Anemia with a previous history of GI bleed. Current hemoglobin 8.8. No signs of active bleeding. #4 Hyperlipidemia. #5 Hypertension. #6 Osteoarthritis. #7 Gastroesophageal reflux disease. #8 Paroxysmal atrial fibrillation. #9 Hypothyroidism. #10 Peripheral vascular occlusive disease. #11 Macular degeneration. #12 Dementia. #13 Poor overall functional performance based on the above-mentioned multiple comorbidities. Plan: The patient was seen and evaluated by Dr. Lieberman. No clear signs of any pneumonic process at this time. We'll continue with her current medications. Continue diuretics. We will increase her activity as tolerated. We'll continue to monitor her hemoglobin and for signs of GI bleeding. We'll continue to follow.
[2016-10-18] MEDS: ACETAMINOPHEN TAB 325 MG TAB PO PRN ×2 (14:21→20:23)
[2016-10-18] MEDS: LIDOCAINE 4% CREAM 5 GM TUBE TOPICAL PRN (14:28)
[2016-10-18] MEDS: LATANOPROST 0.005% OPHTH DROPS 2.5 ML BTL BOTH EYES SCH (20:24)
[2016-10-19] MEDS: SODIUM CHLORIDE 0.9% 1,000 ML IV SCH (00:43)
[2016-10-19 07:52] LABS: Anisocytosis Slight; Basophils # (A) 0.1 k/uL (0-0.2); Basophils % (A) 1 %; CH 26.1; CHCM 28.7; Eosinophils # (A) 0.5 k/uL (0-0.7); Eosinophils % (A) 6 %; HCT 32.1 % (34.0-46.0); HDW 3.58; HGB 9.1 gm/dL (11.4-16.0); Hypochromasia Marked; Luc # (Auto) 0.25; Luc % (Auto) 3; Lymphocytes % (A) 13 %; MCH 25.7 pg (25.0-35.0); MCHC 28.3 g/dL (31.0-37.0); MCV 90.8 fL (80.0-100.0); Mean Platelet Volume 6.7; Monocytes # (A) 0.7 k/uL (0-1.0); Monocytes % (A) 9 %; Neutrophils # (A) 5.3 k/uL (1.3-7.7); Neutrophils % (A) 68 %; Poikilocytosis Slight; RBC 3.53 m/uL (3.80-5.40); RDW 17.6 % (11.5-15.5); WBC 7.8 k/uL (3.8-10.6); WBC (Perox) 8.93
[2016-10-19 08:04] LABS: Anion Gap 9 mmol/L; Blood Urea Nitrogen 13 mg/dL (7-17); Calcium 8.7 mg/dL (8.4-10.2); Carbon Dioxide 28 mmol/L (22-30); Chloride 101 mmol/L (98-107); Glucose 90 mg/dL (74-99); Non-African American GFR(MDRD) >60 (>60 ml/min/1.73 sqM); Potassium 3.9 mmol/L (3.5-5.1); Sodium 138 mmol/L (137-145)
[2016-10-19] MEDS: POTASSIUM CHLORIDE ER 10 MEQ TAB.ER.PRT PO SCH (08:33)
[2016-10-19] MEDS: GABAPENTIN 300 MG CAP PO SCH ×2 (08:33→18:17)
[2016-10-19] MEDS: HEPARIN SODIUM,PORCINE 5,000 UNIT/ML 1 ML VIAL SQ SCH ×2 (08:33→20:46)
[2016-10-19] MEDS: METOPROLOL SUCCINATE (ER) 25 MG TAB.ER.24H PO SCH ×2 (08:34→20:46)
[2016-10-19] MEDS: BALSALAZIDE DISODIUM 750 MG CAPSULE PO SCH ×3 (08:34→18:16)
[2016-10-19] MEDS: ASPIRIN 81 MG CHEW PO SCH (08:34)
[2016-10-19] MEDS: PANTOPRAZOLE 40 MG TABLET PO SCH ×2 (08:34→18:17)
[2016-10-19] MEDS: DIGOXIN 125 MCG TAB PO SCH (08:34)
[2016-10-19] MEDS: DULoxetine HCL 30 MG CAPSULE.DR PO SCH (08:35)
[2016-10-19] MEDS: FERROUS SULFATE 325 MG TAB PO SCH ×2 (08:35→20:46)
[2016-10-19] MEDS: FUROSEMIDE 40 MG TAB PO SCH ×2 (08:35→18:16)
--- NOTE | 2016-10-19 10:49 | P.PN ---
Subjective This patient is a 89-year-old female who is being evaluated for worsening dementia and neuropathy. Patient is a poor historian but apparently has been residing at extended-care facility. She has multiple complex past medical problems and was admitted for further evaluation. She recently was treated for GI bleeding about 3 weeks ago. She has a history of paroxysmal atrial fibrillation but is not a candidate for long-term anticoagulation. She also has a history of underlying dementia. She is been complaining of pain in her legs which may be secondary to peripheral neuropathy as well as restless leg syndrome. We have given recommendations for treatment at this conditions. Patient has been residing at extended-care facility prior to her admission. When she is stabilized she will likely return there. She does continue to have symptoms suggesting mild restless leg syndrome. She is not a very good historian and the accuracy of her description of her leg pain and leg movement still not very clear. She is being treated for exacerbation of diastolic congestive heart failure. Her left ventricular systolic function reveals ejection fraction of 55-60 percent. she does have history of underlying dementia which remains stable at this time. We will continue close neurological follow-up for this patient. Her overall prognosis at this time remains guarded. Objective - Vital Signs Vital signs: Vital Signs Temp 95.8 F L 10/18/16 15:00 Pulse 71 10/18/16 20:23 Resp 17 10/18/16 16:00 BP 96/45 10/18/16 15:00 Pulse Ox 94 L 10/18/16 15:00 Intake & Output 10/18/16 10/18/16 10/19/16 06:59 18:59 06:59 Intake Total 300 Output Total 5 Balance 295 Weight 53.5 kg Intake: IV 300 Sodium Chloride 0.9% 1, 300 000 ml @ 20 mls/hr IV . Q24H [facility] Rx#:[id number] Output: Urine/Stool Mix 5 Other: Voiding Method Indwelling Catheter # Voids 2 3 # Bowel Movements 2 1 - Exam Physical examination: PHYSICAL EXAMINATION: Patient is resting comfortably in bed. VITAL SIGNS: Blood pressure is [96/45]. Heart rate is [69]. Respiration is [17] . Temperature is [96.0]. HEENT: Head is atraumatic, neck is supple, there were no carotid bruits. CHEST: Lungs are clear to auscultation and percussion. CARDIAC: S1, S2 normal rate and rhythm. There is no murmur. ABDOMEN: Soft and nontender. Bowel sounds are present. EXTREMITIES: There is no pedal edema. Peripheral pulses are present. Neurological examination: Patient's neurological examination is unchanged from yesterday. - Labs CBC & Chem 7: 10/19/16 07:30 10/19/16 07:30 Labs: Abnormal Lab Results - Last 24 Hours (Table) 10/18/16 10/18/16 Range/Units 06:17 06:17 RBC 3.38 L (3.80-5.40) m/uL Hgb 8.8 L (11.4-16.0) gm/dL Hct 30.4 L (34.0-46.0) % MCHC 29.1 L (31.0-37.0) g/dL RDW 16.9 H (11.5-15.5) % Plt Count 496 H (150-450) k/uL Creatinine 0.51 L (0.52-1.04) mg/dL Microbiology - Last 24 Hours (Table) 10/16/16 15:54 Blood Culture - Preliminary Blood No Growth after 48 hours Assessment and Plan (1) Acute encephalopathy Status: Acute Code(s): G93.40 - ENCEPHALOPATHY, UNSPECIFIED (2) Chronic a-fib Status: Acute Code(s): I48.2 - CHRONIC ATRIAL FIBRILLATION (3) Dementia Status: Acute Code(s): F03.90 - UNSPECIFIED DEMENTIA WITHOUT BEHAVIORAL DISTURBANCE (4) Gastrointestinal bleeding, lower Status: Acute Code(s): K92.2 - GASTROINTESTINAL HEMORRHAGE, UNSPECIFIED
--- NOTE | 2016-10-19 10:49 | PN ---
DATE OF SERVICE: 10/18/2016 This 89-year-old woman was admitted with CHF acute exacerbation and also change in mental status, acute on chronic metabolic encephalopathy. The patient is being closely monitored at this time. She is much more alert. On exam, alert and x1. Pulse 16, blood pressure 96/45, respirations 17, temperature 97.8, pulse ox is 94% on room air. HEENT: Conjunctivae normal. CARDIOVASCULAR: S1 and S2 muffled. LUNGS: Breath sounds diminished in the bases. Bilateral scattered rhonchi. No crackles. ABDOMEN: Soft, nontender. EXTREMITIES: Legs no edema. NERVOUS SYSTEM: No focal deficit. LABS: WBC 9.2, hemoglobin is 8.8. ASSESSMENT: 1. Congestive heart failure, acute exacerbation, with acute on chronic diastolic dysfunction, ejection fraction about 55% to 60%. 2. Change in mental status secondary to chronic metabolic encephalopathy. 3. History of dementia. 4. History of pneumonia. 5. Increased WBC. 6. Gait dysfunction. 7. Anemia, normocytic. 8. Hypoalbuminemia with mild to moderate protein calorie malnutrition. 9. History of gastroesophageal reflux disease. 10. History of gastrointestinal bleed. 11. History of proctosigmoid colitis with gastrointestinal bleed recently. 12. Paroxysmal atrial fibrillation, rate controlled, not a candidate for anticoagulation. 13. Essential hypertension. 14. Hyperlipidemia. 15. History of degenerative joint disease. 16. History of hypothyroidism. 17. History of migraines. 18. History of trigeminal neuralgia. 19. History of glaucoma on the left. 20. History of peripheral vascular disease. 21. History of abdominal hernia. 22. History of peptic ulcer disease. 23. History of incontinence. 24. History of osteoporosis. 25. Peripheral neuropathy. 26. History of macular degeneration. 27. History of gait dysfunction. 28. History of anxiety and depression, not otherwise specified. 29. History of cholecystectomy. 30. History of left knee replacement. 31. Remote history nicotine dependence. 32. FULL CODE. RECOMMENDATIONS: Recommend to continue current medications, continue to monitor and symptomatic. At this time I would recommend to continue with the rest of the medications. PT, OT evaluation, possible ECF rehab. Guarded prognosis because of multiple complex medical issues. Further recommendations to follow.
[2016-10-19] MEDS: oxyCODONE-APAP 5-325MG 1 EACH TAB PO PRN (11:45)
[2016-10-19] MEDS: ALPRAZolam 0.25 MG TAB PO PRN (14:57)
--- NOTE | 2016-10-19 16:24 | P.PN ---
Subjective This is a pleasant 89-year-old female patient who resides in an extended care facility. She has a history of hyperlipidemia, hypertension, osteoarthritis, hypothyroidism, gastroesophageal reflux disease, paroxysmal atrial fibrillation , anxiety. She also has a history of recent GI bleed and was here approximately 3 weeks ago for the same. At that time she had been seen and evaluated by Dr. Alaniz in the intensive care unit. She was stabilized and eventually discharged. She was returned to the emergency room yesterday after lab work showed a hemoglobin of 7.4. On lab draw here her hemoglobin is 8.8. A chest x-ray revealed evidence of pulmonary vascular congestion and she was admitted for the same. She is seen today in consultation on the selective care unit. She is awake and alert. She is disoriented to place and time however. She denies any shortness of breath, cough or congestion. She is maintaining good O2 saturations in the 90s on room air. She's been afebrile. No leukocytosis. Hemodynamically stable. Her BNP level was 3720. Her chest x- ray was compared to her recent one from previous and there was some evidence of vascular congestion. She is on furosemide at 40 mg by mouth oh twice a day. She is currently in a negative balance. The patient is seen again today 10/18/2016 in follow-up on the regular medical floor. She is awake and no acute distress. She is maintaining good O2 saturations in the 90s on room air. Afebrile. No leukocytosis. No cough or congestion. Blood cultures revealed no growth to date. Urine culture was negative. She remains on diuretics. Her hemoglobin remained stable at 8.8. On 10/19/2016 the patient is being seen in follow-up. Patient is doing well. No specific complaints for now. She is resting comfortably in bed. He is afebrile hemodynamically stable at this point. Objective - Vital Signs Vital signs: Vital Signs Temp 97.9 F 10/19/16 15:00 Pulse 73 10/19/16 15:00 Resp 19 10/19/16 15:00 BP 97/45 10/19/16 15:00 Pulse Ox 94 L 10/19/16 15:00 Intake & Output 10/18/16 10/19/16 10/19/16 18:59 06:59 18:59 Intake Total 150 Balance 150 Weight 53 kg Intake: Oral 150 Other: Voiding Method Indwelling Catheter Indwelling Catheter Diaper # Voids 3 3 9 # Bowel Movements 1 2 1 - Exam GENERAL EXAM: Cachectic, frail. Alert, oriented times one, comfortable in no apparent distress. HEAD: Normocephalic. EYES: Normal reaction of pupils, equal size. NOSE: Clear with pink turbinates. THROAT: No erythema or exudates. NECK: No masses, no JVD. CHEST: No chest wall deformity. LUNGS: Equal air entry with faint crackles in the posterior bases.. CVS: S1 and S2 normal with no audible murmurs, regular rhythm. ABDOMEN: No hepatosplenomegaly, normal bowel sounds, no guarding or rigidity. SKIN: No rashes CENTRAL NERVOUS SYSTEM: No focal deficits, tone is normal in all 4 extremities. Extremities: There is no significant peripheral edema. No clubbing, no cyanosis. Peripheral pulses are intact. - Labs CBC & Chem 7: 10/19/16 07:30 10/19/16 07:30 Labs: Abnormal Lab Results - Last 24 Hours (Table) 10/19/16 Range/Units 07:30 RBC 3.53 L (3.80-5.40) m/uL Hgb 9.1 L (11.4-16.0) gm/dL Hct 32.1 L (34.0-46.0) % MCHC 28.3 L (31.0-37.0) g/dL RDW 17.6 H (11.5-15.5) % Plt Count 481 H (150-450) k/uL Microbiology - Last 24 Hours (Table) 10/16/16 15:54 Blood Culture - Preliminary Blood No Growth after 48 hours Assessment and Plan Plan: Impression: #1 Acute exacerbation of diastolic congestive heart failure in a patient with a known history of preserved left ventricular systolic function and an ejection fraction between 55-60%. #2 moderate to severe pulmonary hypertension. #3 Anemia with a previous history of GI bleed. Current hemoglobin 8.8. No signs of active bleeding. #4 Hyperlipidemia. #5 Hypertension. #6 Osteoarthritis. #7 Gastroesophageal reflux disease. #8 Paroxysmal atrial fibrillation. #9 Hypothyroidism. #10 Peripheral vascular occlusive disease. #11 Macular degeneration. #12 Dementia. #13 Poor overall functional performance based on the above-mentioned multiple comorbidities. Plan Cardiac status is stable. No evidence of GI bleeding. Patient is resting comfortably in bed. No active pulmonary or critical care issue. We'll sign off the case and we'll leave the rest of the management up to medicine. Furthermore the hemoglobin stable at 9.1
--- NOTE | 2016-10-19 20:17 | PN ---
DATE OF SERVICE: 10/19/2016 This 89 -year-old woman was admitted with multiple medical problems, including congestive heart failure, acute exacerbation is being closely monitored. Patient has change in mental status also. Shortness of breath is improving. No fever. No cough. On exam, pulse 74, blood pressure 106/50, respiratory rate 20, temperature 98.3. Pulse ox 93% on room air. HEENT: Conjunctivae normal. Oral mucosa moist. NECK: No jugular venous distention. CARDIOVASCULAR: S1, S2 muffled. RESPIRATORY: Breath sounds diminished at the bases. Scattered rhonchi and crackles. ABDOMEN: Soft, nontender, no mass palpable. LEGS: No edema. No swelling. CENTRAL NERVOUS SYSTEM: Diffusely weak. LABS: WBC 7.7, hemoglobin 9.1. ASSESSMENT: 1. Congestive heart failure, acute exacerbation, with acute on chronic diastolic dysfunction, ejection fraction 50-60%. 2. Change in mental status secondary to metabolic encephalopathy. 3. History of dementia. 4. History of pneumonia. 5. Increased WBC. 6. Gait dysfunction. 7. History of anemia, normocytic. 8. Hypoalbuminemia with mild to moderate protein calorie malnutrition. 9. History of gastroesophageal reflux disease. 10. History of gastrointestinal bleed. 11. History of proctosigmoid colitis with gastrointestinal bleed. 12. paroxysmal atrial fibrillation rate controlled not a candidate for anticoagulation, prolonged. 13. Essential hypertension. 14. Hyperlipidemia. 15. History of degenerative joint disease. 16. History of hypothyroidism. 17. History of migraines. 18. History of trigeminal neuralgia. 19. History of glaucoma left. 20. History of peripheral vascular disease. 21. History of abdominal hernia. 22. History peptic ulcer disease. 23. History of incontinence. 24. History of osteoporosis. 25. History of peripheral neuropathy. 26. History of macular degeneration. 27. Gait dysfunction. 28. Anxiety, depression, not otherwise specified. 29. History of cholecystectomy. 30. History of left knee replacement. 31. Remote history of nicotine dependence. 32. FULL CODE. RECOMMENDATIONS AND DISCUSSION: In this 89 -year-old woman who presented with multiple complex medical issues, we will monitor the patient closely. Continue the current medications. Continue symptomatic treatment. Otherwise, continue with fluid and electrolytes balance closely. Otherwise, guarded prognosis because of multiple complex medical issues. Further recommendations to follow. Possible ECF rehab. [facility]
[2016-10-19] MEDS: LATANOPROST 0.005% OPHTH DROPS 2.5 ML BTL BOTH EYES SCH (20:46)
--- NOTE | 2016-10-19 21:50 | P.PN ---
Subjective This patient is a 89-year-old female who is being evaluated for worsening dementia and neuropathy. Patient is a poor historian but apparently has been residing at extended-care facility. She has multiple complex past medical problems and was admitted for further evaluation. She recently was treated for GI bleeding about 3 weeks ago. She has a history of paroxysmal atrial fibrillation but is not a candidate for long-term anticoagulation. She also has a history of underlying dementia. She is been complaining of pain in her legs which may be secondary to peripheral neuropathy as well as restless leg syndrome. We have given recommendations for treatment at this conditions. Patient has been residing at extended-care facility prior to her admission. When she is stabilized she will likely return there. She does continue to have symptoms suggesting mild restless leg syndrome. She is not a very good historian and the accuracy of her description of her leg pain and leg movement still not very clear. She is being treated for exacerbation of diastolic congestive heart failure. Her left ventricular systolic function reveals ejection fraction of 55-60 percent. She does have history of underlying dementia which remains stable at this time. She has been started on Requip for treatment of restless leg syndrome. We will need to monitor her response to this medication over the next few days. Patient is being considered for possible discharge to [facility] early next week. We will continue close neurological follow-up for this patient. Her overall prognosis at this time remains guarded. Objective - Vital Signs Vital signs: Vital Signs Temp 97.9 F 10/19/16 15:00 Pulse 73 10/19/16 15:00 Resp 19 10/19/16 15:00 BP 97/45 10/19/16 15:00 Pulse Ox 94 L 10/19/16 15:00 Intake & Output 10/19/16 10/19/16 10/20/16 06:59 18:59 06:59 Intake Total 150 Balance 150 Weight 53 kg Intake: Oral 150 Other: Voiding Method Indwelling Catheter Diaper # Voids 3 9 # Bowel Movements 2 1 - Exam Physical examination: PHYSICAL EXAMINATION: Patient is resting comfortably in bed. VITAL SIGNS: Blood pressure is [97/45]. Heart rate is [73]. Respiration is [19] . Temperature is [97.9]. HEENT: Head is atraumatic, neck is supple, there were no carotid bruits. CHEST: Lungs are clear to auscultation and percussion. CARDIAC: S1, S2 normal rate and rhythm. There is no murmur. ABDOMEN: Soft and nontender. Bowel sounds are present. EXTREMITIES: There is no pedal edema. Peripheral pulses are present. Neurological examination: Patient's neurological examination is unchanged from yesterday. - Labs CBC & Chem 7: 10/19/16 07:30 10/19/16 07:30 Labs: Abnormal Lab Results - Last 24 Hours (Table) 10/19/16 Range/Units 07:30 RBC 3.53 L (3.80-5.40) m/uL Hgb 9.1 L (11.4-16.0) gm/dL Hct 32.1 L (34.0-46.0) % MCHC 28.3 L (31.0-37.0) g/dL RDW 17.6 H (11.5-15.5) % Plt Count 481 H (150-450) k/uL Microbiology - Last 24 Hours (Table) 10/16/16 15:54 Blood Culture - Preliminary Blood No Growth after 72 hours Assessment and Plan (1) Acute encephalopathy Status: Acute Code(s): G93.40 - ENCEPHALOPATHY, UNSPECIFIED (2) Chronic a-fib Status: Acute Code(s): I48.2 - CHRONIC ATRIAL FIBRILLATION (3) Dementia Status: Acute Code(s): F03.90 - UNSPECIFIED DEMENTIA WITHOUT BEHAVIORAL DISTURBANCE (4) Gastrointestinal bleeding, lower Status: Acute Code(s): K92.2 - GASTROINTESTINAL HEMORRHAGE, UNSPECIFIED Plan: This patient is a 89-year-old female who is being evaluated for multiple complex medical issues. She is currently residing at a extended care facility and was admitted with altered mental status and leg pain. She has history of peripheral neuropathy. We would recommend increase her dose of Neurontin to 300 mg 3 times a day. She also has symptoms suggesting restless leg syndrome involving the lower extremities. We would recommend to begin a trial of low- dose Requip to see if she is responding. Patient has been started on low-dose Requip 0.25 mg at bedtime. We will need to monitor over the next few days to see her response. Patient will need to return to [facility] at the time of discharge. We will continue to follow her overall neurological status closely during this admission. Overall prognosis at this time remains very guarded.
[2016-10-20] MEDS: SODIUM CHLORIDE 0.9% 1,000 ML IV SCH ×2 (01:51→21:14)
[2016-10-20 08:58] LABS: Anisocytosis Slight; Basophils # (A) 0.1 k/uL (0-0.2); Basophils % (A) 1 %; CH 25.7; CHCM 28.5; Eosinophils # (A) 0.5 k/uL (0-0.7); Eosinophils % (A) 6 %; HCT 35.1 % (34.0-46.0); HDW 3.58; HGB 10.3 gm/dL (11.4-16.0); Hypochromasia Marked; Luc # (Auto) 0.35; Luc % (Auto) 4; Lymphocytes % (A) 11 %; MCH 26.6 pg (25.0-35.0); MCHC 29.4 g/dL (31.0-37.0); MCV 90.3 fL (80.0-100.0); Mean Platelet Volume 6.3; Monocytes % (A) 11 %; Neutrophils # (A) 5.9 k/uL (1.3-7.7); Neutrophils % (A) 67 %; Poikilocytosis Slight; RBC 3.89 m/uL (3.80-5.40); RDW 17.4 % (11.5-15.5); WBC 8.8 k/uL (3.8-10.6); WBC (Perox) 9.12
[2016-10-20 09:10] LABS: Anion Gap 11 mmol/L; Blood Urea Nitrogen 15 mg/dL (7-17); Calcium 9.2 mg/dL (8.4-10.2); Carbon Dioxide 28 mmol/L (22-30); Chloride 98 mmol/L (98-107); Glucose 88 mg/dL (74-99); Non-African American GFR(MDRD) >60 (>60 ml/min/1.73 sqM); Potassium 4.2 mmol/L (3.5-5.1); Sodium 137 mmol/L (137-145)
[2016-10-20] MEDS: POTASSIUM CHLORIDE ER 10 MEQ TAB.ER.PRT PO SCH (09:23)
[2016-10-20] MEDS: METOPROLOL SUCCINATE (ER) 25 MG TAB.ER.24H PO SCH ×2 (09:23→21:13)
[2016-10-20] MEDS: FUROSEMIDE 40 MG TAB PO SCH ×2 (09:23→17:05)
[2016-10-20] MEDS: FERROUS SULFATE 325 MG TAB PO SCH ×2 (09:23→21:13)
[2016-10-20] MEDS: DIGOXIN 125 MCG TAB PO SCH (09:23)
[2016-10-20] MEDS: ASPIRIN 81 MG CHEW PO SCH (09:24)
[2016-10-20] MEDS: BALSALAZIDE DISODIUM 750 MG CAPSULE PO SCH ×3 (09:24→17:05)
[2016-10-20] MEDS: PANTOPRAZOLE 40 MG TABLET PO SCH ×2 (09:24→17:05)
[2016-10-20] MEDS: DULoxetine HCL 30 MG CAPSULE.DR PO SCH (09:24)
[2016-10-20] MEDS: GABAPENTIN 300 MG CAP PO SCH ×2 (09:24→17:05)
[2016-10-20] MEDS: HEPARIN SODIUM,PORCINE 5,000 UNIT/ML 1 ML VIAL SQ SCH ×2 (09:24→21:13)
[2016-10-20] MEDS: ACETAMINOPHEN TAB 325 MG TAB PO PRN (09:37)
[2016-10-20] MEDS: oxyCODONE-APAP 5-325MG 1 EACH TAB PO PRN (12:51)
[2016-10-20] MEDS: LATANOPROST 0.005% OPHTH DROPS 2.5 ML BTL BOTH EYES SCH (21:13)
[2016-10-21] MEDS: oxyCODONE-APAP 5-325MG 1 EACH TAB PO PRN (00:12)
[2016-10-21 09:19] LABS: Anisocytosis Slight; Basophils # (A) 0.1 k/uL (0-0.2); Basophils % (A) 1 %; CHCM 29.2; Eosinophils # (A) 0.3 k/uL (0-0.7); Eosinophils % (A) 3 %; HDW 3.52; HGB 10.7 gm/dL (11.4-16.0); Hypochromasia Marked; Luc % (Auto) 3; Lymphocytes % (A) 9 %; MCH 27.2 pg (25.0-35.0); MCHC 30.5 g/dL (31.0-37.0); MCV 89.1 fL (80.0-100.0); Mean Platelet Volume 6.5; Monocytes # (A) 0.8 k/uL (0-1.0); Monocytes % (A) 7 %; Neutrophils # (A) 8.5 k/uL (1.3-7.7); Neutrophils % (A) 78 %; Poikilocytosis Slight; RBC 3.93 m/uL (3.80-5.40); RDW 17.3 % (11.5-15.5); WBC 10.9 k/uL (3.8-10.6); WBC (Perox) 11.39
[2016-10-21 09:39] LABS: Anion Gap 13 mmol/L; Blood Urea Nitrogen 21 mg/dL (7-17); Calcium 8.9 mg/dL (8.4-10.2); Carbon Dioxide 25 mmol/L (22-30); Chloride 97 mmol/L (98-107); Glucose 108 mg/dL (74-99); Non-African American GFR(MDRD) >60 (>60 ml/min/1.73 sqM); Potassium 4.4 mmol/L (3.5-5.1); Sodium 135 mmol/L (137-145)
[2016-10-21] MEDS: FERROUS SULFATE 325 MG TAB PO SCH ×2 (10:07→23:11)
[2016-10-21] MEDS: PANTOPRAZOLE 40 MG TABLET PO SCH ×2 (10:07→16:36)
[2016-10-21] MEDS: BALSALAZIDE DISODIUM 750 MG CAPSULE PO SCH ×3 (10:07→16:36)
[2016-10-21] MEDS: HEPARIN SODIUM,PORCINE 5,000 UNIT/ML 1 ML VIAL SQ SCH ×2 (10:07→23:11)
[2016-10-21] MEDS: METOPROLOL SUCCINATE (ER) 25 MG TAB.ER.24H PO SCH ×2 (10:08→23:11)
[2016-10-21] MEDS: GABAPENTIN 300 MG CAP PO SCH ×2 (10:08→16:36)
[2016-10-21] MEDS: DULoxetine HCL 30 MG CAPSULE.DR PO SCH (10:08)
[2016-10-21] MEDS: ASPIRIN 81 MG CHEW PO SCH (10:08)
[2016-10-21] MEDS: FUROSEMIDE 40 MG TAB PO SCH ×2 (10:08→16:36)
[2016-10-21] MEDS: DIGOXIN 125 MCG TAB PO SCH (10:08)
[2016-10-21] MEDS: POTASSIUM CHLORIDE ER 10 MEQ TAB.ER.PRT PO SCH (10:09)
--- NOTE | 2016-10-21 10:53 | PN ---
DATE OF SERVICE: 10/20/2016 PRESENTING COMPLAINT: Tired. INTERVAL HISTORY: This is a patient who presented with multiple problems including CHF exacerbation today. The patient actually ate diet rather well. Complaining of jumpy legs, in fact when I walked in right leg was shaking. She has restless leg syndrome. She also had metabolic encephalopathy, which is improved. Lying in bed otherwise comfortable. Review of systems done for constitutional, cardiovascular, GI, pulmonary; relevant findings as above. Current medications are reviewed. On examination, temperature 96.2, pulse 52, respiratory rate 14, blood pressure 98/52, pulse ox 94% on room air. GENERAL APPEARANCE: Lying in bed, comfortable, but jumpy right legs. EYES: Pupils equal. Conjunctivae pale. NECK: JVD not raised. Mass not palpable. RESPIRATORY: Effort normal. Lungs are slightly decreased breath sounds. CARDIOVASCULAR: First and second sounds normal. No edema. ABDOMEN: Soft, nontender. PSYCHIATRY: Answering simple questions. INVESTIGATIONS: White count 8.8, hemoglobin 10.3, potassium 4.2. ASSESSMENT: 1. Acute on chronic congestive heart failure from diastolic dysfunction, ejection fraction 50% to 60% from hypertensive heart disease. 2. Acute metabolic encephalopathy, improved. 3. Restless leg syndrome, uncontrolled. 4. Chronic proctosigmoid colitis. 5. Persistent atrial fibrillation, rate controlled. Not a candidate for anticoagulation. 6. Gastroesophageal reflux disease. 7. Hyperlipidemia. 8. Essential hypertension. 9. Primary osteoarthritis of multiple joints, bilaterally. 10. Peripheral artery disease. 11. Peptic ulcer disease. 12. Chronic urinary stress incontinence. 13. Peripheral neuropathy, cause unknown. 14. Depression, not otherwise specified. 15. CODE STATUS: DO NOT RESUSCITATE. PLAN: Patient is rather troubled by the restless leg syndrome. Will increase Requip to 1 mg p.o. t.i.d. and see how she does with that. Patient is tolerating a diet rather well otherwise. Continue other medications and treatment plan. Overall prognosis is guarded.
--- NOTE | 2016-10-21 17:06 | DS ---
DATE OF ADMISSION: 10/16/2016 DATE OF DISCHARGE: 10/21/2016 FINAL DIAGNOSIES: 1. Acute on chronic congestive heart failure exacerbation from diastolic dysfunction, ejection fraction 50% to 60%, from hypertensive heart disease. 2. Acute metabolic encephalopathy on presentation, improved. 3. Restless leg syndrome, uncontrolled. 4. Chronic proctosigmoid colitis. 5. Persistent atrial fibrillation, rate controlled. Not a candidate for anticoagulation. 6. Gastroesophageal reflux disease. 7. Hyperlipidemia. 8. Essential hypertension. 9. Primary osteoarthritis of multiple joints bilaterally. 10. Peripheral arterial disease. 11. Peptic ulcer disease. 12. Chronic urinary stress incontinence. 13. Peripheral neuropathy; cause unknown. 14. Depression not otherwise specified. 15. CODE STATUS: DO NOT RESUSCITATE. HOSPITAL COURSE: This patient presented with CHF exacerbation; responded well to diuretics. For uncontrolled restless leg syndrome, Requip dose was ( ). Much better controlled. Patient is tolerating a diet. On exam, abdomen is soft, non-tender. Patient is answering questions, comfortable lying flat. CONSULTATIONS: 1. Dr. Sandra Emanuel from Neurology. 2. [facility]. DISCHARGE MEDICATIONS: 1. Cymbalta 30 mg p.o. daily. 2. Neurontin 300 mg p.o. b.i.d. 3. Tylenol 650 mg p.o. q.4 p.r.n. 4. Colazal 2250 mg p.o. t.i.d. with meals. 5. Lidocaine 4% topically q.i.d. p.r.n. 6. Milk of Magnesia 2400 mg p.o. daily p.r.n. 7. Nystatin cream topically b.i.d. p.r.n. 8. Travatan Z 0.004% one drop to both eyes at bedtime. 9. Aspirin 81 mg p.o. daily. 10. Digoxin 125 mcg p.o. daily. 11. DuoNeb q.i.d. p.r.n. 12. Toprol XL 25 mg p.o. b.i.d. 13. Nitrostat 0.4 sublingually q.5 p.r.n. 14. Omeprazole 20 mg p.o. b.i.d. 15. Iron 325 mg p.o. b.i.d. 16. Lasix 40 mg p.o. daily. 17. Fleet Adult 133 mL rectally p.r.n. 18. Potassium 10 mEq p.o. daily. 19. Xanax 0.25 p.o. b.i.d. p.r.n. 20. Percocet 5 one tablet p.o. t.i.d. p.r.n. 21. Requip 0.75 p.o. t.i.d. DISPOSITION: [facility]. Follow up with Dr. Lopez on 10/22/16. Labs BMP in 3 days. Discharge planning more than 35 minutes.
--- NOTE | 2016-10-21 19:02 | P.PN ---
Subjective This patient is a 89-year-old female who is being evaluated for worsening dementia and neuropathy. Patient is a poor historian but apparently has been residing at extended-care facility. She has multiple complex past medical problems and was admitted for further evaluation. She recently was treated for GI bleeding about 3 weeks ago. She has a history of paroxysmal atrial fibrillation but is not a candidate for long-term anticoagulation. She also has a history of underlying dementia. She is been complaining of pain in her legs which may be secondary to peripheral neuropathy as well as restless leg syndrome. We have given recommendations for treatment at this conditions. Patient has been residing at extended-care facility prior to her admission. When she is stabilized she will likely return there. She does continue to have symptoms suggesting mild restless leg syndrome. She is not a very good historian and the accuracy of her description of her leg pain and leg movement still not very clear. She is being treated for exacerbation of diastolic congestive heart failure. Her left ventricular systolic function reveals ejection fraction of 55-60 percent. She does have history of underlying dementia which remains stable at this time. She has been started on Requip for treatment of restless leg syndrome. Her dose of Requip was increased yesterday to 1 mg 3 times a day. We will need to monitor her response to this higher dose. Patient is being considered for possible discharge to [facility] early next week. Patient apparently is being considered for discharge to [facility] possibly today if bed is available. We will continue close neurological follow-up for this patient. Her overall prognosis at this time remains guarded. Objective - Vital Signs Vital signs: Vital Signs Temp 97.2 F L 10/21/16 15:00 Pulse 109 H 10/21/16 15:00 Resp 16 10/21/16 15:36 BP 96/56 10/21/16 15:00 Pulse Ox 94 L 10/21/16 15:00 Intake & Output 10/20/16 10/21/16 10/21/16 18:59 06:59 18:59 Intake Total 160 Output Total 2 Balance 160 -2 Weight 47 kg Intake: IV 160 Sodium Chloride 0.9% 1, 160 000 ml @ 20 mls/hr IV . Q24H [facility] Rx#:[id number] Output: Stool 2 Other: Voiding Method Diaper Diaper Diaper # Voids 4 4 4 - Exam Physical examination: PHYSICAL EXAMINATION: Patient is resting comfortably in bed. VITAL SIGNS: Blood pressure is [96/56]. Heart rate is [109]. Respiration is [16] . Temperature is [97.2]. HEENT: Head is atraumatic, neck is supple, there were no carotid bruits. CHEST: Lungs are clear to auscultation and percussion. CARDIAC: S1, S2 normal rate and rhythm. There is no murmur. ABDOMEN: Soft and nontender. Bowel sounds are present. EXTREMITIES: There is no pedal edema. Peripheral pulses are present. Neurological examination: Patient's neurological examination is unchanged from yesterday. She continues to have symptoms of restless leg syndrome. - Labs CBC & Chem 7: 10/21/16 08:50 10/21/16 08:50 Labs: Abnormal Lab Results - Last 24 Hours (Table) 10/21/16 10/21/16 Range/Units 08:50 08:50 WBC 10.9 H (3.8-10.6) k/uL Hgb 10.7 L (11.4-16.0) gm/dL MCHC 30.5 L (31.0-37.0) g/dL RDW 17.3 H (11.5-15.5) % Plt Count 537 H (150-450) k/uL Neutrophils # 8.5 H (1.3-7.7) k/uL Sodium 135 L (137-145) mmol/L Chloride 97 L (98-107) mmol/L BUN 21 H (7-17) mg/dL Glucose 108 H (74-99) mg/dL Microbiology - Last 24 Hours (Table) 10/16/16 15:54 Blood Culture - Preliminary Blood No Growth after 120 hours Assessment and Plan (1) Acute encephalopathy Status: Acute Code(s): G93.40 - ENCEPHALOPATHY, UNSPECIFIED (2) Chronic a-fib Status: Acute Code(s): I48.2 - CHRONIC ATRIAL FIBRILLATION (3) Dementia Status: Acute Code(s): F03.90 - UNSPECIFIED DEMENTIA WITHOUT BEHAVIORAL DISTURBANCE (4) Gastrointestinal bleeding, lower Status: Acute Code(s): K92.2 - GASTROINTESTINAL HEMORRHAGE, UNSPECIFIED Plan: This patient is a 89-year-old female who is being evaluated for multiple complex medical issues. She is currently residing at a extended care facility and was admitted with altered mental status and leg pain. She has history of peripheral neuropathy. We would recommend increase her dose of Neurontin to 300 mg 3 times a day. She also has symptoms suggesting restless leg syndrome involving the lower extremities. We would recommend to begin a trial of low- dose Requip to see if she is responding. Patient has been started on low-dose Requip 0.25 mg at bedtime. Her dose was increased yesterday to 1 mg 3 times a day. She will need to be monitored at the [facility] for her response to this higher dose. She is being considered for possible discharge to [facility] today. We will need to monitor over the next few days to see her response. Patient for possible discharge to [facility] later today when bed becomes available. We will continue to follow her overall neurological status closely during this admission. Overall prognosis at this time remains very guarded.
[2016-10-21] MEDS: LATANOPROST 0.005% OPHTH DROPS 2.5 ML BTL BOTH EYES SCH (23:11)
[2016-10-22] MEDS: SODIUM CHLORIDE 0.9% 1,000 ML IV SCH (05:56)
[2016-10-22 07:28] VITALS: BP 103/68; PULSE 126; RESP 16; TEMP 97.2
[2016-10-22] MEDS: FUROSEMIDE 40 MG TAB PO SCH (09:15)
[2016-10-22] MEDS: PANTOPRAZOLE 40 MG TABLET PO SCH (09:15)
[2016-10-22] MEDS: BALSALAZIDE DISODIUM 750 MG CAPSULE PO SCH ×2 (09:15→12:30)
[2016-10-22] MEDS: METOPROLOL SUCCINATE (ER) 25 MG TAB.ER.24H PO SCH (09:15)
[2016-10-22] MEDS: POTASSIUM CHLORIDE ER 10 MEQ TAB.ER.PRT PO SCH (09:15)
[2016-10-22] MEDS: GABAPENTIN 300 MG CAP PO SCH (09:15)
[2016-10-22] MEDS: FERROUS SULFATE 325 MG TAB PO SCH (09:15)
[2016-10-22] MEDS: DIGOXIN 125 MCG TAB PO SCH (09:15)
[2016-10-22] MEDS: DULoxetine HCL 30 MG CAPSULE.DR PO SCH (09:16)
[2016-10-22] MEDS: HEPARIN SODIUM,PORCINE 5,000 UNIT/ML 1 ML VIAL SQ SCH (09:16)
[2016-10-22] MEDS: ASPIRIN 81 MG CHEW PO SCH (09:16)
[2016-10-22] MEDS: oxyCODONE-APAP 5-325MG 1 EACH TAB PO PRN (09:23)
== END 2016-10-22 12:59 | DRG 291 ==
LOC: EC 19:58 → 6SEL 10-16 00:45 → 4MS4W 10-18 09:56
PROVIDERS: ADMIT Hospitalist; ATTEND Hospitalist
DX: I11.0 Hypertensive heart disease with heart failure (principal); G93.41 Metabolic encephalopathy; E44.0 Moderate protein-calorie malnutrition; R64 Cachexia; I48.1 Persistent atrial fibrillation; I27.2 Other secondary pulmonary hypertension; F03.90 Unspecified dementia, unspecified severity, without behavioral disturbance, psychotic disturbance, mood disturbance, and anxiety; I48.0 Paroxysmal atrial fibrillation; G62.9 Polyneuropathy, unspecified; K27.9 Peptic ulcer, site unspecified, unspecified as acute or chronic, without hemorrhage or perforation; F32.9 Major depressive disorder, single episode, unspecified; E03.9 Hypothyroidism, unspecified; D64.9 Anemia, unspecified; I50.33 Acute on chronic diastolic (congestive) heart failure; E78.5 Hyperlipidemia, unspecified; F41.9 Anxiety disorder, unspecified; G25.81 Restless legs syndrome; G50.0 Trigeminal neuralgia; H35.30 Unspecified macular degeneration; H40.9 Unspecified glaucoma; I48.2 Chronic atrial fibrillation; I73.9 Peripheral vascular disease, unspecified; K21.9 Gastro-esophageal reflux disease without esophagitis; K46.9 Unspecified abdominal hernia without obstruction or gangrene; M15.9 Polyosteoarthritis, unspecified; M81.0 Age-related osteoporosis without current pathological fracture; N39.3 Stress incontinence (female) (male); Z66 Do not resuscitate; Z79.82 Long term (current) use of aspirin; Z79.899 Other long term (current) drug therapy; Z82.49 Family history of ischemic heart disease and other diseases of the circulatory system; Z85.828 Personal history of other malignant neoplasm of skin; Z87.01 Personal history of pneumonia (recurrent); Z87.891 Personal history of nicotine dependence; Z96.652 Presence of left artificial knee joint; K52.9 Noninfective gastroenteritis and colitis, unspecified
CPT/HCPCS: 36415; 71020; 72170; 80048; 80053; 81003; 82550; 82553; 83880; 84484; 85025; 85610; 85730; 86850; 86900; 86901; 86920; 87040; 87086; 93005; 96361; 96374; 99285